=== PATIENT | female | born 1970 | race Caucasian/White ===

== ENCOUNTER 2019-05-10 16:18 | Emergency (ER) | payer MEDICAID, SELFPAY | END 2019-05-10 18:58 | disposition home or self-care (01) | PROVIDERS: Family Provider Family Medicine | DX: G89.29 Other chronic pain (principal); R10.9 Unspecified abdominal pain; M54.9 Dorsalgia, unspecified; F11.10 Opioid abuse, uncomplicated; I11.0 Hypertensive heart disease with heart failure; I50.9 Heart failure, unspecified; J43.9 Emphysema, unspecified; E11.40 Type 2 diabetes mellitus with diabetic neuropathy, unspecified; E11.21 Type 2 diabetes mellitus with diabetic nephropathy; F17.210 Nicotine dependence, cigarettes, uncomplicated; Z86.711 Personal history of pulmonary embolism | CPT/HCPCS: 36415; 71045; 74176; 80053; 81003; 83690; 83880; 84703; 85025; 96361; 96374; 96375; 99285; J1885; J2405 ==

== ENCOUNTER 2019-05-21 15:40 | Emergency (ER) | payer MEDICAID, SELFPAY ==
[2019-05-21 15:42] VITALS: BP 160/99; PULSE 75; RESP 20; TEMP 36.6; O2SAT 96; BMI 42.9
--- NOTE | 2019-05-21 19:51 | W.ED.FEMALGU ---
HPI - Female Genitourinary General: Chief complaint: Urogenital-Female Stated complaint: poss vag bleeding Time Seen by Provider: 05/21/19 19:51 History of Present Illness: HPI Narrative: Patient is a 49-year-old female comes to the knee for bleeding. Patient unsure if vaginal or from urine. Patient has a past medical history of COPD, Hepatitis C and heart failure. This started today. Denies any vaginal itching, dryness, other discharge or irritation. Denies any constipation, diarrhea or blood in the stools. Denies any frequency, burning sensation or problems urinating. Patient says she does have some right lower pelvic pain that started within the last week. Patient has chronic cough and shortness of breath due to COPD. She denies any change in shortness of breath or cough. Denies any fever, chills, chest pain. Patient states she is past due for a Pap smear and was supposed to get one 2 years ago. Review of Systems General: Reports: 10 or more systems reviewed and unremarkable except in HPI and below PFSH ED PFSH: Statuses (acute, chronic, etc) shown below reflect problem list status as previously entered and may not be historically accurate Medical History Bipolar disorder, current episode mixed, severe, with psychotic features (Acute) Chronic hepatitis C without hepatic coma (Acute) Chronic hypercapnic respiratory failure (Acute) COPD (chronic obstructive pulmonary disease) (Acute) Diastolic CHF (Acute) Gastritis (Acute) History of pulmonary embolism (Acute) Iron deficiency anemia (Acute) Mitral valve insufficiency (Acute) Orthopnea (Acute) BINA (obstructive sleep apnea) (Acute) Family History Other CAD (coronary artery disease) Diabetes Social History Smoking and tobacco status: current every day smoker cigarettes Alcohol intake: former Year of sobriety/quit date alcohol: 3 Physical Exam Narrative: EXAM NARRATIVE: Patient denied getting a pelvic inspection and pap smear. She stated she would get it performed at referred inspector mechanical. Const: COMMON NORMALS: oriented x3 HENMT: COMMON NORMALS: normocephalic HEAD & SCALP: normocephalic MOUTH: oral and palatal mucosa normal THROAT: posterior oropharynx normal and uvula midline Neck/C-Spine: COMMON NORMALS: supple GENERAL: Yes normal visual inspection Resp: COMMON NORMALS: normal respiratory effort, no retractions, no use of accessory muscles and clear to auscultation bilaterally AUSCULTATION: clear to auscultation bilaterally and diminished lung sounds (Bases) bilateral Cardio: COMMON NORMALS: regular rate, regular rhythm, S1 normal heart sound, S2 normal heart sound, no gallops, no clicks, no murmurs and peripheral pulses 2+ throughout RATE: regular rate RHYTHM: regular rhythm HEART SOUNDS: S1 normal and S2 normal PERIPHERAL PULSES: pulses 2+ throughout GI: COMMON NORMALS: normal to inspection, nondistended, normoactive bowel sounds, soft to palpation and no masses INSPECTION: Yes central obesity PALPATION: Yes soft and Yes tender (Right Lower pelvic ) Details: other : COMMON NORMALS: Yes no CVA tenderness BLADDER/KIDNEY EXAM: Yes no CVA tenderness Back/Pelvis: COMMON NORMALS: no CVA tenderness Extremity: COMMON NORMALS: normal to inspection Neuro: COMMON NORMALS: oriented x3 Skin: COMMON NORMALS: no rashes or lesions noted GENERAL SKIN EXAM: no rashes or lesions noted Course ED course: Ultrasound of pelvis transvaginally performed and report shows mildly prominent endometrial stripe measuring 5.8 mm. The rest of the exam was unremarkable. Vital Signs: Vital signs: Vital Signs Temperature 98.3 F 05/21/19 21:37 Pulse Rate 74 05/22/19 00:16 Respiratory Rate 18 05/22/19 00:16 Blood Pressure 159/108 05/22/19 00:16 Pulse Oximetry 92 05/22/19 00:16 MDM - Female Lab Data: Attestation: I reviewed the patient's lab results. Labs: Lab Results 05/21/19 05/21/19 05/21/19 Range/Units 20:10 20:10 20:15 WBC 10.0 (4.0-10.0) 10^3/ uL RBC 4.91 (4.1-5.3) 10^6/u L Hgb 15.9 H (11.5-15.3) g/dL Hct 49.1 H (37.0-47.0) % MCV 100.0 H (81-99) fL MCH 32.4 (28.0-34.0) pg MCHC 32.4 (30.0-36.0) g/dL RDW 14.3 (12.1-15.1) % Plt Count 295 (130-400) 10^3/c mm MPV 10.5 H (7.4-10.4) fL Neut % (Auto) 70.5 % Lymph % (Auto) 16.9 % [place] % (Auto) 9.8 % Eos % (Auto) 1.0 % Baso % (Auto) 0.8 % Neut # (Auto) 7.0 (1.8-7.7) 10^3/u L Lymph # (Auto) 1.7 (0.8-4.8) 10^3/u L [place] # (Auto) 1.0 H (0.2-0.9) 10^3/u L Eos # (Auto) 0.1 (0.0-0.8) 10^3/u L Baso # (Auto) 0.1 (0.0-0.1) 10^3/u L Nucleated RBC % (a uto) 0 % Nucleated RBCs # 0.0 /100WBC Sodium 132 L (136-145) mmol/L Potassium 4.4 (3.5-5.1) mmol/L Chloride 91 L (98-107) mmol/L Carbon Dioxide 31 H (22-29) mmol/L Anion Gap 14.4 (5-19) BUN 27 H (6-20) mg/dL Creatinine 1.5 H (0.5-0.9) mg/dL GFR Calculation 36.9 L (90-130) mL/min Glucose 84 (74-109) mg/dL Calcium 10.2 H (8.6-10.0) mg/Dl Total Bilirubin 0.4 (0.15-1.2) mg/dL AST 29 (0-32) U/L ALT 19 (0-33) U/L Alkaline Phosphata se 207 H (35-105) IU/L Total Protein 7.8 (6.6-8.7) g/dL Albumin 4.1 (3.5-5.2) g/dL Globulin 3.7 (1.3-4.6) g/dL Urine Color Yellow (Yellow) Urine Appearance Cloudy (CLEAR) Urine pH 6 (5-7) Ur Specific Gravit y 1.010 (1.005-1.030) Urine Protein Neg (Negative) Urine Glucose (UA) Norm (Normal) Urine Ketones Negative (Negative) Urine Occult Blood 2+ H (Negative) Urine Nitrate Negative (Negative) Urine Bilirubin Neg (NEGATIVE) Urine Urobilinogen Norm (Negative) mg/dL Ur Leukocyte Luiza ase Negative (Negative) Urine RBC >100 H (0-2) /hpf Urine WBC 0-4 H (0-5) /hpf Ur Squamous Epith Cells 0-4 H (0-5) Urine Bacteria 1+ H (NONE) Discharge Plan Discharge Patient Disposition: Home, Self-Care Clinical Impression: Post-menopausal bleeding Condition: Stable Prescriptions: No Action gabapentin 300 mg capsule 300 mg PO TID RF: 0 albuterol sulfate 2.5 mg /3 mL (0.083 %) solution for nebulization 2.5 mg INHALATION Q4H PRNRF: 0 Eliquis 5 mg tablet 5 mg PO BID RF: 0 (DME) pen needle, diabetic [Comfort EZ Pen [place]] 32 gauge x 1/4 needle See Rx Instructions .ROUTE .MEDSUPPLY Qty: 50 RF: 0 albuterol sulfate [ProAir HFA] 90 mcg/actuation HFA aerosol inhaler 2 puff INHALATION Q6H PRNRF: 0 Combivent Respimat 20-100 mcg/actuation mist 2 puff INHALATION BID RF: 0 isosorbide mononitrate 30 mg tablet extended release 24 hr 30 mg PO QAM RF: 0 nitroglycerin [Nitrostat] 0.4 mg tablet, sublingual 0.4 mg SUBLINGUAL Q5M PRNRF: 0 potassium chloride 20 mEq tablet extended release 20 meq PO ONCE RF: 0 pantoprazole [Protonix] 40 mg tablet,delayed release (DR/EC) 40 mg PO ONCE RF: 0 prazosin 1 mg capsule 1 mg PO ONCE RF: 0 quetiapine [Seroquel] 300 mg tablet 300 mg PO ONCE RF: 0 acetaminophen [Tylenol] 325 mg capsule 325 mg PO Q6H PRNRF: 0 clonazepam [Klonopin] 0.5 mg tablet 0.5 mg PO BID RF: 0 duloxetine PO RF: 0 furosemide [Lasix] 40 mg tablet 60 mg PO DIRECTED RF: 0 azithromycin 250 mg tablet 250 mg PO ONCE RF: 0 budesonide [Pulmicort] 0.5 mg/2 mL suspension for nebulization 0.5 mg INHALATION BID RF: 0 ipratropium-albuterol 0.5 mg-3 mg(2.5 mg base)/3 mL solution for nebulization 3 ml INHALATION 6XD RF: 0 atenolol 50 mg tablet 50 mg PO BID RF: 0 Victoza 2-Bijan 0.6 mg/0.1 mL (18 mg/3 mL) pen injector 1.8 mg SUBCUT Q24H RF: 0 spironolactone 50 mg tablet 50 mg PO QAM RF: 0 Discharge Orders: Discharge Order (Routine); Ordered 05/21/19 Ordered By: Ike Ochoa Referrals: Liz Marcos DO [Primary Care Provider] - Discharge Diet: Regular Discharge Activity: Resume usual activity Activity Restrictions/Additional Instructions: Follow-up with her primary care provider in 7 days for reevaluation. I am putting in a referral to gynecology for you. Ultrasound results showed moderate thickening of endometrium measured at 5.88 mm. In [facility] inspector mechanical office should be calling you in the next few days to set up an appointment. Take [id number] Tylenol or ibuprofen as needed for pain. If bleeding worsens please come back to the ED for reevaluation. Discharge Date/Time: 05/22/19 00:17 Coding Level of Care Code ED Paediatric Physiotherapist for Abdiel Stone
--- NOTE | 2019-05-21 20:17 | USR_ITS ---
PROCEDURE INFORMATION: Exam: US Pelvis Complete, Transabdominal Exam date and time: 05/21/2019 9:03 PM Age: 49 years old Clinical indication: Other: Post menopausal b; Eeding p ain; Additional info: Vaginal bleeding and right pelvic pain TECHNIQUE: Imaging protocol: Real-time transabdominal pelvic ultrasound with image documentation. Complete exam. COMPARISON: CT Abdomen/Pelvis Renal [id number] 05/10/2019 5:48 PM FINDINGS: Uterus/cervix: Uterus measures 7.0 x 3.8 x 4.9 cm. The endometrial stripe measures 5.8 mm. Uterus is unremarkable in appearance. Right adnexa: The right ovary measures 1.6 x 1.4 x 1.7 cm. The ovary is unremarkable in appearance. Left adnexa: The left ovary is 1.4 x 1.6 x 1.2 cm. The ovary is unremarkable in appearance. Free fluid: No free fluid in the cul-de-sac. Bladder: Normal. Other findings: No adnexal mass or fluid collection. US/US transvaginal [id number] IMPRESSION: Mildly prominent endometrial stripe. Otherwise unremarkable exam.
[2019-05-21 20:18] LABS: Basophils # 0.1 10^3/uL (0.0-0.1); Basophils % 0.8 %; Eosinophils # 0.1 10^3/uL (0.0-0.8); Hematocrit 49.1 % (37.0-47.0); Hemoglobin 15.9 g/dL (11.5-15.3); Lymphocytes # 1.7 10^3/uL (0.8-4.8); Lymphocytes % 16.9 %; Mean Corpuscular HGB Conc 32.4 g/dL (30.0-36.0); Mean Corpuscular Hemoglobin 32.4 pg (28.0-34.0); Mean Platelet Volume 10.5 fL (7.4-10.4); Monocytes % 9.8 %; Neutrophils % 70.5 %; Nucleated Red Blood Cells % 0 %; Platelet Count 295 10^3/cmm (130-400); Red Blood Count 4.91 10^6/uL (4.1-5.3); Red Cell Distribution Width 14.3 % (12.1-15.1)
[2019-05-21] MEDS: ondansetron 2 mg/ML SDV 2 mL 4 MG IM (20:34)
[2019-05-21 20:35] VITALS: RESP 18; O2SAT 96
[2019-05-21] MEDS: morphine 4 mg/mL SDV 1 mL IM (20:35)
[2019-05-21 20:37] LABS: Alanine Aminotransferase 19 U/L (0-33); Albumin Level 4.1 g/dL (3.5-5.2); Alkaline Phosphatase 207 IU/L (35-105); Anion Gap 14.4 (5-19); Aspartate Amino Transferase 29 U/L (0-32); Blood Urea Nitrogen 27 mg/dL (6-20); Calcium 10.2 mg/Dl (8.6-10.0); Carbon Dioxide 31 mmol/L (22-29); Chloride 91 mmol/L (98-107); Globulin 3.7 g/dL (1.3-4.6); Glomerular Filtration Rate 36.9 mL/min (90-130); Glucose 84 mg/dL (74-109); Potassium 4.4 mmol/L (3.5-5.1); Sodium 132 mmol/L (136-145); Total Bilirubin 0.4 mg/dL (0.15-1.2); Total Protein 7.8 g/dL (6.6-8.7)
[2019-05-21 21:16] LABS: Add Urine Microscopic? YES; Bilirubin Urine Neg (NEGATIVE); Blood Urine 2+ (Negative); Glucose Urine UA Norm (Normal); Ketones Urine Negative (Negative); Leukocyte Esterase Urine Negative (Negative); Nitrate Urine Negative (Negative); Protein Urine Neg (Negative); Urine Appearance Cloudy (CLEAR); Urine Color Yellow (Yellow); Urobilinogen Urine Norm (Negative); pH Urine 6 (5-7)
[2019-05-21 21:17] LABS: Add Urine Culture? Yes; Bacteria Urine 1+; RBC Urine >100 /hpf (0-2); Squamous Epithelial Cell Urine 0-4 (0-5); WBC Urine 0-4 /hpf (0-5)
[2019-05-21 21:37] VITALS: BP 134/93; PULSE 70; RESP 16; TEMP 36.8; O2SAT 95
--- NOTE | 2019-05-22 00:01 | PC.NURSE ---
States she is ready to go home
[2019-05-22 00:10] VITALS: RESP 18
[2019-05-22] MEDS: morphine 4 mg/mL SDV 1 mL IM (00:10)
[2019-05-22 00:16] VITALS: BP 159/108; PULSE 74; RESP 18; O2SAT 92
--- NOTE | 2019-05-24 10:00 | DCPLANNER ---
janitorial manager had message to schedule a follow up appointment for [facility] with [facility]. Guillermo mullins called the clinic, spoke with Allie, gave clinic patients information. janitorial manager was told that patients information would be printed and reviewed. Clinic will call rn field case manager and patient with appointment information.
--- NOTE | 2019-05-25 14:44 | DCPLANNER ---
A follow up appointment has been scheduled for July with Dr. Chowdary at [facility]. Clinic will contact patient with appointment information.
--- NOTE | 2019-08-06 09:16 | DCPLANNER ---
[facility]ointment [facility] rescheduled.
== END 2019-05-22 00:17 | disposition home or self-care (01) ==
PROVIDERS: Emergency Provider Physician Assistant; Family Provider Family Medicine; PCP Family Medicine
DX: N95.0 Postmenopausal bleeding (principal); Z79.01 Long term (current) use of anticoagulants; Z86.19 Personal history of other infectious and parasitic diseases; J44.9 Chronic obstructive pulmonary disease, unspecified; I50.30 Unspecified diastolic (congestive) heart failure; F17.210 Nicotine dependence, cigarettes, uncomplicated
CPT/HCPCS: 76830; 76856; 80053; 81003; 85025; 87086; 96372; 99282; J2270; J2405

== ENCOUNTER → 2019-05-24 15:50 | Outpatient (BNVA) | payer MEDICAID, SELFPAY | PROVIDERS: Family Provider Family Medicine; PCP Family Medicine; Visit Provider Family Medicine | DX: J44.9 Chronic obstructive pulmonary disease, unspecified (principal); N18.3 Chronic kidney disease, stage 3 (moderate); F17.219 Nicotine dependence, cigarettes, with unspecified nicotine-induced disorders; N95.0 Postmenopausal bleeding | CPT/HCPCS: 80048 ==

== ENCOUNTER 2019-05-25 18:36 | Emergency (ER) | payer MEDICAID, SELFPAY ==
[2019-05-25 19:19] VITALS: BP 177/113; PULSE 88; RESP 24; O2SAT 94; BMI 43.7
--- NOTE | 2019-05-25 19:43 | W.ED.GENADLT ---
HPI - General Adult General: Chief complaint: Abdominal Pain Stated complaint: NAUSEA/LOW BACK PAIN Time Seen by Provider: 05/25/19 19:29 History of Present Illness: HPI narrative: Patient complains of leg pain from hips down the thighs. Complains of abdominal pain. Did see Dr. Beltran yesterday. Dr. Beltran she said told her that she is one-point away from dialysis. Patient does have appointment with TECHNOLOGY SALES REPRESENTATIVE to evaluate her bleeding. She says her bleeding is really not that bad. Were concerned about the leg pain. Has a history of back pain degenerative disc disease also. MD complaint: leg and back pain Onset (ago): hour(s) Location: back and lower extremity Radiation: back and extremity Severity: severe Severity scale (1-10): 7 Quality: burning PFSH ED PFSH: Statuses (acute, chronic, etc) shown below reflect problem list status as previously entered and may not be historically accurate Social History Smoking and tobacco status: current every day smoker cigarettes Alcohol intake: former Year of sobriety/quit date alcohol: 3 Course Vital Signs: Vital signs: Vital Signs Pulse Rate 88 05/25/19 19:19 Respiratory Rate 16 05/25/19 21:08 Blood Pressure 177/113 05/25/19 19:19 Pulse Oximetry 95 05/25/19 21:08 MDM - General Adult MDM Narrative: Medical decision making narrative: Patient is feeling much better than when he further testing says she is ready to go home we will follow-up Dr. Beltran as directed Lab Data: Labs: Lab Results 05/25/19 05/25/19 Range/Units 19:49 19:49 WBC 10.6 H (4.0-10.0) 10^3/ uL RBC 5.04 (4.1-5.3) 10^6/u L Hgb 16.3 H (11.5-15.3) g/dL Hct 49.5 H (37.0-47.0) % MCV 98.2 (81-99) fL MCH 32.3 (28.0-34.0) pg MCHC 32.9 (30.0-36.0) g/dL RDW 14.0 (12.1-15.1) % Plt Count 305 (130-400) 10^3/c mm MPV 11.1 H (7.4-10.4) fL Neut % (Auto) 76.5 % Lymph % (Auto) 13.1 % [place] % (Auto) 8.6 % Eos % (Auto) 0.6 % Baso % (Auto) 0.6 % Neut # (Auto) 8.2 H (1.8-7.7) 10^3/u L Lymph # (Auto) 1.4 (0.8-4.8) 10^3/u L [place] # (Auto) 0.9 (0.2-0.9) 10^3/u L Eos # (Auto) 0.1 (0.0-0.8) 10^3/u L Baso # (Auto) 0.1 (0.0-0.1) 10^3/u L Nucleated RBC % (a uto) 0 % Nucleated RBCs # 0.0 /100WBC Sodium 136 (136-145) mmol/L Potassium 4.0 (3.5-5.1) mmol/L Chloride 92 L (98-107) mmol/L Carbon Dioxide 29 (22-29) mmol/L Anion Gap 19.0 (5-19) BUN 21 H (6-20) mg/dL Creatinine 1.8 H (0.5-0.9) mg/dL GFR Calculation 29.9 L (90-130) mL/min Glucose 81 (74-109) mg/dL Calcium 10.8 H (8.6-10.0) mg/Dl Total Bilirubin 0.8 (0.15-1.2) mg/dL AST 32 (0-32) U/L ALT 19 (0-33) U/L Alkaline Phosphata se 206 H (35-105) IU/L Total Protein 8.3 (6.6-8.7) g/dL Albumin 4.5 (3.5-5.2) g/dL Globulin 3.8 (1.3-4.6) g/dL Lipase 45 (13-60) U/L Discharge Plan Discharge Patient Disposition: Home, Self-Care Clinical Impression: Gastroenteritis Condition: Stable Prescriptions: No Action potassium chloride 20 mEq tablet extended release 20 meq PO ONCE RF: 0 albuterol sulfate 2.5 mg /3 mL (0.083 %) solution for nebulization 2.5 mg INHALATION Q4H PRNRF: 0 (DME) pen needle, diabetic [Comfort EZ Pen [place]] 32 gauge x 1/4 needle See Rx Instructions .ROUTE .MEDSUPPLY Qty: 50 RF: 0 albuterol sulfate [ProAir HFA] 90 mcg/actuation HFA aerosol inhaler 2 puff INHALATION Q6H PRNRF: 0 isosorbide mononitrate 30 mg tablet extended release 24 hr 30 mg PO QAM RF: 0 nitroglycerin [Nitrostat] 0.4 mg tablet, sublingual 0.4 mg SUBLINGUAL Q5M PRNRF: 0 potassium chloride 20 mEq tablet extended release 20 meq PO ONCE RF: 0 pantoprazole [Protonix] 40 mg tablet,delayed release (DR/EC) 40 mg PO ONCE RF: 0 prazosin 1 mg capsule 1 mg PO ONCE RF: 0 quetiapine [Seroquel] 300 mg tablet 300 mg PO ONCE RF: 0 acetaminophen [Tylenol] 325 mg capsule 325 mg PO Q6H PRNRF: 0 clonazepam [Klonopin] 0.5 mg tablet 0.5 mg PO BID RF: 0 duloxetine PO RF: 0 azithromycin 250 mg tablet 250 mg PO ONCE RF: 0 budesonide [Pulmicort] 0.5 mg/2 mL suspension for nebulization 0.5 mg INHALATION BID RF: 0 ipratropium-albuterol 0.5 mg-3 mg(2.5 mg base)/3 mL solution for nebulization 3 ml INHALATION 6XD RF: 0 furosemide [Lasix] 40 mg tablet 80 mg PO DIRECTED RF: 0 atenolol 50 mg tablet 50 mg PO BID RF: 0 Victoza 2-Bijan 0.6 mg/0.1 mL (18 mg/3 mL) pen injector 1.8 mg SUBCUT Q24H RF: 0 spironolactone 50 mg tablet 50 mg PO QAM RF: 0 gabapentin 300 mg capsule 300 mg PO TID Qty: 90 RF: 0 Eliquis 5 mg tablet 5 mg PO BID Qty: 60 RF: 0 Discharge Orders: Discharge Order (Routine); Ordered 05/25/19 Ordered By: Jose Ramon Langley Referrals: Liz Marcos DO [Primary Care Provider] - Discharge Diet: Advance as tolerated Discharge Activity: Increase activity as tolerated Patient Instructions: Gastroenteritis (ED) Activity Restrictions/Additional Instructions: Follow-up with medical provider as directed. Take medications as prescribed. Return to the ER or your medical provider if condition worsens. Read and understand discharge instructions. Coding Level of Care Code ED Honest [employer] Crew Member for Abdiel Stone
[2019-05-25] MEDS: HYDROcodone-acetaminophen 7.5-325 mg Tablet 1 TAB PO (20:04)
[2019-05-25 20:13] LABS: Basophils # 0.1 10^3/uL (0.0-0.1); Basophils % 0.6 %; Eosinophils # 0.1 10^3/uL (0.0-0.8); Eosinophils % 0.6 %; Hematocrit 49.5 % (37.0-47.0); Hemoglobin 16.3 g/dL (11.5-15.3); Lymphocytes # 1.4 10^3/uL (0.8-4.8); Lymphocytes % 13.1 %; Mean Corpuscular HGB Conc 32.9 g/dL (30.0-36.0); Mean Corpuscular Hemoglobin 32.3 pg (28.0-34.0); Mean Corpuscular Volume 98.2 fL (81-99); Mean Platelet Volume 11.1 fL (7.4-10.4); Monocytes # 0.9 10^3/uL (0.2-0.9); Monocytes % 8.6 %; Neutrophils # 8.2 10^3/uL (1.8-7.7); Neutrophils % 76.5 %; Nucleated Red Blood Cells % 0 %; Platelet Count 305 10^3/cmm (130-400); Red Blood Count 5.04 10^6/uL (4.1-5.3); White Blood Count 10.6 10^3/uL (4.0-10.0)
[2019-05-25 20:29] LABS: Alanine Aminotransferase 19 U/L (0-33); Albumin Level 4.5 g/dL (3.5-5.2); Alkaline Phosphatase 206 IU/L (35-105); Aspartate Amino Transferase 32 U/L (0-32); Blood Urea Nitrogen 21 mg/dL (6-20); Calcium 10.8 mg/Dl (8.6-10.0); Carbon Dioxide 29 mmol/L (22-29); Chloride 92 mmol/L (98-107); Globulin 3.8 g/dL (1.3-4.6); Glomerular Filtration Rate 29.9 mL/min (90-130); Glucose 81 mg/dL (74-109); Lipase 45 U/L (13-60); Sodium 136 mmol/L (136-145); Total Bilirubin 0.8 mg/dL (0.15-1.2); Total Protein 8.3 g/dL (6.6-8.7)
[2019-05-25 21:08] VITALS: RESP 16; O2SAT 95
[2019-05-25] MEDS: ondansetron 2 mg/ML SDV 2 mL 4 MG IM (21:08)
[2019-05-25] MEDS: morphine 4 mg/mL SDV 1 mL IM (21:08)
[2019-05-26 00:06] VITALS: BP 162/97; PULSE 79; RESP 18; O2SAT 97
== END 2019-05-25 22:47 | disposition home or self-care (01) ==
PROVIDERS: Nurse Practitioner Family; Emergency Provider Emergency Medicine; Family Provider Family Medicine; PCP Family Medicine
DX: K52.9 Noninfective gastroenteritis and colitis, unspecified (principal); Z79.01 Long term (current) use of anticoagulants; F17.210 Nicotine dependence, cigarettes, uncomplicated
CPT/HCPCS: 36415; 80053; 83690; 85025; 96372; 99281; J2270; J2405

== ENCOUNTER → 2019-06-22 15:00 | Outpatient (BNVA) | payer MEDICAID, SELFPAY | PROVIDERS: Family Provider Family Medicine; PCP Family Medicine; Visit Provider Nurse Practitioner | DX: F31.62 Bipolar disorder, current episode mixed, moderate (principal); F43.12 Post-traumatic stress disorder, chronic; F41.0 Panic disorder [episodic paroxysmal anxiety] | CPT/HCPCS: 99213 ==

== ENCOUNTER 2019-06-27 16:11 | Emergency (ER) | payer MEDICAID, SELFPAY ==
[2019-06-27 16:17] VITALS: BP 134/102; PULSE 85; RESP 18; TEMP 36.9; O2SAT 96; BMI 44.6
--- NOTE | 2019-06-27 16:32 | ED_ITS ---
Entered by Mehnaz Treadwell, acting as scribe for Jazz Schuster MD, [facility] Jun 27, 2019 16:11 HPI - Back Pain/Injury General: Chief Complaint: Back Pain/Injury Stated Complaint: Hip pain Time Seen by Provider: 06/27/19 16:31 Source: patient, family and RN notes reviewed Mode of arrival: ambulatory Limitations: no limitations History of Present Illness: HPI Narrative: 49 yo female presents to ED with complaints of R hip hurt. The patient states there is something wrong with her hip, that she can hardly stand or walk on it. She said she knows it is not life threatening and she shouldn't be in the ER but she just can't handle the pain anymore. No burning with urination. She said she has taken Tylenol along with alternating ice and heat but has had no relief. She said it feels her hip is grinding when she walks. MD elicited complaint: other (R hip pain) Pertinent past history: prior back pain Onset (ago): week(s) (3) Timing: intermittent and progressively worsening Severity: moderate Similar Symptoms Previously: Yes Quality: sharp Location: right lower back (R hip) Radiation: right upper leg Exacerbating factors: movement Relieving factors: immobilization and medication Context: unknown Associated symptoms: Reports difficulty walking; Deny abdominal pain, chills, dysuria, fever(s), nausea, urinary urgency or vomiting Treatments prior to arrival: cold therapy, heat therapy and acetaminophen Work related injury: No Review of Systems General: Reports: 10 or more systems reviewed and unremarkable except in HPI and below Const: Denies: fever, chills or body aches Eyes: Reports: blind spots; Denies: change in vision or blurry vision ENMT: Denies: throat pain, enlarged tonsils, painful swallowing, hoarseness, mouth pain or swelling of lips/tongue Card: Reports: chest pain; Denies: palpitations, irregular heart rhythm, edema or swelling of feet/ankles Resp: Denies: shortness of breath, productive cough or non-productive cough GI: Denies: abdominal pain, nausea or vomiting : Denies: flank pain, difficulty urinating, painful urination, urinary frequency, urinary urgency or urinary hesitancy Musc: Denies: neck pain, back pain or extremity swelling Skin/Breast: Denies: rash, itching or redness Neuro: Reports: difficulty walking Endo: Denies: excessive urination, excessive thirst or tired all the time PFSH ED PFSH: Medical History (Updated 06/27/19 @ 19:06 by Jazz Schuster MD, [facility] Bipolar disorder, current episode mixed, moderate Bipolar disorder, current episode mixed, severe, with psychotic features Chronic hepatitis C without hepatic coma Chronic hypercapnic respiratory failure Chronic kidney disease (CKD), stage III (moderate) Diastolic CHF Gastritis History of pulmonary embolism Iron deficiency anemia Mitral valve insufficiency Orthopnea BINA (obstructive sleep apnea) Other stimulant dependence, in remission Panic disorder [episodic paroxysmal anxiety] Post-traumatic stress disorder, chronic Severe chronic obstructive pulmonary disease Surgical History H/O section H/O foot surgery H/O knee surgery H/O neck surgery H/O tracheostomy Social History (Updated 06/22/19 @ 15:11 by Georgia Baca LPN) Smoking and tobacco status: current every day smoker cigarettes Packs smoked per day: 1 Smoking risk assessment/counseling performed?: Yes Tobacco counseling given: counseling >3 minutes Alcohol intake: former Year of sobriety/quit date alcohol: 3 Physical Exam Const: COMMON NORMALS: no apparent distress, average body habitus, oriented x3, no limitations, healthy appearing, alert and well nourished HENMT: COMMON NORMALS: normocephalic, head/scalp atraumatic and moist oral mucous membranes HEAD & SCALP: normocephalic and atraumatic Eye: COMMON NORMALS: PERRL, EOMs intact bilaterally, conjunctivae normal and no scleral icterus CONJUNCTIVA: Yes conjunctivae normal PUPIL: Yes PERRL Neck/C-Spine: COMMON NORMALS: full ROM, supple, no meningeal signs, no JVD and no carotid bruits Chest: COMMONS NORMALS: inspection of chest normal and palpation of chest normal Resp: COMMON NORMALS: normal respiratory effort, no retractions, no use of accessory muscles, clear to auscultation bilaterally and percussion normal AUSCULTATION: clear to auscultation bilaterally PERCUSSION: percussion normal Cardio: COMMON NORMALS: no JVD, regular rate, regular rhythm, S1 normal heart sound, S2 normal heart sound, no gallops, no clicks, no murmurs, no rub and peripheral pulses 2+ throughout RATE: regular rate RHYTHM: regular rhythm HEART SOUNDS: S1 normal and S2 normal PERIPHERAL PULSES: pulses 2+ throughout GI: COMMON NORMALS: normal to inspection, nondistended, normoactive bowel sounds, soft to palpation, non-tender, no hepatosplenomegaly, no masses and no bruits PALPATION: Yes soft and Yes no hepatosplenomegaly : COMMON NORMALS: Yes no CVA tenderness BLADDER/KIDNEY EXAM: Yes no CVA tenderness Back/Pelvis: COMMON NORMALS: no CVA tenderness Extremity: COMMON NORMALS: normal to inspection, normal capillary refill, no calf tenderness and no pedal edema RIGHT LOWER EXTREMITY: Yes hip joint Right hip: Yes palpation (mild tenderness in the hip joint and SI joint) and Yes upper leg Neuro: COMMON NORMALS: oriented x3 SENSORIUM/ORIENTATION: Yes alert MENINGEAL SIGNS: Yes no meningeal signs Skin: COMMON NORMALS: no rashes or lesions noted, no wounds, skin turgor normal, no jaundice, no petechiae and no mottling GENERAL SKIN EXAM: no rashes or lesions noted and turgor normal Course Reevaluation(s): Reevaluation #1: Pain much better. She feels well enough for discharge. Discussed her imaging findings with her. She may benefit from evaluation by an orthopedic surgeon. She voiced understanding and is in agreement with the plan. We will put in a referral to case management to schedule an appointment with orthopedic surgery. Time: 18:30 Vital Signs: Vital signs: Vital Signs Temperature 98.5 F 06/27/19 16:17 Pulse Rate 73 06/27/19 19:23 Respiratory Rate 16 06/27/19 19:23 Blood Pressure 111/82 06/27/19 19:23 Pulse Oximetry 94 06/27/19 19:23 MDM - Back Pain/Injury MDM Narrative: Medical decision making narrative: 49-year-old female patient who presents with right hip pain. Examination is unremarkable. Hip x-ray unremarkable. Obtained relief following intramuscular morphine and Norflex. She will be referred to orthopedic surgery for further evaluation. Medical Records: Attestation: I reviewed the patient's medical records. Lab Data: Attestation: I reviewed the patient's lab results. Labs: Lab Results 06/27/19 Range/Units 17:30 Urine Color Yellow (Yellow) Urine Appearance Sl hazy (CLEAR) Urine pH 7 (5-7) Ur Specific Gravit y 1.005 (1.005-1.030) Urine Protein Neg (Negative) Urine Glucose (UA) Norm (Normal) Urine Ketones Negative (Negative) Urine Occult Blood Neg (Negative) Urine Nitrate Negative (Negative) Urine Bilirubin Neg (NEGATIVE) Urine Urobilinogen Norm (Negative) mg/dL Ur Leukocyte Luiza ase Negative (Negative) Urine RBC None (0-2) /hpf Urine WBC None (0-5) /hpf Ur Squamous Epith Cells 10-15 H (0-5) Urine Bacteria Trace (NONE) Urine Mucus Trace Discharge Plan Discharge Patient Disposition: Home, Self-Care Clinical Impression: Acute pain of right hip Condition: Stable Prescriptions: Continued clonazepam 1 mg tablet 1 mg PO BID PRN (Reason: anxiety) Qty: 60 RF: 2 duloxetine [Cymbalta] 60 mg capsule,delayed release(DR/EC) 60 mg PO DAILY Qty: 30 RF: 2 albuterol sulfate 2.5 mg /3 mL (0.083 %) solution for nebulization 2.5 mg INHALATION Q4H PRN (Reason: Shortness Of Breath) RF: 0 albuterol sulfate [ProAir HFA] 90 mcg/actuation HFA aerosol inhaler 2 puff INHALATION Q6H PRN (Reason: Shortness Of Breath) RF: 0 isosorbide mononitrate 30 mg tablet extended release 24 hr 30 mg PO QAM RF: 0 nitroglycerin [Nitrostat] 0.4 mg tablet, sublingual 0.4 mg SUBLINGUAL Q5M PRN (Reason: Chest Pain) RF: 0 potassium chloride 20 mEq tablet extended release 20 meq PO DAILY RF: 0 pantoprazole [Protonix] 40 mg tablet,delayed release (DR/EC) 40 mg PO BID RF: 0 acetaminophen [Tylenol] 325 mg capsule 325 mg PO Q6H PRN (Reason: Pain) RF: 0 azithromycin 250 mg tablet 250 mg PO DAILY RF: 0 budesonide [Pulmicort] 0.5 mg/2 mL suspension for nebulization 0.5 mg INHALATION BID RF: 0 ipratropium-albuterol 0.5 mg-3 mg(2.5 mg base)/3 mL solution for nebulization 3 ml INHALATION 6XD RF: 0 Victoza 2-Bijan 0.6 mg/0.1 mL (18 mg/3 mL) pen injector 1.8 mg SUBCUT Q24H Qty: 6 RF: 0 atenolol 50 mg tablet 50 mg PO BID Qty: 60 RF: 0 spironolactone 50 mg tablet 50 mg PO QAM Qty: 30 RF: 0 gabapentin 300 mg capsule 300 mg PO TID Qty: 90 RF: 0 Eliquis 5 mg tablet 5 mg PO BID Qty: 60 RF: 0 Lasix 40 mg tablet See Rx Instructions .ROUTE .COMPLEX RF: 0 prazosin 1 mg capsule 1 mg PO BEDTIME RF: 0 Seroquel XR 300 mg tablet extended release 24 hr 300 mg PO BEDTIME RF: 0 Discharge Orders: Discharge Order (Routine); Ordered 06/27/19 Ordered By: Jazz Schuster Referrals: Liz Marcos DO [Primary Care Provider] - 4-7 days Patient Instructions: Arthralgia (ED) Activity Restrictions/Additional Instructions: Return for any new or worsening symptoms. Follow-up with your primary care provider within 1 week. You will be contacted by case management for referral to orthopedic surgery for further evaluation of your hip pain. Discharge Date/Time: 06/27/19 19:25 Coding Level of Care Code ED Latex Thread Machine Operator for Chg Fwd Exam Comprehensive The documentation recorded by the Mile ernandez Valerie R, accurately reflects the service I personally performed and the decisions made by Landen nunez Adegoke I, MD, [facility] Jun 27, 2019 16:11
--- NOTE | 2019-06-27 16:45 | XR_ITS ---
WS: [id number] XR hip RT 2-3V wo/w pel* [id number] REASON FOR EXAM: hip pain/ SI joint pain FINDINGS: Degenerate changes of the right hip with small cystic changes in the head of the femur. And loss of the acetabular space. XR/XR hip RT 2-3V wo/w pel* [id number] IMPRESSION: Osteoarthritic changes of the right hip.
[2019-06-27] MEDS: orphenadrine 30 mg/mL Inj 2 mL 60 MG IM (17:37)
[2019-06-27 17:59] VITALS: RESP 18
[2019-06-27] MEDS: morphine 4 mg/mL SDV 1 mL 10 MG IM (17:59)
[2019-06-27 18:05] LABS: Add Urine Microscopic? YES; Bilirubin Urine Neg (NEGATIVE); Blood Urine Neg (Negative); Glucose Urine UA Norm (Normal); Ketones Urine Negative (Negative); Leukocyte Esterase Urine Negative (Negative); Nitrate Urine Negative (Negative); Protein Urine Neg (Negative); Specific Gravity, Urine 1.005 (1.005-1.030); Urine Appearance SL Hazy (CLEAR); Urine Color Yellow (Yellow); Urobilinogen Urine Norm (Negative); pH Urine 7 (5-7)
[2019-06-27 18:06] LABS: Bacteria Urine TRACE; Mucus Urine TRACE
--- NOTE | 2019-06-27 19:03 | PC.NURSE ---
Report received from MEEK Underwood and care transferred to MEEK Avelar
[2019-06-27 19:05] VITALS: BP 109/84; PULSE 77; RESP 16; O2SAT 95
[2019-06-27 19:23] VITALS: BP 111/82; PULSE 73; RESP 16; O2SAT 94
--- NOTE | 2019-06-29 13:40 | DCPLANNER ---
water resource project manager had message to schedule a follow up appointment for patient with ortho. water resource project manager called the ortho clinic, spoke with Pat, gave clinic patients information. water resource project manager was told that patients information would be printed and reviewed. Clinic will call classification case manager and patient with appointment information.
--- NOTE | 2019-07-01 11:02 | DCPLANNER ---
Patient has an appointment scheduled for Friday, July 05, 2019 at 1:[address] Olguin. Patient is aware of appointment.
== END 2019-06-27 19:25 | disposition home or self-care (01) ==
PROVIDERS: Emergency Provider Family Medicine; Family Provider Family Medicine; PCP Family Medicine
DX: M25.551 Pain in right hip (principal); N18.3 Chronic kidney disease, stage 3 (moderate); I50.30 Unspecified diastolic (congestive) heart failure; J44.9 Chronic obstructive pulmonary disease, unspecified; F17.210 Nicotine dependence, cigarettes, uncomplicated
CPT/HCPCS: 73502; 81001; 96372; 99281; 99283; A9270; J2270; J2360

== ENCOUNTER 2019-06-27 16:11 | Emergency (ER) | payer MEDICAID, SELFPAY ==
--- NOTE | 2019-07-13 14:51 | DCPLANNER ---
Patient did attend appointment scheduled for 07.05.19 with ortho.
== END 2019-06-27 19:25 | disposition home or self-care (01) ==
LOC: ER 07-07 09:44
PROVIDERS: Emergency Provider Family Medicine; Family Provider Family Medicine; PCP Family Medicine
DX: R10.84 Generalized abdominal pain (principal); F17.210 Nicotine dependence, cigarettes, uncomplicated; N18.3 Chronic kidney disease, stage 3 (moderate); J44.9 Chronic obstructive pulmonary disease, unspecified; F43.12 Post-traumatic stress disorder, chronic; F31.62 Bipolar disorder, current episode mixed, moderate; F41.0 Panic disorder [episodic paroxysmal anxiety]; Z79.01 Long term (current) use of anticoagulants

== ENCOUNTER 2019-07-02 16:34 | Emergency (ER) | payer MEDICAID, SELFPAY ==
[2019-07-02 16:56] VITALS: BP 119/81; PULSE 76; RESP 18; TEMP 36.8; O2SAT 93; BMI 44.6
--- NOTE | 2019-07-02 17:14 | W.ED.FEMALGU ---
Documented by User: DONNA Mathis 07/03/19 17:16 HPI - Female Genitourinary General: Chief complaint: Vaginal Bleeding Stated complaint: hip pain Time Seen by Provider: 07/02/19 17:05 History of Present Illness: HPI Narrative: Patient is a 49-year-old female comes into the ED with vaginal bleeding and right hip pain. Patient was seen here in the ED May 21, 2019 for vaginal bleeding. An ultrasound was performed and showed that she had some moderate endometrial thickening. Patient was referred to a unscrambler. Patient is scheduled to see Dr. Chowdary on July 26. Patient says her bleeding lasted for 3-4 days and then stopped. She states she has had no bleeding for over the last 3 weeks. She says that last night she had 3 large blood clots that came out of her vagina when she stood up. She has went through multiple pads today due to the bleeding. She denies any lightheadedness or shortness of breath. Patient also does have some chronic right hip pain that she is scheduled to see an orthopedic doctor about on July 05. She says that the orthopedic doctor is going to perform a joint injection to give patient relief. She has some mild nausea but no fever, chills, shortness of breath, chest pain or abdominal pain. She has not vomited. Associated symptoms: Reports nausea; Deny abdominal pain or headache(s) Review of Systems Const: Denies: fever, chills or fatigue Eyes: Denies: change in vision or eye discomfort ENMT: Denies: throat pain, painful swallowing, nasal discharge or nasal congestion Card: Denies: chest pain, palpitations, edema, swelling of feet/ankles, shortness of breath on exertion or shortness of breath when lying down Resp: Denies: shortness of breath, productive cough or non-productive cough GI: Reports: nausea; Denies: abdominal pain, vomiting, diarrhea, constipation or blood in stool : Reports: vaginal bleeding; Denies: flank pain, painful urination or blood in urine Musc: Reports: joint pain (Right hip pain (Chronic)); Denies: neck pain, back pain or extremity swelling Skin/Breast: Denies: rash or new lesion Neuro: Denies: headache, numbness in extremities or weakness in extremities [facility] ED PFSH: Medical History Bipolar disorder, current episode mixed, moderate Bipolar disorder, current episode mixed, severe, with psychotic features Chronic hepatitis C without hepatic coma Chronic hypercapnic respiratory failure Chronic kidney disease (CKD), stage III (moderate) Diastolic CHF Gastritis History of pulmonary embolism Iron deficiency anemia Mitral valve insufficiency Orthopnea BINA (obstructive sleep apnea) Other stimulant dependence, in remission Panic disorder [episodic paroxysmal anxiety] Post-traumatic stress disorder, chronic Severe chronic obstructive pulmonary disease Surgical History H/O section H/O foot surgery H/O knee surgery H/O neck surgery H/O tracheostomy Family History Other CAD (coronary artery disease) Diabetes Social History Smoking and tobacco status: current every day smoker cigarettes Packs smoked per day: 1 Smoking risk assessment/counseling performed?: Yes Tobacco counseling given: counseling >3 minutes Alcohol intake: former Year of sobriety/quit date alcohol: 3 Physical Exam Narrative: EXAM NARRATIVE: Patient is a 49-year-old female who doesn't appear in any acute distress or pain in the room. She does have a nasal cannula in getting O2. She doesn't appear to be in any acute respiratory distress. Const: COMMON NORMALS: oriented x3 HENMT: COMMON NORMALS: normocephalic HEAD & SCALP: normocephalic MOUTH: oral and palatal mucosa normal THROAT: posterior oropharynx normal and uvula midline Neck/C-Spine: COMMON NORMALS: supple GENERAL: Yes normal visual inspection Resp: COMMON NORMALS: normal respiratory effort, no retractions and no use of accessory muscles AUSCULTATION: diminished lung sounds (mid lung to base) bilateral in the lower lung escobedo Cardio: COMMON NORMALS: regular rate, regular rhythm, S1 normal heart sound, S2 normal heart sound, no gallops, no clicks, no murmurs and peripheral pulses 2+ throughout RATE: regular rate RHYTHM: regular rhythm HEART SOUNDS: S1 normal and S2 normal PERIPHERAL PULSES: pulses 2+ throughout GI: COMMON NORMALS: normal to inspection, nondistended, normoactive bowel sounds, soft to palpation, non-tender and no masses PALPATION: Yes soft : COMMON NORMALS: Yes no CVA tenderness BLADDER/KIDNEY EXAM: Yes no CVA tenderness Back/Pelvis: COMMON NORMALS: no CVA tenderness Extremity: RIGHT LOWER EXTREMITY: Yes hip joint Right hip: Yes palpation (tender) Neuro: COMMON NORMALS: oriented x3 and moves all extremities Course ED course: patient had about 1/2 pad soaked with vaginal blood over the 3 hours in the ED. Pt denied getting a pelvic and speculum exam. She stated she would rather wait and get it done at her scheduled Nuclear Physics Teacher appointment in a couple weeks. Vital Signs: Vital signs: Vital Signs Temperature 98.3 F 07/02/19 16:56 Pulse Rate 76 07/02/19 20:57 Respiratory Rate 17 07/02/19 20:57 Blood Pressure 148/86 07/02/19 20:57 Pulse Oximetry 94 07/02/19 20:57 MDM - Female Lab Data: Attestation: I reviewed the patient's lab results. Labs: Lab Results 07/02/19 07/02/19 07/02/19 Range/Units 18:07 18:07 18:07 WBC 8.2 (4.0-10.0) 10^3/ uL RBC 4.77 (4.1-5.3) 10^6/u L Hgb 15.2 (11.5-15.3) g/dL Hct 46.2 (37.0-47.0) % MCV 96.9 (81-99) fL MCH 31.9 (28.0-34.0) pg MCHC 32.9 (30.0-36.0) g/dL RDW 12.9 (12.1-15.1) % Plt Count 285 (130-400) 10^3/c mm MPV 10.7 H (7.4-10.4) fL Neut % (Auto) 68.5 % Lymph % (Auto) 16.6 % [place] % (Auto) 10.9 % Eos % (Auto) 2.9 % Baso % (Auto) 0.6 % Neut # (Auto) 5.6 (1.8-7.7) 10^3/u L Lymph # (Auto) 1.4 (0.8-4.8) 10^3/u L [place] # (Auto) 0.9 (0.2-0.9) 10^3/u L Eos # (Auto) 0.2 (0.0-0.8) 10^3/u L Baso # (Auto) 0.1 (0.0-0.1) 10^3/u L Nucleated RBC % (a uto) 0 % Nucleated RBCs # 0.0 /100WBC PT 13.50 H (10.5-13.3) SECO NDS INR 1.00 (0.8-1.2) APTT 32.1 (23.9-36.7) SECO NDS Sodium 135 L (136-145) mmol/L Potassium 4.2 (3.5-5.1) mmol/L Chloride 91 L (98-107) mmol/L Carbon Dioxide 33 H (22-29) mmol/L Anion Gap 15.2 (5-19) BUN 31 H (6-20) mg/dL Creatinine 1.4 H (0.5-0.9) mg/dL GFR Calculation 40.0 L (90-130) mL/min Glucose 88 (65-115) mg/dL Calcium 10.5 (8.5-10.5) mg/dL Total Bilirubin 0.4 (0.15-1.2) mg/dL AST 73 H (0-32) U/L ALT 50 H (0-33) U/L Alkaline Phosphata se 254 H (35-105) IU/L Total Protein 7.8 (6.6-8.7) g/dL Albumin 4.0 (3.5-5.2) g/dL Globulin 3.8 (1.3-4.6) g/dL Urine Color (Yellow) Urine Appearance (CLEAR) Urine pH (5-7) Ur Specific Gravit y (1.005-1.030) Urine Protein (Negative) Urine Glucose (UA) (Normal) Urine Ketones (Negative) Urine Blood (Negative) Urine Nitrate (Negative) Urine Bilirubin (NEGATIVE) Urine Urobilinogen (Negative) mg/dL Ur Leukocyte Luiza ase (Negative) Urine RBC (0-2) /hpf Urine WBC (0-5) /hpf Ur Squamous Epith Cells (0-5) Urine Bacteria (NONE) 07/02/19 Range/Units 18:49 WBC (4.0-10.0) 10^3/ uL RBC (4.1-5.3) 10^6/u L Hgb (11.5-15.3) g/dL Hct (37.0-47.0) % MCV (81-99) fL MCH (28.0-34.0) pg MCHC (30.0-36.0) g/dL RDW (12.1-15.1) % Plt Count (130-400) 10^3/c mm MPV (7.4-10.4) fL Neut % (Auto) % Lymph % (Auto) % [place] % (Auto) % Eos % (Auto) % Baso % (Auto) % Neut # (Auto) (1.8-7.7) 10^3/u L Lymph # (Auto) (0.8-4.8) 10^3/u L [place] # (Auto) (0.2-0.9) 10^3/u L Eos # (Auto) (0.0-0.8) 10^3/u L Baso # (Auto) (0.0-0.1) 10^3/u L Nucleated RBC % (a uto) % Nucleated RBCs # /100WBC PT (10.5-13.3) SECO NDS INR (0.8-1.2) APTT (23.9-36.7) SECO NDS Sodium (136-145) mmol/L Potassium (3.5-5.1) mmol/L Chloride (98-107) mmol/L Carbon Dioxide (22-29) mmol/L Anion Gap (5-19) BUN (6-20) mg/dL Creatinine (0.5-0.9) mg/dL GFR Calculation (90-130) mL/min Glucose (65-115) mg/dL Calcium (8.5-10.5) mg/dL Total Bilirubin (0.15-1.2) mg/dL AST (0-32) U/L ALT (0-33) U/L Alkaline Phosphata se (35-105) IU/L Total Protein (6.6-8.7) g/dL Albumin (3.5-5.2) g/dL Globulin (1.3-4.6) g/dL Urine Color Red (Yellow) Urine Appearance Sl cloudy A (CLEAR) Urine pH 6 (5-7) Ur Specific Gravit y 1.010 (1.005-1.030) Urine Protein Neg (Negative) Urine Glucose (UA) Norm (Normal) Urine Ketones Negative (Negative) Urine Blood 3+ H (Negative) Urine Nitrate Negative (Negative) Urine Bilirubin Neg (NEGATIVE) Urine Urobilinogen Norm (Negative) mg/dL Ur Leukocyte Luiza ase Negative (Negative) Urine RBC >100 H (0-2) /hpf Urine WBC 10-15 H (0-5) /hpf Ur Squamous Epith Cells 0-4 H (0-5) Urine Bacteria 1+ H (NONE) Discharge Plan Discharge Patient Disposition: Home, Self-Care Clinical Impression: Post-menopausal bleeding Chronic hip pain Qualifiers: Laterality: right Qualified Code(s): M25.551 - Pain in right hip Condition: Stable Prescriptions: No Action clonazepam 1 mg tablet 1 mg PO BID PRN (Reason: anxiety) Qty: 60 RF: 2 duloxetine [Cymbalta] 60 mg capsule,delayed release(DR/EC) 60 mg PO DAILY Qty: 30 RF: 2 albuterol sulfate 2.5 mg /3 mL (0.083 %) solution for nebulization 2.5 mg INHALATION Q4H PRN (Reason: Shortness Of Breath) RF: 0 albuterol sulfate [ProAir HFA] 90 mcg/actuation HFA aerosol inhaler 2 puff INHALATION Q6H PRN (Reason: Shortness Of Breath) RF: 0 isosorbide mononitrate 30 mg tablet extended release 24 hr 30 mg PO QAM RF: 0 nitroglycerin [Nitrostat] 0.4 mg tablet, sublingual 0.4 mg SUBLINGUAL Q5M PRN (Reason: Chest Pain) RF: 0 potassium chloride 20 mEq tablet extended release 20 meq PO DAILY RF: 0 pantoprazole [Protonix] 40 mg tablet,delayed release (DR/EC) 40 mg PO BID RF: 0 acetaminophen [Tylenol] 325 mg capsule 325 mg PO Q6H PRN (Reason: Pain) RF: 0 azithromycin 250 mg tablet 250 mg PO DAILY RF: 0 budesonide [Pulmicort] 0.5 mg/2 mL suspension for nebulization 0.5 mg INHALATION BID RF: 0 ipratropium-albuterol 0.5 mg-3 mg(2.5 mg base)/3 mL solution for nebulization 3 ml INHALATION 6XD RF: 0 Victoza 2-Bijan 0.6 mg/0.1 mL (18 mg/3 mL) pen injector 1.8 mg SUBCUT Q24H Qty: 6 RF: 0 atenolol 50 mg tablet 50 mg PO BID Qty: 60 RF: 0 spironolactone 50 mg tablet 50 mg PO QAM Qty: 30 RF: 0 gabapentin 300 mg capsule 300 mg PO TID Qty: 90 RF: 0 Eliquis 5 mg tablet 5 mg PO BID Qty: 60 RF: 0 Lasix 40 mg tablet See Rx Instructions .ROUTE .COMPLEX RF: 0 prazosin 1 mg capsule 1 mg PO BEDTIME RF: 0 Seroquel XR 300 mg tablet extended release 24 hr 300 mg PO BEDTIME RF: 0 Discharge Orders: Discharge Order (Routine); Ordered 07/02/19 Ordered By: Ike Ochoa Referrals: Liz Marcos DO [Primary Care Provider] - Discharge Diet: Regular Discharge Activity: Resume usual activity Activity Restrictions/Additional Instructions: Make sure to go to your scheduled gynecology appointment on July 26. Continue to monitor your bleeding and if it worsens after several days later having some symptoms along with the vaginal bleeding he can return to the ED for reevaluation. Also go to your scheduled appointment with the orthopedic doctor on Friday, July 05 to address hip pain. Take Tylenol for pain. Drink plenty of fluids and stay hydrated. Discharge Date/Time: 07/02/19 20:59 Coding Level of Care Code ED Systematic Theology Professor for Chg Fwd Exam Comprehensive Documented by User: Seven Tanner DO 07/04/19 03:18 HPI - Female Genitourinary General: Chief complaint: Vaginal Bleeding Stated complaint: hip pain Time Seen by Provider: 07/02/19 17:05 [facility] ED PFSH: Medical History Bipolar disorder, current episode mixed, moderate Bipolar disorder, current episode mixed, severe, with psychotic features Chronic hepatitis C without hepatic coma Chronic hypercapnic respiratory failure Chronic kidney disease (CKD), stage III (moderate) Diastolic CHF Gastritis History of pulmonary embolism Iron deficiency anemia Mitral valve insufficiency Orthopnea BINA (obstructive sleep apnea) Other stimulant dependence, in remission Panic disorder [episodic paroxysmal anxiety] Post-traumatic stress disorder, chronic Severe chronic obstructive pulmonary disease Surgical History H/O section H/O foot surgery H/O knee surgery H/O neck surgery H/O tracheostomy Family History Other CAD (coronary artery disease) Diabetes Social History Smoking and tobacco status: current every day smoker cigarettes Packs smoked per day: 1 Smoking risk assessment/counseling performed?: Yes Tobacco counseling given: counseling >3 minutes Alcohol intake: former Year of sobriety/quit date alcohol: 3 Course Vital Signs: Vital signs: Vital Signs Temperature 98.3 F 07/02/19 16:56 Pulse Rate 76 07/02/19 20:57 Respiratory Rate 17 07/02/19 20:57 Blood Pressure 148/86 07/02/19 20:57 Pulse Oximetry 94 07/02/19 20:57 MDM - Female Lab Data: Labs: Lab Results 07/02/19 07/02/19 07/02/19 Range/Units 18:07 18:07 18:07 WBC 8.2 (4.0-10.0) 10^3/ uL RBC 4.77 (4.1-5.3) 10^6/u L Hgb 15.2 (11.5-15.3) g/dL Hct 46.2 (37.0-47.0) % MCV 96.9 (81-99) fL MCH 31.9 (28.0-34.0) pg MCHC 32.9 (30.0-36.0) g/dL RDW 12.9 (12.1-15.1) % Plt Count 285 (130-400) 10^3/c mm MPV 10.7 H (7.4-10.4) fL Neut % (Auto) 68.5 % Lymph % (Auto) 16.6 % [place] % (Auto) 10.9 % Eos % (Auto) 2.9 % Baso % (Auto) 0.6 % Neut # (Auto) 5.6 (1.8-7.7) 10^3/u L Lymph # (Auto) 1.4 (0.8-4.8) 10^3/u L [place] # (Auto) 0.9 (0.2-0.9) 10^3/u L Eos # (Auto) 0.2 (0.0-0.8) 10^3/u L Baso # (Auto) 0.1 (0.0-0.1) 10^3/u L Nucleated RBC % (a uto) 0 % Nucleated RBCs # 0.0 /100WBC PT 13.50 H (10.5-13.3) SECO NDS INR 1.00 (0.8-1.2) APTT 32.1 (23.9-36.7) SECO NDS Sodium 135 L (136-145) mmol/L Potassium 4.2 (3.5-5.1) mmol/L Chloride 91 L (98-107) mmol/L Carbon Dioxide 33 H (22-29) mmol/L Anion Gap 15.2 (5-19) BUN 31 H (6-20) mg/dL Creatinine 1.4 H (0.5-0.9) mg/dL GFR Calculation 40.0 L (90-130) mL/min Glucose 88 (65-115) mg/dL Calcium 10.5 (8.5-10.5) mg/dL Total Bilirubin 0.4 (0.15-1.2) mg/dL AST 73 H (0-32) U/L ALT 50 H (0-33) U/L Alkaline Phosphata se 254 H (35-105) IU/L Total Protein 7.8 (6.6-8.7) g/dL Albumin 4.0 (3.5-5.2) g/dL Globulin 3.8 (1.3-4.6) g/dL Urine Color (Yellow) Urine Appearance (CLEAR) Urine pH (5-7) Ur Specific Gravit y (1.005-1.030) Urine Protein (Negative) Urine Glucose (UA) (Normal) Urine Ketones (Negative) Urine Blood (Negative) Urine Nitrate (Negative) Urine Bilirubin (NEGATIVE) Urine Urobilinogen (Negative) mg/dL Ur Leukocyte Luiza ase (Negative) Urine RBC (0-2) /hpf Urine WBC (0-5) /hpf Ur Squamous Epith Cells (0-5) Urine Bacteria (NONE) 07/02/19 Range/Units 18:49 WBC (4.0-10.0) 10^3/ uL RBC (4.1-5.3) 10^6/u L Hgb (11.5-15.3) g/dL Hct (37.0-47.0) % MCV (81-99) fL MCH (28.0-34.0) pg MCHC (30.0-36.0) g/dL RDW (12.1-15.1) % Plt Count (130-400) 10^3/c mm MPV (7.4-10.4) fL Neut % (Auto) % Lymph % (Auto) % [place] % (Auto) % Eos % (Auto) % Baso % (Auto) % Neut # (Auto) (1.8-7.7) 10^3/u L Lymph # (Auto) (0.8-4.8) 10^3/u L [place] # (Auto) (0.2-0.9) 10^3/u L Eos # (Auto) (0.0-0.8) 10^3/u L Baso # (Auto) (0.0-0.1) 10^3/u L Nucleated RBC % (a uto) % Nucleated RBCs # /100WBC PT (10.5-13.3) SECO NDS INR (0.8-1.2) APTT (23.9-36.7) SECO NDS Sodium (136-145) mmol/L Potassium (3.5-5.1) mmol/L Chloride (98-107) mmol/L Carbon Dioxide (22-29) mmol/L Anion Gap (5-19) BUN (6-20) mg/dL Creatinine (0.5-0.9) mg/dL GFR Calculation (90-130) mL/min Glucose (65-115) mg/dL Calcium (8.5-10.5) mg/dL Total Bilirubin (0.15-1.2) mg/dL AST (0-32) U/L ALT (0-33) U/L Alkaline Phosphata se (35-105) IU/L Total Protein (6.6-8.7) g/dL Albumin (3.5-5.2) g/dL Globulin (1.3-4.6) g/dL Urine Color Red (Yellow) Urine Appearance Sl cloudy A (CLEAR) Urine pH 6 (5-7) Ur Specific Gravit y 1.010 (1.005-1.030) Urine Protein Neg (Negative) Urine Glucose (UA) Norm (Normal) Urine Ketones Negative (Negative) Urine Blood 3+ H (Negative) Urine Nitrate Negative (Negative) Urine Bilirubin Neg (NEGATIVE) Urine Urobilinogen Norm (Negative) mg/dL Ur Leukocyte Luiza ase Negative (Negative) Urine RBC >100 H (0-2) /hpf Urine WBC 10-15 H (0-5) /hpf Ur Squamous Epith Cells 0-4 H (0-5) Urine Bacteria 1+ H (NONE) Discharge Plan Discharge Patient Disposition: Home, Self-Care Clinical Impression: Post-menopausal bleeding Chronic hip pain Qualifiers: Laterality: right Qualified Code(s): M25.551 - Pain in right hip Condition: Stable Prescriptions: No Action clonazepam 1 mg tablet 1 mg PO BID PRN (Reason: anxiety) Qty: 60 RF: 2 duloxetine [Cymbalta] 60 mg capsule,delayed release(DR/EC) 60 mg PO DAILY Qty: 30 RF: 2 albuterol sulfate 2.5 mg /3 mL (0.083 %) solution for nebulization 2.5 mg INHALATION Q4H PRN (Reason: Shortness Of Breath) RF: 0 albuterol sulfate [ProAir HFA] 90 mcg/actuation HFA aerosol inhaler 2 puff INHALATION Q6H PRN (Reason: Shortness Of Breath) RF: 0 isosorbide mononitrate 30 mg tablet extended release 24 hr 30 mg PO QAM RF: 0 nitroglycerin [Nitrostat] 0.4 mg tablet, sublingual 0.4 mg SUBLINGUAL Q5M PRN (Reason: Chest Pain) RF: 0 potassium chloride 20 mEq tablet extended release 20 meq PO DAILY RF: 0 pantoprazole [Protonix] 40 mg tablet,delayed release (DR/EC) 40 mg PO BID RF: 0 acetaminophen [Tylenol] 325 mg capsule 325 mg PO Q6H PRN (Reason: Pain) RF: 0 azithromycin 250 mg tablet 250 mg PO DAILY RF: 0 budesonide [Pulmicort] 0.5 mg/2 mL suspension for nebulization 0.5 mg INHALATION BID RF: 0 ipratropium-albuterol 0.5 mg-3 mg(2.5 mg base)/3 mL solution for nebulization 3 ml INHALATION 6XD RF: 0 Victoza 2-Bijan 0.6 mg/0.1 mL (18 mg/3 mL) pen injector 1.8 mg SUBCUT Q24H Qty: 6 RF: 0 atenolol 50 mg tablet 50 mg PO BID Qty: 60 RF: 0 spironolactone 50 mg tablet 50 mg PO QAM Qty: 30 RF: 0 gabapentin 300 mg capsule 300 mg PO TID Qty: 90 RF: 0 Eliquis 5 mg tablet 5 mg PO BID Qty: 60 RF: 0 Lasix 40 mg tablet See Rx Instructions .ROUTE .COMPLEX RF: 0 prazosin 1 mg capsule 1 mg PO BEDTIME RF: 0 Seroquel XR 300 mg tablet extended release 24 hr 300 mg PO BEDTIME RF: 0 Discharge Orders: Discharge Order (Routine); Ordered 07/02/19 Ordered By: Ike Ochoa Referrals: Liz Marcos DO [Primary Care Provider] - Discharge Diet: Regular Discharge Activity: Resume usual activity Activity Restrictions/Additional Instructions: Make sure to go to your scheduled gynecology appointment on July 26. Continue to monitor your bleeding and if it worsens after several days later having some symptoms along with the vaginal bleeding he can return to the ED for reevaluation. Also go to your scheduled appointment with the orthopedic doctor on July 05 to address hip pain. Take Tylenol for pain. Drink plenty of fluids and stay hydrated. Discharge Date/Time: 07/02/19 20:59 Coding Level of Care Code ED Systematic Theology Professor for Abdiel Fwd Exam Comprehensive
[2019-07-02] MEDS: sodium chloride 0.9% 500 ML IV (18:04)
[2019-07-02 18:07] VITALS: RESP 18; O2SAT 98
[2019-07-02] MEDS: ondansetron 2 mg/ML SDV 2 mL 4 MG IVP (18:07)
[2019-07-02] MEDS: morphine 4 mg/mL SDV 1 mL IVP (18:07)
[2019-07-02 18:19] LABS: Basophils # 0.1 10^3/uL (0.0-0.1); Basophils % 0.6 %; Eosinophils # 0.2 10^3/uL (0.0-0.8); Eosinophils % 2.9 %; Hematocrit 46.2 % (37.0-47.0); Hemoglobin 15.2 g/dL (11.5-15.3); Lymphocytes # 1.4 10^3/uL (0.8-4.8); Lymphocytes % 16.6 %; Mean Corpuscular HGB Conc 32.9 g/dL (30.0-36.0); Mean Corpuscular Hemoglobin 31.9 pg (28.0-34.0); Mean Corpuscular Volume 96.9 fL (81-99); Mean Platelet Volume 10.7 fL (7.4-10.4); Monocytes # 0.9 10^3/uL (0.2-0.9); Monocytes % 10.9 %; Neutrophils # 5.6 10^3/uL (1.8-7.7); Neutrophils % 68.5 %; Nucleated Red Blood Cells % 0 %; Platelet Count 285 10^3/cmm (130-400); Red Blood Count 4.77 10^6/uL (4.1-5.3); Red Cell Distribution Width 12.9 % (12.1-15.1); White Blood Count 8.2 10^3/uL (4.0-10.0)
[2019-07-02 18:32] LABS: Partial Thromboplastin Time 32.1 SECONDS (23.9-36.7)
[2019-07-02 18:40] LABS: Alanine Aminotransferase 50 U/L (0-33); Alkaline Phosphatase 254 IU/L (35-105); Anion Gap 15.2 (5-19); Aspartate Amino Transferase 73 U/L (0-32); Blood Urea Nitrogen 31 mg/dL (6-20); Calcium 10.5 mg/dL (8.5-10.5); Carbon Dioxide 33 mmol/L (22-29); Chloride 91 mmol/L (98-107); Globulin 3.8 g/dL (1.3-4.6); Glucose 88 mg/dL (65-115); Potassium 4.2 mmol/L (3.5-5.1); Sodium 135 mmol/L (136-145); Total Bilirubin 0.4 mg/dL (0.15-1.2); Total Protein 7.8 g/dL (6.6-8.7)
[2019-07-02 19:03] VITALS: RESP 18; O2SAT 98
[2019-07-02] MEDS: HYDROmorphone 1 mg/mL INJ 1 mL 0.5 MG IVP (19:03)
[2019-07-02 19:39] LABS: Add Urine Culture? Yes; Bacteria Urine 1+; Bilirubin Urine Neg (NEGATIVE); Blood Urine 3+ (Negative); Glucose Urine UA Norm (Normal); Ketones Urine Negative (Negative); Leukocyte Esterase Urine Negative (Negative); Nitrate Urine Negative (Negative); Protein Urine Neg (Negative); RBC Urine >100 /hpf (0-2); Squamous Epithelial Cell Urine 0-4 (0-5); Urine Color Red (Yellow); Urobilinogen Urine Norm (Negative); pH Urine 6 (5-7)
[2019-07-02] MEDS: HYDROcodone-acetaminophen 7.5-325 mg Tablet 2 TAB PO (20:51)
--- NOTE | 2019-07-02 20:52 | PC.NURSE ---
HYDROCODONE DISPENSED HOME WITH PT X'S 2 TABS.
[2019-07-02 20:57] VITALS: BP 148/86; PULSE 76; RESP 17; O2SAT 94
== END 2019-07-02 20:59 | disposition home or self-care (01) ==
PROVIDERS: Emergency Provider Physician Assistant; Family Provider Family Medicine; PCP Family Medicine
DX: N95.0 Postmenopausal bleeding (principal); M25.551 Pain in right hip; N18.3 Chronic kidney disease, stage 3 (moderate); I50.30 Unspecified diastolic (congestive) heart failure; J44.9 Chronic obstructive pulmonary disease, unspecified; F17.210 Nicotine dependence, cigarettes, uncomplicated; Z79.51 Long term (current) use of inhaled steroids
CPT/HCPCS: 36415; 80053; 81001; 85025; 85610; 85730; 87086; 96361; 96374; 96375; 99282; 99283; A9270; J1170; J2270; J2405; J7040

== ENCOUNTER → 2019-07-06 13:29 | Outpatient (BNVA) | payer MEDICAID, SELFPAY | PROVIDERS: Family Provider Family Medicine; PCP Family Medicine; Referring Provider Orthopaedic Surgery; Visit Provider Anesthesiology Pain Medicine | DX: M16.9 Osteoarthritis of hip, unspecified (principal); M54.9 Dorsalgia, unspecified; F17.210 Nicotine dependence, cigarettes, uncomplicated; Z79.891 Long term (current) use of opiate analgesic | CPT/HCPCS: 99203; 99999 ==

== ENCOUNTER → 2019-07-07 14:12 | Outpatient (BNVA) | payer MEDICAID, SELFPAY | PROVIDERS: Family Provider Family Medicine; PCP Family Medicine; Visit Provider Anesthesiology Pain Medicine | DX: G89.29 Other chronic pain (principal); M16.11 Unilateral primary osteoarthritis, right hip; F17.210 Nicotine dependence, cigarettes, uncomplicated | CPT/HCPCS: 20610; 77003; J1030; J2001; J3490 ==

== ENCOUNTER → 2019-07-22 10:56 | Outpatient (BNVA) | payer MEDICAID, SELFPAY | PROVIDERS: Family Provider Family Medicine; PCP Family Medicine; Visit Provider Anesthesiology Pain Medicine | DX: M16.9 Osteoarthritis of hip, unspecified (principal); M54.9 Dorsalgia, unspecified | CPT/HCPCS: 99212; 99213 ==

== ENCOUNTER 2019-08-03 17:06 | Emergency (ER) | payer MEDICAID, SELFPAY ==
[2019-08-03 17:11] VITALS: BP 142/63; PULSE 69; RESP 16; O2SAT 98; BMI 43.7
--- NOTE | 2019-08-03 17:46 | ED_ITS ---
Entered by Marlyn Zaman, acting as scribe for Rosaura Muir MD Aug 03, 2019 17:06 HPI - General Adult General: Chief complaint: Abdominal Pain Stated complaint: abdomen pain Time Seen by Provider: 08/03/19 17:45 Source: patient and family Mode of arrival: ambulatory Limitations: no limitations History of Present Illness: HPI narrative: 49 yo female presents with vaginal pain. pt states this started several days ago but worsened today. pt states she is having heavy vaginal bleeding. pt is on a blood thinner. pt denies any other symptoms at this time. MD complaint: vaginal pain, vaginal bleeding Onset (ago): day(s) Location: abdomen Radiation: non-radiation Severity: moderate Pain Consistency: constant Relieving factors: none Exacerbating factors: movement Associated symptoms: Reports other (vaginal pain, vaginal bleeding); Deny chest pain, dyspnea, headache(s) or rash Treatments prior to arrival: none Review of Systems General: Reports: 10 or more systems reviewed and unremarkable except in HPI and below Const: Denies: fever, chills, body aches or change in appetite Eyes: Denies: blurry vision or eye discomfort ENMT: Denies: enlarged tonsils Card: Denies: chest pain Resp: Denies: shortness of breath GI: Reports: abdominal pain : Reports: vaginal bleeding and pelvic pain Musc: Denies: neck pain or back pain Skin/Breast: Denies: rash Neuro: Denies: headache Psych: Denies: depression Jerome/Lymph: Denies: easy bruising All/Imm: Denies: hives PFS ED PFSH: Social History Smoking and tobacco status: current every day smoker cigarettes Packs smoked per day: 1 Smoking risk assessment/counseling performed?: Yes Tobacco counseling given: counseling >3 minutes Alcohol intake: former Year of sobriety/quit date alcohol: 3 Physical Exam Const: COMMON NORMALS: no apparent distress, oriented x3 and healthy appearing HENMT: COMMON NORMALS: normocephalic and head/scalp atraumatic HEAD & S CALP: normocephalic and atraumatic Eye: COMMON NORMALS: PERRL and EOMs intact bilaterally PUPIL: Yes PERRL Neck/C-Spine: COMMON NORMALS: full ROM and supple Chest: COMMONS NORMALS: inspection of chest normal and palpation of chest normal Resp: COMMON NORMALS: normal respiratory effort, no retractions, no use of accessory muscles and clear to auscultation bilaterally AUSCULTATION: clear to auscultation bilaterally Cardio: COMMON NORMALS: regular rate, regular rhythm and no murmurs RATE: regular rate RHYTHM: regular rhythm Extremity: COMMON NORMALS: normal to inspection and full ROM Neuro: COMMON NORMALS: oriented x3, moves all extremities and no focal motor deficits Psych: COMMON NORMALS: mental status grossly normal, thought process normal and cooperative THOUGHT PROCESS: normal thought process Skin: COMMON NORMALS: no rashes or lesions noted and no wounds GENERAL SKIN EXAM: no rashes or lesions noted Course Vital Signs: Vital signs: Vital Signs Pulse Rate 69 08/03/19 17:11 Respiratory Rate 16 08/03/19 17:11 Blood Pressure 142/63 08/03/19 17:11 Pulse Oximetry 94 08/03/19 17:50 MDM - General Adult MDM Narrative: Medical decision making narrative: pt presents here with abdominal pain that is since resolved. Her exam here is benign and she has no signs of acutre surgical abdomen. Pt has had vaginal bleeding. Pt lab word here is normal. I feel she does not require imaging at this time. She is to follow up with as sceduled and is to return if worsening. she understands and agrees to plan. Lab Data: Labs: Lab Results 08/03/19 08/03/19 08/03/19 Range/Units 17:53 17:53 17:53 WBC 9.8 (4.0-10.0) 10^3/ uL RBC 4.51 (4.1-5.3) 10^6/u L Hgb 14.3 (11.5-15.3) g/dL Hct 44.7 (37.0-47.0) % MCV 99.1 H (81-99) fL MCH 31.7 (28.0-34.0) pg MCHC 32.0 (30.0-36.0) g/dL RDW 12.8 (12.1-15.1) % Plt Count 235 (130-400) 10^3/c mm MPV 10.8 H (7.4-10.4) fL Neut % (Auto) 75.3 % Lymph % (Auto) 14.8 % Atlantic % (Auto) 7.6 % Eos % (Auto) 1.4 % Baso % (Auto) 0.5 % Neut # (Auto) 7.4 (1.8-7.7) 10^3/u L Lymph # (Auto) 1.5 (0.8-4.8) 10^3/u L Atlantic # (Auto) 0.7 (0.2-0.9) 10^3/u L Eos # (Auto) 0.1 (0.0-0.8) 10^3/u L Baso # (Auto) 0.1 (0.0-0.1) 10^3/u L Nucleated RBC % (a uto) 0 % Nucleated RBCs # 0.0 /100WBC PT 11.90 (10.5-13.3) SECO NDS INR 0.87 (0.8-1.2) Sodium 137 (136-145) mmol/L Potassium 3.9 (3.5-5.1) mmol/L Chloride 97 L (98-107) mmol/L Carbon Dioxide 29 (22-29) mmol/L Anion Gap 14.9 (5-19) BUN 32 H (6-20) mg/dL Creatinine 1.4 H (0.5-0.9) mg/dL GFR Calculation 40.0 L (90-130) mL/min Glucose 79 (65-115) mg/dL Calculated Osmolal ity 280 L (285-295) mOsm/k g Calcium 10.0 (8.5-10.5) mg/dL Total Bilirubin 0.3 (0.15-1.2) mg/dL AST 51 H (0-32) U/L ALT 49 H (0-33) U/L Alkaline Phosphata se 242 H (35-105) IU/L Total Protein 7.3 (6.6-8.7) g/dL Albumin 3.9 (3.5-5.2) g/dL Globulin 3.4 (1.3-4.6) g/dL Lipase 87 H (13-60) U/L Discharge Plan Discharge Patient Disposition: Home, Self-Care Clinical Impression: Abdominal pain Qualifiers: Abdominal location: generalized Qualified Code(s): R10.84 - Generalized abdominal pain Condition: Stable Prescriptions: New Zofran 4 mg tablet 4 mg PO QID PRN (Reason: nausea and vomiting) Qty: 14 RF: 0 No Action tramadol 50 mg tablet 50 mg PO BID MDD 2 PRN (Reason: pain) Qty: 14 RF: 0 clonazepam 1 mg tablet 1 mg PO BID PRN (Reason: anxiety) Qty: 60 RF: 2 duloxetine [Cymbalta] 60 mg capsule,delayed release(DR/EC) 60 mg PO DAILY Qty: 30 RF: 2 albuterol sulfate [ProAir HFA] 90 mcg/actuation HFA aerosol inhaler 2 puff INHALATION Q6H PRN (Reason: Shortness Of Breath) RF: 0 potassium chloride 20 mEq tablet extended release 20 meq PO DAILY RF: 0 pantoprazole [Protonix] 40 mg tablet,delayed release (DR/EC) 40 mg PO BID RF: 0 acetaminophen [Tylenol] 325 mg capsule 325 mg PO Q6H PRN (Reason: Pain) RF: 0 azithromycin 250 mg tablet 250 mg PO DAILY RF: 0 budesonide [Pulmicort] 0.5 mg/2 mL suspension for nebulization 0.5 mg INHALATION BID RF: 0 ipratropium-albuterol 0.5 mg-3 mg(2.5 mg base)/3 mL solution for nebulization 3 ml INHALATION 6XD RF: 0 atenolol 50 mg tablet 50 mg PO BID Qty: 60 RF: 0 Victoza 2-Bijan 0.6 mg/0.1 mL (18 mg/3 mL) pen injector 1.8 mg SUBCUT Q24H Qty: 6 RF: 0 isosorbide mononitrate 30 mg tablet extended release 24 hr 30 mg PO QAM Qty: 30 RF: 3 Lasix 40 mg tablet See Rx Instructions PO BID Qty: 90 RF: 0 spironolactone 50 mg tablet 50 mg PO QAM Qty: 30 RF: 0 gabapentin 300 mg capsule 300 mg PO TID Qty: 90 RF: 0 Eliquis 5 mg tablet 5 mg PO BID Qty: 60 RF: 0 nitroglycerin [Nitrostat] 0.4 mg tablet, sublingual 0.4 mg SUBLINGUAL Q5M PRN (Reason: Chest Pain) Qty: 90 RF: 3 (DME) pen needle, diabetic [Comfort EZ Pen [place]] 32 gauge x 1/4 needle See Rx Instructions .ROUTE .MEDSUPPLY Qty: 100 RF: 0 prazosin 1 mg capsule 1 mg PO BEDTIME RF: 0 quetiapine [Seroquel XR] 300 mg tablet extended release 24 hr 300 mg PO BEDTIME RF: 0 Discharge Orders: Discharge Order (Routine); Ordered 08/03/19 Ordered By: Rosaura Muir Referrals: Liz Marcos DO [Primary Care Provider] - 4-7 days Discharge Diet: Advance as tolerated Discharge Activity: Resume usual activity Patient Instructions: Abdominal Pain (ED) Coding Level of Care Code ED Director Of Recreation Therapy for Chg Fwd Exam Comprehensive The documentation recorded by the Austyn ernandez Bridget Annette, accurately reflects the service I personally performed and the decisions made by Wood nunez Korby, MD Aug 03, 2019 17:06
[2019-08-03 17:50] VITALS: O2SAT 94
[2019-08-03 18:06] LABS: Basophils # 0.1 10^3/uL (0.0-0.1); Basophils % 0.5 %; Eosinophils # 0.1 10^3/uL (0.0-0.8); Eosinophils % 1.4 %; Hematocrit 44.7 % (37.0-47.0); Hemoglobin 14.3 g/dL (11.5-15.3); Lymphocytes # 1.5 10^3/uL (0.8-4.8); Lymphocytes % 14.8 %; Mean Corpuscular Hemoglobin 31.7 pg (28.0-34.0); Mean Corpuscular Volume 99.1 fL (81-99); Mean Platelet Volume 10.8 fL (7.4-10.4); Monocytes # 0.7 10^3/uL (0.2-0.9); Monocytes % 7.6 %; Neutrophils # 7.4 10^3/uL (1.8-7.7); Neutrophils % 75.3 %; Nucleated Red Blood Cells % 0 %; Platelet Count 235 10^3/cmm (130-400); Red Blood Count 4.51 10^6/uL (4.1-5.3); Red Cell Distribution Width 12.8 % (12.1-15.1); White Blood Count 9.8 10^3/uL (4.0-10.0)
[2019-08-03] MEDS: ondansetron 2 mg/ML SDV 2 mL 4 MG IVP (18:12)
[2019-08-03] MEDS: morphine 4 mg/mL SDV 1 mL IVP (18:12)
[2019-08-03] MEDS: diphenhydrAMINE 50 mg/mL SDV 1mL IVP (18:12)
[2019-08-03 18:22] LABS: INR 0.87 (0.8-1.2)
[2019-08-03 18:25] LABS: Alanine Aminotransferase 49 U/L (0-33); Albumin Level 3.9 g/dL (3.5-5.2); Alkaline Phosphatase 242 IU/L (35-105); Anion Gap 14.9 (5-19); Aspartate Amino Transferase 51 U/L (0-32); Blood Urea Nitrogen 32 mg/dL (6-20); Carbon Dioxide 29 mmol/L (22-29); Chloride 97 mmol/L (98-107); Globulin 3.4 g/dL (1.3-4.6); Glucose 79 mg/dL (65-115); Lipase 87 U/L (13-60); Osmolality Calculated 280 mOsm/kg (285-295); Potassium 3.9 mmol/L (3.5-5.1); Sodium 137 mmol/L (136-145); Total Bilirubin 0.3 mg/dL (0.15-1.2); Total Protein 7.3 g/dL (6.6-8.7)
[2019-08-03 19:37] VITALS: BP 132/84; PULSE 66; RESP 16; O2SAT 97
== END 2019-08-03 19:38 | disposition home or self-care (01) ==
PROVIDERS: Emergency Medicine; Emergency Provider Emergency Medicine; Family Provider Family Medicine; PCP Family Medicine
DX: R10.9 Unspecified abdominal pain (principal); F17.210 Nicotine dependence, cigarettes, uncomplicated
CPT/HCPCS: 12345; 36415; 80053; 83690; 85025; 85610; 96374; 96375; 99282; 99283; J1200; J2270; J2405

== ENCOUNTER 2019-08-19 16:13 | Emergency (ER) | payer MEDICAID, SELFPAY ==
[2019-08-19 16:20] VITALS: BP 150/90; PULSE 74; RESP 18; TEMP 36.9; O2SAT 98; BMI 42.9
--- NOTE | 2019-08-19 16:36 | W.ED.ABDPA2 ---
Documented by User: Tatiana Adan DO 08/19/19 17:54 HPI - Abdominal Pain General: Chief Complaint: Abdominal Pain Stated Complaint: abd pain Time Seen by Provider: 08/19/19 16:36 History of Present Illness: HPI narrative: Pt states she has had pain in luq and llq for about 2 weeks. She states she had a virtual appointment with her PCP and was told it was possibly her pancreas and she should go on a clear liquid diet which she has done for the past few days , but she continues to get worse. States she cant take the pain anymore. MD elicited complaint: abdominal pain Pertinent past history: none Onset (ago): week(s) (2) Pain Consistency: constant Location: LUQ, LLQ and L flank Severity: severe Pain scale (0-10): 10 Quality: stabbing and sharp Radiation: none Exacerbating factors: eating and movement Relieving factors: nothing Associated Symptoms: Reports anorexia, nausea and vomiting (dry heaving); Denies chills, constipation, fever(s) and heartburn Review of Systems General: Reports: 10 or more systems reviewed and unremarkable except in HPI and below Const: Denies: fever, chills or fatigue ENMT: Denies: throat pain Card: Denies: chest pain or swelling of feet/ankles Resp: Denies: shortness of breath or productive cough GI: Reports: abdominal pain, nausea and vomiting (dry heaving); Denies: heartburn/indigestion or constipation : Denies: difficulty urinating Musc: Denies: back pain or extremity swelling Skin/Breast: Denies: rash Neuro: Denies: headache, numbness in extremities or weakness in extremities PFS ED PFSH: Medical History Bipolar disorder, current episode mixed, moderate Bipolar disorder, current episode mixed, severe, with psychotic features Chronic hepatitis C without hepatic coma Chronic hypercapnic respiratory failure Chronic kidney disease (CKD), stage III (moderate) Diastolic CHF Gastritis History of pulmonary embolism Iron deficiency anemia Mitral valve insufficiency Orthopnea BINA (obstructive sleep apnea) Other stimulant dependence, in remission Panic disorder [episodic paroxysmal anxiety] Post-traumatic stress disorder, chronic Severe chronic obstructive pulmonary disease Surgical History H/O section H/O foot surgery H/O knee surgery H/O neck surgery H/O tracheostomy Family History Other CAD (coronary artery disease) Diabetes Social History Smoking and tobacco status: current every day smoker cigarettes Packs smoked per day: 1 Smoking risk assessment/counseling performed?: Yes Tobacco counseling given: counseling >3 minutes Alcohol intake: former Year of sobriety/quit date alcohol: 3 Physical Exam Const: COMMON NORMALS: no apparent distress and oriented x3 GENERAL APPEARANCE: cooperative; not in distress HENMT: COMMON NORMALS: normocephalic HEAD & SCALP: normal to inspection and normocephalic MOUTH: oral and palatal mucosa normal and lip normal THROAT: posterior oropharynx normal and tonsils normal Neck/C-Spine: COMMON NORMALS: full ROM, no lymphadenopathy, supple and no meningeal signs GENERAL: Yes normal visual inspection and Yes trachea midline Chest: COMMONS NORMALS: inspection of chest normal Resp: COMMON NORMALS: normal respiratory effort and clear to auscultation bilaterally EFFORT & INSPECTION: Yes able to speak in complete sentences and No respiratory distress AUSCULTATION: clear to auscultation bilaterally, no rales, no rhonchi and no wheezes Cardio: COMMON NORMALS: regular rate, regular rhythm, S1 normal heart sound, S2 normal heart sound and no murmurs RATE: regular rate RHYTHM: regular rhythm HEART SOUNDS: S1 normal and S2 normal PERIPHERAL PULSES: radial pulses present and dorsalis pedis pulses present GI: COMMON NORMALS: soft to palpation INSPECTION: Yes normal to inspection AUSCULTATION: Yes hypoactive bowel sounds PALPATION: Yes soft and Yes tender Details: LLQ and LUQ RECTAL EXAM: deferred : COMMON NORMALS: Yes no CVA tenderness BLADDER/KIDNEY EXAM: Yes no CVA tenderness Back/Pelvis: COMMON NORMALS: no CVA tenderness Extremity: COMMON NORMALS: normal to inspection, full ROM, normal capillary refill, no calf tenderness and no pedal edema Neuro: COMMON NORMALS: oriented x3, CN's II-XII intact bilaterally, moves all extremities and no focal motor deficits MENINGEAL SIGNS: Yes no meningeal signs Skin: COMMON NORMALS: no rashes or lesions noted GENERAL SKIN EXAM: no rashes or lesions noted Course Vital Signs: Vital signs: Vital Signs Temperature 98.4 F 08/19/19 16:20 Pulse Rate 65 08/19/19 18:10 Respiratory Rate 18 08/19/19 18:10 Blood Pressure 143/89 08/19/19 18:10 Pulse Oximetry 100 08/19/19 18:14 MDM - Abdominal Pain MDM Narrative: Medical decision making narrative: Pt has had luq pain and lowe left chest pain, with worsening with po intake. Dry heaving. Lbs are unremarkable including lfts and lipase. 1st troponin is negative .Will get second troponin. Ct abd is neg. I will try her on maalox and viscous lidocaine po and then try po challenge. Lab Data: Attestation: I reviewed the patient's lab results. Labs: Lab Results 08/19/19 08/19/19 08/19/19 Range/Units 16:54 16:54 16:54 WBC 9.9 (4.0-10.0) 10^3/ uL RBC 4.39 (4.1-5.3) 10^6/u L Hgb 13.9 (11.5-15.3) g/dL Hct 43.6 (37.0-47.0) % MCV 99.3 H (81-99) fL MCH 31.7 (28.0-34.0) pg MCHC 31.9 (30.0-36.0) g/dL RDW 12.7 (12.1-15.1) % Plt Count 237 (130-400) 10^3/c mm MPV 10.4 (7.4-10.4) fL Neut % (Auto) 78.5 % Lymph % (Auto) 13.0 % [place] % (Auto) 7.0 % Eos % (Auto) 0.6 % Baso % (Auto) 0.5 % Neut # (Auto) 7.8 H (1.8-7.7) 10^3/u L Lymph # (Auto) 1.3 (0.8-4.8) 10^3/u L [place] # (Auto) 0.7 (0.2-0.9) 10^3/u L Eos # (Auto) 0.1 (0.0-0.8) 10^3/u L Baso # (Auto) 0.1 (0.0-0.1) 10^3/u L Nucleated RBC % (a uto) 0 % Nucleated RBCs # 0.0 /100WBC Sodium 139 (136-145) mmol/L Potassium 4.0 (3.5-5.1) mmol/L Chloride 99 (98-107) mmol/L Carbon Dioxide 30 H (22-29) mmol/L Anion Gap 14.0 (5-19) BUN 17 (6-20) mg/dL Creatinine 1.3 H (0.5-0.9) mg/dL GFR Calculation 43.5 L (90-130) mL/min Glucose 103 (65-115) mg/dL Calculated Osmolal ity 285 (285-295) mOsm/k g Calcium 9.7 (8.5-10.5) mg/dL Total Bilirubin 0.4 (0.15-1.2) mg/dL AST 35 H (0-32) U/L ALT 25 (0-33) U/L Alkaline Phosphata se 200 H (35-105) IU/L Troponin T Baselin e 9 (0-10) ng/mL Troponin T 120 Min [place] (0-10) ng/mL Total Protein 7.5 (6.6-8.7) g/dL Albumin 4.0 (3.5-5.2) g/dL Globulin 3.5 (1.3-4.6) g/dL Lipase 56 (13-60) U/L Urine Color (Yellow) Urine Appearance (CLEAR) Urine pH (5-7) Ur Specific Gravit y (1.005-1.030) Urine Protein (Negative) Urine Glucose (UA) (Normal) Urine Ketones (Negative) Urine Blood (Negative) Urine Nitrate (Negative) Urine Bilirubin (NEGATIVE) Urine Urobilinogen (Negative) mg/dL Ur Leukocyte Luiza ase (Negative) 08/19/19 08/19/19 Range/Units 18:08 19:03 WBC (4.0-10.0) 10^3/ uL RBC (4.1-5.3) 10^6/u L Hgb (11.5-15.3) g/dL Hct (37.0-47.0) % MCV (81-99) fL MCH (28.0-34.0) pg MCHC (30.0-36.0) g/dL RDW (12.1-15.1) % Plt Count (130-400) 10^3/c mm MPV (7.4-10.4) fL Neut % (Auto) % Lymph % (Auto) % [place] % (Auto) % Eos % (Auto) % Baso % (Auto) % Neut # (Auto) (1.8-7.7) 10^3/u L Lymph # (Auto) (0.8-4.8) 10^3/u L [place] # (Auto) (0.2-0.9) 10^3/u L Eos # (Auto) (0.0-0.8) 10^3/u L Baso # (Auto) (0.0-0.1) 10^3/u L Nucleated RBC % (a uto) % Nucleated RBCs # /100WBC Sodium (136-145) mmol/L Potassium (3.5-5.1) mmol/L Chloride (98-107) mmol/L Carbon Dioxide (22-29) mmol/L Anion Gap (5-19) BUN (6-20) mg/dL Creatinine (0.5-0.9) mg/dL GFR Calculation (90-130) mL/min Glucose (65-115) mg/dL Calculated Osmolal ity (285-295) mOsm/k g Calcium (8.5-10.5) mg/dL Total Bilirubin (0.15-1.2) mg/dL AST (0-32) U/L ALT (0-33) U/L Alkaline Phosphata se (35-105) IU/L Troponin T Baselin e (0-10) ng/mL Troponin T 120 Min [place] 8.99 (0-10) ng/mL Total Protein (6.6-8.7) g/dL Albumin (3.5-5.2) g/dL Globulin (1.3-4.6) g/dL Lipase (13-60) U/L Urine Color Yellow (Yellow) Urine Appearance Clear (CLEAR) Urine pH 7 (5-7) Ur Specific Gravit y 1.005 (1.005-1.030) Urine Protein Neg (Negative) Urine Glucose (UA) Norm (Normal) Urine Ketones Negative (Negative) Urine Blood Neg (Negative) Urine Nitrate Negative (Negative) Urine Bilirubin Neg (NEGATIVE) Urine Urobilinogen Norm (Negative) mg/dL Ur Leukocyte Luiza ase Negative (Negative) Imaging Data ^: CT Abd/Pel: Radiologist's impression: CT Scan Report Signed Patient: Meka Bhatia #: [id number] : 1970Acct#:[id number] Age/Sex: 49 / FADM Date: 08/19/19 Loc: ERRoom/Bed: Attending Dr: Ordering Provider/Ordering MD: Tatiana Adan DO Date of Service: 08/19/19 Procedure(s): CT abdomen pelvis w con* [id number] Accession Number(s): [id number] Report Number: [id number] WS: [id number] CT ABDOMEN PELVIS TECHNIQUE: Contrast-enhanced CT of the abdomen and pelvis with coronal and sagittal reformatted images. CLINICAL INFORMATION: abd pain COMPARISON: May 10, 2019 DLP: 1185.[address] scans at [facility] use at least one of these dose optimization techniques: automated exposure control; mA and/or kV adjustment per patient size (includes targeted exams where dose is matched to clinical indication); or iterative reconstruction. FINDINGS: Liver is normal. Normal gallbladder. Normal portal vein and splenic vein. Normal spleen. Normal GE junction. Lung bases are well aerated. Normal pancreas. Normal caliber abdominal aorta. Mild aortic calcification. Normal adrenal glands. Normal renal parenchymal enhancement. No hydronephrosis. Diverticulosis. No evidence of diverticulitis. Normal appendix. No evidence of small or large bowel obstruction. Peripherally enhancing left ovarian cyst measuring 1.7 CM. No free fluid in the pelvis. Disc space [id number] L5-S1 vacuum disc phenomenon. Incidental fat-containing umbilical hernia. Attempted notification Tatiana Adan DO at 08/19/2019 5:14 PM. Not currently available for verbal report. CT/CT abdomen pelvis w con* [id number] IMPRESSION: 1. No evidence of small or large bowel obstruction. 2. No free fluid in the pelvis. 3. Peripheral enhancing left ovarian cyst measuring 1.7 CM. This can be followed up with ultrasound. 4. Normal caliber abdominal aorta. 5. No acute abdominal or pelvic findings. Dictated By:Pascual Noe MD Signed By:Pascual Noe MDSigned Date/Time:08/19/19 4600 Discharge Plan Discharge Patient Disposition: Home, Self-Care Clinical Impression: Abdominal pain Qualifiers: Abdominal location: left upper quadrant Qualified Code(s): R10.12 - Left upper quadrant pain Condition: Stable Prescriptions: New Zofran 4 mg tablet 4 mg PO Q6H PRN (Reason: nausea and vomiting) 5 Days Qty: 20 RF: 0 dicyclomine 20 mg tablet 20 mg PO BID Qty: 20 RF: 0 No Action clonazepam 1 mg tablet 1 mg PO BID PRN (Reason: anxiety) Qty: 60 RF: 2 duloxetine [Cymbalta] 60 mg capsule,delayed release(DR/EC) 60 mg PO DAILY Qty: 30 RF: 2 albuterol sulfate [ProAir HFA] 90 mcg/actuation HFA aerosol inhaler 2 puff INHALATION Q6H PRN (Reason: Shortness Of Breath) RF: 0 potassium chloride 20 mEq tablet extended release 20 meq PO DAILY RF: 0 acetaminophen [Tylenol] 325 mg capsule 325 mg PO Q6H PRN (Reason: Pain) RF: 0 budesonide [Pulmicort] 0.5 mg/2 mL suspension for nebulization 0.5 mg INHALATION BID RF: 0 ipratropium-albuterol 0.5 mg-3 mg(2.5 mg base)/3 mL solution for nebulization 3 ml INHALATION 6XD RF: 0 Victoza 2-Bijan 0.6 mg/0.1 mL (18 mg/3 mL) pen injector 1.8 mg SUBCUT Q24H Qty: 6 RF: 0 isosorbide mononitrate 30 mg tablet extended release 24 hr 30 mg PO QAM Qty: 30 RF: 3 Lasix 40 mg tablet See Rx Instructions PO BID Qty: 90 RF: 0 spironolactone 50 mg tablet 50 mg PO QAM Qty: 30 RF: 0 gabapentin 300 mg capsule 300 mg PO TID Qty: 90 RF: 0 nitroglycerin [Nitrostat] 0.4 mg tablet, sublingual 0.4 mg SUBLINGUAL Q5M PRN (Reason: Chest Pain) Qty: 90 RF: 3 (DME) pen needle, diabetic [Comfort EZ Pen [place]] 32 gauge x 1/4 needle See Rx Instructions .ROUTE .MEDSUPPLY Qty: 100 RF: 0 azithromycin 250 mg tablet 250 mg PO DAILY Qty: 30 RF: 0 pantoprazole [Protonix] 40 mg tablet,delayed release (DR/EC) 40 mg PO BID Qty: 60 RF: 0 atenolol 50 mg tablet 50 mg PO BID Qty: 60 RF: 0 Eliquis 5 mg tablet 5 mg PO BID Qty: 60 RF: 0 ondansetron HCl [Zofran] 4 mg tablet 4 mg PO QID PRN (Reason: nausea and vomiting) Qty: 14 RF: 0 prazosin 1 mg capsule 1 mg PO BEDTIME RF: 0 quetiapine [Seroquel XR] 300 mg tablet extended release 24 hr 300 mg PO BEDTIME RF: 0 Discharge Orders: Discharge Order (Routine); Ordered 08/19/19 Ordered By: Sabrina Bar Referrals: Diego Chowdary MD [Physician] - 1-3 days Liz Marcos DO [Primary Care Provider] - Patient Instructions: Abdominal Pain (ED) Activity Restrictions/Additional Instructions: Please return to the ER immediately for any of the signs or symptoms listed on your discharge instruction sheets, worsening/changing of your symptoms, you are not getting better as quickly as expected, or for ANY other cause or concerns. If you change your mind and want further evaluation of your ovarian cyst you are more than welcome to return. Be certain to follow-up with your primary care physician and Dr. Chowdary as soon as possible for recheck. Sign Out Sign Out Data: Patient Sign Out occurred on 08/19/19 at 18:28. Patient's care was discussed, and care was transferred from to Sabrina Bar. Coding Level of Care Code ED Retail Event And Sales Assistant for Chg Fwd Exam Comprehensive Documented by User: Sabrina Bar 08/19/19 19:44 HPI - Abdominal Pain General: Chief Complaint: Abdominal Pain Stated Complaint: abd pain Time Seen by Provider: 08/19/19 16:36 PFSH ED PFSH: Medical History Bipolar disorder, current episode mixed, moderate Bipolar disorder, current episode mixed, severe, with psychotic features Chronic hepatitis C without hepatic coma Chronic hypercapnic respiratory failure Chronic kidney disease (CKD), stage III (moderate) Diastolic CHF Gastritis History of pulmonary embolism Iron deficiency anemia Mitral valve insufficiency Orthopnea BINA (obstructive sleep apnea) Other stimulant dependence, in remission Panic disorder [episodic paroxysmal anxiety] Post-traumatic stress disorder, chronic Severe chronic obstructive pulmonary disease Surgical History H/O section H/O foot surgery H/O knee surgery H/O neck surgery H/O tracheostomy Family History Other CAD (coronary artery disease) Diabetes Social History Smoking and tobacco status: current every day smoker cigarettes Packs smoked per day: 1 Smoking risk assessment/counseling performed?: Yes Tobacco counseling given: counseling >3 minutes Alcohol intake: former Year of sobriety/quit date alcohol: 3 Course Vital Signs: Vital signs: Vital Signs Temperature 98.4 F 08/19/19 16:20 Pulse Rate 65 08/19/19 18:10 Respiratory Rate 18 08/19/19 18:10 Blood Pressure 143/89 08/19/19 18:10 Pulse Oximetry 100 08/19/19 18:14 MDM - Abdominal Pain MDM Narrative: Medical decision making narrative: Meka is a nice 49-year-old female who comes in complaining of left upper quadrant/left chest pain. EKGs are unremarkable and her troponins are normal. The patient has a left ovarian cyst but not large enough and without mass to be concerned of ovarian torsion. I did offer an ultrasound but she wants to wait. Do not believe she is interested in fertility and she does understand though if her pain gets worse she will need to come back and have that evaluated. Currently she is feeling better and wants to go home. She is asking about a different primary care physician and I have given her some recommendations but she understands she needs to follow-up with her primary care physician she has now. She also agrees to follow-up with Dr. Chowdary. Lab Data: Labs: Lab Results 08/19/19 08/19/19 08/19/19 Range/Units 16:54 16:54 16:54 WBC 9.9 (4.0-10.0) 10^3/ uL RBC 4.39 (4.1-5.3) 10^6/u L Hgb 13.9 (11.5-15.3) g/dL Hct 43.6 (37.0-47.0) % MCV 99.3 H (81-99) fL MCH 31.7 (28.0-34.0) pg MCHC 31.9 (30.0-36.0) g/dL RDW 12.7 (12.1-15.1) % Plt Count 237 (130-400) 10^3/c mm MPV 10.4 (7.4-10.4) fL Neut % (Auto) 78.5 % Lymph % (Auto) 13.0 % [place] % (Auto) 7.0 % Eos % (Auto) 0.6 % Baso % (Auto) 0.5 % Neut # (Auto) 7.8 H (1.8-7.7) 10^3/u L Lymph # (Auto) 1.3 (0.8-4.8) 10^3/u L [place] # (Auto) 0.7 (0.2-0.9) 10^3/u L Eos # (Auto) 0.1 (0.0-0.8) 10^3/u L Baso # (Auto) 0.1 (0.0-0.1) 10^3/u L Nucleated RBC % (a uto) 0 % Nucleated RBCs # 0.0 /100WBC Sodium 139 (136-145) mmol/L Potassium 4.0 (3.5-5.1) mmol/L Chloride 99 (98-107) mmol/L Carbon Dioxide 30 H (22-29) mmol/L Anion Gap 14.0 (5-19) BUN 17 (6-20) mg/dL Creatinine 1.3 H (0.5-0.9) mg/dL GFR Calculation 43.5 L (90-130) mL/min Glucose 103 (65-115) mg/dL Calculated Osmolal ity 285 (285-295) mOsm/k g Calcium 9.7 (8.5-10.5) mg/dL Total Bilirubin 0.4 (0.15-1.2) mg/dL AST 35 H (0-32) U/L ALT 25 (0-33) U/L Alkaline Phosphata se 200 H (35-105) IU/L Troponin T Baselin e 9 (0-10) ng/mL Troponin T 120 Min [place] (0-10) ng/mL Total Protein 7.5 (6.6-8.7) g/dL Albumin 4.0 (3.5-5.2) g/dL Globulin 3.5 (1.3-4.6) g/dL Lipase 56 (13-60) U/L Urine Color (Yellow) Urine Appearance (CLEAR) Urine pH (5-7) Ur Specific Gravit y (1.005-1.030) Urine Protein (Negative) Urine Glucose (UA) (Normal) Urine Ketones (Negative) Urine Blood (Negative) Urine Nitrate (Negative) Urine Bilirubin (NEGATIVE) Urine Urobilinogen (Negative) mg/dL Ur Leukocyte Luiza ase (Negative) 08/19/19 08/19/19 Range/Units 18:08 19:03 WBC (4.0-10.0) 10^3/ uL RBC (4.1-5.3) 10^6/u L Hgb (11.5-15.3) g/dL Hct (37.0-47.0) % MCV (81-99) fL MCH (28.0-34.0) pg MCHC (30.0-36.0) g/dL RDW (12.1-15.1) % Plt Count (130-400) 10^3/c mm MPV (7.4-10.4) fL Neut % (Auto) % Lymph % (Auto) % [place] % (Auto) % Eos % (Auto) % Baso % (Auto) % Neut # (Auto) (1.8-7.7) 10^3/u L Lymph # (Auto) (0.8-4.8) 10^3/u L [place] # (Auto) (0.2-0.9) 10^3/u L Eos # (Auto) (0.0-0.8) 10^3/u L Baso # (Auto) (0.0-0.1) 10^3/u L Nucleated RBC % (a uto) % Nucleated RBCs # /100WBC Sodium (136-145) mmol/L Potassium (3.5-5.1) mmol/L Chloride (98-107) mmol/L Carbon Dioxide (22-29) mmol/L Anion Gap (5-19) BUN (6-20) mg/dL Creatinine (0.5-0.9) mg/dL GFR Calculation (90-130) mL/min Glucose (65-115) mg/dL Calculated Osmolal ity (285-295) mOsm/k g Calcium (8.5-10.5) mg/dL Total Bilirubin (0.15-1.2) mg/dL AST (0-32) U/L ALT (0-33) U/L Alkaline Phosphata se (35-105) IU/L Troponin T Baselin e (0-10) ng/mL Troponin T 120 Min [place] lions 8.99 (0-10) ng/mL Total Protein (6.6-8.7) g/dL Albumin (3.5-5.2) g/dL Globulin (1.3-4.6) g/dL Lipase (13-60) U/L Urine Color Yellow (Yellow) Urine Appearance Clear (CLEAR) Urine pH 7 (5-7) Ur Specific Gravit y 1.005 (1.005-1.030) Urine Protein Neg (Negative) Urine Glucose (UA) Norm (Normal) Urine Ketones Negative (Negative) Urine Blood Neg (Negative) Urine Nitrate Negative (Negative) Urine Bilirubin Neg (NEGATIVE) Urine Urobilinogen Norm (Negative) mg/dL Ur Leukocyte Luiza ase Negative (Negative) Discharge Plan Discharge Patient Disposition: Home, Self-Care Clinical Impression: Abdominal pain Qualifiers: Abdominal location: left upper quadrant Qualified Code(s): R10.12 - Left upper quadrant pain Condition: Stable Prescriptions: New Zofran 4 mg tablet 4 mg PO Q6H PRN (Reason: nausea and vomiting) 5 Days Qty: 20 RF: 0 dicyclomine 20 mg tablet 20 mg PO BID Qty: 20 RF: 0 No Action clonazepam 1 mg tablet 1 mg PO BID PRN (Reason: anxiety) Qty: 60 RF: 2 duloxetine [Cymbalta] 60 mg capsule,delayed release(DR/EC) 60 mg PO DAILY Qty: 30 RF: 2 albuterol sulfate [ProAir HFA] 90 mcg/actuation HFA aerosol inhaler 2 puff INHALATION Q6H PRN (Reason: Shortness Of Breath) RF: 0 potassium chloride 20 mEq tablet extended release 20 meq PO DAILY RF: 0 acetaminophen [Tylenol] 325 mg capsule 325 mg PO Q6H PRN (Reason: Pain) RF: 0 budesonide [Pulmicort] 0.5 mg/2 mL suspension for nebulization 0.5 mg INHALATION BID RF: 0 ipratropium-albuterol 0.5 mg-3 mg(2.5 mg base)/3 mL solution for nebulization 3 ml INHALATION 6XD RF: 0 Victoza 2-Bijan 0.6 mg/0.1 mL (18 mg/3 mL) pen injector 1.8 mg SUBCUT Q24H Qty: 6 RF: 0 isosorbide mononitrate 30 mg tablet extended release 24 hr 30 mg PO QAM Qty: 30 RF: 3 Lasix 40 mg tablet See Rx Instructions PO BID Qty: 90 RF: 0 spironolactone 50 mg tablet 50 mg PO QAM Qty: 30 RF: 0 gabapentin 300 mg capsule 300 mg PO TID Qty: 90 RF: 0 nitroglycerin [Nitrostat] 0.4 mg tablet, sublingual 0.4 mg SUBLINGUAL Q5M PRN (Reason: Chest Pain) Qty: 90 RF: 3 (DME) pen needle, diabetic [Comfort EZ Pen [place]] 32 gauge x 1/4 needle See Rx Instructions .ROUTE .MEDSUPPLY Qty: 100 RF: 0 azithromycin 250 mg tablet 250 mg PO DAILY Qty: 30 RF: 0 pantoprazole [Protonix] 40 mg tablet,delayed release (DR/EC) 40 mg PO BID Qty: 60 RF: 0 atenolol 50 mg tablet 50 mg PO BID Qty: 60 RF: 0 Eliquis 5 mg tablet 5 mg PO BID Qty: 60 RF: 0 ondansetron HCl [Zofran] 4 mg tablet 4 mg PO QID PRN (Reason: nausea and vomiting) Qty: 14 RF: 0 prazosin 1 mg capsule 1 mg PO BEDTIME RF: 0 quetiapine [Seroquel XR] 300 mg tablet extended release 24 hr 300 mg PO BEDTIME RF: 0 Discharge Orders: Discharge Order (Routine); Ordered 08/19/19 Ordered By: Sabrina Bar Referrals: Diego Chowdary MD [Physician] - 1-3 days Liz Marcos DO [Primary Care Provider] - Patient Instructions: Abdominal Pain (ED) Activity Restrictions/Additional Instructions: Please return to the ER immediately for any of the signs or symptoms listed on your discharge instruction sheets, worsening/changing of your symptoms, you are not getting better as quickly as expected, or for ANY other cause or concerns. If you change your mind and want further evaluation of your ovarian cyst you are more than welcome to return. Be certain to follow-up with your primary care physician and Dr. Chowdary as soon as possible for recheck. Sign Out Sign Out Data: Patient Sign Out occurred on 08/19/19 at 18:28. Patient's care was discussed, and care was transferred from to Sabrina Bar. Coding Level of Care Code ED Retail Event And Sales Assistant for Chg Fwd Exam Comprehensive
--- NOTE | 2019-08-19 16:44 | CT_ITS ---
WS: [id number] CT ABDOMEN PELVIS TECHNIQUE: Contrast-enhanced CT of the abdomen and pelvis with coronal and sagittal reformatted image s. CLINICAL INFORMATION: abd pain COMPARISON: May 10, 2019 DLP: 1185.[address] scans at [facility] use at least one of these dose optimization techniques: automat ed exposure control; mA and/or kV adjustment per patient size (includes targeted exams where dose is matched to clinical indication); or iterative reconstruction. FINDINGS: Liver is normal. Normal gallbladder. Normal portal vein and splenic vein. Normal spleen. Normal GE ju nction. Lung bases are well aerated. Normal pancreas. Normal caliber abdominal aorta. Mild aortic darcy cification. Normal adrenal glands. Normal renal parenchymal enhancement. No hydronephrosis. Diverticulosis. No evidence of diverticulitis. Normal appendix. No evidence of small or large bowel o bstruction. Peripherally enhancing left ovarian cyst measuring 1.7 CM. No free fluid in the pelvis. D isc space [id number] L5-S1 vacuum disc phenomenon. Incidental fat-containing umbilical hernia. Attempted notification Tatiana Adan DO at 08/19/2019 5:14 PM. Not currently available for verbal report. CT/CT abdomen pelvis w con* [id number] IMPRESSION: 1. No evidence of small or large bowel obstruction. 2. No free fluid in the pelvis. 3. Peripheral enhancing left ovarian cyst measuring 1.7 CM. This can be follow ed up with ultrasound. 4. Normal caliber abdominal aorta. 5. No acute abdominal or pelvic findings.
[2019-08-19] MEDS: iodixanol 320 mg/mL 100mL Btl IV (16:59)
[2019-08-19 17:03] LABS: Basophils # 0.1 10^3/uL (0.0-0.1); Basophils % 0.5 %; Eosinophils # 0.1 10^3/uL (0.0-0.8); Eosinophils % 0.6 %; Hematocrit 43.6 % (37.0-47.0); Hemoglobin 13.9 g/dL (11.5-15.3); Lymphocytes # 1.3 10^3/uL (0.8-4.8); Mean Corpuscular HGB Conc 31.9 g/dL (30.0-36.0); Mean Corpuscular Hemoglobin 31.7 pg (28.0-34.0); Mean Corpuscular Volume 99.3 fL (81-99); Mean Platelet Volume 10.4 fL (7.4-10.4); Monocytes # 0.7 10^3/uL (0.2-0.9); Neutrophils # 7.8 10^3/uL (1.8-7.7); Neutrophils % 78.5 %; Nucleated Red Blood Cells % 0 %; Platelet Count 237 10^3/cmm (130-400); Red Blood Count 4.39 10^6/uL (4.1-5.3); Red Cell Distribution Width 12.7 % (12.1-15.1); White Blood Count 9.9 10^3/uL (4.0-10.0)
[2019-08-19 17:16] LABS: Alanine Aminotransferase 25 U/L (0-33); Alkaline Phosphatase 200 IU/L (35-105); Aspartate Amino Transferase 35 U/L (0-32); Blood Urea Nitrogen 17 mg/dL (6-20); Calcium 9.7 mg/dL (8.5-10.5); Carbon Dioxide 30 mmol/L (22-29); Chloride 99 mmol/L (98-107); Globulin 3.5 g/dL (1.3-4.6); Glomerular Filtration Rate 43.5 mL/min (90-130); Glucose 103 mg/dL (65-115); Lipase 56 U/L (13-60); Osmolality Calculated 285 mOsm/kg (285-295); Sodium 139 mmol/L (136-145); Total Bilirubin 0.4 mg/dL (0.15-1.2); Total Protein 7.5 g/dL (6.6-8.7)
[2019-08-19 17:17] LABS: Troponin(5th) Baseline 9 ng/mL (0-10)
[2019-08-19] MEDS: sodium chloride 0.9% 500 ML 999 ML IV (17:25)
[2019-08-19] MEDS: ondansetron 2 mg/ML SDV 2 mL 4 MG IVP (17:31)
[2019-08-19 17:32] VITALS: RESP 19
[2019-08-19] MEDS: morphine 4 mg/mL SDV 1 mL IVP ×2 (17:32→20:10)
[2019-08-19 18:10] VITALS: BP 143/89; PULSE 65; RESP 18; O2SAT 100
[2019-08-19 18:14] VITALS: O2SAT 100
[2019-08-19] MEDS: lidocaine 2% viscous 15 mL UDC 10 ML PO (18:17)
[2019-08-19] MEDS: alum-mag-hydroxide-sime 30 mL UDC PO (18:17)
[2019-08-19 18:23] LABS: Add Urine Microscopic? NO
[2019-08-19 18:43] LABS: Glucose Urine UA Norm (Normal); Ketones Urine Negative (Negative); Protein Urine Neg (Negative); Specific Gravity, Urine 1.005 (1.005-1.030); Urine Appearance Clear (CLEAR); Urine Color Yellow (Yellow); pH Urine 7 (5-7)
[2019-08-19 18:44] LABS: Bilirubin Urine Neg (NEGATIVE); Blood Urine Neg (Negative); Leukocyte Esterase Urine Negative (Negative); Nitrate Urine Negative (Negative); Urobilinogen Urine Norm (Negative)
--- NOTE | 2019-08-19 18:44 | ECG_ITS ---
Measurements Intervals [place] Rate: 67 P: 74 LA: 168 QRS: 76 QRSD: 97 T: 54 QT: 378 QTc: 402 SINUS RHYTHM LOW QRS VOLTAGE IN PRECORDIAL LEADS [QRS DEFLECTION < 1.0 mV IN CHEST LEADS] Compared to ECG 04/08/2019 21:44:22 Low QRS voltage now present Electronically Signed On 08-20-2019 17:06:55 CDT by Tyler Cartwright M.D. [email or web address]
[2019-08-19 19:28] LABS: Troponin 5 2HR 8.99 ng/mL (0-10)
[2019-08-19 20:08] LABS: Troponin 5 2HR Delta -0.01 ABS# (0-10)
[2019-08-19 20:10] VITALS: RESP 18; O2SAT 99
[2019-08-19 20:25] VITALS: BP 144/73; PULSE 98; RESP 62; O2SAT 98
== END 2019-08-19 20:26 | disposition home or self-care (01) ==
PROVIDERS: Emergency Medicine; Emergency Provider Emergency Medicine; Family Provider Family Medicine; PCP Family Medicine
DX: N83.202 Unspecified ovarian cyst, left side (principal); R10.12 Left upper quadrant pain; F41.0 Panic disorder [episodic paroxysmal anxiety]; F43.12 Post-traumatic stress disorder, chronic; F31.62 Bipolar disorder, current episode mixed, moderate; N18.3 Chronic kidney disease, stage 3 (moderate); J44.9 Chronic obstructive pulmonary disease, unspecified; F17.210 Nicotine dependence, cigarettes, uncomplicated; Z79.01 Long term (current) use of anticoagulants
CPT/HCPCS: 12345; 74177; 80053; 81003; 83690; 84484; 85025; 93005; 96374; 96375; 96376; 99283; 99284; A9270; J2270; J2405; J7040; Q9967

== ENCOUNTER 2019-08-30 16:56 | Emergency (ER) | payer MEDICAID, SELFPAY ==
[2019-08-30 17:03] VITALS: BP 155/85; PULSE 72; RESP 18; TEMP 37.3; O2SAT 94; BMI 42.9
--- NOTE | 2019-08-30 17:42 | ED_ITS ---
HPI - Female Genitourinary General: Chief complaint: Vaginal Bleeding Stated complaint: bleeding, sent by dr rivero Time Seen by Provider: 08/30/19 17:28 Source: patient Mode of arrival: ambulatory Limitations: no limitations History of Present Illness: HPI Narrative: Patient is a 49-year-old female here for complaints of postmenopausal bleeding. Patient states she has had this intermittently since May. She tells me she has not bled in several weeks but beginning last night stood up and had a large amount of blood with clots expelled from her vagina. Patient states since that time and into today she has soaked 5 overnight pads total. Patient states she had been set up with gynecology however her appointments were canceled due to her being requested to self quarantine for COVID-19. She is complaining of vaginal pain. Otherwise does not complain of vaginal odor or discharge. MD elicited complaint: vaginal bleeding Onset (ago): hour(s) Consistency: intermittent Vaginal discharge: none Vaginal bleeding: moderate and clots Exacerbating factors: none Relieving factors: none Associated symptoms: Reports no associated symptoms and vaginal bleeding; Deny abdominal pain, headache(s), nausea, syncope or vaginal discharge Patient : No Review of Systems General: Reports: 10 or more systems reviewed and unremarkable except in HPI and below Const: Denies: fever, chills or body aches Card: Denies: chest pain, palpitations, irregular heart rhythm, edema, swelling of feet/ankles, lightheadedness, syncope or pre-syncope Resp: Reports: shortness of breath (chronically-not worsened at all) GI: Denies: abdominal pain, nausea, vomiting, diarrhea or constipation : Reports: vaginal bleeding; Denies: flank pain, difficulty urinating, painful urination, urinary frequency, urinary urgency, urinary hesitancy, vaginal odor or vaginal discharge Musc: Denies: neck pain or back pain Skin/Breast: Denies: rash Neuro: Denies: headache, numbness in extremities, weakness in extremities or changes in sensation PFS ED PFSH: Social History Smoking and tobacco status: current every day smoker cigarettes Packs smoked per day: 1 Years cigarettes smoked: 40 Quit status (tobacco): not considering quitting Smoking risk assessment/counseling performed?: Yes Tobacco counseling given: counseling >3 minutes Alcohol intake: former Year of sobriety/quit date alcohol: 3 Lives independently: Yes Household members: spouse Marital status: Current occupational status: disabled History of recent travel: No Current gender identity: Female Physical Exam Const: COMMON NORMALS: no apparent distress, oriented x3 and alert NUTRITIONAL APPEARANCE: obese morbidly obese HENMT: COMMON NORMALS: normocephalic and head/scalp atraumatic HEAD & SCALP: normocephalic and atraumatic GI: COMMON NORMALS: normal to inspection, nondistended, normoactive bowel sounds, soft to palpation, non-tender, no hepatosplenomegaly and no masses PALPATION: Yes soft and Yes no hepatosplenomegaly OTHER: exam limited secondary to body habitus : COMMON NORMALS: Yes no CVA tenderness BLADDER/KIDNEY EXAM: Yes no CVA tenderness SPECULUM EXAM - VAGINA: Yes vaginal bleeding Amount: small/minimal SPECULUM EXAM - CERVIX: Yes cervical os closed, No tissue present in the cervical os, Yes cervical bleeding (bleeding from cervical os; no friable appearance/lesions to cervix), No cervical lesion and No cervical tenderness BIMANUAL EXAM - VAGINA & UTERUS: No cervical tenderness OB/EXTERNAL & SPECULUM: vaginal bleeding Back/Pelvis: COMMON NORMALS: no CVA tenderness Neuro: COMMON NORMALS: oriented x3 SENSORIUM/ORIENTATION: Yes alert Skin: COMMON NORMALS: no rashes or lesions noted GENERAL SKIN EXAM: no rashes or lesions noted Course Vital Signs: Vital signs: Vital Signs Temperature 99.2 F 08/30/19 17:03 Pulse Rate 80 08/30/19 20:25 Respiratory Rate 20 H 08/30/19 20:25 Blood Pressure 156/81 08/30/19 20:25 Pulse Oximetry 94 08/30/19 20:25 MDM - Female MDM Narrative: Medical decision making narrative: Will have CM try and set her up with a Women's Health appointment. I believe she currently has one scheduled but it is not until October. Lab Data: Labs: Lab Results 08/30/19 08/30/19 08/30/19 Range/Units 17:50 17:50 17:50 WBC 9.6 (4.0-10.0) 10^3/ uL RBC 4.38 (4.1-5.3) 10^6/u L Hgb 13.8 (11.5-15.3) g/dL Hct 43.1 (37.0-47.0) % MCV 98.4 (81-99) fL MCH 31.5 (28.0-34.0) pg MCHC 32.0 (30.0-36.0) g/dL RDW 12.8 (12.1-15.1) % Plt Count 294 (130-400) 10^3/c mm MPV 10.6 H (7.4-10.4) fL Neut % (Auto) 76.0 % Lymph % (Auto) 13.5 % Coles % (Auto) 8.3 % Eos % (Auto) 1.3 % Baso % (Auto) 0.6 % Neut # (Auto) 7.3 (1.8-7.7) 10^3/u L Lymph # (Auto) 1.3 (0.8-4.8) 10^3/u L Coles # (Auto) 0.8 (0.2-0.9) 10^3/u L Eos # (Auto) 0.1 (0.0-0.8) 10^3/u L Baso # (Auto) 0.1 (0.0-0.1) 10^3/u L Nucleated RBC % (a uto) 0 % Nucleated RBCs # 0.0 /100WBC PT 12.50 (10.5-13.3) SECO NDS INR 0.91 (0.8-1.2) APTT 32.6 (23.9-36.7) SECO NDS Sodium 140 (136-145) mmol/L Potassium 4.4 (3.5-5.1) mmol/L Chloride 98 (98-107) mmol/L Carbon Dioxide 32 H (22-29) mmol/L Anion Gap 14.4 (5-19) BUN 37 H (6-20) mg/dL Creatinine 1.6 H (0.5-0.9) mg/dL GFR Calculation 34.3 L (90-130) mL/min Glucose 104 (65-115) mg/dL Calculated Osmolal ity 288 (285-295) mOsm/k g Calcium 9.7 (8.5-10.5) mg/dL Total Bilirubin 0.3 (0.15-1.2) mg/dL AST 27 (0-32) U/L ALT 19 (0-33) U/L Alkaline Phosphata se 190 H (35-105) IU/L Total Protein 7.3 (6.6-8.7) g/dL Albumin 4.0 (3.5-5.2) g/dL Globulin 3.3 (1.3-4.6) g/dL Urine Color (Yellow) Urine Appearance (CLEAR) Urine pH (5-7) Ur Specific Gravit y (1.005-1.030) Urine Protein (Negative) Urine Glucose (UA) (Normal) Urine Ketones (Negative) Urine Blood (Negative) Urine Nitrate (Negative) Urine Bilirubin (NEGATIVE) Urine Urobilinogen (Negative) mg/dL Ur Leukocyte Luiza ase (Negative) Urine RBC (0-2) /hpf Urine WBC (0-5) /hpf Ur Squamous Epith Cells (0-5) Urine Bacteria (NONE) 08/30/19 Range/Units 18:00 WBC (4.0-10.0) 10^3/ uL RBC (4.1-5.3) 10^6/u L Hgb (11.5-15.3) g/dL Hct (37.0-47.0) % MCV (81-99) fL MCH (28.0-34.0) pg MCHC (30.0-36.0) g/dL RDW (12.1-15.1) % Plt Count (130-400) 10^3/c mm MPV (7.4-10.4) fL Neut % (Auto) % Lymph % (Auto) % Coles % (Auto) % Eos % (Auto) % Baso % (Auto) % Neut # (Auto) (1.8-7.7) 10^3/u L Lymph # (Auto) (0.8-4.8) 10^3/u L Coles # (Auto) (0.2-0.9) 10^3/u L Eos # (Auto) (0.0-0.8) 10^3/u L Baso # (Auto) (0.0-0.1) 10^3/u L Nucleated RBC % (a uto) % Nucleated RBCs # /100WBC PT (10.5-13.3) SECO NDS INR (0.8-1.2) APTT (23.9-36.7) SECO NDS Sodium (136-145) mmol/L Potassium (3.5-5.1) mmol/L Chloride (98-107) mmol/L Carbon Dioxide (22-29) mmol/L Anion Gap (5-19) BUN (6-20) mg/dL Creatinine (0.5-0.9) mg/dL GFR Calculation (90-130) mL/min Glucose (65-115) mg/dL Calculated Osmolal ity (285-295) mOsm/k g Calcium (8.5-10.5) mg/dL Total Bilirubin (0.15-1.2) mg/dL AST (0-32) U/L ALT (0-33) U/L Alkaline Phosphata se (35-105) IU/L Total Protein (6.6-8.7) g/dL Albumin (3.5-5.2) g/dL Globulin (1.3-4.6) g/dL Urine Color Red (Yellow) Urine Appearance Cloudy (CLEAR) Urine pH 5 (5-7) Ur Specific Gravit y 1.005 (1.005-1.030) Urine Protein Neg (Negative) Urine Glucose (UA) Norm (Normal) Urine Ketones Negative (Negative) Urine Blood 3+ H (Negative) Urine Nitrate Negative (Negative) Urine Bilirubin Neg (NEGATIVE) Urine Urobilinogen Norm (Negative) mg/dL Ur Leukocyte Luiza ase Negative (Negative) Urine RBC >100 H (0-2) /hpf Urine WBC 0-4 H (0-5) /hpf Ur Squamous Epith Cells None (0-5) Urine Bacteria Trace (NONE) Imaging Data: US pelvis: Radiologist's impression: [address] [address] Ultrasound Report Signed Patient: Meka Bhatia Unit #: [id number] : 1970 Age/Sex: 49 / F ADM Date: 08/30/19 Loc: ER Room/Bed: Attending Dr: Ordering Provider/Ordering MD: Radha Piña Date of Service: 08/30/19 Procedure(s): US transvaginal [id number] Accession Number(s): [id number] Report Number: [id number] PROCEDURE INFORMATION: Exam: US Pelvis, Transvaginal Exam date and time: 08/30/2019 6:45 PM Age: 49 years old Clinical indication: Other: Post menopausal bleeding; Additional info: Post-menopausal bleeding TECHNIQUE: Imaging protocol: Real-time transvaginal pelvic ultrasound with image documentation. Transvaginal imaging was used for better evaluation of the endometrium and adnexa. COMPARISON: US transvaginal [id number] 05/21/2019 9:04 PM FINDINGS: Uterus/cervix: 11.7 x 5 x 5 cm. Suboptimal visualization of the endometrium. Right ovary: Not visualized. No adnexal mass. Left ovary: 1.8 x 1.5 x 1.7 cm. No mass. Free fluid: None. US/US transvaginal [id number] IMPRESSION: No acute sonographic findings. Suboptimal visualization of the endometrium and right ovary. Dictated By: Jose Ramon Bruno MD Signed By: Jose Ramon Bruno MD Signed Date/Time: 08/30/192017 DD/ 16 Discharge Plan Discharge Patient Disposition: Home, Self-Care Clinical Impression: Post-menopausal bleeding Condition: Stable Prescriptions: No Action revefenacin 175 mcg/3 mL solution for nebulization 175 mcg INHALATION DAILY 90 Days Qty: 90 RF: 3 Perforomist 20 mcg/2 mL solution for nebulization 2 ml INHALATION Q12H 90 Days Qty: 120 RF: 3 clonazepam 1 mg tablet 1 mg PO BID PRN (Reason: anxiety) Qty: 60 RF: 2 duloxetine [Cymbalta] 60 mg capsule,delayed release(DR/EC) 60 mg PO DAILY Qty: 30 RF: 2 albuterol sulfate [ProAir HFA] 90 mcg/actuation HFA aerosol inhaler 2 puff INHALATION Q6H PRN (Reason: Shortness Of Breath) RF: 0 acetaminophen [Tylenol] 325 mg capsule 325 mg PO Q6H PRN (Reason: Pain) RF: 0 budesonide [Pulmicort] 0.5 mg/2 mL suspension for nebulization 0.5 mg INHALATION BID RF: 0 isosorbide mononitrate 30 mg tablet extended release 24 hr 30 mg PO QAM Qty: 30 RF: 3 nitroglycerin [Nitrostat] 0.4 mg tablet, sublingual 0.4 mg SUBLINGUAL Q5M PRN (Reason: Chest Pain) Qty: 90 RF: 3 (DME) pen needle, diabetic [Comfort EZ Pen [place]] 32 gauge x 1/4 needle See Rx Instructions .ROUTE .MEDSUPPLY Qty: 100 RF: 0 azithromycin 250 mg tablet 250 mg PO DAILY Qty: 30 RF: 0 pantoprazole [Protonix] 40 mg tablet,delayed release (DR/EC) 40 mg PO BID Qty: 60 RF: 0 atenolol 50 mg tablet 50 mg PO BID Qty: 60 RF: 0 Eliquis 5 mg tablet 5 mg PO BID Qty: 60 RF: 0 Lasix 40 mg tablet See Rx Instructions PO BID Qty: 90 RF: 0 ipratropium-albuterol 0.5 mg-3 mg(2.5 mg base)/3 mL solution for nebulization 3 ml INHALATION 6XD Qty: 540 RF: 3 potassium chloride 20 mEq tablet extended release 20 meq PO DAILY Qty: 30 RF: 0 Victoza 2-Bijan 0.6 mg/0.1 mL (18 mg/3 mL) pen injector 1.8 mg SUBCUT Q24H Qty: 6 RF: 1 spironolactone 50 mg tablet 50 mg PO QAM Qty: 30 RF: 0 gabapentin 300 mg capsule 300 mg PO TID Qty: 90 RF: 0 ondansetron HCl [Zofran] 4 mg tablet 4 mg PO QID PRN (Reason: nausea and vomiting) Qty: 14 RF: 0 dicyclomine 20 mg tablet 20 mg PO BID Qty: 20 RF: 0 prazosin 1 mg capsule 1 mg PO BEDTIME RF: 0 quetiapine [Seroquel XR] 300 mg tablet extended release 24 hr 300 mg PO BEDTIME RF: 0 Discharge Orders: Discharge Order (Routine); Ordered 08/30/19 Ordered By: Radha Piña Referrals: Liz Marcos DO [Primary Care Provider] - Activity Restrictions/Additional Instructions: As discussed we will have you follow-up with Women's Health. Case management will contact you regarding this appointment. Return to the emergency department for worsening bleeding, cramping, dizziness/lightheadedness, or any other concerns you may have. Discharge Date/Time: 08/30/19 20:25 Coding Level of Care Code ED Electronic News Gathering Camera Person for Chg Fwd Exam Detailed
[2019-08-30 17:57] LABS: Basophils # 0.1 10^3/uL (0.0-0.1); Basophils % 0.6 %; Eosinophils # 0.1 10^3/uL (0.0-0.8); Eosinophils % 1.3 %; Hematocrit 43.1 % (37.0-47.0); Hemoglobin 13.8 g/dL (11.5-15.3); Lymphocytes # 1.3 10^3/uL (0.8-4.8); Lymphocytes % 13.5 %; Mean Corpuscular Hemoglobin 31.5 pg (28.0-34.0); Mean Corpuscular Volume 98.4 fL (81-99); Mean Platelet Volume 10.6 fL (7.4-10.4); Monocytes # 0.8 10^3/uL (0.2-0.9); Monocytes % 8.3 %; Neutrophils # 7.3 10^3/uL (1.8-7.7); Nucleated Red Blood Cells % 0 %; Platelet Count 294 10^3/cmm (130-400); Red Blood Count 4.38 10^6/uL (4.1-5.3); Red Cell Distribution Width 12.8 % (12.1-15.1); White Blood Count 9.6 10^3/uL (4.0-10.0)
[2019-08-30 18:07] LABS: INR 0.91 (0.8-1.2)
[2019-08-30 18:08] LABS: Partial Thromboplastin Time 32.6 SECONDS (23.9-36.7)
[2019-08-30 18:13] LABS: Alanine Aminotransferase 19 U/L (0-33); Alkaline Phosphatase 190 IU/L (35-105); Anion Gap 14.4 (5-19); Aspartate Amino Transferase 27 U/L (0-32); Blood Urea Nitrogen 37 mg/dL (6-20); Calcium 9.7 mg/dL (8.5-10.5); Carbon Dioxide 32 mmol/L (22-29); Chloride 98 mmol/L (98-107); Globulin 3.3 g/dL (1.3-4.6); Glomerular Filtration Rate 34.3 mL/min (90-130); Glucose 104 mg/dL (65-115); Osmolality Calculated 288 mOsm/kg (285-295); Potassium 4.4 mmol/L (3.5-5.1); Sodium 140 mmol/L (136-145); Total Bilirubin 0.3 mg/dL (0.15-1.2); Total Protein 7.3 g/dL (6.6-8.7)
--- NOTE | 2019-08-30 18:58 | PC.NURSE ---
pelvic exam completed patient tolerated well
[2019-08-30] MEDS: HYDROcodone-acetaminophen 5-325 mg Tablet 1 TAB PO (19:06)
[2019-08-30 19:50] LABS: Bilirubin Urine Neg (NEGATIVE); Blood Urine 3+ (Negative); Glucose Urine UA Norm (Normal); Ketones Urine Negative (Negative); Nitrate Urine Negative (Negative); Protein Urine Neg (Negative); Specific Gravity, Urine 1.005 (1.005-1.030); Urine Appearance Cloudy (CLEAR); Urine Color Red (Yellow); Urobilinogen Urine Norm (Negative); pH Urine 5 (5-7)
[2019-08-30 19:51] LABS: Add Urine Culture? Yes; Add Urine Microscopic? YES; Bacteria Urine TRACE; Leukocyte Esterase Urine Negative (Negative); RBC Urine >100 /hpf (0-2); WBC Urine 0-4 /hpf (0-5)
[2019-08-30 20:25] VITALS: BP 156/81; PULSE 80; RESP 20; O2SAT 94
--- NOTE | 2019-09-02 11:59 | DCPLANNER ---
manager customer service had message to schedule a follow up appointment for patient with Women's Health. manager customer service called [facility], spoke with Adeola, gave clinic patients information. manager customer service was told that patients information would be printed and reviewed. Clinic will call vocational case manager and patient with appointment information.
--- NOTE | 2019-09-03 11:04 | DCPLANNER ---
Patient has a follow up appointment scheduled for Friday, September 08, 2019 mary jane 2:40 with [employer] MA[employer] ENG, Liz Medina.
--- NOTE | 2019-10-05 07:54 | DCPLANNER ---
Patient attended appointment scheduled for 09.08.19 with [facility].
== END 2019-08-30 20:25 | disposition home or self-care (01) ==
PROVIDERS: Emergency Provider Physician Assistant; Family Provider Family Medicine; PCP Family Medicine
DX: N95.0 Postmenopausal bleeding (principal); Z79.01 Long term (current) use of anticoagulants; F17.210 Nicotine dependence, cigarettes, uncomplicated
CPT/HCPCS: 12345; 36415; 76830; 76857; 80053; 81001; 85025; 85610; 85730; 87086; 99282; 99284; A9270

== ENCOUNTER → 2019-09-08 10:39 | Outpatient (BNVA) | payer MEDICAID, SELFPAY | PROVIDERS: Family Provider Family Medicine; PCP Family Medicine; Visit Provider Anesthesiology Pain Medicine | DX: M54.41 Lumbago with sciatica, right side (principal); M54.9 Dorsalgia, unspecified; M25.551 Pain in right hip; M16.9 Osteoarthritis of hip, unspecified; F17.210 Nicotine dependence, cigarettes, uncomplicated | CPT/HCPCS: 83001; 84450; 88175; 99213; G0463 ==

== ENCOUNTER 2019-09-14 17:02 | Emergency (ER) | payer MEDICAID, SELFPAY ==
[2019-09-14 17:10] VITALS: BP 152/91; PULSE 83; RESP 20; TEMP 36.9; O2SAT 97; BMI 44.6
--- NOTE | 2019-09-14 18:51 | W.ED.EXTPRO ---
HPI - Extremity Problem General: Chief complaint: General Medical Stated complaint: hip pain, l breast pain Time Seen by Provider: 09/14/19 18:51 Source: patient Mode of arrival: wheelchair Limitations: no limitations History of Present Illness: HPI Narrative: Patient is a 49-year-old female who presents to ED today with complaints of right hip pain. Patient chronically has pain in her right hip. She apparently has been evaluated by Dr. Olguin who is recommending a hip replacement but requested the patient lose a substantial amount of weight before this happens. She has been seen pain management for cortisone injections into the hip. She was recently scheduled to receive 1 of these however the physician had a family emergency therefore the procedure was canceled. Patient tells me she is having a flareup and is in an incredible amount of pain. MD Complaint: joint paint Onset (ago): day(s) Pain Consistency: constant Location: right Severity scale (1-10): >10 Radiation: none Relieving factors: nothing Exacerbating factors: nothing Associated symptoms: Deny chest pain, fever(s) or rash Review of Systems Const: Denies: fever, chills, body aches, fatigue or malaise Card: Denies: chest pain Resp: Denies: shortness of breath Musc: Reports: joint pain; Denies: neck pain, back pain, extremity pain, extremity swelling, joint swelling, redness or joint warmth Skin/Breast: Denies: rash Neuro: Denies: numbness in extremities, weakness in extremities or changes in sensation PFS ED PFSH: Social History Smoking and tobacco status: current every day smoker cigarettes Packs smoked per day: 1 Years cigarettes smoked: 40 Quit status (tobacco): not considering quitting Alcohol intake: former Year of sobriety/quit date alcohol: 2015 Physical Exam Const: COMMON NORMALS: oriented x3, no limitations and alert NUTRITIONAL APPEARANCE: obese Resp: COMMON NORMALS: normal respiratory effort and clear to auscultation bilaterally AUSCULTATION: clear to auscultation bilaterally Cardio: COMMON NORMALS: regular rate and regular rhythm RATE: regular rate RHYTHM: regular rhythm Extremity: RIGHT LOWER EXTREMITY: Yes hip joint (pain with palpation and ROM of R hip) Right hip: Yes palpation and Yes ROM Neuro: COMMON NORMALS: oriented x3 SENSORIUM/ORIENTATION: Yes alert Skin: COMMON NORMALS: no rashes or lesions noted GENERAL SKIN EXAM: no rashes or lesions noted Course Vital Signs: Vital signs: Vital Signs Temperature 98.5 F 09/14/19 17:10 Pulse Rate 83 09/14/19 17:10 Respiratory Rate 18 09/14/19 19:23 Blood Pressure 152/91 09/14/19 17:10 Pulse Oximetry 99 09/14/19 19:23 MDM - Extremity (Nontraumatic) MDM Narrative: Medical decision making narrative: pt feels much better after meds given here; will write for small amount of pain meds she can use over the next 1-2 days; recommend she keep re-scheduled appointment for intra-articular injection through pain management Discharge Plan Discharge Patient Disposition: Home, Self-Care Clinical Impression: Hip pain, right Condition: Stable Prescriptions: New hydrocodone-acetaminophen 5-325 mg tablet 1 tab PO Q6H PRN (Reason: pain) Qty: 10 RF: 0 No Action revefenacin 175 mcg/3 mL solution for nebulization 175 mcg INHALATION DAILY 90 Days Qty: 90 RF: 3 clonazepam 1 mg tablet 1 mg PO BID PRN (Reason: anxiety) Qty: 60 RF: 2 duloxetine [Cymbalta] 60 mg capsule,delayed release(DR/EC) 60 mg PO DAILY Qty: 30 RF: 2 albuterol sulfate [ProAir HFA] 90 mcg/actuation HFA aerosol inhaler 2 puff INHALATION Q6H PRN (Reason: Shortness Of Breath) RF: 0 acetaminophen [Tylenol] 325 mg capsule 325 mg PO Q6H PRN (Reason: Pain) RF: 0 isosorbide mononitrate 30 mg tablet extended release 24 hr 30 mg PO QAM Qty: 30 RF: 3 nitroglycerin [Nitrostat] 0.4 mg tablet, sublingual 0.4 mg SUBLINGUAL Q5M PRN (Reason: Chest Pain) Qty: 90 RF: 3 (DME) pen needle, diabetic [Comfort EZ Pen [place]] 32 gauge x 1/4 needle See Rx Instructions .ROUTE .MEDSUPPLY Qty: 100 RF: 0 pantoprazole [Protonix] 40 mg tablet,delayed release (DR/EC) 40 mg PO BID Qty: 60 RF: 0 Lasix 40 mg tablet See Rx Instructions PO BID Qty: 90 RF: 0 potassium chloride 20 mEq tablet extended release 20 meq PO DAILY Qty: 30 RF: 0 Victoza 2-Bijan 0.6 mg/0.1 mL (18 mg/3 mL) pen injector 1.8 mg SUBCUT Q24H Qty: 6 RF: 1 spironolactone 50 mg tablet 50 mg PO QAM Qty: 30 RF: 0 gabapentin 300 mg capsule 300 mg PO TID Qty: 90 RF: 0 dicyclomine 20 mg tablet 20 mg PO BID Qty: 60 RF: 0 atenolol 50 mg tablet 50 mg PO BID Qty: 60 RF: 0 Eliquis 5 mg tablet 5 mg PO BID Qty: 60 RF: 1 azithromycin 250 mg tablet 250 mg PO .COMPLEX Qty: 15 RF: 3 quetiapine [Seroquel XR] 300 mg tablet extended release 24 hr 300 mg PO BEDTIME Qty: 30 RF: 1 ondansetron HCl [Zofran] 4 mg tablet 4 mg PO QID PRN (Reason: nausea and vomiting) Qty: 14 RF: 0 prazosin 1 mg capsule 1 mg PO BEDTIME RF: 0 Discharge Orders: Discharge Order (Routine); Ordered 09/14/19 Ordered By: Radha Piña Referrals: Liz Marcos DO [Primary Care Provider] - Discharge Diet: Usual diet Discharge Activity: Increase activity as tolerated Activity Restrictions/Additional Instructions: Do not take hydrocodone along with your normal tylenol as this medication already has tylenol in it. Keep appointment with pain management for injection later this month. Can follow up with primary care in the meantime if needed. Coding Level of Care Code ED Mortgage Loan Reviewer for Abdiel Stone
[2019-09-14 19:23] VITALS: RESP 18; O2SAT 99
[2019-09-14] MEDS: dexamethasone 10 mg/mL INJ 8 MG IM (19:23)
[2019-09-14] MEDS: morphine 4 mg/mL SDV 1 mL IM (19:23)
[2019-09-14] MEDS: orphenadrine 30 mg/mL Inj 2 mL 60 MG IM (19:23)
[2019-09-14 20:39] VITALS: BP 145/86; PULSE 74; RESP 18; O2SAT 99
== END 2019-09-14 20:44 | disposition home or self-care (01) ==
PROVIDERS: Emergency Provider Physician Assistant; Family Provider Family Medicine; PCP Family Medicine
DX: M25.551 Pain in right hip (principal); Z79.01 Long term (current) use of anticoagulants; F17.210 Nicotine dependence, cigarettes, uncomplicated
CPT/HCPCS: 12345; 96372; 99281; 99283; J1100; J2270; J2360

== ENCOUNTER → 2019-09-21 08:34 | Outpatient (BNVA) | payer MEDICAID, SELFPAY | PROVIDERS: Family Provider Family Medicine; PCP Family Medicine; Visit Provider Nurse Practitioner | DX: F41.0 Panic disorder [episodic paroxysmal anxiety] (principal); F43.12 Post-traumatic stress disorder, chronic; F31.62 Bipolar disorder, current episode mixed, moderate | CPT/HCPCS: 99213 ==

== ENCOUNTER → 2019-09-22 08:40 | Outpatient (BNVA) | payer MEDICAID, SELFPAY | PROVIDERS: Family Provider Family Medicine; PCP Family Medicine; Visit Provider Anesthesiology Pain Medicine | DX: M16.9 Osteoarthritis of hip, unspecified (principal); M25.551 Pain in right hip; F17.210 Nicotine dependence, cigarettes, uncomplicated | CPT/HCPCS: 20610; 77003; J1030; J2001; J3490 ==

== ENCOUNTER 2019-09-28 18:43 | Emergency (ER) | payer MEDICAID, SELFPAY ==
[2019-09-28 18:54] VITALS: BP 102/61; PULSE 82; RESP 16; TEMP 36.6; O2SAT 96; BMI 44.6
--- NOTE | 2019-09-28 21:31 | W.ED.GENADLT ---
HPI - General Adult General: Chief complaint: General Medical Stated complaint: breast pain Time Seen by Provider: 09/28/19 21:17 History of Present Illness: HPI narrative: Patient is a 49-year-old female presenting today with complaints of left breast pain. Apparently this breast pain is been going on for about a month but approximately a week ago she was seen at her BUDGET TECHNICIAN's office and found to have a lump in the breast. She is scheduled to have a mammogram in a few days time. She says the breast has been sore but today the pain is unbearable. She is extremely anxious and tearful. She says that she has tried Tylenol and topical muscle rubs without any relief. She said she called the BUDGET TECHNICIAN's office and they told her to go to her pain management doctor. She called her pain management office and they could not see her and told her to come to the ER. She cannot take NSAIDs. She is on oxygen chronically due to COPD. She has a history of bipolar disorder. She has not had any fevers or chills. There is been no discharge from the breast. There is no heat or redness. Onset (ago): month(s) (1) Location: chest (Left breast) Severity: severe Quality: aching Pain Consistency: constant Relieving factors: none Exacerbating factors: none Associated symptoms: Reports no associated symptoms and dyspnea (Chronic); Deny chest pain, headache(s), malaise, nausea, rash or vomiting Review of Systems General: Reports: 10 or more systems reviewed and unremarkable except in HPI and below Const: Denies: fever(s), chills, fatigue or malaise Eyes: Denies: change in vision ENMT: Denies: odynophagia Card: Denies: chest pain or swelling of feet/ankles Resp: Reports: dyspnea (Chronic); Denies: productive cough or non-productive cough GI: Denies: abdominal pain, nausea or vomiting : Denies: flank pain or difficulty voiding Musc: Denies: neck pain or back pain Skin/Breast: Reports: breast tenderness, breast pain and breast mass; Denies: rash Neuro: Denies: headache(s), numbness in extremities or weakness in extremities Jerome/Lymph: Denies: easy bruising or easy bleeding PFS ED PFSH: Medical History Bipolar disorder, current episode mixed, moderate Bipolar disorder, current episode mixed, severe, with psychotic features Chronic hepatitis C without hepatic coma Chronic hypercapnic respiratory failure Chronic kidney disease (CKD), stage III (moderate) Diastolic CHF Gastritis GERD (gastroesophageal reflux disease) History of pulmonary embolism Hypertension Iron deficiency anemia Mitral valve insufficiency Orthopnea BINA (obstructive sleep apnea) Other stimulant dependence, in remission Panic disorder [episodic paroxysmal anxiety] Post-traumatic stress disorder, chronic Severe chronic obstructive pulmonary disease Surgical History H/O cervical fracture (~1998) C4-6 H/O section 1987 1999 2001 H/O foot surgery (~2003) lefft-- ball of the foot H/O knee surgery (~1991) left knee patellar fracture H/O tracheostomy (~2002) H/O tubal ligation (~2001) Status post dilation and curettage (~1998) Family History (Updated 09/30/19 @ 14:37 by Codie Vazquez LPN) Brother CAD (coronary artery disease) Diabetes Grandfather Diabetes PGF Sister Hypertension Social History (Updated 09/30/19 @ 14:38 by Codie Vazquez LPN) Smoking and tobacco status: current every day smoker cigarettes Packs smoked per day: 1 Years cigarettes smoked: 40 Quit status (tobacco): not considering quitting Smoking risk assessment/counseling performed?: Yes Alcohol intake: former Year of sobriety/quit date alcohol: 2016 Current gender identity: Female Physical Exam Const: COMMON NORMALS: no acute distress, patient oriented x3, no limitations and alert GENERAL APPEARANCE: cooperative and anxious NUTRITIONAL APPEARANCE: obese morbidly obese HENMT: HEAD & SCALP: normal to inspection FACE & SINUS: normal facial exam Eye: GENERAL EYE: appearance normal, both eyes and all related structures Neck/C-Spine: COMMON NORMALS: supple, no meningeal signs and no JVD Chest: COMMONS NORMALS: normal inspection of the chest BREAST/AXILLA INSPECTION: Yes abnormal inspection of the breast (Left breast with a palpable golf ball sized mass in the lateral area. Normal-appearing skin and nipple. No discharge. No redness or heat.) Resp: COMMON NORMALS: normal respiratory effort, No use of accessory muscles and clear to auscultation bilaterally AUSCULTATION: clear to auscultation bilaterally Cardio: COMMON NORMALS: no JVD, regular rate, regular rhythm and No murmurs present (Cardio) RATE: regular rate RHYTHM: regular rhythm GI: COMMON NORMALS: Normal to inspection, nondistended, normoactive bowel sounds present, Soft to palpation and non-tender INSPECTION: Yes normal to inspection AUSCULTATION: Yes normoactive bowel sounds PALPATION: Yes Soft to palpation Back/Pelvis: COMMON NORMALS: thoracic and lumbar spine normal to inspection Extremity: COMMON NORMALS: normal to inspection Neuro: COMMON NORMALS: patient oriented x3, moves all extremities, no focal motor deficits and no sensory deficits noted SENSORIUM/ORIENTATION: Yes alert MENINGEAL SIGNS: Yes no meningeal signs Psych: COMMON NORMALS: mental status grossly normal, cooperative and normal affect Skin: COMMON NORMALS: no rashes or lesions noted and turgor normal GENERAL SKIN EXAM: no rashes or lesions noted and turgor normal Course ED course: Patient with a breast lump that is being worked up as an outpatient. She presents today complaining of pain. She has issues with chronic pain as well as anxiety. I do not see any evidence of infection or abscess. I do not think there is anything we can really do to speed up the work-up. I will try a lidocaine patch to see if it gives her some relief. Vital Signs: Vital signs: Vital Signs Temperature 97.8 F 09/28/19 18:54 Pulse Rate 72 09/28/19 22:09 Respiratory Rate 18 09/28/19 22:09 Blood Pressure 148/74 09/28/19 22:09 Pulse Oximetry 98 09/28/19 22:09 Discharge Plan Discharge Patient Disposition: Home, Self-Care Clinical Impression: Acute breast pain Condition: Stable Prescriptions: New lidocaine 5 % adhesive patch,medicated 1 patch TOPICAL DAILY Qty: 15 RF: 0 No Action revefenacin 175 mcg/3 mL solution for nebulization 175 mcg INHALATION DAILY 90 Days Qty: 90 RF: 3 duloxetine [Cymbalta] 60 mg capsule,delayed release(DR/EC) 60 mg PO DAILY Qty: 30 RF: 2 quetiapine [Seroquel XR] 300 mg tablet extended release 24 hr 300 mg PO BEDTIME Qty: 30 RF: 1 prazosin 1 mg capsule 1 mg PO BEDTIME Qty: 30 RF: 2 clonazepam 1 mg tablet 1 mg PO BID PRN (Reason: anxiety) Qty: 60 RF: 2 albuterol sulfate [ProAir HFA] 90 mcg/actuation HFA aerosol inhaler 2 puff INHALATION Q6H PRN (Reason: Shortness Of Breath) RF: 0 acetaminophen [Tylenol] 325 mg capsule 325 mg PO Q6H PRN (Reason: Pain) RF: 0 isosorbide mononitrate 30 mg tablet extended release 24 hr 30 mg PO QAM Qty: 30 RF: 3 nitroglycerin [Nitrostat] 0.4 mg tablet, sublingual 0.4 mg SUBLINGUAL Q5M PRN (Reason: Chest Pain) Qty: 90 RF: 3 (DME) pen needle, diabetic [Comfort EZ Pen [place]] 32 gauge x 1/4 needle See Rx Instructions .ROUTE .MEDSUPPLY Qty: 100 RF: 0 Victoza 2-Bijan 0.6 mg/0.1 mL (18 mg/3 mL) pen injector 1.8 mg SUBCUT Q24H Qty: 6 RF: 1 dicyclomine 20 mg tablet 20 mg PO BID Qty: 60 RF: 0 atenolol 50 mg tablet 50 mg PO BID Qty: 60 RF: 0 Eliquis 5 mg tablet 5 mg PO BID Qty: 60 RF: 1 azithromycin 250 mg tablet 250 mg PO .COMPLEX Qty: 15 RF: 3 pantoprazole [Protonix] 40 mg tablet,delayed release (DR/EC) 40 mg PO BID Qty: 60 RF: 0 (DME) cane Device See Rx Instructions .ROUTE .MEDSUPPLY Qty: 1 RF: 0 gabapentin 300 mg capsule 300 mg PO TID Qty: 90 RF: 0 quetiapine [Seroquel XR] 50 mg tablet extended release 24 hr 50 mg PO .HS Qty: 30 RF: 0 potassium chloride 20 mEq tablet extended release 20 meq PO DAILY Qty: 30 RF: 0 Lasix 40 mg tablet See Rx Instructions PO BID Qty: 90 RF: 0 spironolactone 50 mg tablet 50 mg PO QAM Qty: 30 RF: 0 ondansetron HCl [Zofran] 4 mg tablet 4 mg PO QID PRN (Reason: nausea and vomiting) Qty: 14 RF: 0 Referrals: Lambert,Liz, DO [Primary Care Provider] - Discharge Diet: Usual diet Discharge Activity: Resume usual activity Patient Instructions: Breast Mass (ED) Activity Restrictions/Additional Instructions: Keep your appointment for the mammogram and follow up with your doctor regarding the results. Discharge Date/Time: 09/28/19 22:18 Coding Level of Care Code ED [facility] [employer] for Siming Fwd Exam Comprehensive
[2019-09-28 22:09] VITALS: BP 148/74; PULSE 72; RESP 18; O2SAT 98
[2019-09-28] MEDS: lidocaine 5% Patch 1 PATCH TOPICAL (22:12)
== END 2019-09-28 22:18 | disposition home or self-care (01) ==
PROVIDERS: Emergency Provider Emergency Medicine; PCP Family Medicine
DX: N64.4 Mastodynia (principal); Z79.01 Long term (current) use of anticoagulants; Z86.19 Personal history of other infectious and parasitic diseases; I13.0 Hypertensive heart and chronic kidney disease with heart failure and stage 1 through stage 4 chronic kidney disease, or unspecified chronic kidney disease; N18.3 Chronic kidney disease, stage 3 (moderate); I50.30 Unspecified diastolic (congestive) heart failure; F17.210 Nicotine dependence, cigarettes, uncomplicated
CPT/HCPCS: 12345; 99281; 99282

== ENCOUNTER 2019-10-01 10:37 | Outpatient (CLI) | payer MEDICAID, SELFPAY ==
--- NOTE | 2019-10-01 10:51 | MM_ITS ---
WS: [id number] BILATERAL DIGITAL DIAGNOSTIC MAMMOGRAM MAMMOGRAPHY WITH CAD CLINICAL INFORMATION: left breast mass COMPARISON: None. TECHNIQUE: Bilateral CC, MLO, and ML views. FINDINGS: Scattered fibroglandular densities bilaterally. Right breast is unremarkable. In the area of palpable concern there is a 3.6 x 4.3 cm dense lobulated lesion with heterogeneous darcy cifications. Increased parenchymal density about the palpable nodule with heterogeneous calcification s extend beyond the confines of the nodule. Ultrasound is pending. ULTRASOUND BREAST LEFT TECHNIQUE: Ultrasound left breast focused area of concern. CLINICAL INFORMATION: left breast mass COMPARISON: None. FINDINGS: ULTRASOUND BREAST LEFT TECHNIQUE: Ultrasound left breast focused area of concern. CLINICAL INFORMATION: left breast mass COMPARISON: None. FINDINGS: Ultrasound left breast in the area of palpable concern. At the 3:00 position left breast, 4 cm from t he nipple is a dense hypoechoic relatively well-circumscribed nodule measuring 4.1 x 3.9 x 5.1 CM. As sociated vascularity. No abnormal lymph nodes in the left axilla. Findings are suspicious for neoplas m and Recommend further evaluation with ultrasound-guided biopsy MM/[place] [id number] BI-RADS: 4C-Suspicious: Moderate FOLLOW UP: US Guided Biopsy Recommended
--- NOTE | 2019-10-01 12:45 | US_ITS ---
NOTE: Report was unsigned for reason: Order was edited. Original Signature date and time was: 10/03/19 1400 WS: [id number] BILATERAL DIGITAL DIAGNOSTIC MAMMOGRAM MAMMOGRAPHY WITH CAD CLINICAL INFORMATION: left breast mass COMPARISON: None. TECHNIQUE: Bilateral CC, MLO, and ML views. FINDINGS: Scattered fibroglandular densities bilaterally. Right breast is unremarkable. In the area of palpable concern there is a 3.6 x 4.3 cm dense lobulated lesion with heterogeneous calcifications. Increased parenchymal density about the palpable nodule with heterogeneous calcifications extend beyond the confines of the nodule. Ultrasound is pending. ULTRASOUND BREAST LEFT TECHNIQUE: Ultrasound left breast focused area of concern. CLINICAL INFORMATION: left breast mass COMPARISON: None. FINDINGS: ULTRASOUND BREAST LEFT TECHNIQUE: Ultrasound left breast focused area of concern. CLINICAL INFORMATION: left breast mass COMPARISON: None. FINDINGS: Ultrasound left breast in the area of palpable concern. At the 3:00 position left breast, 4 cm from the nipple is a dense hypoechoic relatively well- circumscribed nodule measuring 4.1 x 3.9 x 5.1 CM. Associated vascularity. No abnormal lymph nodes in the left axilla. Findings are suspicious for neoplasm and Recommend further evaluation with ultrasound-guided biopsy [facility] US/US breast BI limited* [id number] BI-RADS: 4C-Suspicious: Moderate FOLLOW UP: US Guided Biopsy Recommended
== END 2019-10-01 10:38 | disposition home or self-care (01) ==
PROVIDERS: PCP Family Medicine; Visit Provider Nurse Practitioner Women's Health
DX: N63.25 Unspecified lump in the left breast, overlapping quadrants (principal)
CPT/HCPCS: 76642; 77066

== ENCOUNTER → 2019-10-18 09:34 | Outpatient (BNVA) | payer MEDICAID, SELFPAY | PROVIDERS: PCP Family Medicine; Visit Provider Anesthesiology Pain Medicine | DX: M16.9 Osteoarthritis of hip, unspecified (principal); M54.9 Dorsalgia, unspecified; M25.551 Pain in right hip; M19.90 Unspecified osteoarthritis, unspecified site; F17.210 Nicotine dependence, cigarettes, uncomplicated; Z79.891 Long term (current) use of opiate analgesic | CPT/HCPCS: 99214 ==

== ENCOUNTER → 2019-10-25 13:43 | Outpatient (BNVA) | payer MEDICAID, SELFPAY | PROVIDERS: PCP Family Medicine; Visit Provider Anesthesiology Pain Medicine | DX: M25.551 Pain in right hip (principal); M16.9 Osteoarthritis of hip, unspecified; F17.210 Nicotine dependence, cigarettes, uncomplicated; Z79.891 Long term (current) use of opiate analgesic | CPT/HCPCS: 20610; 77003; J1030; J2001; J3490 ==

== ENCOUNTER 2019-11-02 12:35 | Outpatient (CLI) | payer MEDICAID, SELFPAY ==
--- NOTE | 2019-11-02 | US_ITS ---
ULTRASOUND-GUIDED LEFT BREAST BIOPSY HISTORY: left breast mass COMPARISON: 10/01/2019 Procedure, risks and complications are explained to the patient. Medications are reviewed. Consent is obtained. The mass in the LEFT breast is localized with ultrasound. Mass at 3:00 axis, 4 cm from the nipple. Skin is cleansed with ChloraPrep and anesthetized with 1% buffered lidocaine. Small dermatome is made. Under sterile conditions mass is biopsied with a 14-gauge Achieve needle. Multiple core biopsies are performed. Material placed in formalin and sent to pathology for review. No complications encountered. Breast tissue marker (Bard ultrasound enhanced ribbon): None. Patient left the radiology suite with no complications. Patient is instructed to return to [facility] or call with any concerns. IMPRESSION: 1. Uncomplicated core needle biopsy LEFT breast mass at 3:00. 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 RECOMMENDATION: Follow-up with oncology and ordering mid level. MTDD
== END 2019-11-02 12:36 | disposition home or self-care (01) ==
LOC: RAD 12:37
PROVIDERS: PCP Family Medicine; Visit Provider Nurse Practitioner Women's Health
DX: C50.912 Malignant neoplasm of unspecified site of left female breast (principal); N63.20 Unspecified lump in the left breast, unspecified quadrant
CPT/HCPCS: 19083; 76642

== ENCOUNTER 2019-11-05 14:58 | Outpatient (CLI) | payer MEDICAID, SELFPAY ==
--- NOTE | 2019-11-05 15:00 | US_ITS ---
WS: [id number] ULTRASOUND-GUIDED LEFT BREAST BIOPSY HISTORY: left breast mass COMPARISON: 10/01/2019 Procedure, risks and complications are explained to the patient. Medications are reviewed. Consent is obtained. The mass in the LEFT breast is localized with ultrasound. Mass at 3:00 axis, 4 cm from the nipple. Sk in is cleansed with ChloraPrep and anesthetized with 1% buffered lidocaine. Small dermatome is made. Under sterile conditions mass is biopsied with a 14-gauge Achieve needle. Multiple core biopsies are performed. Material placed in formalin and sent to pathology for review. No complications encountered . Breast tissue marker (SensiGen ultrasound enhanced ribbon): None. Patient left the radiology suite with no complications. Patient is instructed to return to [facility] or [facility] with any concerns. 1. Uncomplicated core needle biopsy LEFT breast mass at 3:00. US/[place] [id number] IMPRESSION: PATHOLOGY: Invasive ductal carcinoma of the breast. High nuclear grade with nec rosis. RECOMMENDATION: Follow-up with oncology and ordering mid level.
== END 2019-11-05 14:59 | disposition home or self-care (01) ==
PROVIDERS: PCP Family Medicine; Visit Provider Nurse Practitioner Women's Health
DX: N63.0 Unspecified lump in unspecified breast (principal); C50.912 Malignant neoplasm of unspecified site of left female breast
CPT/HCPCS: 19083; 88305

== ENCOUNTER 2019-11-18 14:40 | Outpatient (CLI) | payer MEDICAID, SELFPAY ==
--- NOTE | 2019-11-18 17:58 | ONC CON_ITS ---
Dr. Lundberg New Patient Note Patient: Meka Bhatia Unit #: [id number]: 1970 Dicatated By: Serjio Lundberg M.D.Date of Visit: Nov 18, 2019 Onc MED New Patient/Consult Referring Physician: Dr. CITLALLI BEAVER M.D. History of Present Illness: Ms. Meka Bhatia, is a 49-year-old female with history of left breast mass since May 2019, as per patient initially she felt fullness in outer part of her left breast, it got better on its own then again got bigger, she did notice some milky discharge from her left nipple, she thought she was lactating. In the meantime she started also having vaginal bleeding, as per patient about 2 years ago she stopped having menstrual periods and with this new vaginal bleeding, her primary care doctor concerned and refer her to [facility] Dr. Chowdary who ordered sonogram and some hormonal testing. While she was undergoing [facility] work-up on October 01, 2019 she underwent bilateral mammogram which showed right breast was unremarkable but in the left breast there was an area of concern which was 3.6 x 4.3 cm dense lobulated lesion with heterogeneous calcifications subsequently underwent ultrasound of left breast which showed at 3 o'clock position, 4 cm from the nipple there was a dense hypoechoic well-circumscribed nodule measuring 4.1 x 3.9 x 5.1 cm associated vascularity. No abnormal lymph nodes seen in left axilla. Subsequently patient underwent ultrasound-guided left breast biopsy on November 05, 2019 and final pathology report confirmed invasive ductal carcinoma, high nuclear grade with necrosis and molecular profiling showed triple negative disease e.g. ER less than 1% KS less than 1% HER-2/corina negative and Ki-67 was 90%. Patient was referred to Dr. Beaver, surgeon who did discuss with patient regarding upfront mastectomy versus lumpectomy versus neoadjuvant therapy to downsize the tumor. Patient opted for evaluation for neoadjuvant therapy. Patient denies any weight loss, denies any new bony pains patient denies any headaches blurred vision double vision patient denies any jaundice. 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 She is on home oxygen and she has morbid obesity. She also has history of pulmonary embolism for which she is on Eliquis therapy Menarche at age 13, and last menstrual period was at age 47 40+ year history of smoking, still active. Past Medical History: Ms. Chung medical history consists of anemia, bipolar disorder, chronic kidney disease (stge III), chronic obstructive pulmonary disease, congestive heart failure, gastroesophageal reflux disease, hepatitis C, history of pulmonary embolism, hypertension, mitral valve insufficiency, obstructive sleep apnea, panic disorder, post traumatic stress disorder, and stimulant dependence. Past Surgical History: Ms. Chung surgical/procedural history consists of breast biopsy, cataract excision - x3, left foot surgery, left knee repair, repair of C4-6 fracture, tracheostomy, and tubal ligation. Medications: Acetaminophen 1 Capsule (of 325 mg) Oral daily, Albuterol Sulfate 1 Puff(s) (of 108 (90 base) mcg/act) Aerosol Powder, Breath Activated Inhalation q 6 hours PRN, Apixaban 1 Tablet (of 5 mg) Oral b.i.d., Atenolol 1 Tablet (of 50 mg) Oral b.i.d., Azithromycin 1 Tablet (of 250 mg) Oral on Every Other Day, clonazePAM 1 Tablet (of 1 mg) Oral b.i.d. PRN, Cymbalta 1 Capsule (of 60 mg) Capsule Delayed Release Particles Oral daily, Dicyclomine HCl 1 Tablet (of 20 mg) Oral b.i.d., Furosemide (40 mg) Tablet Oral Take as Directed, Gabapentin 1 Capsule (of 300 mg) Oral t.i.d., Isosorbide Mononitrate ER 1 Tablet (of 60 mg) Tablet SR 24 HR Oral daily, Klor-Con M20 1 Tablet (of 20 meq) Tablet, controlled release Oral daily, Nitroglycerin Tablet, sublingual Sublingual PRN, Ondansetron 1 Tablet (of 4 mg) Tablet Dispersable Oral PRN, Pantoprazole Sodium 1 Tablet (of 40 mg) Tablet, enteric coated Oral b.i.d., Prazosin HCl 1 Capsule (of 1 mg) Oral at bedtime, QUEtiapine Fumarate ER 1 Tablet (of 50 mg) Tablet SR 24 HR Oral at bedtime, QUEtiapine Fumarate ER 1 Tablet (of 300 mg) Tablet SR 24 HR Oral at bedtime, Revefenacin 1 (175 mcg/3mL) Solution Inhalation daily, Spironolactone 1 Tablet (of 50 mg) Oral daily, traMADol HCl 1 Tablet (of 50 mg) Oral q 8 hours PRN, traMADol HCl 1 Tablet (of 50 mg) Oral q 8 hours PRN, Victoza 1 Subcutaneous daily Allergies: Cephalexin and Ketorolac Tromethamine. Social History: Ms. Bhatia is . She is a daily smoker who has smoked 0.5 packs/day for 40 years. She quit drinking 4 years ago. She has indicated exposure to the following products: cigarettes. Ms. Bhatia reports the following support systems: lives with spouse, significant other, family, or friends, lives in own house, supportive family/friends willing to assist with needs, and transportation problems exist and will require assistance. Her diet consists of regular meals. She indicates her activity level as: light exercise. Family History: Ms. Bhatia's mother at age 76: chronic obstructive pulmonary disease. Ms. Paezs father at age 47: motor vehicle accident. Review Of Symptoms: Constitutional - Appetite is fair and weight is stable. Positive for night sweats. Energy level is good, ENMT - No sinus congestion/drainage. No mouth sores. No sore throat or difficulty swallowing, Hematologic/Lymphatic - Positive for easy bruising, Respiratory - Positive for shortness of breath. No cough. No pleuritic pain or hemoptysis, Cardiovascular - No angina pain. No palpitations, Gastrointestinal - Occasional nausea, no vomiting. No heartburn or acid reflux. Positive for diarrhea, no constipation. No blood in the stool or black stools, Genitourinary (F) - No dysuria or hematuria. Positive for urinary frequency. No urgency. Positive for incontinence, Musculoskeletal - Positive for joint pain, Neurologic - No headache. Positive for dizziness. No numbness or tingling. No other focal neurologic symptoms, Psychiatric - Positive for anxiety. Vital Signs: Performed on Nov 18, 2019 15:04: 9, 46.76 (HIGH), 2.23 sq.m, 64.00 in, 97 %, 63 /min, 24 /min, 122/76 mm(hg), 98.1 F (LOW), and 272.4 lbs (HIGH). Performance Status: 1 - No physically strenuous activity, but ambulatory and able to carry out light or sedentary work (e.g. office work, light house work). (ECOG) Physical Examination: ENMT - No mouth sores, no thrush, no jaundice, Respiratory - Poor air entry otherwise clear, Heart regular rate and rhythm, Abdomen - Soft, bowel sounds present, Extremities - 1+ edema bilaterally, Left breast exam shows status post ultrasound-guided biopsy with healing ecchymosis about 7 cm mass palpable in her left outer breast, no left axillary lymph node palpable. Lab/Imaging: Most recent lab results are not available for this patient. 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 Clinical stage T3 (more than 5 cm), NX MX, high-grade, triple negative ?IIIB History of pulmonary embolism on Eliquis Recent history of vaginal bleeding now being evaluated by [facility] Dr. Chowdary History of renal insufficiency, as per patient she used to be on hemodialysis but not anymore. History of hepatitis C Chronic hypercapnic respiratory failure, now on home oxygen Diastolic congestive heart failure. Pulmonary embolism on anticoagulation Posttraumatic stress disorder, anxiety, depression, panic disorder. Obstructive sleep apnea Chronic kidney disease stage III. Plan: Discussed with patient regarding her disease status, patient has triple negative invasive ductal carcinoma involving left breast per ultrasound-guided biopsy of left breast. Patient wants to preserve her breast if is possible, in that case we will consider neoadjuvant chemotherapy. Patient has history of congestive heart failure, now being followed by cardiology Dr. Cartwright, we will consider echocardiogram and also discussed with Dr. Cartwright regarding her cardiac status and if not a contraindication then we may consider dose dense Adriamycin/Cytoxan every 2 weeks with Neulasta support x4 followed by weekly Taxol x12 followed by surgical evaluation and if lumpectomy is considered followed by postlumpectomy radiation therapy. A final pathology report shows persistent disease, may consider oral Xeloda. On the other hand if cardiac evaluation confirmed contraindication for cardiotoxic drugs then we may consider Taxotere/Cytoxan 4-6 cycle. We will also repeat hepatitis profile and baseline CBC CMP and request Dr. Beaver for Port-A-Cath placement to facilitate chemotherapy Patient return to clinic after echocardiogram for further discussion and will also discuss with Dr. Cartwright, her cardiology regarding her cardiac status before we consider anthracycline-based regimen. Signed By: Serjio Lundberg M.D. <<Signature on File>>
== END 2019-11-18 14:41 | disposition home or self-care (01) ==
LOC: ONCMED 14:46
PROVIDERS: PCP Family Medicine; Referring Provider Surgery; Visit Provider Internal Medicine Hematology & Oncology
DX: C50.912 Malignant neoplasm of unspecified site of left female breast (principal); Z17.1 Estrogen receptor negative status [ER-]; Z86.711 Personal history of pulmonary embolism; J96.12 Chronic respiratory failure with hypercapnia; Z99.81 Dependence on supplemental oxygen; F43.10 Post-traumatic stress disorder, unspecified; F41.8 Other specified anxiety disorders; G47.33 Obstructive sleep apnea (adult) (pediatric); I50.9 Heart failure, unspecified; N18.3 Chronic kidney disease, stage 3 (moderate); F17.210 Nicotine dependence, cigarettes, uncomplicated; F10.21 Alcohol dependence, in remission; K21.9 Gastro-esophageal reflux disease without esophagitis; E66.01 Morbid (severe) obesity due to excess calories; Z79.51 Long term (current) use of inhaled steroids; Z79.01 Long term (current) use of anticoagulants; Z86.19 Personal history of other infectious and parasitic diseases
CPT/HCPCS: 99203

== ENCOUNTER 2019-11-24 08:07 | Day surgery (SDC) | payer MEDICAID, SELFPAY ==
[2019-11-23 13:18] VITALS: BMI 44.6
--- NOTE | 2019-11-24 | SCC_ITS ---
Procedure Done: Placement of PowerPort in the right internal jugular vein Fluoroscopic guidance and interpretation for placement of catheter 102.9 seconds of fluoroscopic guidance, for a cumulative dose of 20.15 mGy, was provided to Dr. Beaver by the radiology department. C-arm images of the chest were saved for the patient's permanent record. [facility]
[2019-11-24 08:37] VITALS: BP 131/64; PULSE 64; RESP 20; TEMP 37.1; O2SAT 94
[2019-11-24] MEDS: sodium chloride 0.9% 1,000 ML 30 ML IV (08:51)
--- NOTE | 2019-11-24 09:50 | SC_ITS ---
WS: [id number] C-arm fluoroscopy view of the right upper chest, 11/24/2019 Clinical Data: intra-op Comparison: None. Findings: The right central venous line is been inserted. It is entering the right internal jugular vein and en ds in the superior vena cava. SC/C-arm [place] for CVA [id number] Impression: Insertion of right central venous line.
--- NOTE | 2019-11-24 09:52 | W.PM.OPSUD ---
Surgery/Procedure H&P Update DATE OF PROCEDURE: November 24, 2019 DATE H&P PERFORMED: 11/16/19 H&P UPDATE INFORMATION: I have reviewed H&P completed within last 30 days, I have examined patient prior to procedure and No changes to prior documentation PREOP DIAGNOSIS: breast cancer PLANNED PROCEDURE: Operation Date: 11/17/19 11:20 Proposed Procedures p DO NOT CALL PT UNTIL APPT IS VERIFIED [facility] Lymph Node Biopsy [id number](Left) - Gwyn Beaver MD s Breast Biopsy Needle Localization(Left) - Gwyn Beaver MD s Lumpectomy(Left) - Gwyn Beaver MD Operation Date: 11/24/19 09:40 Proposed Procedures p Portacath Placement 73569 N63.20(Not Applicable) - Gwyn Beaver MD
--- NOTE | 2019-11-24 09:59 | ANES.PREANE2 ---
Pre-Anesthetic Assessment Pre-Anesthetic Assessment: Height/Weight: Height 1.63 m Weight 117.934 kg Temp Pulse Resp BP Pulse Ox 98.7 F 64 20 H 131/64 94 11/24/19 08:37 11/24/19 08:37 11/24/19 08:37 11/24/19 08:37 11/24/19 08:37 Preop Diagnosis: breast cancer Proposed Procedure: Operation Date: 11/17/19 11:20 Proposed Procedures p DO NOT CALL PT UNTIL APPT IS VERIFIED [facility] Lymph Node Biopsy [id number](Left) - Gwyn Beaver MD s Breast Biopsy Needle Localization(Left) - Gwyn Beaver MD s Lumpectomy(Left) - Gwyn Beaver MD Operation Date: 11/24/19 09:40 Proposed Procedures p Portacath Placement 86536 N63.20(Not Applicable) - Gwyn Beaver MD Was Beta Wagner taken within 24 hours: N/A Last intake: Intake Last Liquid Date 11/23/19 Last Liquid Time 21:00 Last Solid Date 11/23/19 Last Solid Time 21:00 Social: Social History: Tobacco and No alcohol Exam: Pre-Anes Outpt Exam: alert, oriented x 3 and regular rate & rhythm Additional Exam Findings (including area of procedure): Course, diminished bilateral BS with prolonged/active expiratory phase. Airway: Submandibular: WNL Cervical ROM: WNL MP: 2 Dentition: Full (Edentulous) Pulmonary: Pulmonary: Asthma, COPD, Cough, RAMIREZ, Sleep apnea and SOB CV/HEM: CV/HEM: CHF and HTN : : Chronic renal Insufficiency Hepatic: Hepatic: None reported GI: GI: GERD Metabolic: Metabolic: Morbid obesity Musc/skel: Musc/skel: Fibromyalgia and OA/DJD Neuropsych: Neuropsych: None reported Anesthetic Plan: ASA status: 4 Anesthesia: MAC Meds/Allergies Current Medications: Current Medications Generic Name Dose Route Start Last Admin Trade Name Freq PRN Reason Stop Dose Admin Sodium Chloride 1,000 mls @ 30 ml s/hr 11/24/19 08:30 11/24/19 08:51 Sodium Chloride 0.9% IV 11/25/19 08:29 30 mls/hr .Q24H NICHOLE Administration PFSH Anesthesia PFSH: Medical History (Updated 11/23/19 @ 13:13 by Kasia Owen RN) Benign essential HTN Bipolar disorder, current episode mixed, severe, with psychotic features Cancer of left breast Chronic hepatitis C without hepatic coma Chronic hypercapnic respiratory failure Chronic kidney disease (CKD), stage III (moderate) Diastolic CHF Diastolic heart failure secondary to hypertension Gastritis GERD (gastroesophageal reflux disease) History of pulmonary embolism Hypertension Iron deficiency anemia Mitral valve insufficiency Orthopnea BINA (obstructive sleep apnea) Other stimulant dependence, in remission Panic disorder [episodic paroxysmal anxiety] Post-traumatic stress disorder, chronic Pulmonary embolism Severe chronic obstructive pulmonary disease Valvular heart disease Surgical History H/O cervical fracture (~1998) C4-6 H/O section 1987 1999 2001 H/O foot surgery (~2003) lefft-- ball of the foot H/O knee surgery (~1991) left knee patellar fracture H/O tracheostomy (~2002) H/O tubal ligation (~2001) History of colonoscopy History of esophagogastroduodenoscopy (EGD) Status post dilation and curettage (~1998) Family History Brother CAD (coronary artery disease) Diabetes Grandfather Diabetes PGF Sister Hypertension Denies family history of Anesthesia complication Bleeding disorder Social History Smoking and tobacco status: current every day smoker cigarettes Packs smoked per day: 0.5 Years cigarettes smoked: 40 Quit status (tobacco): not considering quitting Smoking risk assessment/counseling performed?: Yes Alcohol intake: former Year of sobriety/quit date alcohol: 2016 Current gender identity: Female Data Anesthesia Cardiac Studies: No Data to Display
[2019-11-24] MEDS: lidocaine 1% INJ 20 mL IM (10:55)
[2019-11-24] MEDS: heparin, porcine 1,000 unit/mL INJ 10 mL 6000 UNIT IRRIGATION (11:11)
--- NOTE | 2019-11-24 11:37 | P.OP_ITS ---
Operative Report Date of procedure: November 24, 2019 Pre-op Diagnosis: breast cancer Post-op diagnosis: same Procedure Done: Placement of PowerPort in the right internal jugular vein Fluoroscopic guidance and interpretation for placement of catheter Ultrasound guidance to access right internal jugular vein Pathology: none sent Surgeon: Gwyn Beaver Anesthesia: MAC Estimated blood loss (mL): 10 Condition: stable Disposition: same day Procedure: The patient was taken to the Operating Room and the chest and neck bilaterally were prepped and draped in a sterile manner after the antibiotic had been administered and shoulder rolls had been placed. A total of 10 mL of 1% lidocaine with 0.5% Marcaine was infiltrated at the side at the site of the planned entry into the right vein. An ultrasound of the right internal jugular vein revealed patent flow, no thrombus. An introducer needle was then used to access the subclavian vein under the clavicle and after withdrawing blood syringe was removed and a guidewire passed under fluoroscopy into the superior vena cava. The site of the planned port was then marked on the chest and a 15 blade was used to make a 3 cm skin incision this was extended into the subcutaneous tissue using electrocautery and a subcutaneous pocket over the pectoralis fascia was created 2-0 Vicryl suture was used to suture the port to the pectoral fascia in the pocket on 3 sides. The catheter, after having been flushed with hep saline, was attached to the tunneler and a tunnel created between the port site and the internal jugular vein entry site. Under fluoroscopy the dilator sheath was passed over the guidewire into the proximal superior vena cava. The inner dilator was removed and the sheath left behind and~ the catheter was introduced through the peel- away sheath with the tip in the superior vena cava. The peel-away sheath was removed. The proximal end of the catheter was cut to the right size and was attached to the port. Using a German needle the port was accessed, it withdrew blood easily and flushed easily. A final 5cc of heparin was used to flush the PowerPort. The subcutaneous tissue was approximated using interrupted 3-0 Vicryl sutures and the skin at the introducer site and the port site was closed using subcuticular running 4-0 Monocryl sutures. Surgical glue was applied and the patient was stable throughout the procedure. Fluoroscopic guidance and interpretation was performed for introduction of the guidewire in the right internal jugular vein, passage of dilator and placement of catheter tip in the distal superior vena cava.
[2019-11-24 11:39] VITALS: BP 135/75; PULSE 68; RESP 18; TEMP 36.6; O2SAT 96
[2019-11-24 12:00] VITALS: BP 150/81; PULSE 63; RESP 18; O2SAT 98
[2019-11-24] MEDS: HYDROcodone-acetaminophen 5-325 mg Tablet 1 TAB PO (12:02)
--- NOTE | 2019-11-24 12:27 | SUR.PHASEII ---
pressure dressing applied to surgical site per dr hardwick request due to pt taking eliquis.
== END 2019-11-24 12:20 | disposition home or self-care (01) ==
PROVIDERS: PCP Family Medicine; Visit Provider Surgery
DX: C50.919 Malignant neoplasm of unspecified site of unspecified female breast (principal); J44.9 Chronic obstructive pulmonary disease, unspecified; K21.9 Gastro-esophageal reflux disease without esophagitis; E66.01 Morbid (severe) obesity due to excess calories; Z68.41 Body mass index [BMI] 40.0-44.9, adult; M79.7 Fibromyalgia; M19.90 Unspecified osteoarthritis, unspecified site; I13.0 Hypertensive heart and chronic kidney disease with heart failure and stage 1 through stage 4 chronic kidney disease, or unspecified chronic kidney disease; N18.3 Chronic kidney disease, stage 3 (moderate); I50.30 Unspecified diastolic (congestive) heart failure; B18.2 Chronic viral hepatitis C; G47.33 Obstructive sleep apnea (adult) (pediatric); Z86.711 Personal history of pulmonary embolism; Z82.49 Family history of ischemic heart disease and other diseases of the circulatory system; Z83.3 Family history of diabetes mellitus; F17.210 Nicotine dependence, cigarettes, uncomplicated
CPT/HCPCS: 36561; 12345; 76000; 77001; C1788; J0690; J1644; J2250; J2704; J3010; J3490; J7030

== ENCOUNTER 2019-12-02 22:38 | Emergency (ER) | payer MEDICAID, SELFPAY ==
[2019-12-02 22:42] VITALS: BP 107/82; PULSE 61; RESP 18; TEMP 37.2; O2SAT 99; BMI 44.6
[2019-12-02 22:49] VITALS: PULSE 60
--- NOTE | 2019-12-02 22:54 | ED_ITS ---
HPI - Extremity Problem General: Chief complaint: Extremity Problem,Nontraumatic Stated complaint: BILAT. 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 Pain medicine is not helping her because her legs just feel like they are cramping in her arms like they are cramping and she just wants some medicine to help. She does go to pain clinic and receives hips injection says she does not receive pain medication from them. Complaint: extremity pain Onset (ago): hour(s) Pain Consistency: constant Location: left, right, upper extremity and lower extremity Severity scale (1-10): 7 Quality: aching and other (Cramping) Relieving factors: nothing Exacerbating factors: nothing Associated symptoms: Reports no associated symptoms; Deny chest pain, fever(s) or rash Review of Systems Const: Denies: fever(s), chills or body aches Eyes: Denies: change in vision or blurry vision ENMT: Denies: throat pain or nasal congestion Card: Denies: chest pain or dyspnea on exertion Resp: Denies: dyspnea, productive cough or non-productive cough GI: Denies: abdominal pain, nausea or vomiting Musc: Reports: extremity pain and muscle cramps Skin/Breast: Denies: rash Neuro: Denies: headache(s) Psych: Denies: anxiety or depression Jerome/Lymph: Denies: easy bruising PFSH ED PFSH: Medical History (Updated 11/24/19 @ 11:34 by Gwyn Beaver MD) Benign essential HTN Bipolar disorder, current episode mixed, severe, with psychotic features Cancer of left breast Chronic hepatitis C without hepatic coma Chronic hypercapnic respiratory failure Chronic kidney disease (CKD), stage III (moderate) Diastolic CHF Diastolic heart failure secondary to hypertension Gastritis GERD (gastroesophageal reflux disease) History of pulmonary embolism Hypertension Iron deficiency anemia Mitral valve insufficiency Orthopnea BINA (obstructive sleep apnea) Other stimulant dependence, in remission Panic disorder [episodic paroxysmal anxiety] Post-traumatic stress disorder, chronic Pulmonary embolism Severe chronic obstructive pulmonary disease Valvular heart disease Surgical History (Updated 11/24/19 @ 11:34 by Gwyn Beaver MD) H/O cervical fracture (~1998) C4-6 H/O section 1987 1999 2001 H/O foot surgery (~2003) lefft-- ball of the foot H/O knee surgery (~1991) left knee patellar fracture H/O tracheostomy (~2002) H/O tubal ligation (~2001) History of colonoscopy History of esophagogastroduodenoscopy (EGD) Port-A-Cath in place (11/24/19) Status post dilation and curettage (~1998) Family History Brother CAD (coronary artery disease) Diabetes Grandfather Diabetes PGF Sister Hypertension Denies family history of Anesthesia complication Bleeding disorder Social History Smoking and tobacco status: current every day smoker cigarettes Packs smoked per day: 0.5 Years cigarettes smoked: 40 Quit status (tobacco): not considering quitting Smoking risk assessment/counseling performed?: Yes Alcohol intake: former Year of sobriety/quit date alcohol: 2016 Current gender identity: Female Physical Exam Const: COMMON NORMALS: no acute distress, average body habitus and patient oriented x3 HENMT: COMMON NORMALS: normocephalic HEAD & SCALP: normal to inspection and normocephalic FACE & SINUS: normal facial exam Eye: COMMON NORMALS: conjunctivae normal GENERAL EYE: appearance normal, both eyes and all related structures CONJUNCTIVA: Yes conjunctivae normal Neck/C-Spine: COMMON NORMALS: no JVD Chest: COMMONS NORMALS: normal inspection of the chest Resp: COMMON NORMALS: normal respiratory effort and clear to auscultation bilaterally AUSCULTATION: clear to auscultation bilaterally Cardio: COMMON NORMALS: no JVD, regular rate and regular rhythm RATE: regular rate RHYTHM: regular rhythm GI: COMMON NORMALS: Normal to inspection, nondistended, normoactive bowel sounds present Extremity: NARRATIVE EXTREMITY EXAM: Upper and lower extremities appear normal for Meka. Do not notice any present muscle cramps just generalized pain with any touching those areas. Neurovascular status appears intact warm good cap refill and good range of motion. Neuro: COMMON NORMALS: patient oriented x3 Course Vital Signs: Vital signs: Vital Signs Temperature 99.0 F 12/02/19 22:42 Pulse Rate 60 12/02/19 22:49 Respiratory Rate 18 12/02/19 22:42 Blood Pressure 107/82 12/02/19 22:42 Pulse Oximetry 99 12/02/19 22:42 Discharge Plan Discharge Prescriptions: No Action duloxetine [Cymbalta] 60 mg capsule,delayed release(DR/EC) 60 mg PO DAILY Qty: 30 RF: 2 quetiapine [Seroquel XR] 300 mg tablet extended release 24 hr 300 mg PO BEDTIME Qty: 30 RF: 1 prazosin 1 mg capsule 1 mg PO BEDTIME Qty: 30 RF: 2 clonazepam 1 mg tablet 1 mg PO BID PRN (Reason: anxiety) Qty: 60 RF: 2 tramadol 50 mg tablet 50 mg PO Q8H PRN (Reason: pain) Qty: 30 RF: 0 lidocaine 5 % gel 5 % topical DAILY PRN (Reason: Pain) RF: 0 Yupelri 175 mcg/3 mL solution for nebulization 175 mcg INHALATION DAILY RF: 0 tramadol 50 mg tablet 50 mg PO BID MDD 2 PRN (Reason: pain) Qty: 14 RF: 0 nitroglycerin [Nitrostat] 0.4 mg tablet, sublingual 0.4 mg SUBLINGUAL Q5M PRN (Reason: Chest Pain) Qty: 90 RF: 3 azithromycin 250 mg tablet 250 mg PO .COMPLEX Qty: 15 RF: 3 Lasix 40 mg tablet See Rx Instructions PO BID Qty: 90 RF: 0 dicyclomine 20 mg tablet 20 mg PO BID Qty: 60 RF: 3 albuterol sulfate [ProAir HFA] 90 mcg/actuation HFA aerosol inhaler 2 puff INHALATION Q6H PRN (Reason: Shortness Of Breath) Qty: 18 RF: 2 Victoza 2-Bijan 0.6 mg/0.1 mL (18 mg/3 mL) pen injector 1.8 mg SUBCUT Q24H Qty: 6 RF: 0 isosorbide mononitrate 30 mg tablet extended release 24 hr 30 mg PO DAILY Qty: 90 RF: 0 atenolol 50 mg tablet 50 mg PO BID Qty: 60 RF: 1 Eliquis 5 mg tablet 5 mg PO BID Qty: 60 RF: 1 Hold Instructions: Resume on 11/26/19. pantoprazole 40 mg tablet,delayed release (DR/EC) 40 mg PO BID Qty: 60 RF: 0 gabapentin 300 mg capsule 300 mg PO TID Qty: 90 RF: 0 quetiapine [Seroquel XR] 50 mg tablet extended release 24 hr 50 mg PO .HS Qty: 30 RF: 0 potassium chloride 20 mEq tablet extended release 20 meq PO DAILY Qty: 14 RF: 0 spironolactone 50 mg tablet 50 mg PO QAM Qty: 21 RF: 0 ondansetron HCl [Zofran] 4 mg tablet 4 mg PO QID PRN (Reason: nausea and vomiting) Qty: 14 RF: 0 Yupelri 175 mcg/3 mL solution for nebulization 175 mcg INHALATION DAILY RF: 0 Coding Level of Care Code ED Remote Sensing Technologist for Chg Fwd
[2019-12-02] MEDS: orphenadrine 30 mg/mL Inj 2 mL 60 MG IM (23:04)
[2019-12-02] MEDS: HYDROcodone-acetaminophen 7.5-325 mg Tablet 1 TAB PO (23:05)
[2019-12-02 23:12] VITALS: BP 125/70; PULSE 58; RESP 18; O2SAT 99
== END 2019-12-02 23:16 | disposition home or self-care (01) ==
LOC: ER 23:03
PROVIDERS: Emergency Provider Nurse Practitioner Family; PCP Family Medicine
DX: N64.4 Mastodynia (principal); Z79.01 Long term (current) use of anticoagulants; I13.0 Hypertensive heart and chronic kidney disease with heart failure and stage 1 through stage 4 chronic kidney disease, or unspecified chronic kidney disease; N18.3 Chronic kidney disease, stage 3 (moderate); I50.30 Unspecified diastolic (congestive) heart failure; Z86.19 Personal history of other infectious and parasitic diseases; F17.210 Nicotine dependence, cigarettes, uncomplicated
CPT/HCPCS: 12345; 96372; 99282; 99283; J2360

== ENCOUNTER 2019-12-06 14:07 | Outpatient (CLI) | payer MEDICAID, SELFPAY ==
--- NOTE | 2019-12-06 14:25 | USCV_ITS ---
SriarmMeka Age: 49 Gender: F : 1970 Exam Date: 12/06/2019 14:54 Ordering Phys: Serjio Lundberg MD Technologist: Kody Olivares [place] [facility] [place]: CHEST PAIN BP: / HR: 57 Rhythm: Sinus Technical Quality: Fair MEASUREMENTS (Male / Female) Normal Values 2D ECHO LV Diastolic Diameter PLAX 4.4 cm 4.2 - 5.9 / 3.9 - 5.3 cm LV Systolic Diameter PLAX 3.0 cm LV Chamber Size 3.0 cm IVS Diastolic Thickness 1.1 cm 0.6 - 1.0 / 0.6 - 0.9 cm IVS Systolic Thickness 1.8 cm LVPW Diastolic Thickness 1.0 cm 0.6 - 1.0 / 0.6 - 0.9 cm LVPW Systolic Thickness 1.3 cm RV Chamber Size 2.7 cm LVOT Diameter 2.1 cm LV Ejection Fraction 2D Teich 59.6 % LV Ejection Fraction MOD 2C 52.2 % LV Ejection Fraction 2C AL 51.7 % LA Diameter 4.6 cm LA Width 3.3 cm LA Height 4.4 cm RA Width 3.6 cm RA Height 4.5 cm Aorta at Sinotubular Diameter 2.5 cm M-MODE LV Diastolic Diameter MM 5.2 cm 4.2 - 5.9 / 3.9 - 5.3 cm LV Systolic Diameter MM 4.0 cm LV Ejection Fraction MM Teich 46.4 % IVS Diastolic Thickness MM 1.0 cm 0.6 - 1.0 / 0.6 - 0.9 cm IVS Systolic Thickness MM 1.5 cm LVPW Diastolic Thickness MM 1.5 cm 0.6 - 1.0 / 0.6 - 0.9 cm LVPW Systolic Thickness MM 1.7 cm RV Diastolic Diameter MM 1.3 cm Aortic Annulus Diameter 3.1 cm LA Ao Ratio MM 1.5 MV E Point Septal Separation 1.1 cm DOPPLER AV Peak Velocity 175.0 cm/s LVOT Peak Velocity 89.0 cm/s AV Area Cont Eq vti 2.0 cm squared AV Area Cont Eq pk 1.7 cm squared MV Area PHT 4.8 cm squared Mitral E to A Ratio 1.6 MV E' Velocity 166.0 cm/s TR Peak Velocity 345.3 cm/s TR Peak Gradient 47.7 mmHg TR Mean Velocity 262.0 cm/s TR Mean Gradient 29.9 mmHg TR Velocity Time Integral 117.9 cm TV Peak E Velocity 81.0 cm/s Right Atrial Pressure 15.0 mmHg Pulmonary Artery Systolic Pressu 62.7 mmHg PV Peak Velocity 78.0 cm/s RV Acceleration Time 0.2 s RV Ejection Time 0.4 s RV AcT/ET 0.4 FINDINGS Left Ventricle Normal left ventricular cavity size. Mildly decreased left ventricular systolic function. Left ventricular ejection fraction is estimated at 50 %. Flattened septum in diastole consistent with right ventricle volume overload. Grade II/IV diastolic dysfunction, moderately elevated filling pressures. Right Ventricle Mildly increased right ventricular size. Severe pulmonary hypertension, RVSP 62.7 mmHg. Right Atrium Moderately increased right atrial size. Left Atrium Moderately increased left atrial size. Mitral Valve Moderately thickened mitral valve. Mild mitral annular calcification. Severe mitral valve regurgitation. Aortic Valve Structurally normal aortic valve without significant sclerosis or stenosis. There is no aortic regurgitation. Tricuspid Valve Severe tricuspid valve regurgitation. Pulmonic Valve Structurally normal pulmonic valve without significant stenosis. There is no pulmonic regurgitation. Pericardium Normal pericardium without effusion. Aorta Normal ascending aorta dimension. CONCLUSIONS 1-Normal left ventricular cavity size. Mildly decreased left ventricular systolic function. Left ventricular ejection fraction is estimated at 50 %. Flattened septum in diastole consistent with right ventricle volume overload. Grade II/IV diastolic dysfunction, moderately elevated filling pressures. 2-Mildly increased right ventricular size. Severe pulmonary hypertension, RVSP 62.7 mmHg. 3-Moderate bi atrial enlargement 4-Moderately thickened mitral valve. Mild mitral annular calcification. Severe mitral valve regurgitation. 5-Severe tricuspid valve regurgitation. 6-There is no pericardial effusion. 7-Right atrial pressure is around 5 mm of mercury. 8-When compared to the prior echocardiogram dated 03/01/2019 there appeared to be worsening of left ventricle function from normal 55% to mildly reduced 50% while there is worsening of mitral and tricuspid valve regurgitation from moderate to severe now. Pulmonary artery systolic pressure is also in severe category which is worsened from 13mmHg to 60 mmHg Devon Nieto MD (Electronically Signed) Final Date: 06 December 2019 23:19 S
== END 2019-12-06 14:08 | disposition home or self-care (01) ==
PROVIDERS: PCP Family Medicine; Visit Provider Internal Medicine Hematology & Oncology
DX: R07.9 Chest pain, unspecified (principal); C50.812 Malignant neoplasm of overlapping sites of left female breast; I27.20 Pulmonary hypertension, unspecified; I08.1 Rheumatic disorders of both mitral and tricuspid valves
CPT/HCPCS: 93306

== ENCOUNTER 2019-12-08 09:19 | Outpatient (CLI) | payer MEDICAID, SELFPAY ==
[2019-12-08 09:51] LABS: Basophils # 0.1 10^3/uL (0.0-0.1); Basophils % 0.6 %; Eosinophils # 0.1 10^3/uL (0.0-0.8); Eosinophils % 0.9 %; Hemoglobin 10.3 g/dL (11.5-15.3); Lymphocytes # 0.8 10^3/uL (0.8-4.8); Lymphocytes % 7.1 %; Mean Corpuscular HGB Conc 29.4 g/dL (30.0-36.0); Mean Corpuscular Hemoglobin 27.6 pg (28.0-34.0); Mean Corpuscular Volume 93.8 fL (81-99); Monocytes # 1.2 10^3/uL (0.2-0.9); Monocytes % 10.2 %; Neutrophils # 9.52 10^3/uL (1.8-7.7); Neutrophils % 80.9 %; Nucleated Red Blood Cells % 0 %; Platelet Count 246 10^3/cmm (130-400); Red Blood Count 3.73 10^6/uL (4.1-5.3); Red Cell Distribution Width 14.6 % (12.1-15.1); White Blood Count 11.8 10^3/uL (4.0-10.0)
[2019-12-08 10:12] LABS: Alanine Aminotransferase 12 U/L (0-33); Albumin Level 3.4 g/dL (3.5-5.2); Alkaline Phosphatase 262 IU/L (35-105); Anion Gap 13.7 (5-19); Aspartate Amino Transferase 23 U/L (0-32); Blood Urea Nitrogen 28 mg/dL (6-20); Calcium 9.2 mg/dL (8.5-10.5); Carbon Dioxide 32 mmol/L (22-29); Chloride 85 mmol/L (98-107); Globulin 2.9 g/dL (1.3-4.6); Glomerular Filtration Rate 34.3 mL/min (90-130); Glucose 118 mg/dL (65-115); Osmolality Calculated 260 mOsm/kg (285-295); Potassium 4.7 mmol/L (3.5-5.1); Sodium 126 mmol/L (136-145); Total Bilirubin 0.3 mg/dL (0.15-1.2); Total Protein 6.3 g/dL (6.6-8.7)
--- NOTE | 2019-12-08 17:02 | ONC FU_ITS ---
Dr. Lundberg follow up note Patient: Meka Bhatia Unit #: [id number]: 1970 Dicatated By: Serjio Lundberg M.D.Date of Visit:Dec 08, 2019 Onc Med Follow-up/Prog Note History of Present Illness: Ms. Meka Bhatia, is a 49-year-old female with history of left breast mass since May 2019, as per patient initially she felt fullness in outer part of her left breast, it got better on its own then again got bigger, she did notice some milky discharge from her left nipple, she thought she was lactating. In the meantime she started also having vaginal bleeding, as per patient about 2 years ago she stopped having menstrual periods and with this new vaginal bleeding, her primary care doctor concerned and refer her to B[facility] Dr. Chowdary who ordered sonogram and some hormonal testing. While she was undergoing BARK[facility]PER[facility] work-up on October 01, 2019 she underwent bilateral mammogram which showed right breast was unremarkable but in the left breast there was an area of concern which was 3.6 x 4.3 cm dense lobulated lesion with heterogeneous calcifications subsequently underwent ultrasound of left breast which showed at 3 o'clock position, 4 cm from the nipple there was a dense hypoechoic well-circumscribed nodule measuring 4.1 x 3.9 x 5.1 cm associated vascularity. No abnormal lymph nodes seen in left axilla. Subsequently patient underwent ultrasound-guided left breast biopsy on November 05, 2019 and final pathology report confirmed invasive ductal carcinoma, high nuclear grade with necrosis and molecular profiling showed triple negative disease e.g. ER less than 1% KS less than 1% HER-2/corina negative and Ki-67 was 90%. Patient was referred to Dr. Beaver, surgeon who did discuss with patient regarding upfront mastectomy versus lumpectomy versus neoadjuvant therapy to downsize the tumor. Patient opted for evaluation for neoadjuvant therapy. Patient denies any weight loss, denies any new bony pains patient denies any headaches blurred vision double vision patient denies any jaundice. 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 She is on home oxygen and she has morbid obesity. She also has history of pulmonary embolism for which she is on Eliquis therapy Menarche at age 13, and last menstrual period was at age 47 40+ year history of smoking, still active. Echocardiogram done on December 06, 2019 showed ejection fraction around 50%, flattened septum in the diastole consistent with right ventricular volume overload., Severe pulmonary hypertension, when compared with prior echo from March 01, 2019 there appeared to be worsening of left ventricular function from normal 55% to mildly reduced 50% while there is a worsening of mitral and tricuspid valve regurgitation from moderate to severe now. Came for follow-up, denies any specific complaints, no fever chills, no nausea or vomiting, no diarrhea constipation but chronic pain in her left breast especially since biopsy and now with mild bilateral lower extremity edema. And she is on home oxygen. Medications: Acetaminophen 1 Capsule (of 325 mg) Oral daily, Albuterol Sulfate 1 Puff(s) (of 108 (90 base) mcg/act) Aerosol Powder, Breath Activated Inhalation q 6 hours PRN, Apixaban 1 Tablet (of 5 mg) Oral b.i.d., Atenolol 1 Tablet (of 50 mg) Oral b.i.d., Azithromycin 1 Tablet (of 250 mg) Oral on Every Other Day, clonazePAM 1 Tablet (of 1 mg) Oral b.i.d. PRN, Cymbalta 1 Capsule (of 60 mg) Capsule Delayed Release Particles Oral daily, Dicyclomine HCl 1 Tablet (of 20 mg) Oral b.i.d., Furosemide (40 mg) Tablet Oral Take as Directed, Gabapentin 1 Capsule (of 300 mg) Oral t.i.d., Isosorbide Mononitrate ER 1 Tablet (of 60 mg) Tablet SR 24 HR Oral daily, Klor-Con M20 1 Tablet (of 20 meq) Tablet, controlled release Oral daily, Nitroglycerin Tablet, sublingual Sublingual PRN, Ondansetron 1 Tablet (of 4 mg) Tablet Dispersable Oral PRN, Pantoprazole Sodium 1 Tablet (of 40 mg) Tablet, enteric coated Oral b.i.d., Prazosin HCl 1 Capsule (of 1 mg) Oral at bedtime, QUEtiapine Fumarate ER 1 Tablet (of 50 mg) Tablet SR 24 HR Oral at bedtime, QUEtiapine Fumarate ER 1 Tablet (of 300 mg) Tablet SR 24 HR Oral at bedtime, Revefenacin 1 (175 mcg/3mL) Solution Inhalation daily, Spironolactone 1 Tablet (of 50 mg) Oral daily, traMADol HCl 1 Tablet (of 50 mg) Oral q 8 hours PRN, traMADol HCl 1 Tablet (of 50 mg) Oral q 8 hours PRN, Victoza 1 Subcutaneous daily Allergies: Cephalexin and Ketorolac Tromethamine. Review of Systems: Constitutional - Appetite is fair and weight is stable. Positive for night sweats. Energy level is poor, ENMT - No sinus congestion/drainage. No mouth sores. No sore throat or difficulty swallowing, Hematologic/Lymphatic - Positive for easy bruising, Respiratory - Positive for shortness of breath. No cough. No pleuritic pain or hemoptysis. Pt is on portable oxygen, Cardiovascular - No angina pain. No palpitations, Gastrointestinal - Occasional nausea, no vomiting. No heartburn or acid reflux. Positive for diarrhea, no constipation. No blood in the stool or black stools, Genitourinary (F) - No dysuria or hematuria. Positive for urinary frequency. No urgency. Positive for incontinence, Musculoskeletal - Positive for joint pain, Neurologic - No headache. Positive for dizziness. No numbness or tingling. No other focal neurologic symptoms, Psychiatric - Positive for anxiety. Vital Signs: Performed on Dec 08, 2019 10:32 Height - 64.00 in Weight - 290.2 lbs (HIGH) BSA - 2.29 sq.m BMI - 49.81 (HIGH) Temperature - 97.9 F (LOW) Pulse - 59 /min (LOW) Respiration - 24 /min BP - 104/54 mm(hg) O2 Sat - 92 % (LOW) Pain - 10 Performance Status: 2 - Ambulatory/capable of all self-care, unable to perform any work activities. Up and about more than 50% of waking hours. (ECOG) Physical Examination: Respiratory - Poor air entry, Cardiovascular - Regular rate and rhythm of heart with diastolic murmurs,, Gastrointestinal - Soft, bowel sounds present, obesity, Extremities - 1+ edema bilaterally. Lab/Imaging: Most recent lab results are not available for this patient. Impression: Triple negative invasive ductal carcinoma, involving left breast status post ultrasound-guided biopsy done on November 05, 2019 final pathology report showed ER KS negative HER-2/corina negative with a high Ki-67 at 90% Ultrasound/mammogram left breast done on October 01, 2019 showed 5.1 x 3.9 x 4.1 cm left breast mass at 3 o'clock position with no abnormal lymph nodes seen in left axilla.Clinical stage IIb v/s III History of pulmonary embolism on Eliquis Recent history of vaginal bleeding now being evaluated by BARKER OPER[facility] Dr. Chowdary History of renal insufficiency, as per patient she used to be on hemodialysis but not anymore. History of hepatitis C Chronic hypercapnic respiratory failure, now on home oxygen Diastolic congestive heart failure. Pulmonary embolism on anticoagulation Posttraumatic stress disorder, anxiety, depression, panic disorder. Obstructive sleep apnea Chronic kidney disease stage III. Plan: Discussed with patient regarding her labs white blood count 11.8 hemoglobin 10.3 hematocrit 35 platelets 246,000 CMP within normal limit except creatinine 1.6 sodium 126 and alk phos 262 Clinically, patient doing reasonably well, now being considered for neoadjuvant chemotherapy and her pretreatment echocardiogram shows worsening of ejection fraction when compared with her previous echo done in February 2019, now her ejection fraction is about 50% with worsening of mitral and tricuspid valve regurgitation and pulmonary hypertension.. With these findings, we would not consider cardiotoxic chemo regimen e.g. Adriamycin based rather proceed with Taxotere/Cytoxan every 3 weeks x4 with Neulasta support to prevent chemotherapy-induced neutropenia and to maintain chemotherapy schedule. All the side effects possible benefits associated with Taxotere/Cytoxan including but not limited to bone marrow suppression, which can increase risk for infections and bleeding, hair loss, peripheral neuropathy, nausea vomiting, urinary bladder toxicity especially with Cytoxan, hepatic toxicity. Further teaching done by chemotherapy nurse, will obtain approval from her insurance prior to the treatment. Then will consider Taxotere 75 mg/m??? and Cytoxan 600 mg/m??? every 3 weeks x 4 and then reevaluate .Mild/moderate anemia,Etiology could be multifactorial, we will monitor if there is a worsening consider anemia work-up As far as mild hyponatremia is concerned, patient was advised to cut down free water intake, and will monitor her sodium and she will return to clinic 1 week after her chemotherapy is initiated with CBC and CMP Signed By: Serjio Lundberg M.D. <<Signature on File>>
== END 2019-12-08 09:20 | disposition home or self-care (01) ==
LOC: ONCMED 09:23
PROVIDERS: PCP Family Medicine; Visit Provider Internal Medicine Hematology & Oncology
DX: C50.812 Malignant neoplasm of overlapping sites of left female breast (principal); I27.20 Pulmonary hypertension, unspecified; E87.1 Hypo-osmolality and hyponatremia; N93.9 Abnormal uterine and vaginal bleeding, unspecified; J96.12 Chronic respiratory failure with hypercapnia; N18.3 Chronic kidney disease, stage 3 (moderate); Z99.81 Dependence on supplemental oxygen; I50.30 Unspecified diastolic (congestive) heart failure; F43.10 Post-traumatic stress disorder, unspecified; F41.8 Other specified anxiety disorders; G47.33 Obstructive sleep apnea (adult) (pediatric); Z17.1 Estrogen receptor negative status [ER-]; Z79.01 Long term (current) use of anticoagulants; Z86.711 Personal history of pulmonary embolism; Z86.19 Personal history of other infectious and parasitic diseases
CPT/HCPCS: 80053; 85025; 99214

== ENCOUNTER 2019-12-23 05:43 | Outpatient (RCR) | payer MEDICAID, SELFPAY ==
[2019-12-21 11:00] LABS: Basophils % 0.1 %; Hematocrit 34.3 % (37.0-47.0); Hemoglobin 10.4 g/dL (11.5-15.3); Lymphocytes # 0.4 10^3/uL (0.8-4.8); Lymphocytes % 3.8 %; Mean Corpuscular HGB Conc 30.3 g/dL (30.0-36.0); Mean Corpuscular Hemoglobin 26.9 pg (28.0-34.0); Mean Corpuscular Volume 88.9 fL (81-99); Monocytes # 0.7 10^3/uL (0.2-0.9); Monocytes % 6.3 %; Neutrophils # 9.77 10^3/uL (1.8-7.7); Neutrophils % 89.3 %; Nucleated Red Blood Cells % 0 %; Platelet Count 285 10^3/cmm (130-400); Red Blood Count 3.86 10^6/uL (4.1-5.3); Red Cell Distribution Width 14.9 % (12.1-15.1); White Blood Count 10.9 10^3/uL (4.0-10.0)
[2019-12-21 11:22] LABS: Alanine Aminotransferase 9 U/L (0-33); Albumin Level 3.9 g/dL (3.5-5.2); Alkaline Phosphatase 189 IU/L (35-105); Anion Gap 13.4 (5-19); Aspartate Amino Transferase 19 U/L (0-32); Blood Urea Nitrogen 18 mg/dL (6-20); Calcium 9.2 mg/dL (8.5-10.5); Carbon Dioxide 35 mmol/L (22-29); Chloride 83 mmol/L (98-107); Globulin 3.2 g/dL (1.3-4.6); Glomerular Filtration Rate 52.8 mL/min (90-130); Glucose 133 mg/dL (65-115); Osmolality Calculated 262 mOsm/kg (285-295); Potassium 4.4 mmol/L (3.5-5.1); Sodium 127 mmol/L (136-145); Total Bilirubin 0.3 mg/dL (0.15-1.2); Total Protein 7.1 g/dL (6.6-8.7)
[2019-12-21] MEDS: sodium chloride 0.9% 1,000 ML 999 ML IV (11:59)
== END 2019-12-23 23:59 | disposition home or self-care (01) ==
LOC: ONCMED 05:43
PROVIDERS: PCP Family Medicine; Visit Provider Internal Medicine Hematology & Oncology
DX: Z51.11 Encounter for antineoplastic chemotherapy (principal); C50.812 Malignant neoplasm of overlapping sites of left female breast; Z76.89 Persons encountering health services in other specified circumstances
CPT/HCPCS: 80053; 85025; 96367; 96372; 96413; 96417; 99214; J1100; J1200; J2469; J2505; J3490; J7030; J7040; J7050; J9070; J9171

== ENCOUNTER 2019-12-25 16:53 | Emergency (ER) | payer MEDICAID, SELFPAY ==
[2019-12-25 16:59] VITALS: BP 134/75; PULSE 76; RESP 20; TEMP 37.3; O2SAT 92; BMI 48.0
[2019-12-25 17:38] LABS: Basophils # 0.1 10^3/uL (0.0-0.1); Basophils % 0.4 %; Eosinophils % 0.1 %; Hematocrit 38.6 % (37.0-47.0); Hemoglobin 11.5 g/dL (11.5-15.3); Lymphocytes # 0.4 10^3/uL (0.8-4.8); Lymphocytes % 2.5 %; Mean Corpuscular HGB Conc 29.8 g/dL (30.0-36.0); Mean Corpuscular Hemoglobin 26.4 pg (28.0-34.0); Mean Corpuscular Volume 88.7 fL (81-99); Mean Platelet Volume 10.9 fL (7.4-10.4); Monocytes % 0.2 %; Neutrophils # 15.07 10^3/uL (1.8-7.7); Nucleated Red Blood Cells % 0 %; Platelet Count 216 10^3/cmm (130-400); Red Blood Count 4.35 10^6/uL (4.1-5.3); Red Cell Distribution Width 14.8 % (12.1-15.1); White Blood Count 17.3 10^3/uL (4.0-10.0)
[2019-12-25 17:43] LABS: Neutrophils % 96.2 %
[2019-12-25 17:57] LABS: Alanine Aminotransferase 13 U/L (0-33); Alkaline Phosphatase 151 IU/L (35-105); Anion Gap 12.2 (5-19); Aspartate Amino Transferase 20 U/L (0-32); Blood Urea Nitrogen 27 mg/dL (6-20); Calcium 8.3 mg/dL (8.5-10.5); Carbon Dioxide 36 mmol/L (22-29); Chloride 90 mmol/L (98-107); Globulin 2.7 g/dL (1.3-4.6); Glomerular Filtration Rate 47.7 mL/min (90-130); Glucose 104 mg/dL (65-115); Osmolality Calculated 275 mOsm/kg (285-295); Potassium 4.2 mmol/L (3.5-5.1); Sodium 134 mmol/L (136-145); Total Bilirubin 0.6 mg/dL (0.15-1.2); Total Protein 6.7 g/dL (6.6-8.7)
--- NOTE | 2019-12-25 18:07 | ED_ITS ---
HPI - General Adult General: Chief complaint: General Medical Stated complaint: hurting post cancer treatment Time Seen by Provider: 12/25/19 17:59 History of Present Illness: HPI narrative: 49-year-old female comes in with generalized pain. Patient states that she has pain everywhere in her body. Patient recently had a round of chemotherapy due to breast cancer. Patient is very theatrical with allow old expressive speech. Patient appears well. Patient appears upset. Review of Systems General: Reports: 10 or more systems reviewed and unremarkable except in HPI and below Neuro: Reports: other (general pain) PFS ED PFSH: Medical History (Updated 12/25/19 @ 18:07 by MANOJ Morton) Benign essential HTN Bipolar disorder, current episode mixed, severe, with psychotic features Cancer of left breast Chronic hepatitis C without hepatic coma Chronic hypercapnic respiratory failure Chronic kidney disease (CKD), stage III (moderate) Diastolic CHF Diastolic heart failure secondary to hypertension Gastritis GERD (gastroesophageal reflux disease) History of pulmonary embolism Hypertension Iron deficiency anemia Mitral valve insufficiency Orthopnea BINA (obstructive sleep apnea) Other stimulant dependence, in remission Panic disorder [episodic paroxysmal anxiety] Post-traumatic stress disorder, chronic Pulmonary embolism Severe chronic obstructive pulmonary disease Valvular heart disease Surgical History H/O cervical fracture (~1998) C4-6 H/O section 1987 1999 2001 H/O foot surgery (~2003) lefft-- ball of the foot H/O knee surgery (~1991) left knee patellar fracture H/O tracheostomy (~2002) H/O tubal ligation (~2001) History of colonoscopy History of esophagogastroduodenoscopy (EGD) Port-A-Cath in place (11/24/19) Status post dilation and curettage (~1998) Family History Brother CAD (coronary artery disease) Diabetes Grandfather Diabetes PGF Sister Hypertension Denies family history of Anesthesia complication Bleeding disorder Social History Smoking and tobacco status: current every day smoker cigarettes Packs smoked per day: 1 Years cigarettes smoked: 40 Quit status (tobacco): not considering quitting Smoking risk assessment/counseling performed?: Yes Alcohol intake: former Year of sobriety/quit date alcohol: 2016 Lives independently: Yes Household members: spouse Marital status: Current occupational status: disabled History of recent travel: No Current gender identity: Female Female Reproductive History: Date of last menstrual period: 12/11/19 Physical Exam Const: COMMON NORMALS: no acute distress and patient oriented x3 GENERAL APPEARANCE: cooperative HENMT: COMMON NORMALS: normocephalic and Normal external nose present HEAD & SCALP: normal to inspection and normocephalic NOSE: Normal external nose present MOUTH: Normal oral and palatal mucosa present THROAT: posterior oropharynx normal Eye: GENERAL EYE: appearance normal, both eyes and all related structures Neck/C-Spine: COMMON NORMALS: full ROM Chest: COMMONS NORMALS: normal inspection of the chest Resp: COMMON NORMALS: normal respiratory effort EFFORT & INSPECTION: Yes able to speak in complete sentences Cardio: COMMON NORMALS: regular rate and regular rhythm RATE: regular rate RHYTHM: regular rhythm GI: COMMON NORMALS: non-tender Back/Pelvis: COMMON NORMALS: thoracic and lumbar spine normal to inspection Extremity: COMMON NORMALS: normal to inspection Neuro: COMMON NORMALS: patient oriented x3 and moves all extremities Psych: COMMON NORMALS: mental status grossly normal and cooperative Skin: COMMON NORMALS: no rashes or lesions noted GENERAL SKIN EXAM: no rashes or lesions noted Course Vital Signs: Vital signs: Vital Signs Temperature 99.2 F 12/25/19 16:59 Pulse Rate 76 12/25/19 16:59 Respiratory Rate 20 H 12/25/19 16:59 Blood Pressure 134/75 12/25/19 16:59 Pulse Oximetry 92 12/25/19 16:59 MDM - General Adult MDM Narrative: Medical decision making narrative: Patient comes in today with complaints of generalized pain. Patient is out of her medication for pain at home. Patient recently went to 1 rounds of chemotherapy for her breast cancer and has had worsening pain over the last 2 days. Patient appears well. No acute respiratory distress is noted. Lungs are coarse with some occasional wheezing on inspiration. Abdomen soft nontender. Vital signs are normal. Differential diagnosis includes but not limited to cancer related pain, anxiety, depression. Reviewed exam with patient patient was medicated with morphine 4 mg IM for pain. Patient was given a refill on her tramadol. Patient should follow-up with primary care for further treatment of pain control. Lab Data: Labs: Lab Results 12/25/19 12/25/19 Range/Units 17:23 17:23 WBC 17.3 H (4.0-10.0) 10^3/ uL RBC 4.35 (4.1-5.3) 10^6/u L Hgb 11.5 (11.5-15.3) g/dL Hct 38.6 (37.0-47.0) % MCV 88.7 (81-99) fL MCH 26.4 L (28.0-34.0) pg MCHC 29.8 L (30.0-36.0) g/dL RDW 14.8 (12.1-15.1) % Plt Count 216 (130-400) 10^3/c mm MPV 10.9 H (7.4-10.4) fL Neut % (Auto) 96.2 % Lymph % (Auto) 2.5 % Hernando % (Auto) 0.2 % Eos % (Auto) 0.1 % Baso % (Auto) 0.4 % Neut # (Auto) 15.07 H (1.8-7.7) 10^3/u L Lymph # (Auto) 0.4 L (0.8-4.8) 10^3/u L Hernando # (Auto) 0.0 L (0.2-0.9) 10^3/u L Eos # (Auto) 0.0 (0.0-0.8) 10^3/u L Baso # (Auto) 0.1 (0.0-0.1) 10^3/u L Nucleated RBC % (a uto) 0 % Nucleated RBCs # 0.0 /100WBC Sodium 134 L (136-145) mmol/L Potassium 4.2 (3.5-5.1) mmol/L Chloride 90 L (98-107) mmol/L Carbon Dioxide 36 H (22-29) mmol/L Anion Gap 12.2 (5-19) BUN 27 H (6-20) mg/dL Creatinine 1.2 H (0.5-0.9) mg/dL GFR Calculation 47.7 L (90-130) mL/min Glucose 104 (65-115) mg/dL Calculated Osmolal ity 275 L (285-295) mOsm/k g Calcium 8.3 L (8.5-10.5) mg/dL Total Bilirubin 0.6 (0.15-1.2) mg/dL AST 20 (0-32) U/L ALT 13 (0-33) U/L Alkaline Phosphata se 151 H (35-105) IU/L Total Protein 6.7 (6.6-8.7) g/dL Albumin 4.0 (3.5-5.2) g/dL Globulin 2.7 (1.3-4.6) g/dL Discharge Plan Discharge Patient Disposition: Home Clinical Impression: Cancer related pain Condition: Stable Prescriptions: New tramadol 50 mg tablet 50 mg PO Q6H PRN (Reason: pain) Qty: 20 RF: 0 No Action duloxetine [Cymbalta] 60 mg capsule,delayed release(DR/EC) 60 mg PO DAILY Qty: 30 RF: 2 quetiapine [Seroquel XR] 300 mg tablet extended release 24 hr 300 mg PO BEDTIME Qty: 30 RF: 1 prazosin 1 mg capsule 1 mg PO BEDTIME Qty: 30 RF: 2 clonazepam 1 mg tablet 1 mg PO BID PRN (Reason: anxiety) Qty: 60 RF: 2 tramadol 50 mg tablet 50 mg PO Q8H PRN (Reason: pain) Qty: 30 RF: 0 prochlorperazine maleate 10 mg tablet 10 mg PO Q4H PRNRF: 0 dexamethasone 4 mg tablet 8 mg PO BID RF: 0 fluticasone propionate [Flonase Allergy Relief] 50 mcg/actuation spray,suspension 1 spray INTRANASAL BID 30 Days Qty: 16 RF: 3 lidocaine 5 % gel 5 % topical DAILY PRN (Reason: Pain) RF: 0 nitroglycerin [Nitrostat] 0.4 mg tablet, sublingual 0.4 mg SUBLINGUAL Q5M PRN (Reason: Chest Pain) Qty: 90 RF: 3 azithromycin 250 mg tablet 250 mg PO .COMPLEX Qty: 15 RF: 3 dicyclomine 20 mg tablet 20 mg PO BID Qty: 60 RF: 3 albuterol sulfate [ProAir HFA] 90 mcg/actuation HFA aerosol inhaler 2 puff INHALATION Q6H PRN (Reason: Shortness Of Breath) Qty: 18 RF: 2 isosorbide mononitrate 30 mg tablet extended release 24 hr 30 mg PO DAILY Qty: 90 RF: 0 atenolol 50 mg tablet 50 mg PO BID Qty: 60 RF: 1 Eliquis 5 mg tablet 5 mg PO BID Qty: 60 RF: 1 Hold Instructions: Resume on 11/26/19. quetiapine [Seroquel XR] 50 mg tablet extended release 24 hr 50 mg PO .HS Qty: 30 RF: 0 potassium chloride 20 mEq tablet extended release 20 meq PO DAILY Qty: 14 RF: 0 Victoza 2-Bijan 0.6 mg/0.1 mL (18 mg/3 mL) pen injector 1.8 mg SUBCUT Q24H Qty: 6 RF: 0 pantoprazole 40 mg tablet,delayed release (DR/EC) 40 mg PO BID Qty: 28 RF: 0 gabapentin 300 mg capsule 300 mg PO TID Qty: 63 RF: 0 Yupelri 175 mcg/3 mL solution for nebulization 175 mcg INHALATION DAILY Qty: 90 RF: 3 spironolactone 50 mg tablet 50 mg PO QAM Qty: 14 RF: 0 Lasix 40 mg tablet See Rx Instructions PO BID Qty: 42 RF: 0 ondansetron HCl [Zofran] 4 mg tablet 4 mg PO QID PRN (Reason: nausea and vomiting) Qty: 14 RF: 0 Referrals: Liz Marcos DO [Primary Care Provider] - Discharge Diet: Usual diet Discharge Activity: Increase activity as tolerated Activity Restrictions/Additional Instructions: Activity as tolerated. Drink plenty of fluids. Healthy diet and activity. Take medications as directed. Follow-up with primary care for further treatment and evaluation. Coding Level of Care Code ED Injection Press Operator for Abdiel Fwd Exam Comprehensive
[2019-12-25 18:37] VITALS: RESP 18
[2019-12-25] MEDS: morphine 4 mg/mL SDV 1 mL IM (18:37)
[2019-12-25 18:40] VITALS: RESP 18
== END 2019-12-25 18:40 | disposition home or self-care (01) ==
PROVIDERS: Family Medicine; Emergency Provider Nurse Practitioner Family; PCP Family Medicine
DX: G89.3 Neoplasm related pain (acute) (chronic) (principal); C50.919 Malignant neoplasm of unspecified site of unspecified female breast; I13.0 Hypertensive heart and chronic kidney disease with heart failure and stage 1 through stage 4 chronic kidney disease, or unspecified chronic kidney disease; N18.3 Chronic kidney disease, stage 3 (moderate); I50.30 Unspecified diastolic (congestive) heart failure; Z86.19 Personal history of other infectious and parasitic diseases; F17.210 Nicotine dependence, cigarettes, uncomplicated
CPT/HCPCS: 12345; 80053; 85025; 96372; 99281; 99283; J2270

== ENCOUNTER 2019-12-26 18:08 | Emergency (ER) | payer MEDICAID, SELFPAY ==
[2019-12-26 18:21] VITALS: BP 142/88; PULSE 74; RESP 20; TEMP 37.2; O2SAT 92; BMI 46.3
[2019-12-26 18:46] VITALS: BP 151/95; PULSE 73; RESP 18; O2SAT 96
[2019-12-26 19:53] VITALS: RESP 18; O2SAT 97
[2019-12-26] MEDS: HYDROmorphone 1 mg/mL INJ 1 mL IVP (19:53)
[2019-12-26 20:01] VITALS: BP 159/62; PULSE 70; RESP 20; O2SAT 94
--- NOTE | 2019-12-26 20:01 | ED_ITS ---
HPI - General Adult General: Chief complaint: General Medical Stated complaint: breast cancer/ needs pain management Time Seen by Provider: 12/26/19 18:26 Source: patient and family Mode of arrival: ambulatory History of Present Illness: HPI narrative: Ms. Bhatia is a 49-year-old female with a history of breast cancer who has started chemotherapy and has developed generalized body pains. She was seen here yesterday for the same thing with generalized body pains and was given some intramuscular injection of morphine in the emergency department and discharged home on tramadol. She already has a prescription for tramadol given by her oncologist and she was given 90 tablets not long ago. The pharmacist said it was too soon for her to fill her medications as she should still have at least 5 days left and so they did not fill the prescription she got yesterday. When she comes in tonight the patient admitted that she may have misused her medication but that was because she was in so much pain and she has a home health nurse coming in to help her arrange her medicines how she should use them. The patient is tearful and crying because she is in a lot of pain. Associated symptoms: Deny dyspnea, headache(s), nausea, rash, palpitations or vomiting Review of Systems General: Reports: 10 or more systems reviewed and unremarkable except in HPI and below Const: Denies: fever(s), chills or body aches Eyes: Denies: change in vision or blurry vision ENMT: Denies: throat pain, enlarged tonsils, odynophagia, hoarseness, mouth pain or swelling of lips/tongue Card: Denies: palpitations, irregular heart rhythm, edema or swelling of feet/ankles Resp: Denies: dyspnea, productive cough or non-productive cough GI: Denies: abdominal pain, nausea or vomiting : Denies: flank pain, difficulty voiding, dysuria, urinary frequency, urinary urgency or urinary hesitancy Musc: Reports: extremity pain and muscle cramps; Denies: neck pain, back pain or extremity swelling Skin/Breast: Denies: rash, pruritus or erythema Neuro: Denies: headache(s), numbness in extremities or weakness in extremities Endo: Denies: polyuria, polydipsia or tired all the time [facility] ED PFSH: Medical History Benign essential HTN Bipolar disorder, current episode mixed, severe, with psychotic features Cancer of left breast Chronic hepatitis C without hepatic coma Chronic hypercapnic respiratory failure Chronic kidney disease (CKD), stage III (moderate) Diastolic CHF Diastolic heart failure secondary to hypertension Gastritis GERD (gastroesophageal reflux disease) History of pulmonary embolism Hypertension Iron deficiency anemia Mitral valve insufficiency Orthopnea BINA (obstructive sleep apnea) Other stimulant dependence, in remission Panic disorder [episodic paroxysmal anxiety] Post-traumatic stress disorder, chronic Pulmonary embolism Severe chronic obstructive pulmonary disease Valvular heart disease Surgical History H/O cervical fracture (~1998) C4-6 H/O section 1987 1999 2001 H/O foot surgery (~2003) lefft-- ball of the foot H/O knee surgery (~1991) left knee patellar fracture H/O tracheostomy (~2002) H/O tubal ligation (~2001) History of colonoscopy History of esophagogastroduodenoscopy (EGD) Port-A-Cath in place (11/24/19) Status post dilation and curettage (~1998) Family History Brother CAD (coronary artery disease) Diabetes Grandfather Diabetes PGF Sister Hypertension Denies family history of Anesthesia complication Bleeding disorder Social History Smoking and tobacco status: current every day smoker cigarettes Packs smoked per day: 1 Years cigarettes smoked: 40 Quit status (tobacco): not considering quitting Smoking risk assessment/counseling performed?: Yes Alcohol intake: former Year of sobriety/quit date alcohol: 2016 Lives independently: Yes Household members: spouse Marital status: Current occupational status: disabled History of recent travel: No Current gender identity: Female Female Reproductive History: Date of last menstrual period: 12/11/19 Physical Exam Const: COMMON NORMALS: no acute distress, average body habitus, patient oriented x3, no limitations, healthy appearing, alert and well nourished HENMT: COMMON NORMALS: normocephalic, atraumatic and moist oral mucous membranes HEAD & SCALP: normocephalic and atraumatic Neck/C-Spine: COMMON NORMALS: no meningeal signs and no JVD Resp: COMMON NORMALS: normal respiratory effort, No retractions, No use of accessory muscles, clear to auscultation bilaterally and percussion normal AUSCULTATION: clear to auscultation bilaterally PERCUSSION: percussion normal Cardio: COMMON NORMALS: no JVD, regular rate, regular rhythm, S1 normal heart sound present, S2 normal heart sound present, No gallops present (Cardio), No clicks present (Cardio), No murmurs present (Cardio), No rub (Cardio) and Peripheral pulses 2+ throughout RATE: regular rate RHYTHM: regular rhythm HEART SOUNDS: S1 normal heart sound present and S2 normal heart sound present PERIPHERAL PULSES: Peripheral pulses 2+ throughout GI: COMMON NORMALS: Normal to inspection, nondistended, normoactive bowel sounds present, Soft to palpation, non-tender, No hepatosplenomegaly present, no masses and no bruits PALPATION: Yes Soft to palpation and Yes No hepatosplenomegaly present Extremity: COMMON NORMALS: normal to inspection, full ROM, capillary refill normal, no calf tenderness and no pedal edema Neuro: COMMON NORMALS: patient oriented x3 SENSORIUM/ORIENTATION: Yes alert MENINGEAL SIGNS: Yes no meningeal signs Skin: COMMON NORMALS: no rashes or lesions noted, no wounds, turgor normal, no jaundice, no petechiae and no mottling GENERAL SKIN EXAM: no rashes or lesions noted and turgor normal Course Reevaluation(s): Reevaluation #1: Patient feels much better after the Dilaudid injection. She is ready to be discharged home. We will discharge her and she will follow-up with her oncologist tomorrow fall better pain management. Time: 20:01 Vital Signs: Vital signs: Vital Signs Temperature 98.9 F 12/26/19 18:21 Pulse Rate 70 12/26/19 20:01 Respiratory Rate 20 H 12/26/19 20:01 Blood Pressure 159/62 12/26/19 20:01 Pulse Oximetry 94 12/26/19 20:01 MDM - General Adult MDM Narrative: Medical decision making narrative: 49-year-old female patient with breast cancer and generalized pain likely from chemotherapy. She unfortunately overused her pain medication and she has run out. She presents with generalized pain. She will call her oncologist tomorrow and try to sort out her pain control. She was given a dose of intravenous Dilaudid which helped her pain. Medical Records: Attestation: I reviewed the patient's medical records. Discharge Plan Discharge Patient Disposition: Home Clinical Impression: Cancer related pain Cancer of left breast Qualifiers: Breast location: unspecified site of breast Estrogen receptor status: unspecified Patient sex: female Qualified Code(s): C50.912 - Malignant neoplasm of unspecified site of left female breast Condition: Stable Prescriptions: Continued duloxetine [Cymbalta] 60 mg capsule,delayed release(DR/EC) 60 mg PO DAILY Qty: 30 RF: 2 quetiapine [Seroquel XR] 300 mg tablet extended release 24 hr 300 mg PO BEDTIME Qty: 30 RF: 1 prazosin 1 mg capsule 1 mg PO BEDTIME Qty: 30 RF: 2 clonazepam 1 mg tablet 1 mg PO BID PRN (Reason: anxiety) Qty: 60 RF: 2 tramadol 50 mg tablet 50 mg PO Q8H PRN (Reason: pain) Qty: 30 RF: 0 prochlorperazine maleate 10 mg tablet 10 mg PO Q4H PRNRF: 0 dexamethasone 4 mg tablet 8 mg PO BID RF: 0 fluticasone propionate [Flonase Allergy Relief] 50 mcg/actuation spray,suspension 1 spray INTRANASAL BID 30 Days Qty: 16 RF: 3 lidocaine 5 % gel 5 % topical DAILY PRN (Reason: Pain) RF: 0 nitroglycerin [Nitrostat] 0.4 mg tablet, sublingual 0.4 mg SUBLINGUAL Q5M PRN (Reason: Chest Pain) Qty: 90 RF: 3 azithromycin 250 mg tablet 250 mg PO .COMPLEX Qty: 15 RF: 3 dicyclomine 20 mg tablet 20 mg PO BID Qty: 60 RF: 3 albuterol sulfate [ProAir HFA] 90 mcg/actuation HFA aerosol inhaler 2 puff INHALATION Q6H PRN (Reason: Shortness Of Breath) Qty: 18 RF: 2 isosorbide mononitrate 30 mg tablet extended release 24 hr 30 mg PO DAILY Qty: 90 RF: 0 atenolol 50 mg tablet 50 mg PO BID Qty: 60 RF: 1 Eliquis 5 mg tablet 5 mg PO BID Qty: 60 RF: 1 Hold Instructions: Resume on 11/26/19. quetiapine [Seroquel XR] 50 mg tablet extended release 24 hr 50 mg PO .HS Qty: 30 RF: 0 potassium chloride 20 mEq tablet extended release 20 meq PO DAILY Qty: 14 RF: 0 Victoza 2-Bijan 0.6 mg/0.1 mL (18 mg/3 mL) pen injector 1.8 mg SUBCUT Q24H Qty: 6 RF: 0 pantoprazole 40 mg tablet,delayed release (DR/EC) 40 mg PO BID Qty: 28 RF: 0 gabapentin 300 mg capsule 300 mg PO TID Qty: 63 RF: 0 Yupelri 175 mcg/3 mL solution for nebulization 175 mcg INHALATION DAILY Qty: 90 RF: 3 spironolactone 50 mg tablet 50 mg PO QAM Qty: 14 RF: 0 Lasix 40 mg tablet See Rx Instructions PO BID Qty: 42 RF: 0 ondansetron HCl [Zofran] 4 mg tablet 4 mg PO QID PRN (Reason: nausea and vomiting) Qty: 14 RF: 0 tramadol 50 mg tablet 50 mg PO Q6H PRN (Reason: pain) Qty: 20 RF: 0 Discharge Orders: Discharge Order (Routine); Ordered 12/26/19 Ordered By: Jazz Schuster Referrals: Liz Marcos DO [Primary Care Provider] - 4-7 days Serjio Lundberg MD [Staff Physician] - 12/27/19 Patient Instructions: Cancer Pain Activity Restrictions/Additional Instructions: Return for any new or worsening symptoms. Follow-up with Dr. Lundberg tomorrow for management of your pain. Continue your pain medication and other medicines as prescribed. Discharge Date/Time: 12/26/19 20:31 Coding Level of Care Code ED Rubber Press Tender for Abdiel Stone
== END 2019-12-26 20:31 | disposition home or self-care (01) ==
PROVIDERS: Emergency Provider Family Medicine; PCP Family Medicine
DX: G89.3 Neoplasm related pain (acute) (chronic) (principal); C50.912 Malignant neoplasm of unspecified site of left female breast; Z79.01 Long term (current) use of anticoagulants; I13.0 Hypertensive heart and chronic kidney disease with heart failure and stage 1 through stage 4 chronic kidney disease, or unspecified chronic kidney disease; N18.3 Chronic kidney disease, stage 3 (moderate); I50.30 Unspecified diastolic (congestive) heart failure; Z86.19 Personal history of other infectious and parasitic diseases; F17.210 Nicotine dependence, cigarettes, uncomplicated
CPT/HCPCS: 12345; 96374; 96375; 99282; 99283; J1170

== ENCOUNTER 2019-12-27 09:17 | Emergency (ER) | payer MEDICAID, SELFPAY ==
[2019-12-27 09:17] VITALS: BP 150/67; PULSE 76; RESP 20; TEMP 37.5; O2SAT 95; BMI 48.0
--- NOTE | 2019-12-27 09:48 | ED_ITS ---
HPI - General Adult General: Chief complaint: General Medical Stated complaint: pain Time Seen by Provider: 12/27/19 09:20 History of Present Illness: HPI narrative: 9-year-old female with a known diagnosis of triple negative breast cancer comes in complaining of generalized myalgias pain arthralgias. She was seen yesterday and the day prior to that as well she was given tramadol 2 days ago which she is used all that up she usually does go to the pain clinic as well as to the oncology clinic locally. Her last chemotherapy treatment was 6 days ago her next 1 is in another 12 days. She states she is on a 3-week rotation. She denies any chest pain or shortness of breath no respiratory symptoms she does get Neulasta as well to bolster her white counts. Onset (ago): day(s) Severity: severe Quality: aching Pain Consistency: constant Relieving factors: none Exacerbating factors: movement Associated symptoms: Reports decreased appetite, malaise and nausea; Deny chest pain, cough, diaphoresis, dyspnea, fevers/chills, headache(s), rash, palpitations, seizures, short of breath, syncope, vomiting or weakness Treatments prior to arrival: none Review of Systems Const: Reports: malaise; Denies: diaphoresis ENMT: Denies: throat pain, ear or mastoid pain, nasal discharge or nasal congestion Card: Denies: chest pain, palpitations or syncope Resp: Denies: dyspnea GI: Reports: nausea; Denies: vomiting : Denies: flank pain, difficulty voiding, dysuria, urinary frequency or urinary urgency Skin/Breast: Denies: rash or pruritus Neuro: Denies: headache(s) [facility] ED PFSH: Medical History (Updated 12/27/19 @ 10:54 by Dusty Motley DO) Benign essential HTN Bipolar disorder, current episode mixed, severe, with psychotic features Cancer of left breast Chronic hepatitis C without hepatic coma Chronic hypercapnic respiratory failure Chronic kidney disease (CKD), stage III (moderate) Diastolic CHF Diastolic heart failure secondary to hypertension Gastritis GERD (gastroesophageal reflux disease) History of pulmonary embolism Hypertension Iron deficiency anemia Mitral valve insufficiency Orthopnea BINA (obstructive sleep apnea) Other stimulant dependence, in remission Panic disorder [episodic paroxysmal anxiety] Post-traumatic stress disorder, chronic Pulmonary embolism Severe chronic obstructive pulmonary disease Valvular heart disease Surgical History H/O cervical fracture (~1998) C4-6 H/O section 1987 1999 2001 H/O foot surgery (~2003) lefft-- ball of the foot H/O knee surgery (~1991) left knee patellar fracture H/O tracheostomy (~2002) H/O tubal ligation (~2001) History of colonoscopy History of esophagogastroduodenoscopy (EGD) Port-A-Cath in place (11/24/19) Status post dilation and curettage (~1998) Family History Brother CAD (coronary artery disease) Diabetes Grandfather Diabetes PGF Sister Hypertension Denies family history of Anesthesia complication Bleeding disorder Social History Smoking and tobacco status: current every day smoker cigarettes Packs smoked per day: 1 Years cigarettes smoked: 40 Quit status (tobacco): not considering quitting Smoking risk assessment/counseling performed?: Yes Alcohol intake: former Year of sobriety/quit date alcohol: 2016 Lives independently: Yes Household members: spouse Marital status: Current occupational status: disabled History of recent travel: No Current gender identity: Female Female Reproductive History: Date of last menstrual period: 12/11/19 Physical Exam Const: COMMON NORMALS: no acute distress GENERAL APPEARANCE: cooperative and comfortable ORIENTATION/CONSCIOUSNESS: Yes awake, Yes oriented to person, Yes oriented to place and Yes oriented to time HENMT: COMMON NORMALS: normocephalic, atraumatic and hearing grossly normal bilaterally HEAD & SCALP: normocephalic and atraumatic Eye: COMMON NORMALS: Equal, round and reactive pupils present, EOMs intact bilaterally, conjunctivae normal and no scleral icterus CONJUNCTIVA: Yes conjunctivae normal PUPIL: Yes Equal, round and reactive pupils present Neck/C-Spine: COMMON NORMALS: full ROM, no lymphadenopathy, supple and no JVD Lymph: LYMPHATIC: no lymphadenopathy noted and no lymphedema noted Resp: COMMON NORMALS: normal respiratory effort, No retractions, No use of accessory muscles and clear to auscultation bilaterally AUSCULTATION: clear to auscultation bilaterally Cardio: COMMON NORMALS: no JVD, regular rate, regular rhythm and No murmurs present (Cardio) RATE: regular rate RHYTHM: regular rhythm GI: COMMON NORMALS: Soft to palpation and No hepatosplenomegaly present AUSCULTATION: Yes normoactive bowel sounds PALPATION: Yes Soft to palpation, No Tenderness to palpation present (GI), No Guarding due to palpation present (GI) and Yes No hepatosplenomegaly present Extremity: COMMON NORMALS: normal to inspection, capillary refill normal, no clubbing, cyanosis or edema, no calf tenderness and no pedal edema Neuro: SENSORIUM/ORIENTATION: Yes oriented to person, Yes oriented to place and Yes oriented to time Skin: COMMON NORMALS: no rashes or lesions noted GENERAL SKIN EXAM: no rashes or lesions noted Course Vital Signs: Vital signs: Vital Signs Temperature 99.5 F 12/27/19 09:17 Pulse Rate 68 12/27/19 10:12 Respiratory Rate 16 12/27/19 10:12 Blood Pressure 137/68 12/27/19 10:12 Pulse Oximetry 99 12/27/19 10:12 MDM - General Adult MDM Narrative: Medical decision making narrative: Discussed with the oncology clinic will discharge patient from here pain is much better will have her follow-up with oncology today. They are expecting her and plan to give her a prescription for Percocet will be redirecting her to the pain clinic from here out to manage her pain control. Patient reported she was having some difficulty figuring out a way to get from the ER to the oncology clinic and then home order and contact with the oncology clinic try to make some alternative arrangements so we can discharge her from the ER directly to home. Lab Data: Labs: Lab Results 12/27/19 12/27/19 12/27/19 Range/Units 09:30 09:45 09:45 WBC 1.6 L (4.0-10.0) 10^3/ uL RBC 4.31 (4.1-5.3) 10^6/u L Hgb 11.5 (11.5-15.3) g/dL Hct 38.4 (37.0-47.0) % MCV 89.1 (81-99) fL MCH 26.7 L (28.0-34.0) pg MCHC 29.9 L (30.0-36.0) g/dL RDW 15.2 H (12.1-15.1) % Plt Count 183 (130-400) 10^3/c mm MPV 11.9 H (7.4-10.4) fL Neut % (Auto) 65.5 % Lymph % (Auto) 11.9 % [place] % (Auto) 11.9 % Eos % (Auto) 6.3 % Baso % (Auto) 4.4 % Neut # (Auto) 1.04 L (1.8-7.7) 10^3/u L Lymph # (Auto) 0.2 L (0.8-4.8) 10^3/u L [place] # (Auto) 0.2 (0.2-0.9) 10^3/u L Eos # (Auto) 0.1 (0.0-0.8) 10^3/u L Baso # (Auto) 0.1 (0.0-0.1) 10^3/u L Nucleated RBC % (a uto) 0 % Nucleated RBCs # 0.0 /100WBC Sodium 134 L (136-145) mmol/L Potassium 4.5 (3.5-5.1) mmol/L Chloride 94 L (98-107) mmol/L Carbon Dioxide 33 H (22-29) mmol/L Anion Gap 11.5 (5-19) BUN 17 (6-20) mg/dL Creatinine 0.9 (0.5-0.9) mg/dL GFR Calculation 66.5 L (90-130) mL/min Glucose 148 H (65-115) mg/dL Calculated Osmolal ity 277 L (285-295) mOsm/k g Calcium 8.6 (8.5-10.5) mg/dL Total Bilirubin 0.6 (0.15-1.2) mg/dL AST 19 (0-32) U/L ALT 13 (0-33) U/L Alkaline Phosphata se 149 H (35-105) IU/L Total Protein 6.5 L (6.6-8.7) g/dL Albumin 3.6 (3.5-5.2) g/dL Globulin 2.9 (1.3-4.6) g/dL Urine Color Straw (Yellow) Urine Appearance Clear (CLEAR) Urine pH 8 H (5-7) Ur Specific Gravit y 1.005 (1.005-1.030) Urine Protein Neg (Negative) Urine Glucose (UA) Norm (Normal) Urine Ketones Negative (Negative) Urine Blood Neg (Negative) Urine Nitrate Negative (Negative) Urine Bilirubin Neg (NEGATIVE) Prot Sulfosalicyli c Acd Negative (Negative) Urine Urobilinogen Norm (Negative) mg/dL Ur Leukocyte Luiza ase Negative (Negative) Discharge Plan Discharge Patient Disposition: Home Clinical Impression: Triple negative malignant neoplasm of breast, Complication of chemotherapy Condition: Stable Prescriptions: No Action duloxetine [Cymbalta] 60 mg capsule,delayed release(DR/EC) 60 mg PO DAILY Qty: 30 RF: 2 quetiapine [Seroquel XR] 300 mg tablet extended release 24 hr 300 mg PO BEDTIME Qty: 30 RF: 1 prazosin 1 mg capsule 1 mg PO BEDTIME Qty: 30 RF: 2 clonazepam 1 mg tablet 1 mg PO BID PRN (Reason: anxiety) Qty: 60 RF: 2 prochlorperazine maleate 10 mg tablet 10 mg PO Q4H PRN (Reason: Nausea) RF: 0 dexamethasone 4 mg tablet 8 mg PO BID RF: 0 fluticasone propionate [Flonase Allergy Relief] 50 mcg/actuation spray,suspension 1 spray INTRANASAL BID 30 Days Qty: 16 RF: 3 lidocaine 5 % gel 5 % topical PRN RF: 0 nitroglycerin [Nitrostat] 0.4 mg tablet, sublingual 0.4 mg SUBLINGUAL Q5M PRN (Reason: Chest Pain) Qty: 90 RF: 3 dicyclomine 20 mg tablet 20 mg PO BID Qty: 60 RF: 3 albuterol sulfate [ProAir HFA] 90 mcg/actuation HFA aerosol inhaler 2 puff INHALATION Q6H PRN (Reason: Shortness Of Breath) Qty: 18 RF: 2 isosorbide mononitrate 30 mg tablet extended release 24 hr 30 mg PO DAILY Qty: 90 RF: 0 atenolol 50 mg tablet 50 mg PO BID Qty: 60 RF: 1 Eliquis 5 mg tablet 5 mg PO BID Qty: 60 RF: 1 Hold Instructions: Resume on 11/26/19. potassium chloride 20 mEq tablet extended release 20 meq PO DAILY Qty: 14 RF: 0 Victoza 2-Bijan 0.6 mg/0.1 mL (18 mg/3 mL) pen injector 1.8 mg SUBCUT Q24H Qty: 6 RF: 0 pantoprazole 40 mg tablet,delayed release (DR/EC) 40 mg PO BID Qty: 28 RF: 0 gabapentin 300 mg capsule 300 mg PO TID Qty: 63 RF: 0 Yupelri 175 mcg/3 mL solution for nebulization 175 mcg INHALATION DAILY Qty: 90 RF: 3 spironolactone 50 mg tablet 50 mg PO QAM Qty: 14 RF: 0 ondansetron HCl [Zofran] 4 mg tablet 4 mg PO QID PRN (Reason: nausea and vomiting) Qty: 14 RF: 0 tramadol 50 mg tablet 50 mg PO Q6H PRN (Reason: pain) Qty: 20 RF: 0 Tylenol Extra Strength 500 mg Tablet 1,500 mg PO PRN RF: 0 Lasix 40 mg tablet See Rx Instructions .ROUTE .COMPLEX RF: 0 azithromycin 250 mg tablet 250 mg PO EVERY OTHER DAY RF: 0 Seroquel XR 50 mg tablet extended release 24 hr 50 mg PO BEDTIME RF: 0 Referrals: Liz Marcos DO [Primary Care Provider] - Activity Restrictions/Additional Instructions: Follow-up today with the cancer center they will give you prescription for Percocet to manage her pain and will get you directed back to the pain clinic. Coding Level of Care Code ED Dishwasher Busser for Abdiel Stone
[2019-12-27 09:54] LABS: Basophils # 0.1 10^3/uL (0.0-0.1); Basophils % 4.4 %; Eosinophils # 0.1 10^3/uL (0.0-0.8); Eosinophils % 6.3 %; Hematocrit 38.4 % (37.0-47.0); Hemoglobin 11.5 g/dL (11.5-15.3); Lymphocytes # 0.2 10^3/uL (0.8-4.8); Lymphocytes % 11.9 %; Mean Corpuscular HGB Conc 29.9 g/dL (30.0-36.0); Mean Corpuscular Hemoglobin 26.7 pg (28.0-34.0); Mean Corpuscular Volume 89.1 fL (81-99); Mean Platelet Volume 11.9 fL (7.4-10.4); Monocytes # 0.2 10^3/uL (0.2-0.9); Monocytes % 11.9 %; Neutrophils # 1.04 10^3/uL (1.8-7.7); Neutrophils % 65.5 %; Nucleated Red Blood Cells % 0 %; Platelet Count 183 10^3/cmm (130-400); Red Blood Count 4.31 10^6/uL (4.1-5.3); Red Cell Distribution Width 15.2 % (12.1-15.1); White Blood Count 1.6 10^3/uL (4.0-10.0)
[2019-12-27] MEDS: sodium chloride 0.9% 1,000 ML 999 ML IV (10:08)
[2019-12-27 10:09] VITALS: RESP 16; O2SAT 98
[2019-12-27] MEDS: HYDROmorphone 1 mg/mL INJ 1 mL IVP (10:09)
[2019-12-27 10:12] VITALS: BP 137/68; PULSE 68; RESP 16; O2SAT 99
[2019-12-27 10:14] LABS: Alanine Aminotransferase 13 U/L (0-33); Albumin Level 3.6 g/dL (3.5-5.2); Alkaline Phosphatase 149 IU/L (35-105); Anion Gap 11.5 (5-19); Aspartate Amino Transferase 19 U/L (0-32); Blood Urea Nitrogen 17 mg/dL (6-20); Calcium 8.6 mg/dL (8.5-10.5); Carbon Dioxide 33 mmol/L (22-29); Chloride 94 mmol/L (98-107); Globulin 2.9 g/dL (1.3-4.6); Glomerular Filtration Rate 66.5 mL/min (90-130); Glucose 148 mg/dL (65-115); Osmolality Calculated 277 mOsm/kg (285-295); Potassium 4.5 mmol/L (3.5-5.1); Sodium 134 mmol/L (136-145); Total Bilirubin 0.6 mg/dL (0.15-1.2); Total Protein 6.5 g/dL (6.6-8.7)
[2019-12-27 10:25] LABS: Add Urine Microscopic? NO
[2019-12-27 10:26] LABS: Slide Review Slide Review Perform
[2019-12-27 10:34] LABS: Bilirubin Urine Neg (NEGATIVE); Blood Urine Neg (Negative); Glucose Urine UA Norm (Normal); Ketones Urine Negative (Negative); Leukocyte Esterase Urine Negative (Negative); Nitrate Urine Negative (Negative); Protein Urine Neg (Negative); Specific Gravity, Urine 1.005 (1.005-1.030); Sulfosalicylic Acid Urine Negative (Negative); Urine Appearance Clear (CLEAR); Urine Color Straw (Yellow); Urobilinogen Urine Norm (Negative); pH Urine 8 (5-7)
[2019-12-27 11:12] VITALS: BP 151/62; PULSE 78; RESP 18; O2SAT 95
== END 2019-12-27 11:10 | disposition home or self-care (01) ==
PROVIDERS: Emergency Provider Family Medicine; PCP Family Medicine
DX: C50.912 Malignant neoplasm of unspecified site of left female breast (principal); T45.1X5A Adverse effect of antineoplastic and immunosuppressive drugs, initial encounter; Z79.01 Long term (current) use of anticoagulants; I13.0 Hypertensive heart and chronic kidney disease with heart failure and stage 1 through stage 4 chronic kidney disease, or unspecified chronic kidney disease; N18.3 Chronic kidney disease, stage 3 (moderate); I50.30 Unspecified diastolic (congestive) heart failure; Z86.19 Personal history of other infectious and parasitic diseases; F17.210 Nicotine dependence, cigarettes, uncomplicated
CPT/HCPCS: 12345; 36415; 80053; 81003; 85025; 96361; 96374; 96375; 99282; 99283; J1170; J7030

== ENCOUNTER → 2019-12-29 09:37 | Outpatient (BNVA) | payer MEDICAID, SELFPAY | PROVIDERS: PCP Family Medicine; Visit Provider Nurse Practitioner | DX: F31.62 Bipolar disorder, current episode mixed, moderate (principal); F43.12 Post-traumatic stress disorder, chronic; F41.0 Panic disorder [episodic paroxysmal anxiety] | CPT/HCPCS: 99213 ==

== ENCOUNTER → 2020-01-03 09:56 | Outpatient (BNVA) | payer MEDICAID, SELFPAY | PROVIDERS: PCP Family Medicine; Visit Provider Anesthesiology Pain Medicine | DX: M25.551 Pain in right hip (principal); M54.9 Dorsalgia, unspecified; M16.9 Osteoarthritis of hip, unspecified; F17.210 Nicotine dependence, cigarettes, uncomplicated; Z79.891 Long term (current) use of opiate analgesic | CPT/HCPCS: 99213 ==

== ENCOUNTER 2020-01-10 10:45 | Outpatient (RCR) | payer MEDICAID, SELFPAY ==
[2019-12-28 13:26] LABS: Basophils % 0.8 %; Eosinophils # 0.2 10^3/uL (0.0-0.8); Eosinophils % 11.3 %; Hematocrit 34.8 % (37.0-47.0); Hemoglobin 10.5 g/dL (11.5-15.3); Lymphocytes # 0.3 10^3/uL (0.8-4.8); Lymphocytes % 22.6 %; Mean Corpuscular HGB Conc 30.2 g/dL (30.0-36.0); Mean Corpuscular Hemoglobin 27.3 pg (28.0-34.0); Mean Corpuscular Volume 90.4 fL (81-99); Mean Platelet Volume 11.9 fL (7.4-10.4); Monocytes # 0.7 10^3/uL (0.2-0.9); Monocytes % 50.4 %; Neutrophils % 14.1 %; Nucleated Red Blood Cells % 0 %; Platelet Count 184 10^3/cmm (130-400); Red Blood Count 3.85 10^6/uL (4.1-5.3); Red Cell Distribution Width 15.5 % (12.1-15.1); White Blood Count 1.3 10^3/uL (4.0-10.0)
[2019-12-28 13:40] LABS: Alanine Aminotransferase 11 U/L (0-33); Albumin Level 3.4 g/dL (3.5-5.2); Alkaline Phosphatase 130 IU/L (35-105); Anion Gap 10.9 (5-19); Aspartate Amino Transferase 14 U/L (0-32); Blood Urea Nitrogen 13 mg/dL (6-20); Calcium 8.5 mg/dL (8.5-10.5); Carbon Dioxide 34 mmol/L (22-29); Chloride 90 mmol/L (98-107); Globulin 2.7 g/dL (1.3-4.6); Glomerular Filtration Rate 52.8 mL/min (90-130); Glucose 129 mg/dL (65-115); Osmolality Calculated 270 mOsm/kg (285-295); Potassium 3.9 mmol/L (3.5-5.1); Sodium 131 mmol/L (136-145); Total Bilirubin 0.6 mg/dL (0.15-1.2); Total Protein 6.1 g/dL (6.6-8.7)
[2019-12-28 14:02] LABS: Neutrophils # 0.19 10^3/uL (1.8-7.7); Slide Review Slide Review Perform
--- NOTE | 2019-12-28 16:09 | ONC FU_ITS ---
Dr. Lundberg follow up note Patient: Meka Bhatia Unit #: [id number]: 1970 Dicatated By: Serjio Lundberg M.D.Date of Visit:Dec 28, 2019 Onc Med Follow-up/Prog Note History of Present Illness: Ms. Meka Bhatia, is a 49-year-old female with history of left breast mass since May 2019, as per patient initially she felt fullness in outer part of her left breast, it got better on its own then again got bigger, she did notice some milky discharge from her left nipple, she thought she was lactating. In the meantime she started also having vaginal bleeding, as per patient about 2 years ago she stopped having menstrual periods and with this new vaginal bleeding, her primary care doctor concerned and refer her to [facility] TE[facility]IC[facility] Dr. Chowdary who ordered sonogram and some hormonal testing. While she was undergoing D[facility]RO[facility] TECHNICIAN work-up on October 01, 2019 she underwent bilateral mammogram which showed right breast was unremarkable but in the left breast there was an area of concern which was 3.6 x 4.3 cm dense lobulated lesion with heterogeneous calcifications subsequently underwent ultrasound of left breast which showed at 3 o'clock position, 4 cm from the nipple there was a dense hypoechoic well-circumscribed nodule measuring 4.1 x 3.9 x 5.1 cm associated vascularity. No abnormal lymph nodes seen in left axilla. Subsequently patient underwent ultrasound-guided left breast biopsy on November 05, 2019 and final pathology report confirmed invasive ductal carcinoma, high nuclear grade with necrosis and molecular profiling showed triple negative disease e.g. ER less than 1% NE less than 1% HER-2/corina negative and Ki-67 was 90%. Patient was referred to Dr. Beaver, surgeon who did discuss with patient regarding upfront mastectomy versus lumpectomy versus neoadjuvant therapy to downsize the tumor. Patient opted for evaluation for neoadjuvant therapy. Patient denies any weight loss, denies any new bony pains patient denies any headaches blurred vision double vision patient denies any jaundice. As per patient she has history of renal failure/insufficiency and he used to be on hemodialysis but not anymore not being followed by nephrology She also has some cardiac issues for which she is followed by Dr. Cartwright yacht master. She is on home oxygen and she has morbid obesity. She also has history of pulmonary embolism for which she is on Eliquis therapy Menarche at age 13, and last menstrual period was at age 47 40+ year history of smoking, still active. Echocardiogram done on December 06, 2019 showed ejection fraction around 50%, flattened septum in the diastole consistent with right ventricular volume overload., Severe pulmonary hypertension, when compared with prior echo from March 01, 2019 there appeared to be worsening of left ventricular function from normal 55% to mildly reduced 50% while there is a worsening of mitral and tricuspid valve regurgitation from moderate to severe now.So it was decided to consider neoadjuvant chemotherapy with Cytoxan/docetaxel with Neulasta support every 3 weeks x6, which was started on December 21, 2019 Came for follow-up, complaining of generalized body aches and pains now worsening since chemotherapy pain is more prominent in his back, ribs and 'chest' bones. No fever chills no nausea or vomiting no diarrhea or constipation, patient is on Zithromax prescribed by her PMD other than she tolerated first cycle of neoadjuvant chemotherapy with Cytoxan/docetaxel, reasonably well Medications: Acetaminophen 1 Capsule (of 325 mg) Oral daily, Albuterol Sulfate 1 Puff(s) (of 108 (90 base) mcg/act) Aerosol Powder, Breath Activated Inhalation q 6 hours PRN, Apixaban 1 Tablet (of 5 mg) Oral b.i.d., Atenolol 1 Tablet (of 50 mg) Oral b.i.d., Azithromycin 1 Tablet (of 250 mg) Oral on Every Other Day, clonazePAM 1 Tablet (of 1 mg) Oral b.i.d. PRN, Cymbalta 1 Capsule (of 60 mg) Capsule Delayed Release Particles Oral daily, Dicyclomine HCl 1 Tablet (of 20 mg) Oral b.i.d., Furosemide (40 mg) Tablet Oral Take as Directed, Gabapentin 1 Capsule (of 300 mg) Oral t.i.d., Isosorbide Mononitrate ER 1 Tablet (of 60 mg) Tablet SR 24 HR Oral daily, Klor-Con M20 1 Tablet (of 20 meq) Tablet, controlled release Oral daily, Nitroglycerin Tablet, sublingual Sublingual PRN, Ondansetron 1 Tablet (of 4 mg) Tablet Dispersable Oral PRN, Pantoprazole Sodium 1 Tablet (of 40 mg) Tablet, enteric coated Oral b.i.d., Prazosin HCl 1 Capsule (of 1 mg) Oral at bedtime, QUEtiapine Fumarate ER 1 Tablet (of 50 mg) Tablet SR 24 HR Oral at bedtime, QUEtiapine Fumarate ER 1 Tablet (of 300 mg) Tablet SR 24 HR Oral at bedtime, Revefenacin 1 (175 mcg/3mL) Solution Inhalation daily, Spironolactone 1 Tablet (of 50 mg) Oral daily, traMADol HCl 1 Tablet (of 50 mg) Oral q 8 hours PRN, traMADol HCl 1 Tablet (of 50 mg) Oral q 8 hours PRN, Victoza 1 Subcutaneous daily Allergies: Cephalexin and Ketorolac Tromethamine. Review of Systems: Constitutional - Appetite is fair and weight is stable. Positive for night sweats. Energy level is poor, ENMT - No sinus congestion/drainage. No mouth sores. No sore throat or difficulty swallowing, Hematologic/Lymphatic - Positive for easy bruising, Respiratory - Positive for shortness of breath. No cough. No pleuritic pain or hemoptysis. Pt is on portable oxygen, Cardiovascular - No angina pain. No palpitations, Gastrointestinal - Occasional nausea, no vomiting. No heartburn or acid reflux. Positive for diarrhea, no constipation. No blood in the stool or black stools, Genitourinary (F) - No dysuria or hematuria. Positive for urinary frequency. No urgency. Positive for incontinence, Musculoskeletal - Positive for generalized pain. Pt is tearful today, Neurologic - No headache. Positive for dizziness. No numbness or tingling. No other focal neurologic symptoms, Psychiatric - Positive for anxiety. Vital Signs: Performed on Dec 28, 2019 14:37 Height - 64.00 in Weight - 280.0 lbs (LOW) BSA - 2.26 sq.m BMI - 48.06 (HIGH) Temperature - 99.4 F (HIGH) Pulse - 77 /min Respiration - 24 /min BP - 128/65 mm(hg) O2 Sat - 93 % (LOW) Pain - 10 Performance Status: 2 - Ambulatory/capable of all self-care, unable to perform any work activities. Up and about more than 50% of waking hours. (ECOG) Physical Examination: Respiratory - Poor air entry otherwise clear, Cardiovascular - Regular rate and rhythm of heart, Gastrointestinal - Soft, bowel sounds present, Extremities - Trace edema bilaterally. Lab/Imaging: Test performed on Dec 08, 2019 09:32 Sodium 126 mmol/L Potassium 4.7 mmol/L Chloride 85 mmol/L CO2 32 mmol/L Anion Gap 13.7 BUN 28 mg/dL Creatinine 1.6 mg/dL Cr Clearance (Est) 88.38 mL/min eGFR 34.3 mL/min Glucose 118 mg/dL Calcium 9.2 mg/dL Protein, Total 6.3 g/dL Albumin 3.4 g/dL Globulin 2.9 g/dL Bilirubin, Total 0.3 mg/dL ALT (SGPT) 12 U/L AST (SGOT) 23 U/L Alkaline Phosphatase 262 IU/L WBC 11.8 10 3/uL RBC 3.73 10 6/uL HGB 10.3 g/dL HCT 35.0 % MCV 93.8 fL MCH 27.6 pg MCHC 29.4 g/dL RDW 14.6 % Platelet Count 246 10 3/cmm MPV 11.0 fL Neutrophils 9.52 10 3/uL Lymphocytes 0.8 10 3/uL Monocytes 1.2 10 3/uL Eosinophils 0.1 10 3/uL Basophils 0.1 10 3/uL Neutrophil % 80.9 % Lymphocyte % 7.1 % Monocyte % 10.2 % Eosinophil % 0.9 % Basophils % 0.6 % NRBC % 0 % Impression: Triple 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 Chowdary History of renal insufficiency, as per patient she used to be on hemodialysis but not anymore. History of hepatitis C Chronic hypercapnic respiratory failure, now on home oxygen Diastolic congestive heart failure. Pulmonary embolism on anticoagulation Posttraumatic stress disorder, anxiety, depression, panic disorder. Obstructive sleep apnea Chronic kidney disease stage III. Plan: Discussed with patient regarding her labs white blood count 1.3 hemoglobin 10.5 hematocrit 34.8 platelets 184,000, CMP within normal limits Clinically, patient doing reasonably well, tolerated first cycle of neoadjuvant chemotherapy with Cytoxan/Taxotere well but with expected side effects e.g. progressive leukopenia/neutropenia despite of Neulasta and now with generalized bone pains probably due to bone marrow expansion caused by Neulasta, but no fever chills, no nausea or vomiting no dizziness or lightheadedness. Patient has history of chronic pain syndrome for which she used to go to pain clinic but has missed many appointment in the past. She was given prescription for Percocet 5/325, as per patient with that her pain is is tolerable presently controlled. We will continue with supportive care and also give her prophylactic Levaquin 500 g p.o. because of severe neutropenia and return to clinic in 1 week with CBC CMP. Patient was advised in case she has any fever or chills or any mental status changes or dizziness, she need to go to hospital for evaluation. Signed By: Serjio Lundberg M.D. <<Signature on File>>
[2020-01-04 15:23] LABS: Basophils # 0.1 10^3/uL (0.0-0.1); Eosinophils # 0.2 10^3/uL (0.0-0.8); Eosinophils % 1.7 %; Hematocrit 34.7 % (37.0-47.0); Hemoglobin 10.3 g/dL (11.5-15.3); Lymphocytes # 1.1 10^3/uL (0.8-4.8); Lymphocytes % 8.7 %; Mean Corpuscular HGB Conc 29.7 g/dL (30.0-36.0); Mean Corpuscular Hemoglobin 26.7 pg (28.0-34.0); Mean Corpuscular Volume 89.9 fL (81-99); Mean Platelet Volume 11.3 fL (7.4-10.4); Neutrophils # 9.05 10^3/uL (1.8-7.7); Neutrophils % 72.7 %; Nucleated Red Blood Cells % 0.2 %; Platelet Count 188 10^3/cmm (130-400); Red Blood Count 3.86 10^6/uL (4.1-5.3); Red Cell Distribution Width 16.7 % (12.1-15.1); White Blood Count 12.5 10^3/uL (4.0-10.0)
[2020-01-04 15:38] LABS: Alanine Aminotransferase 11 U/L (0-33); Albumin Level 3.4 g/dL (3.5-5.2); Alkaline Phosphatase 197 IU/L (35-105); Anion Gap 13.3 (5-19); Aspartate Amino Transferase 24 U/L (0-32); Blood Urea Nitrogen 17 mg/dL (6-20); Calcium 8.8 mg/dL (8.5-10.5); Carbon Dioxide 35 mmol/L (22-29); Chloride 91 mmol/L (98-107); Globulin 2.8 g/dL (1.3-4.6); Glomerular Filtration Rate 43.5 mL/min (90-130); Glucose 120 mg/dL (65-115); Osmolality Calculated 278 mOsm/kg (285-295); Potassium 4.3 mmol/L (3.5-5.1); Sodium 135 mmol/L (136-145); Total Bilirubin 0.3 mg/dL (0.15-1.2); Total Protein 6.2 g/dL (6.6-8.7)
[2020-01-04 15:52] LABS: Slide Review Slide Review Perform
--- NOTE | 2020-01-04 16:39 | ONC FU_ITS ---
Dr. Lundberg follow up note Patient: Meka Bhatia Unit #: [id number]: 1970 Dicatated By: Serjio Lundberg M.D.Date of Visit:Jan 04, 2020 Onc Med Follow-up/Prog Note History of Present Illness: Ms. Meka Bhatia, is a 49-year-old female with history of left breast mass since May 2019, as per patient initially she felt fullness in outer part of her left breast, it got better on its own then again got bigger, she did notice some milky discharge from her left nipple, she thought she was lactating. In the meantime she started also having vaginal bleeding, as per patient about 2 years ago she stopped having menstrual periods and with this new vaginal bleeding, her primary care doctor concerned and refer her to MUSIC MANAGER Dr. Chowdary who ordered sonogram and some hormonal testing. While she was undergoing MUSIC MANAGER work-up on October 01, 2019 she underwent bilateral mammogram which showed right breast was unremarkable but in the left breast there was an area of concern which was 3.6 x 4.3 cm dense lobulated lesion with heterogeneous calcifications subsequently underwent ultrasound of left breast which showed at 3 o'clock position, 4 cm from the nipple there was a dense hypoechoic well-circumscribed nodule measuring 4.1 x 3.9 x 5.1 cm associated vascularity. No abnormal lymph nodes seen in left axilla. Subsequently patient underwent ultrasound-guided left breast biopsy on November 05, 2019 and final pathology report confirmed invasive ductal carcinoma, high nuclear grade with necrosis and molecular profiling showed triple negative disease e.g. ER less than 1% PA less than 1% HER-2/corina negative and Ki-67 was 90%. Patient was referred to Dr. Beaver, surgeon who did discuss with patient regarding upfront mastectomy versus lumpectomy versus neoadjuvant therapy to downsize the tumor. Patient opted for evaluation for neoadjuvant therapy. Patient denies any weight loss, denies any new bony pains patient denies any headaches blurred vision double vision patient denies any jaundice. As per patient she has history of renal failure/insufficiency and he used to be on hemodialysis but not anymore not being followed by nephrology She also has some cardiac issues for which she is followed by Dr. Cartwright manager of recruiting. She is on home oxygen and she has morbid obesity. She also has history of pulmonary embolism for which she is on Eliquis therapy Menarche at age 13, and last menstrual period was at age 47 40+ year history of smoking, still active. Echocardiogram done on December 06, 2019 showed ejection fraction around 50%, flattened septum in the diastole consistent with right ventricular volume overload., Severe pulmonary hypertension, when compared with prior echo from March 01, 2019 there appeared to be worsening of left ventricular function from normal 55% to mildly reduced 50% while there is a worsening of mitral and tricuspid valve regurgitation from moderate to severe now.So it was decided to consider neoadjuvant chemotherapy with Cytoxan/docetaxel with Neulasta support every 3 weeks x6, which was started on December 21, 2019 Came for follow-up, denies any specific complaints except chronic right leg swelling, as per patient DVT was ruled out in the past now being managed by PMD. Patient was referred to pain clinic, she is very pleased with the referral and management. Complaining of hair loss but no fever chills, no nausea or vomiting, no diarrhea constipation Medications: Acetaminophen 1 Capsule (of 325 mg) Oral daily, Albuterol Sulfate 1 Puff(s) (of 108 (90 base) mcg/act) Aerosol Powder, Breath Activated Inhalation q 6 hours PRN, Apixaban 1 Tablet (of 5 mg) Oral b.i.d., Atenolol 1 Tablet (of 50 mg) Oral b.i.d., Azithromycin 1 Tablet (of 250 mg) Oral on Every Other Day, clonazePAM 1 Tablet (of 1 mg) Oral b.i.d. PRN, Cymbalta 1 Capsule (of 60 mg) Capsule Delayed Release Particles Oral daily, Dicyclomine HCl 1 Tablet (of 20 mg) Oral b.i.d., Furosemide (40 mg) Tablet Oral Take as Directed, Gabapentin 1 Capsule (of 300 mg) Oral t.i.d., Isosorbide Mononitrate ER 1 Tablet (of 60 mg) Tablet SR 24 HR Oral daily, Klor-Con M20 1 Tablet (of 20 meq) Tablet, controlled release Oral daily, Nitroglycerin Tablet, sublingual Sublingual PRN, Ondansetron 1 Tablet (of 4 mg) Tablet Dispersable Oral PRN, oxyCODONE-Acetaminophen 1 - 2 Tablet (of 5-325 mg) Oral q 6 to 8 hours PRN, Pantoprazole Sodium 1 Tablet (of 40 mg) Tablet, enteric coated Oral b.i.d., Prazosin HCl 1 Capsule (of 1 mg) Oral at bedtime, QUEtiapine Fumarate ER 1 Tablet (of 50 mg) Tablet SR 24 HR Oral at bedtime, QUEtiapine Fumarate ER 1 Tablet (of 300 mg) Tablet SR 24 HR Oral at bedtime, Revefenacin 1 (175 mcg/3mL) Solution Inhalation daily, Spironolactone 1 Tablet (of 50 mg) Oral daily, traMADol HCl 1 Tablet (of 50 mg) Oral q 8 hours PRN, traMADol HCl 1 Tablet (of 50 mg) Oral q 8 hours PRN, Victoza 1 Subcutaneous daily Allergies: Cephalexin and Ketorolac Tromethamine. Review of Systems: Constitutional - Appetite is fair and weight is stable. Positive for night sweats. Energy level is poor, ENMT - No sinus congestion/drainage. No mouth sores. No sore throat or difficulty swallowing, Hematologic/Lymphatic - Positive for easy bruising, Respiratory - Positive for shortness of breath. No cough. No pleuritic pain or hemoptysis. Pt is on portable oxygen, Cardiovascular - No angina pain. No palpitations, Gastrointestinal - Occasional nausea, no vomiting. No heartburn or acid reflux. Positive for diarrhea, no constipation. No blood in the stool or black stools, Genitourinary (F) - No dysuria or hematuria. Positive for urinary frequency. No urgency. Positive for incontinence, Musculoskeletal - Positive for generalized pain, Neurologic - No headache. Positive for dizziness. No numbness or tingling. No other focal neurologic symptoms, Psychiatric - Positive for anxiety. Vital Signs: Performed on Jan 04, 2020 15:59 Height - 64.00 in Weight - 270.0 lbs (LOW) BSA - 2.22 sq.m BMI - 46.35 (HIGH) Temperature - 97.3 F (LOW) Pulse - 68 /min Respiration - 24 /min BP - 104/66 mm(hg) O2 Sat - 99 % Pain - 0 Performance Status: 1 - No physically strenuous activity, but ambulatory and able to carry out light or sedentary work (e.g. office work, light house work). (ECOG) Physical Examination: Respiratory - Lungs are clear, Cardiovascular - Regular rate and rhythm of heart, Gastrointestinal - Soft, bowel sounds present, Extremities - Trace edema involving right leg. Lab/Imaging: Test performed on Dec 08, 2019 09:32 Sodium 126 mmol/L Potassium 4.7 mmol/L Chloride 85 mmol/L CO2 32 mmol/L Anion Gap 13.7 BUN 28 mg/dL Creatinine 1.6 mg/dL Cr Clearance (Est) 88.38 mL/min eGFR 34.3 mL/min Glucose 118 mg/dL Calcium 9.2 mg/dL Protein, Total 6.3 g/dL Albumin 3.4 g/dL Globulin 2.9 g/dL Bilirubin, Total 0.3 mg/dL ALT (SGPT) 12 U/L AST (SGOT) 23 U/L Alkaline Phosphatase 262 IU/L WBC 11.8 10 3/uL RBC 3.73 10 6/uL HGB 10.3 g/dL HCT 35.0 % MCV 93.8 fL MCH 27.6 pg MCHC 29.4 g/dL RDW 14.6 % Platelet Count 246 10 3/cmm MPV 11.0 fL Neutrophils 9.52 10 3/uL Lymphocytes 0.8 10 3/uL Monocytes 1.2 10 3/uL Eosinophils 0.1 10 3/uL Basophils 0.1 10 3/uL Neutrophil % 80.9 % Lymphocyte % 7.1 % Monocyte % 10.2 % Eosinophil % 0.9 % Basophils % 0.6 % NRBC % 0 % Impression: 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 Chowdary History of renal insufficiency, as per patient she used to be on hemodialysis but not anymore. History of hepatitis C Chronic hypercapnic respiratory failure, now on home oxygen Diastolic congestive heart failure. Pulmonary embolism on anticoagulation Posttraumatic stress disorder, anxiety, depression, panic disorder. Obstructive sleep apnea Chronic kidney disease stage III. Plan: Discussed with patient regarding her labs white blood count 12.5 hemoglobin 10.3 hematocrit 34.7 platelets 188,000 CMP within normal limits e.g. mild hyponatremia is resolved Clinically, patient is doing well with no new signs symptoms, chronic pain is under control, now being managed by pain clinic. Her follow-up CBC shows resolution of neutropenia and mild but stable anemia. We will continue to monitor return to clinic in 1 week course next course of chemotherapy with Cytoxan/docetaxel with Neulasta support to prevent chemotherapy-induced neutropenia. Signed By: Serjio Lundberg M.D. <<Signature on File>>
[2020-01-10 13:54] LABS: Basophils # 0.2 10^3/uL (0.0-0.1); Basophils % 1.7 %; Eosinophils # 0.4 10^3/uL (0.0-0.8); Eosinophils % 3.7 %; Hemoglobin 9.6 g/dL (11.5-15.3); Lymphocytes % 10.2 %; Mean Corpuscular Hemoglobin 27.3 pg (28.0-34.0); Mean Corpuscular Volume 90.9 fL (81-99); Mean Platelet Volume 11.6 fL (7.4-10.4); Monocytes # 1.3 10^3/uL (0.2-0.9); Monocytes % 12.8 %; Neutrophils # 6.92 10^3/uL (1.8-7.7); Neutrophils % 69.8 %; Nucleated Red Blood Cells % 0 %; Platelet Count 267 10^3/cmm (130-400); Red Blood Count 3.52 10^6/uL (4.1-5.3); Red Cell Distribution Width 18.1 % (12.1-15.1); White Blood Count 9.9 10^3/uL (4.0-10.0)
[2020-01-10 13:57] LABS: Alanine Aminotransferase 8 U/L (0-33); Albumin Level 3.3 g/dL (3.5-5.2); Alkaline Phosphatase 168 IU/L (35-105); Anion Gap 15.5 (5-19); Aspartate Amino Transferase 17 U/L (0-32); Blood Urea Nitrogen 23 mg/dL (6-20); Calcium 8.7 mg/dL (8.5-10.5); Carbon Dioxide 33 mmol/L (22-29); Chloride 87 mmol/L (98-107); Globulin 2.7 g/dL (1.3-4.6); Glomerular Filtration Rate 43.5 mL/min (90-130); Glucose 84 mg/dL (65-115); Osmolality Calculated 268 mOsm/kg (285-295); Potassium 4.5 mmol/L (3.5-5.1); Sodium 131 mmol/L (136-145); Total Bilirubin 0.2 mg/dL (0.15-1.2)
== END 2020-01-10 23:59 | disposition home or self-care (01) ==
LOC: ONCMED 10:45
PROVIDERS: PCP Family Medicine; Visit Provider Internal Medicine Hematology & Oncology
DX: C50.812 Malignant neoplasm of overlapping sites of left female breast (principal); Z17.1 Estrogen receptor negative status [ER-]; D70.1 Agranulocytosis secondary to cancer chemotherapy; T45.1X5A Adverse effect of antineoplastic and immunosuppressive drugs, initial encounter; N93.9 Abnormal uterine and vaginal bleeding, unspecified; G47.33 Obstructive sleep apnea (adult) (pediatric); N18.3 Chronic kidney disease, stage 3 (moderate); F43.10 Post-traumatic stress disorder, unspecified; F41.8 Other specified anxiety disorders; G89.4 Chronic pain syndrome; Z79.2 Long term (current) use of antibiotics; Z86.711 Personal history of pulmonary embolism; Z79.01 Long term (current) use of anticoagulants; Z87.448 Personal history of other diseases of urinary system; Z86.19 Personal history of other infectious and parasitic diseases
CPT/HCPCS: 36591; 80053; 85025; 99214

== ENCOUNTER → 2020-01-13 08:54 | Outpatient (BNVA) | payer MEDICAID, SELFPAY | PROVIDERS: PCP Family Medicine; Visit Provider Anesthesiology Pain Medicine | DX: M25.551 Pain in right hip (principal); M16.9 Osteoarthritis of hip, unspecified; M54.9 Dorsalgia, unspecified; M19.90 Unspecified osteoarthritis, unspecified site; F17.210 Nicotine dependence, cigarettes, uncomplicated | CPT/HCPCS: 20610; 77002; 77003; 99212; 99213; J1030; J3490 ==

== ENCOUNTER 2020-01-19 15:08 | Outpatient (CLI) | payer MEDICAID, SELFPAY ==
[2020-01-19 12:36] LABS: Estmated Average Glucose 108; Hemoglobin A1C 5.4 % (4.0-6.0)
[2020-01-19 15:49] LABS: Chol HDL Ratio 3.65 mg/dL (0.0-4.40); Cholesterol 186 mg/dL (0-200); HDL Cholesterol 51 mg/dL (60-100); LDL Cholesterol Calculated 112 mg/dL (50-129); Triglycerides 115 mg/dL (0-150)
== END 2020-01-19 15:09 | disposition home or self-care (01) ==
LOC: LAB 15:11
PROVIDERS: PCP Family Medicine; Visit Provider Family Medicine
DX: E11.9 Type 2 diabetes mellitus without complications (principal); I10 Essential (primary) hypertension
CPT/HCPCS: 80061; 83036

== ENCOUNTER 2020-02-07 14:07 | Outpatient (RCR) | payer MEDICAID, SELFPAY ==
[2020-01-19 12:23] LABS: Basophils # 0.1 10^3/uL (0.0-0.1); Basophils % 0.7 %; Eosinophils # 0.6 10^3/uL (0.0-0.8); Eosinophils % 5.4 %; Hematocrit 36.1 % (37.0-47.0); Hemoglobin 10.6 g/dL (11.5-15.3); Lymphocytes # 0.7 10^3/uL (0.8-4.8); Lymphocytes % 6.2 %; Mean Corpuscular HGB Conc 29.4 g/dL (30.0-36.0); Mean Corpuscular Hemoglobin 26.8 pg (28.0-34.0); Mean Corpuscular Volume 91.2 fL (81-99); Mean Platelet Volume 11.5 fL (7.4-10.4); Monocytes # 0.9 10^3/uL (0.2-0.9); Monocytes % 8.2 %; Neutrophils # 8.37 10^3/uL (1.8-7.7); Neutrophils % 79.1 %; Nucleated Red Blood Cells % 0 %; Platelet Count 282 10^3/cmm (130-400); Red Blood Count 3.96 10^6/uL (4.1-5.3); Red Cell Distribution Width 17.5 % (12.1-15.1); White Blood Count 10.6 10^3/uL (4.0-10.0)
[2020-01-19 12:47] LABS: Alanine Aminotransferase 10 U/L (0-33); Alkaline Phosphatase 188 IU/L (35-105); Anion Gap 11.1 (5-19); Aspartate Amino Transferase 19 U/L (0-32); Blood Urea Nitrogen 19 mg/dL (6-20); Calcium 9.1 mg/dL (8.5-10.5); Carbon Dioxide 39 mmol/L (22-29); Chloride 88 mmol/L (98-107); Globulin 2.9 g/dL (1.3-4.6); Glomerular Filtration Rate 47.6 mL/min (90-130); Glucose 136 mg/dL (65-115); Osmolality Calculated 277 mOsm/kg (285-295); Potassium 4.1 mmol/L (3.5-5.1); Sodium 134 mmol/L (136-145); Total Bilirubin 0.3 mg/dL (0.15-1.2); Total Protein 6.9 g/dL (6.6-8.7)
[2020-01-24] MEDS: sodium chloride 0.9% 500 ML 75 ML IV (09:14)
--- NOTE | 2020-01-28 11:48 | ONC FU_ITS ---
[facility] Patient Note Patient: Meka Bhatia Unit #: [id number]: 1970 Dictated By: Desmond JessicaDate of Visit: Jan 20, 2020 Onc MED Follow-Up/Prog Note Chief Complaint: Left breast cancer History of Present Illness: Ms. Bhatia is a 50-year-old female with history of left breast mass since May 2019. She reports that initially she felt fullness in outer part of her left breast, it got better on its own then again got bigger, she did notice some milky discharge from her left nipple, she thought she was lactating. In the meantime she started also having vaginal bleeding, as per patient about 2 years ago she stopped having menstrual periods and with this new vaginal bleeding, her primary care doctor concerned and refer her to [facility] [employer] [facility] Dr. Chowdary who ordered sonogram and some hormonal testing. While she was undergoing [facility] [employer] [facility] work-up on October 01, 2019 she underwent bilateral mammogram which showed right breast was unremarkable but in the left breast there was an area of concern which was 3.6 x 4.3 cm dense lobulated lesion with heterogeneous calcifications subsequently underwent ultrasound of left breast which showed at 3 o'clock position, 4 cm from the nipple there was a dense hypoechoic well-circumscribed nodule measuring 4.1 x 3.9 x 5.1 cm associated vascularity. No abnormal lymph nodes seen in left axilla. Subsequently patient underwent ultrasound-guided left breast biopsy on November 05, 2019 and final pathology report confirmed invasive ductal carcinoma, high nuclear grade with necrosis and molecular profiling showed triple negative disease e.g. ER less than 1% TN less than 1% HER-2/corina negative and Ki-67 was 90%. Patient was referred to Dr. Beaver, surgeon who did discuss with patient regarding upfront mastectomy versus lumpectomy versus neoadjuvant therapy to downsize the tumor. Patient opted for evaluation for neoadjuvant therapy. Patient denies any weight loss, denies any new bony pains patient denies any headaches blurred vision double vision patient denies any jaundice. As per patient she has history of renal failure/insufficiency and he used to be on hemodialysis but not anymore. 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 She is on home oxygen and she has morbid obesity. She also has history of pulmonary embolism for which she is on Eliquis therapy Menarche at age 13, and last menstrual period was at age 47 40+ year history of smoking, still active. Echocardiogram done on December 06, 2019 showed ejection fraction around 50%, flattened septum in the diastole consistent with right ventricular volume overload., Severe pulmonary hypertension, when compared with prior echo from March 01, 2019 there appeared to be worsening of left ventricular function from normal 55% to mildly reduced 50% while there is a worsening of mitral and tricuspid valve regurgitation from moderate to severe now. Dr Lundberg recommended treating with neoadjuvant chemotherapy with Cytoxan/docetaxel with Neulasta support every 3 weeks x6, which was started on December 21, 2019. Ms. Bhatia is here today for follow-up. She is due for cycle 2 cyclophosphamide docetaxel. She states overall she feels that she is doing pretty good. Her breathing is still about the same certainly no worse. She denies any new chest pain orthopnea. She denies any lower extremity edema. She denies nausea or vomiting. She has fatigue but states is no worse than what it has been. She states she is eating good for her. She denies any pain. She has no new concerns today. Her ECOG is 1. Past Medical History: Anemia Bipolar disorder Chronic kidney disease (stge III) Chronic obstructive pulmonary disease Congestive heart failure Gastroesophageal reflux disease Hepatitis C History of pulmonary embolism Hypertension Mitral valve insufficiency Obstructive sleep apnea Panic disorder Post traumatic stress disorder Stimulant dependence Past Surgical History: Breast biopsy Cataract excision - x3 Left foot surgery Left knee repair Repair of C4-6 fracture Tracheostomy Tubal ligation Allergies: Cephalexin and Ketorolac Tromethamine. Medications: Acetaminophen 1 Capsule (of 325 mg) Oral daily Albuterol Sulfate 1 Puff(s) (of 108 (90 base) mcg/act) Aerosol Powder, Breath Activated Inhalation q 6 hours PRN Apixaban 1 Tablet (of 5 mg) Oral b.i.d. Atenolol 1 Tablet (of 50 mg) Oral b.i.d. Azithromycin 1 Tablet (of 250 mg) Oral on Every Other Day clonazePAM 1 Tablet (of 1 mg) Oral b.i.d. PRN Cymbalta 1 Capsule (of 60 mg) Capsule Delayed Release Particles Oral daily Dicyclomine HCl 1 Tablet (of 20 mg) Oral b.i.d. Furosemide (40 mg) Tablet Oral Take as Directed Gabapentin 1 Capsule (of 300 mg) Oral t.i.d. Isosorbide Mononitrate ER 1 Tablet (of 60 mg) Tablet SR 24 HR Oral daily Klor-Con M20 1 Tablet (of 20 meq) Tablet, controlled release Oral daily Nitroglycerin Tablet, sublingual Sublingual PRN Ondansetron 1 Tablet (of 4 mg) Tablet Dispersable Oral PRN oxyCODONE-Acetaminophen 1 - 2 Tablet (of 5-325 mg) Oral q 6 to 8 hours PRN Pantoprazole Sodium 1 Tablet (of 40 mg) Tablet, enteric coated Oral b.i.d. Prazosin HCl 1 Capsule (of 1 mg) Oral at bedtime QUEtiapine Fumarate ER 1 Tablet (of 50 mg) Tablet SR 24 HR Oral at bedtime QUEtiapine Fumarate ER 1 Tablet (of 300 mg) Tablet SR 24 HR Oral at bedtime Revefenacin 1 (175 mcg/3mL) Solution Inhalation daily Spironolactone 1 Tablet (of 50 mg) Oral daily traMADol HCl 1 Tablet (of 50 mg) Oral q 8 hours PRN traMADol HCl 1 Tablet (of 50 mg) Oral q 8 hours PRN Victoza 1 Subcutaneous daily Family History: Ms. Bhatia's mother at age 76: chronic obstructive pulmonary disease. Ms. Bhatia's father at age 47: motor vehicle accident. Social History: Ms. Bhatia is . She is a daily smoker who has smoked 0.5 packs/day for 40 years. She quit drinking 4 years ago. She has indicated exposure to the following products: cigarettes. Ms. Bhatia reports the following support systems: lives with spouse, significant other, family, or friends, lives in own house, supportive family/friends willing to assist with needs, and transportation problems exist and will require assistance. Her diet consists of regular meals. She indicates her activity level as: light exercise. Review Of Symptoms: Constitutional Denies fevers, chills, night sweats, excessive fatigue or weight loss. Allergic/Immunologic No reactions. Eyes Denies significant visual changes. No diplopia. No amaurosis. ENMT Denies changes in hearing, sore throat, mouth sores, difficulty or changes in swallowing ability, and/or sinus drainage. Hematologic/Lymphatic Denies easy bruising or bleeding. The patient denies any tender or palpable lymph nodes. Respiratory Denies dyspnea on exertion, chest pain, cough or hemoptysis. Denies orthopnea. Cardiovascular Denies anginal chest pain, palpitations or orthopnea. Gastrointestinal Denies nausea, vomiting, diarrhea, GI bleeding, or constipation. Denies change in bowel habits and/or stool color, no heartburn or early satiety. Genitourinary (F) No hematuria, hesitancy, incontinence, vaginal bleeding, discharge or other problems with urination. Musculoskeletal Chronic joint pain with swelling in her knees but no redness. Relies on wheelchair for mobility assistance. Bilateral knee pain worse today because ran out of pain meds. Integumentary Denies chronic rashes, inflammation, ulcerations or skin changes. Neurologic Denies headache, blurred vision, and no areas of focal weakness or numbness. Psychiatric Denies insomnia, depression, kehinde or mood swings. Vital Signs: Performed on Jan 20, 2020 09:36 Height - 64.00 in Weight - 265.0 lbs (LOW) BSA - 2.20 sq.m BMI - 45.49 (HIGH) Temperature - 97.3 F (LOW) Pulse - 54 /min (LOW) Respiration - 16 /min BP - 123/60 mm(hg) O2 Sat - 98 % Pain - 9,3 - Capable of only limited self-care, confined to bed or chair more than 50% of waking hours. (ECOG) Physical Examination: Constitutional Alert, oriented, no acute distress. Skin pink, warm and dry. Complete alopecia. Head Normocephalic; atraumatic. Eyes Conjunctivae and sclerae are clear and without icterus. Pupils are reactive and equal. Neck Supple without masses or thyromegaly. No jugular venous distension. Hematologic/Lymphatic No petechiae or purpura. No tender or palpable lymph nodes in the cervical or supraclavicular areas. Respiratory Lungs are clear to auscultation without rhonchi or wheezing. Cardiovascular Regular rate and rhythm of heart without murmurs,clicks, gallops or rubs. Abdomen Obese unable to palpate abnormalities but no tenderness and masses noted. Back/Spine Non-tender to palpation. Extremities Chronic lower extremity edema. Musculoskeletal Limited mobility due to knee pain and obesity. Uses wheelchair for mobility assistance. Integumentary No rashes or lesions. Psychiatric Alert and oriented times three. Coherent speech. Verbalizes understanding of our discussions today. Laboratory:Test performed on Jan 19, 2020 11:10 Cholesterol, Total 186 mg/dL HDL Cholesterol 51 mg/dL LDL Cholesterol 112 mg/dL Triglycerides 115 mg/dL Test performed on Dec 08, 2019 09:32 Sodium 126 mmol/L Potassium 4.7 mmol/L Chloride 85 mmol/L CO2 32 mmol/L Anion Gap 13.7 BUN 28 mg/dL Creatinine 1.6 mg/dL Cr Clearance (Est) 88.38 mL/min eGFR 34.3 mL/min Glucose 118 mg/dL Calcium 9.2 mg/dL Protein, Total 6.3 g/dL Albumin 3.4 g/dL Globulin 2.9 g/dL Bilirubin, Total 0.3 mg/dL ALT (SGPT) 12 U/L AST (SGOT) 23 U/L Alkaline Phosphatase 262 IU/L WBC 11.8 10 3/uL RBC 3.73 10 6/uL HGB 10.3 g/dL HCT 35.0 % MCV 93.8 fL MCH 27.6 pg MCHC 29.4 g/dL RDW 14.6 % Platelet Count 246 10 3/cmm MPV 11.0 fL Neutrophils 9.52 10 3/uL Lymphocytes 0.8 10 3/uL Monocytes 1.2 10 3/uL Eosinophils 0.1 10 3/uL Basophils 0.1 10 3/uL Neutrophil % 80.9 % Lymphocyte % 7.1 % Monocyte % 10.2 % Eosinophil % 0.9 % Basophils % 0.6 % NRBC % 0 % Impression: Triple negative invasive ductal carcinoma, involving left breast status post ultrasound-guided biopsy done on November 05, 2019 final pathology report showed ER TN negative HER-2/corina negative with a high Ki-67 at 90% Ultrasound/mammogram left breast done on October 01, 2019 showed 5.1 x 3.9 x 4.1 cm left breast mass at 3 o'clock position with no abnormal lymph nodes seen in left axilla .Clinical stage IIb v/s III History of pulmonary embolism on Eliquis Recent history of vaginal bleeding now being evaluated by [facility] [employer] [facility] Dr. Chowdary History of renal insufficiency, as per patient she used to be on hemodialysis but not anymore. History of hepatitis C Chronic hypercapnic respiratory failure, now on home oxygen Diastolic congestive heart failure. Pulmonary embolism on anticoagulation Posttraumatic stress disorder, anxiety, depression, panic disorder. Obstructive sleep apnea Chronic kidney disease stage III. Ms. Bhatia has been offered neoadjuvant chemotherapy with cyclophosphamide docetaxel with growth factor support. Her current cycles every 3 weeks for plan of 6 cycles. She is here today for cycle 2 but did not take her premed steroids. Plan: 1. Delay planned treatment today due to steroid noncompliance. 2. Rescheduled to January 23-with reminders to take steroid premeds. 3. Labs from January 19, 2020 were reviewed in detail and discussed with Ms. Bhatia and a copy was given to her. WBC 10.6, hemoglobin 10.6 platelets 282,000 ANC is 8370 potassium 4.1 random glucose 136 creatinine 1.2 LFTs are normal alk phos is stable at 188. 4. To return early next week for cycle 2 no labs will be required at that time. 5. We will plan to see her back in 3 weeks after cycle 2 at which time she will need CBC CMP. She also need weekly interim counts. 6. She will continue with growth factor support. 7. Ms. Bhatia was instructed to contact us in the interim should questions or problems arise. Signed By: Desmond Jessica-, [facility] Serjio Lundberg MD <<Signature on File>>
[2020-01-31 14:46] LABS: Basophils % 1.8 %; Eosinophils # 0.2 10^3/uL (0.0-0.8); Eosinophils % 19.6 %; Hematocrit 32.3 % (37.0-47.0); Hemoglobin 9.7 g/dL (11.5-15.3); Lymphocytes # 0.3 10^3/uL (0.8-4.8); Lymphocytes % 30.4 %; Mean Corpuscular Hemoglobin 26.4 pg (28.0-34.0); Mean Corpuscular Volume 87.8 fL (81-99); Mean Platelet Volume 12.7 fL (7.4-10.4); Monocytes # 0.4 10^3/uL (0.2-0.9); Monocytes % 32.1 %; Neutrophils % 16.1 %; Nucleated Red Blood Cells % 0 %; Platelet Count 105 10^3/cmm (130-400); Red Blood Count 3.68 10^6/uL (4.1-5.3); Red Cell Distribution Width 17.7 % (12.1-15.1); White Blood Count 1.1 10^3/uL (4.0-10.0)
[2020-01-31 15:03] LABS: Alanine Aminotransferase 11 U/L (0-33); Albumin Level 3.6 g/dL (3.5-5.2); Alkaline Phosphatase 203 IU/L (35-105); Anion Gap 13.1 (5-19); Aspartate Amino Transferase 15 U/L (0-32); Blood Urea Nitrogen 19 mg/dL (6-20); Calcium 9.2 mg/dL (8.5-10.5); Carbon Dioxide 33 mmol/L (22-29); Chloride 91 mmol/L (98-107); Globulin 2.8 g/dL (1.3-4.6); Glomerular Filtration Rate 47.6 mL/min (90-130); Glucose 106 mg/dL (65-115); Osmolality Calculated 279 mOsm/kg (285-295); Potassium 4.1 mmol/L (3.5-5.1); Sodium 133 mmol/L (136-145); Total Bilirubin 0.3 mg/dL (0.15-1.2); Total Protein 6.4 g/dL (6.6-8.7)
[2020-01-31 15:31] LABS: Neutrophils # 0.18 10^3/uL (1.8-7.7); Slide Review Slide Review Perform
[2020-02-07 15:43] LABS: Basophils # 0.1 10^3/uL (0.0-0.1); Basophils % 0.6 %; Eosinophils # 0.1 10^3/uL (0.0-0.8); Eosinophils % 0.6 %; Hematocrit 35.8 % (37.0-47.0); Hemoglobin 10.5 g/dL (11.5-15.3); Lymphocytes # 0.8 10^3/uL (0.8-4.8); Lymphocytes % 8.3 %; Mean Corpuscular HGB Conc 29.3 g/dL (30.0-36.0); Mean Corpuscular Hemoglobin 26.3 pg (28.0-34.0); Mean Corpuscular Volume 89.7 fL (81-99); Mean Platelet Volume 12.3 fL (7.4-10.4); Monocytes % 10.1 %; Neutrophils % 77.9 %; Nucleated Red Blood Cells % 0 %; Platelet Count 181 10^3/cmm (130-400); Red Blood Count 3.99 10^6/uL (4.1-5.3); Red Cell Distribution Width 18.8 % (12.1-15.1); White Blood Count 9.6 10^3/uL (4.0-10.0)
== END 2020-02-09 23:59 | disposition home or self-care (01) ==
LOC: ONCMED 14:07
PROVIDERS: Internal Medicine Hematology & Oncology; PCP Family Medicine; Visit Provider Nurse Practitioner
DX: Z51.12 Encounter for antineoplastic immunotherapy (principal); Z51.11 Encounter for antineoplastic chemotherapy; C50.812 Malignant neoplasm of overlapping sites of left female breast; Z17.1 Estrogen receptor negative status [ER-]; J96.12 Chronic respiratory failure with hypercapnia; I26.99 Other pulmonary embolism without acute cor pulmonale; F43.10 Post-traumatic stress disorder, unspecified; F41.9 Anxiety disorder, unspecified; F32.9 Major depressive disorder, single episode, unspecified; F41.0 Panic disorder [episodic paroxysmal anxiety]; G47.33 Obstructive sleep apnea (adult) (pediatric); N18.3 Chronic kidney disease, stage 3 (moderate); Z86.711 Personal history of pulmonary embolism; Z86.19 Personal history of other infectious and parasitic diseases; Z99.81 Dependence on supplemental oxygen; Z79.01 Long term (current) use of anticoagulants
CPT/HCPCS: 80053; 82043; 85025; 96367; 96372; 96413; 96417; 99214; J1100; J1200; J2469; J2505; J3490; J7040; J7050; J9070; J9171

== ENCOUNTER 2020-02-21 13:30 | Outpatient (RCR) | payer MEDICAID, SELFPAY ==
[2020-01-20 09:12] VITALS: BP 125/70; BMI 46.2
[2020-02-14 09:12] LABS: Basophils % 0.4 %; Hematocrit 35.4 % (37.0-47.0); Hemoglobin 10.5 g/dL (11.5-15.3); Lymphocytes # 0.3 10^3/uL (0.8-4.8); Lymphocytes % 4.2 %; Mean Corpuscular HGB Conc 29.7 g/dL (30.0-36.0); Monocytes # 0.3 10^3/uL (0.2-0.9); Monocytes % 3.6 %; Neutrophils # 6.88 10^3/uL (1.8-7.7); Neutrophils % 91.1 %; Nucleated Red Blood Cells % 0 %; Platelet Count 246 10^3/cmm (130-400); Red Blood Count 3.89 10^6/uL (4.1-5.3); Red Cell Distribution Width 19.4 % (12.1-15.1); White Blood Count 7.6 10^3/uL (4.0-10.0)
[2020-02-14 09:31] LABS: Alanine Aminotransferase 7 U/L (0-33); Albumin Level 3.8 g/dL (3.5-5.2); Alkaline Phosphatase 248 IU/L (35-105); Anion Gap 12.4 (5-19); Aspartate Amino Transferase 19 U/L (0-32); Blood Urea Nitrogen 18 mg/dL (6-20); Calcium 9.7 mg/dL (8.5-10.5); Carbon Dioxide 37 mmol/L (22-29); Chloride 89 mmol/L (98-107); Globulin 2.9 g/dL (1.3-4.6); Glomerular Filtration Rate 58.7 mL/min (90-130); Glucose 127 mg/dL (65-115); Osmolality Calculated 281 mOsm/kg (285-295); Potassium 4.4 mmol/L (3.5-5.1); Sodium 134 mmol/L (136-145); Total Bilirubin 0.3 mg/dL (0.15-1.2); Total Protein 6.7 g/dL (6.6-8.7)
--- NOTE | 2020-02-14 14:53 | ONC FU_ITS ---
Dr. Lundberg follow up note Patient: Meka Bhatia Unit #: [id number]: 1970 Dicatated By: Serjio Lundberg M.D.Date of Visit:Feb 14, 2020 Onc Med Follow-up/Prog Note History of Present Illness: Ms. Bhatia is a 50-year-old female with history of left breast mass since May 2019. She reports that initially she felt fullness in outer part of her left breast, it got better on its own then again got bigger, she did notice some milky discharge from her left nipple, she thought she was lactating. In the meantime she started also having vaginal bleeding, as per patient about 2 years ago she stopped having menstrual periods and with this new vaginal bleeding, her primary care doctor concerned and refer her to [facility] [employer] Dr. Chowdary who ordered sonogram and some hormonal testing. While she was undergoing [employer] [facility] work-up on October 01, 2019 she underwent bilateral mammogram which showed right breast was unremarkable but in the left breast there was an area of concern which was 3.6 x 4.3 cm dense lobulated lesion with heterogeneous calcifications subsequently underwent ultrasound of left breast which showed at 3 o'clock position, 4 cm from the nipple there was a dense hypoechoic well-circumscribed nodule measuring 4.1 x 3.9 x 5.1 cm associated vascularity. No abnormal lymph nodes seen in left axilla. Subsequently patient underwent ultrasound-guided left breast biopsy on November 05, 2019 and final pathology report confirmed invasive ductal carcinoma, high nuclear grade with necrosis and molecular profiling showed triple negative disease e.g. ER less than 1% WI less than 1% HER-2/corina negative and Ki-67 was 90%. Patient was referred to Dr. Beaver, surgeon who did discuss with patient regarding upfront mastectomy versus lumpectomy versus neoadjuvant therapy to downsize the tumor. Patient opted for evaluation for neoadjuvant therapy. Patient denies any weight loss, denies any new bony pains patient denies any headaches blurred vision double vision patient denies any jaundice. As per patient she has history of renal failure/insufficiency and he used to be on hemodialysis but not anymore. 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 She is on home oxygen and she has morbid obesity. She also has history of pulmonary embolism for which she is on Eliquis therapy Menarche at age 13, and last menstrual period was at age 47 40+ year history of smoking, still active. Echocardiogram done on December 06, 2019 showed ejection fraction around 50%, flattened septum in the diastole consistent with right ventricular volume overload., Severe pulmonary hypertension, when compared with prior echo from March 01, 2019 there appeared to be worsening of left ventricular function from normal 55% to mildly reduced 50% while there is a worsening of mitral and tricuspid valve regurgitation from moderate to severe now. recommended treating with neoadjuvant chemotherapy with Cytoxan/docetaxel with Neulasta support every 3 weeks x6, which was started on December 21, 2019. Came for follow-up, denies any specific complaints, no fever chills, no nausea or vomiting, no diarrhea constipation, tolerating neoadjuvant chemotherapy with docetaxel/cyclophosphamide well but with expected side effects Medications: Acetaminophen 1 Capsule (of 325 mg) Oral daily, Albuterol Sulfate 1 Puff(s) (of 108 (90 base) mcg/act) Aerosol Powder, Breath Activated Inhalation q 6 hours PRN, Apixaban 1 Tablet (of 5 mg) Oral b.i.d., Atenolol 1 Tablet (of 50 mg) Oral b.i.d., Azithromycin 1 Tablet (of 250 mg) Oral on Every Other Day, clonazePAM 1 Tablet (of 1 mg) Oral b.i.d. PRN, Cymbalta 1 Capsule (of 60 mg) Capsule Delayed Release Particles Oral daily, Dicyclomine HCl 1 Tablet (of 20 mg) Oral b.i.d., Furosemide (40 mg) Tablet Oral Take as Directed, Gabapentin 1 Capsule (of 300 mg) Oral t.i.d., Isosorbide Mononitrate ER 1 Tablet (of 60 mg) Tablet SR 24 HR Oral daily, Klor-Con M20 1 Tablet (of 20 meq) Tablet, controlled release Oral daily, Nitroglycerin Tablet, sublingual Sublingual PRN, Ondansetron 1 Tablet (of 4 mg) Tablet Dispersable Oral PRN, oxyCODONE-Acetaminophen 1 - 2 Tablet (of 5-325 mg) Oral q 6 to 8 hours PRN, Pantoprazole Sodium 1 Tablet (of 40 mg) Tablet, enteric coated Oral b.i.d., Prazosin HCl 1 Capsule (of 1 mg) Oral at bedtime, QUEtiapine Fumarate ER 1 Tablet (of 50 mg) Tablet SR 24 HR Oral at bedtime, QUEtiapine Fumarate ER 1 Tablet (of 300 mg) Tablet SR 24 HR Oral at bedtime, Revefenacin 1 (175 mcg/3mL) Solution Inhalation daily, Spironolactone 1 Tablet (of 50 mg) Oral daily, Victoza 1 Subcutaneous daily Allergies: Cephalexin and Ketorolac Tromethamine. Review of Systems: Review of Systems is not available for this patient. Vital Signs: Performed on Feb 14, 2020 10:09 Height - 64.00 in Weight - 269.4 lbs (HIGH) BSA - 2.22 sq.m BMI - 46.24 (HIGH) Temperature - 98.0 F (LOW) Pulse - 69 /min Respiration - 24 /min BP - 120/66 mm(hg) O2 Sat - 92 % (LOW) Pain - 0 Performance Status: 0 - Fully active, able to carry on all predisease activities without restrictions. (ECOG) Physical Examination: Respiratory - Lungs are clear, Cardiovascular - Regular rate and rhythm of heart, Gastrointestinal - Soft, bowel sounds present, Extremities - No visible edema. Lab/Imaging: Test performed on Jan 19, 2020 11:10 Cholesterol, Total 186 mg/dL HDL Cholesterol 51 mg/dL LDL Cholesterol 112 mg/dL Triglycerides 115 mg/dL Test performed on Dec 08, 2019 09:32 Sodium 126 mmol/L Potassium 4.7 mmol/L Chloride 85 mmol/L CO2 32 mmol/L Anion Gap 13.7 BUN 28 mg/dL Creatinine 1.6 mg/dL Cr Clearance (Est) 88.38 mL/min eGFR 34.3 mL/min Glucose 118 mg/dL Calcium 9.2 mg/dL Protein, Total 6.3 g/dL Albumin 3.4 g/dL Globulin 2.9 g/dL Bilirubin, Total 0.3 mg/dL ALT (SGPT) 12 U/L AST (SGOT) 23 U/L Alkaline Phosphatase 262 IU/L WBC 11.8 10 3/uL RBC 3.73 10 6/uL HGB 10.3 g/dL HCT 35.0 % MCV 93.8 fL MCH 27.6 pg MCHC 29.4 g/dL RDW 14.6 % Platelet Count 246 10 3/cmm MPV 11.0 fL Neutrophils 9.52 10 3/uL Lymphocytes 0.8 10 3/uL Monocytes 1.2 10 3/uL Eosinophils 0.1 10 3/uL Basophils 0.1 10 3/uL Neutrophil % 80.9 % Lymphocyte % 7.1 % Monocyte % 10.2 % Eosinophil % 0.9 % Basophils % 0.6 % NRBC % 0 % Impression: Triple negative invasive ductal carcinoma, involving left breast status post ultrasound-guided biopsy done on November 05, 2019 final pathology report showed ER WI negative HER-2/corina negative with a high Ki-67 at 90% Ultrasound/mammogram left breast done on October 01, 2019 showed 5.1 x 3.9 x 4.1 cm left breast mass at 3 o'clock position with no abnormal lymph nodes seen in left axilla .Clinical stage IIb v/s III History of pulmonary embolism on Eliquis Recent history of vaginal bleeding now being evaluated by [employer] Dr. Chowdary History of renal insufficiency, as per patient she used to be on hemodialysis but not anymore. History of hepatitis C Chronic hypercapnic respiratory failure, now on home oxygen Diastolic congestive heart failure. Pulmonary embolism on anticoagulation Posttraumatic stress disorder, anxiety, depression, panic disorder. Obstructive sleep apnea Chronic kidney disease stage III. Ms. Bhatia has been offered neoadjuvant chemotherapy with cyclophosphamide docetaxel with growth factor support. Her current cycles every 3 weeks for plan of 6 cycles. She is here today for cycle 2 but did not take her premed steroids. Plan: Discussed with patient regarding her labs white blood count 7.6 hemoglobin 10.5 hematocrit 35.4 platelets 246,000 CMP within normal limits except alk phos 248 Clinically, patient doing well with no new signs symptom, tolerating neoadjuvant chemotherapy with Cytoxan/docetaxel well. We will proceed with cycle #3/6 of Cytoxan/Taxotere, with Neulasta support today and then she will return to clinic in 3 weeks with CBC CMP and ultrasound left breast to assess response to neoadjuvant chemotherapy Signed By: Serjio Lundberg M.D. <<Signature on File>>
[2020-02-21 14:20] LABS: Basophils % 1.1 %; Eosinophils # 0.1 10^3/uL (0.0-0.8); Hematocrit 30.7 % (37.0-47.0); Hemoglobin 9.4 g/dL (11.5-15.3); Lymphocytes # 0.3 10^3/uL (0.8-4.8); Lymphocytes % 34.8 %; Mean Corpuscular HGB Conc 30.6 g/dL (30.0-36.0); Mean Corpuscular Hemoglobin 27.1 pg (28.0-34.0); Mean Corpuscular Volume 88.5 fL (81-99); Mean Platelet Volume 12.4 fL (7.4-10.4); Monocytes # 0.4 10^3/uL (0.2-0.9); Monocytes % 41.6 %; Neutrophils % 11.3 %; Nucleated Red Blood Cells % 0 %; Platelet Count 142 10^3/cmm (130-400); Red Blood Count 3.47 10^6/uL (4.1-5.3); Red Cell Distribution Width 19.9 % (12.1-15.1)
[2020-02-21 14:25] LABS: White Blood Count 0.9 10^3/uL (4.0-10.0)
[2020-02-21 14:56] LABS: Alanine Aminotransferase 12 U/L (0-33); Albumin Level 3.6 g/dL (3.5-5.2); Alkaline Phosphatase 217 IU/L (35-105); Anion Gap 12.8 (5-19); Aspartate Amino Transferase 21 U/L (0-32); Blood Urea Nitrogen 19 mg/dL (6-20); Carbon Dioxide 31 mmol/L (22-29); Chloride 92 mmol/L (98-107); Glomerular Filtration Rate 52.6 mL/min (90-130); Glucose 106 mg/dL (65-115); Osmolality Calculated 275 mOsm/kg (285-295); Potassium 4.8 mmol/L (3.5-5.1); Sodium 131 mmol/L (136-145); Total Bilirubin 0.5 mg/dL (0.15-1.2); Total Protein 5.6 g/dL (6.6-8.7)
== END 2020-02-27 15:00 | disposition home or self-care (01) ==
LOC: ONCMED 13:30
PROVIDERS: PCP Family Medicine; Visit Provider Internal Medicine Hematology & Oncology
DX: Z51.11 Encounter for antineoplastic chemotherapy (principal); C50.812 Malignant neoplasm of overlapping sites of left female breast; Z17.1 Estrogen receptor negative status [ER-]; N93.9 Abnormal uterine and vaginal bleeding, unspecified; I13.0 Hypertensive heart and chronic kidney disease with heart failure and stage 1 through stage 4 chronic kidney disease, or unspecified chronic kidney disease; N18.30 Chronic kidney disease, stage 3 unspecified; I50.30 Unspecified diastolic (congestive) heart failure; J96.12 Chronic respiratory failure with hypercapnia; F43.10 Post-traumatic stress disorder, unspecified; F41.8 Other specified anxiety disorders; F41.0 Panic disorder [episodic paroxysmal anxiety]; G47.33 Obstructive sleep apnea (adult) (pediatric); Z86.711 Personal history of pulmonary embolism; Z79.01 Long term (current) use of anticoagulants; Z86.19 Personal history of other infectious and parasitic diseases; Z79.899 Other long term (current) drug therapy; Z99.81 Dependence on supplemental oxygen; Z76.89 Persons encountering health services in other specified circumstances
CPT/HCPCS: 80053; 85025; 96367; 96372; 96413; 96417; 99214; J1100; J1200; J2469; J2505; J3490; J7040; J7050; J9070; J9171

== ENCOUNTER 2020-02-27 15:36 | Emergency (ER) | payer MEDICAID, SELFPAY ==
[2020-01-20 09:12] VITALS: BP 125/70; BMI 46.2
[2020-02-27 15:39] VITALS: PULSE 76; RESP 20; TEMP 37.1; O2SAT 94; BMI 44.6
--- NOTE | 2020-02-27 16:04 | W.ED.SKABFB ---
HPI - Skin/Abscess/Foreign Bdy General: Chief complaint: Skin/Abscess/Foreign Body Stated complaint: Rash/pain in right arm Time Seen by Provider: 02/27/20 15:51 History of Present Illness: HPI narrative: Meka presents here because he is ran out of pain medicine she said she was told to take 2 of her oxycodone every 6 hours she is only given 120 a month and she said she cannot refill until the and she said that she is based on what he prescribed at 8 a day per month should been 240. Denies abuse him says no one else is got those medications. She is in pain from the chemotherapy should her bones hurt all over she says. She also on Doxy and Levaquin for cellulitis she developed from dog scratches on her arm. MD complaint: rash and other (Encounter for pain medication) Onset (ago): day(s) Tetanus up to date: yes Severity: moderate Severity scale (1-10): 7 Associated symptoms: Deny chills, fever(s), nausea or vomiting Review of Systems Narrative: Meka says she hurts all over and deep bone pain. Has been on pain medication since yesterday. Const: Denies: fever(s), chills or body aches Eyes: Denies: change in vision or blurry vision ENMT: Denies: throat pain or nasal congestion Card: Denies: chest pain or dyspnea on exertion Resp: Denies: dyspnea, productive cough or non-productive cough GI: Denies: abdominal pain, nausea or vomiting Musc: Reports: extremity pain Skin/Breast: Reports: rash (Redness to her right arm or dog scratches are in her forearm and to her right hand and forefinger is red and she says it is tender also has the same thing on the left), skin tenderness, sores and changes in skin color Neuro: Denies: headache(s) Psych: Denies: anxiety or depression Jerome/Lymph: Denies: easy bruising PFS ED PFSH: Medical History (Updated 02/27/20 @ 16:01 by MANOJ Velásquez) Benign essential HTN Bipolar disorder, current episode mixed, severe, with psychotic features Cancer of left breast Chronic hepatitis C without hepatic coma Chronic hypercapnic respiratory failure Chronic kidney disease (CKD), stage III (moderate) Diastolic CHF Diastolic heart failure secondary to hypertension Gastritis GERD (gastroesophageal reflux disease) History of pulmonary embolism Hypertension Iron deficiency anemia Mitral valve insufficiency Orthopnea BINA (obstructive sleep apnea) Other stimulant dependence, in remission Panic disorder [episodic paroxysmal anxiety] Post-traumatic stress disorder, chronic Pulmonary embolism Severe chronic obstructive pulmonary disease Type 2 diabetes mellitus, without long-term current use of insulin Valvular heart disease Surgical History H/O cervical fracture (~1998) C4-6 H/O section 1987 1999 2001 H/O foot surgery (~2003) lefft-- ball of the foot H/O knee surgery (~1991) left knee patellar fracture H/O tracheostomy (~2002) H/O tubal ligation (~2001) History of colonoscopy History of esophagogastroduodenoscopy (EGD) Port-A-Cath in place (11/24/19) Status post dilation and curettage (~1998) Family History Brother CAD (coronary artery disease) Diabetes Grandfather Diabetes PGF Sister Hypertension Denies family history of Anesthesia complication Bleeding disorder Social History Smoking and tobacco status: current every day smoker cigarettes Packs smoked per day: 1 Years cigarettes smoked: 40 Quit status (tobacco): not considering quitting Smoking risk assessment/counseling performed?: Yes Alcohol intake: former Year of sobriety/quit date alcohol: 2016 Lives independently: Yes Household members: spouse Marital status: Current occupational status: disabled History of recent travel: No Current gender identity: Female Female Reproductive History: Date of last menstrual period: 12/11/19 Physical Exam Const: COMMON NORMALS: no acute distress, average body habitus and patient oriented x3 HENMT: COMMON NORMALS: normocephalic HEAD & SCALP: normal to inspection and normocephalic FACE & SINUS: normal facial exam Eye: COMMON NORMALS: conjunctivae normal GENERAL EYE: appearance normal, both eyes and all related structures CONJUNCTIVA: Yes conjunctivae normal Neck/C-Spine: COMMON NORMALS: no JVD Chest: COMMONS NORMALS: normal inspection of the chest Resp: COMMON NORMALS: normal respiratory effort Cardio: COMMON NORMALS: no JVD, regular rate and regular rhythm RATE: regular rate RHYTHM: regular rhythm Extremity: COMMON NORMALS: normal to inspection and full ROM Neuro: COMMON NORMALS: patient oriented x3 Skin: RASHES: rashes noted (Patient is erythema to the right- dorsum of her hand right forefinger then has redness on the right humeral area and also right forearm where she has dog scratches then she has some mild erythema on the left forearm where dog scratches are.) Course Vital Signs: Vital signs: Vital Signs Temperature 98.7 F 02/27/20 15:39 Pulse Rate 76 02/27/20 15:39 Respiratory Rate 20 H 02/27/20 15:39 Pulse Oximetry 94 02/27/20 15:39 Discharge Plan Discharge Patient Disposition: Home Clinical Impression: Encounter for medication refill Cellulitis Qualifiers: Site of cellulitis: extremity Site of cellulitis of extremity: upper extremity Laterality: right Qualified Code(s): L03.113 - Cellulitis of right upper limb Condition: Stable Prescriptions: New hydrocodone-acetaminophen 7.5-325 mg tablet 1 tab PO Q6H PRN (Reason: pain) Qty: 10 RF: 0 No Action prochlorperazine maleate 10 mg tablet 10 mg PO Q4H PRN (Reason: Nausea) RF: 0 dexamethasone 4 mg tablet 8 mg PO BID RF: 0 fluticasone propionate [Flonase Allergy Relief] 50 mcg/actuation spray,suspension 1 spray INTRANASAL BID 30 Days Qty: 16 RF: 3 clonazepam 1 mg tablet 1 mg PO BID PRN (Reason: anxiety) Qty: 60 RF: 2 prazosin 1 mg capsule 1 mg PO BEDTIME Qty: 30 RF: 2 duloxetine [Cymbalta] 60 mg capsule,delayed release(DR/EC) 60 mg PO DAILY Qty: 30 RF: 2 Seroquel XR 50 mg tablet extended release 24 hr 50 mg PO BEDTIME Qty: 30 RF: 2 quetiapine [Seroquel XR] 300 mg tablet extended release 24 hr 300 mg PO BEDTIME Qty: 30 RF: 2 methylprednisolone acetate [Depo-Medrol] 40 mg/mL suspension 40 mg INTRA-MARTHA ONCE Qty: 1 RF: 0 bupivacaine (PF) 0.25 % (2.5 mg/mL) solution 2.5 mg INTRA-MARTHA ONCE Qty: 1 RF: 0 lidocaine (PF) 10 mg/mL (1 %) solution 10 mg INTRA-MARTHA ONCE Qty: 1 RF: 0 lidocaine 5 % gel 5 % topical PRN RF: 0 nitroglycerin [Nitrostat] 0.4 mg tablet, sublingual 0.4 mg SUBLINGUAL Q5M PRN (Reason: Chest Pain) Qty: 90 RF: 3 Yupelri 175 mcg/3 mL solution for nebulization 175 mcg INHALATION DAILY Qty: 90 RF: 3 pantoprazole 40 mg tablet,delayed release (DR/EC) 40 mg PO BID Qty: 28 RF: 0 gabapentin 300 mg capsule 300 mg PO TID Qty: 42 RF: 0 Victoza 2-Bijan 0.6 mg/0.1 mL (18 mg/3 mL) pen injector 1.8 mg SUBCUT Q24H Qty: 6 RF: 2 atenolol 50 mg tablet 50 mg PO BID Qty: 60 RF: 2 Eliquis 5 mg tablet 5 mg PO BID Qty: 60 RF: 2 Hold Instructions: Resume on 11/26/19. potassium chloride 20 mEq tablet extended release 20 meq PO DAILY Qty: 90 RF: 0 isosorbide mononitrate 30 mg tablet extended release 24 hr 30 mg PO DAILY Qty: 90 RF: 0 Lasix 40 mg tablet See Rx Instructions .ROUTE .COMPLEX Qty: 90 RF: 2 dicyclomine 20 mg tablet 20 mg PO BID Qty: 60 RF: 3 albuterol sulfate [ProAir HFA] 90 mcg/actuation HFA aerosol inhaler 2 puff INHALATION Q6H PRN (Reason: Shortness Of Breath) Qty: 18 RF: 0 azithromycin 250 mg tablet 250 mg PO EVERY OTHER DAY Qty: 36 RF: 3 spironolactone 50 mg tablet 50 mg PO QAM Qty: 30 RF: 0 ondansetron HCl [Zofran] 4 mg tablet 4 mg PO QID PRN (Reason: nausea and vomiting) Qty: 14 RF: 0 Tylenol Extra Strength 500 mg Tablet 1,500 mg PO PRN RF: 0 Discharge Orders: Discharge Order (Routine); Ordered 02/27/20 Ordered By: Tank Langley Referrals: Liz Marcos DO [Primary Care Provider] - Discharge Diet: Usual diet Discharge Activity: Increase activity as tolerated Activity Restrictions/Additional Instructions: Follow-up with your oncologist tomorrow for refill your pain medication and to reevaluate your cellulitis which are on antibiotics for Coding Level of Care Code ED 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
[2020-02-27] MEDS: HYDROcodone-acetaminophen 10-325 mg Tablet 1 TAB PO (16:09)
== END 2020-02-27 16:10 | disposition home or self-care (01) ==
PROVIDERS: Emergency Provider Nurse Practitioner Family; PCP Family Medicine
DX: Z76.0 Encounter for issue of repeat prescription (principal); L03.113 Cellulitis of right upper limb; Z79.01 Long term (current) use of anticoagulants; F17.210 Nicotine dependence, cigarettes, uncomplicated; Z86.19 Personal history of other infectious and parasitic diseases; I13.0 Hypertensive heart and chronic kidney disease with heart failure and stage 1 through stage 4 chronic kidney disease, or unspecified chronic kidney disease; E11.22 Type 2 diabetes mellitus with diabetic chronic kidney disease; N18.30 Chronic kidney disease, stage 3 unspecified; I50.30 Unspecified diastolic (congestive) heart failure
CPT/HCPCS: 12345; 99281; 99283

== ENCOUNTER 2020-03-07 14:31 | Outpatient (RCR) | payer MEDICAID, SELFPAY ==
[2020-01-20 09:12] VITALS: BP 125/70; BMI 46.2
[2020-03-06 08:49] LABS: Basophils % 0.1 %; Hematocrit 29.5 % (37.0-47.0); Lymphocytes # 0.4 10^3/uL (0.8-4.8); Mean Corpuscular HGB Conc 30.5 g/dL (30.0-36.0); Mean Corpuscular Hemoglobin 28.3 pg (28.0-34.0); Mean Corpuscular Volume 92.8 fL (81-99); Mean Platelet Volume 11.2 fL (7.4-10.4); Monocytes # 1.1 10^3/uL (0.2-0.9); Monocytes % 10.9 %; Neutrophils # 8.43 10^3/uL (1.8-7.7); Neutrophils % 84.4 %; Nucleated Red Blood Cells % 0 %; Platelet Count 245 10^3/cmm (130-400); Red Blood Count 3.18 10^6/uL (4.1-5.3); Red Cell Distribution Width 22.4 % (12.1-15.1)
[2020-03-06 09:12] LABS: Alanine Aminotransferase 9 U/L (0-33); Albumin Level 3.4 g/dL (3.5-5.2); Alkaline Phosphatase 201 IU/L (35-105); Anion Gap 10.5 (5-19); Aspartate Amino Transferase 17 U/L (0-32); Blood Urea Nitrogen 19 mg/dL (6-20); Calcium 9.5 mg/dL (8.5-10.5); Carbon Dioxide 34 mmol/L (22-29); Chloride 92 mmol/L (98-107); Globulin 2.5 g/dL (1.3-4.6); Glomerular Filtration Rate 52.6 mL/min (90-130); Glucose 124 mg/dL (65-115); Osmolality Calculated 278 mOsm/kg (285-295); Potassium 4.5 mmol/L (3.5-5.1); Sodium 132 mmol/L (136-145); Total Bilirubin 0.3 mg/dL (0.15-1.2); Total Protein 5.9 g/dL (6.6-8.7)
[2020-03-06] MEDS: sodium chloride 0.9% 500 ML 75 ML IV (11:30)
--- NOTE | 2020-03-06 14:11 | ONC FU_ITS ---
Dr. Lundberg follow up note Patient: Meka Bhatia Unit #: [id number]: 1970 Dicatated By: Serjio Lundberg M.D.Date of Visit:Mar 06, 2020 Onc Med Follow-up/Prog Note History of Present Illness: Ms. Bhatia is a 50-year-old female with history of left breast mass since May 2019. She reports that initially she felt fullness in outer part of her left breast, it got better on its own then again got bigger, she did notice some milky discharge from her left nipple, she thought she was lactating. In the meantime she started also having vaginal bleeding, as per patient about 2 years ago she stopped having menstrual periods and with this new vaginal bleeding, her primary care doctor concerned and refer her to [facility] Dr. Chowdary who ordered sonogram and some hormonal testing. While she was undergoing [facility] work-up on October 01, 2019 she underwent bilateral mammogram which showed right breast was unremarkable but in the left breast there was an area of concern which was 3.6 x 4.3 cm dense lobulated lesion with heterogeneous calcifications subsequently underwent ultrasound of left breast which showed at 3 o'clock position, 4 cm from the nipple there was a dense hypoechoic well-circumscribed nodule measuring 4.1 x 3.9 x 5.1 cm associated vascularity. No abnormal lymph nodes seen in left axilla. Subsequently patient underwent ultrasound-guided left breast biopsy on November 05, 2019 and final pathology report confirmed invasive ductal carcinoma, high nuclear grade with necrosis and molecular profiling showed triple negative disease e.g. ER less than 1% SC less than 1% HER-2/corina negative and Ki-67 was 90%. Patient was referred to Dr. Beaver, surgeon who did discuss with patient regarding upfront mastectomy versus lumpectomy versus neoadjuvant therapy to downsize the tumor. Patient opted for evaluation for neoadjuvant therapy. Patient denies any weight loss, denies any new bony pains patient denies any headaches blurred vision double vision patient denies any jaundice. As per patient she has history of renal failure/insufficiency and he used to be on hemodialysis but not anymore. He states he is not being followed by nephrology She also has some cardiac issues for which he is followed by Dr. Cartwright [employer] management professor. She is on home oxygen and she has morbid obesity. She also has history of pulmonary embolism for which she is on Eliquis therapy Menarche at age 13, and last menstrual period was at age 47 40+ year history of smoking, still active. Echocardiogram done on December 06, 2019 showed ejection fraction around 50%, flattened septum in the diastole consistent with right ventricular volume overload., Severe pulmonary hypertension, when compared with prior echo from March 01, 2019 there appeared to be worsening of left ventricular function from normal 55% to mildly reduced 50% while there is a worsening of mitral and tricuspid valve regurgitation from moderate to severe now. recommended treating with neoadjuvant chemotherapy with Cytoxan/docetaxel with Neulasta support every 3 weeks x 4-6, which was started on December 21, 2019. Came for follow-up, denies any specific complaint, no fever chills, no nausea or vomiting, no diarrhea or constipation, patient was supposed to get her follow-up breast sonogram but rescheduled for March 21, 2020. No peripheral numbness, no dysuria, tolerating neoadjuvant chemotherapy with Cytoxan/Taxotere well Medications: Acetaminophen 1 Capsule (of 325 mg) Oral daily, Albuterol Sulfate 1 Puff(s) (of 108 (90 base) mcg/act) Aerosol Powder, Breath Activated Inhalation q 6 hours PRN, Apixaban 1 Tablet (of 5 mg) Oral b.i.d., Atenolol 1 Tablet (of 50 mg) Oral b.i.d., Azithromycin 1 Tablet (of 250 mg) Oral on Every Other Day, clonazePAM 1 Tablet (of 1 mg) Oral b.i.d. PRN, Cymbalta 1 Capsule (of 60 mg) Capsule Delayed Release Particles Oral daily, Dicyclomine HCl 1 Tablet (of 20 mg) Oral b.i.d., Furosemide (40 mg) Tablet Oral Take as Directed, Gabapentin 1 Capsule (of 300 mg) Oral t.i.d., Isosorbide Mononitrate ER 1 Tablet (of 60 mg) Tablet SR 24 HR Oral daily, Klor-Con M20 1 Tablet (of 20 meq) Tablet, controlled release Oral daily, Nitroglycerin Tablet, sublingual Sublingual PRN, Ondansetron 1 Tablet (of 4 mg) Tablet Dispersable Oral PRN, oxyCODONE-Acetaminophen 1 - 2 Tablet (of 5-325 mg) Oral q 6 to 8 hours PRN, Pantoprazole Sodium 1 Tablet (of 40 mg) Tablet, enteric coated Oral b.i.d., Prazosin HCl 1 Capsule (of 1 mg) Oral at bedtime, QUEtiapine Fumarate ER 1 Tablet (of 50 mg) Tablet SR 24 HR Oral at bedtime, QUEtiapine Fumarate ER 1 Tablet (of 300 mg) Tablet SR 24 HR Oral at bedtime, Revefenacin 1 (175 mcg/3mL) Solution Inhalation daily, Spironolactone 1 Tablet (of 50 mg) Oral daily, Victoza 1 Subcutaneous daily Allergies: Cephalexin and Ketorolac Tromethamine. Review of Systems: Constitutional - Appetite is fair and weight is stable. Positive for night sweats. Energy level is poor, ENMT - No sinus congestion/drainage. No mouth sores. No sore throat or difficulty swallowing, Hematologic/Lymphatic - Positive for easy bruising, Respiratory - Positive for shortness of breath. No cough. No pleuritic pain or hemoptysis. Pt is on portable oxygen, Cardiovascular - No angina pain. No palpitations, Gastrointestinal - Occasional nausea, no vomiting. No heartburn or acid reflux. Positive for diarrhea, no constipation. No blood in the stool or black stools, Genitourinary (F) - No dysuria or hematuria. Positive for urinary frequency. No urgency. Positive for incontinence, Musculoskeletal - Positive for generalized pain, Neurologic - No headache. Positive for dizziness. No numbness or tingling. No other focal neurologic symptoms, Psychiatric - Positive for anxiety and depression. Vital Signs: Performed on Mar 06, 2020 10:27 Height - 64.00 in Weight - 270.4 lbs (HIGH) BSA - 2.22 sq.m BMI - 46.41 (HIGH) Temperature - 97.7 F (LOW) Pulse - 80 /min Respiration - 18 /min BP - 147/75 mm(hg) (HIGH) O2 Sat - 95 % (LOW) Performance Status: 1 - No physically strenuous activity, but ambulatory and able to carry out light or sedentary work (e.g. office work, light house work). (ECOG) Physical Examination: Respiratory - Lungs are clear to auscultation, Cardiovascular - Regular rate and rhythm of heart, Gastrointestinal - Soft, bowel sounds present, Extremities - No visible edema. Lab/Imaging: Test performed on Jan 19, 2020 11:10 Cholesterol, Total 186 mg/dL HDL Cholesterol 51 mg/dL LDL Cholesterol 112 mg/dL Triglycerides 115 mg/dL Test performed on Dec 08, 2019 09:32 Sodium 126 mmol/L Potassium 4.7 mmol/L Chloride 85 mmol/L CO2 32 mmol/L Anion Gap 13.7 BUN 28 mg/dL Creatinine 1.6 mg/dL Cr Clearance (Est) 88.38 mL/min eGFR 34.3 mL/min Glucose 118 mg/dL Calcium 9.2 mg/dL Protein, Total 6.3 g/dL Albumin 3.4 g/dL Globulin 2.9 g/dL Bilirubin, Total 0.3 mg/dL ALT (SGPT) 12 U/L AST (SGOT) 23 U/L Alkaline Phosphatase 262 IU/L WBC 11.8 10 3/uL RBC 3.73 10 6/uL HGB 10.3 g/dL HCT 35.0 % MCV 93.8 fL MCH 27.6 pg MCHC 29.4 g/dL RDW 14.6 % Platelet Count 246 10 3/cmm MPV 11.0 fL Neutrophils 9.52 10 3/uL Lymphocytes 0.8 10 3/uL Monocytes 1.2 10 3/uL Eosinophils 0.1 10 3/uL Basophils 0.1 10 3/uL Neutrophil % 80.9 % Lymphocyte % 7.1 % Monocyte % 10.2 % Eosinophil % 0.9 % Basophils % 0.6 % NRBC % 0 % Impression: 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 Chowdary History of renal insufficiency, as per patient she used to be on hemodialysis but not anymore. History of hepatitis C Chronic hypercapnic respiratory failure, now on home oxygen Diastolic congestive heart failure. Pulmonary embolism on anticoagulation Posttraumatic stress disorder, anxiety, depression, panic disorder. Obstructive sleep apnea Chronic kidney disease stage III. Ms. Bhatia has been offered neoadjuvant chemotherapy with cyclophosphamide docetaxel with growth factor support. Her current cycles every 3 weeks for plan of 6 cycles. She is here today for cycle 2 but did not take her premed steroids. Plan: Discussed with patient regarding her labs white blood count 10 hemoglobin 9 gram, hematocrit 29.5 platelets 245,000 CMP normal limit except glucose 124 Clinically, patient is doing well, tolerating neoadjuvant chemotherapy with Cytoxan/Taxotere, well, will proceed with cycle #4 with Cytoxan/Taxotere followed by Neulasta today and then repeat her CBC in 1 week if neutropenia recur, will consider prophylactic Levaquin. And patient return to clinic in 3 weeks with CBC CMP and follow-up breast sonogram to assess disease response, if there is a good response, will send her to surgery for evaluation. Signed By: Serjio Lundberg M.D. <<Signature on File>>
== END 2020-03-11 23:59 | disposition home or self-care (01) ==
LOC: ONCMED 14:31
PROVIDERS: PCP Family Medicine; Visit Provider Internal Medicine Hematology & Oncology
DX: Z51.11 Encounter for antineoplastic chemotherapy (principal); C50.812 Malignant neoplasm of overlapping sites of left female breast; Z17.1 Estrogen receptor negative status [ER-]; D70.1 Agranulocytosis secondary to cancer chemotherapy; T45.1X5A Adverse effect of antineoplastic and immunosuppressive drugs, initial encounter; E66.01 Morbid (severe) obesity due to excess calories; F17.210 Nicotine dependence, cigarettes, uncomplicated; F41.8 Other specified anxiety disorders; J96.12 Chronic respiratory failure with hypercapnia; I50.9 Heart failure, unspecified; F43.10 Post-traumatic stress disorder, unspecified; G47.33 Obstructive sleep apnea (adult) (pediatric); N18.30 Chronic kidney disease, stage 3 unspecified; Z99.81 Dependence on supplemental oxygen; Z79.51 Long term (current) use of inhaled steroids; Z79.891 Long term (current) use of opiate analgesic; Z86.711 Personal history of pulmonary embolism; Z86.19 Personal history of other infectious and parasitic diseases
CPT/HCPCS: 80053; 85025; 96367; 96372; 96413; 96417; 99214; J1100; J1200; J2469; J2505; J3490; J7040; J7050; J9070; J9171

== ENCOUNTER 2020-03-13 13:10 | Outpatient (RCR) | payer MEDICAID, SELFPAY ==
[2020-01-20 09:12] VITALS: BP 125/70; BMI 46.2
[2020-03-13 14:00] LABS: Basophils % 2.7 %; Eosinophils # 0.1 10^3/uL (0.0-0.8); Eosinophils % 6.8 %; Hematocrit 25.9 % (37.0-47.0); Hemoglobin 7.8 g/dL (11.5-15.3); Lymphocytes # 0.2 10^3/uL (0.8-4.8); Lymphocytes % 29.7 %; Mean Corpuscular HGB Conc 30.1 g/dL (30.0-36.0); Mean Corpuscular Hemoglobin 28.5 pg (28.0-34.0); Mean Corpuscular Volume 94.5 fL (81-99); Mean Platelet Volume 12.9 fL (7.4-10.4); Monocytes # 0.3 10^3/uL (0.2-0.9); Monocytes % 43.2 %; Neutrophils % 10.8 %; Nucleated Red Blood Cells % 0 %; Platelet Count 80 10^3/cmm (130-400); Red Blood Count 2.74 10^6/uL (4.1-5.3)
[2020-03-13 14:24] LABS: Alanine Aminotransferase 12 U/L (0-33); Albumin Level 3.1 g/dL (3.5-5.2); Alkaline Phosphatase 217 IU/L (35-105); Anion Gap 10.3 (5-19); Aspartate Amino Transferase 19 U/L (0-32); Blood Urea Nitrogen 30 mg/dL (6-20); Calcium 8.8 mg/dL (8.5-10.5); Carbon Dioxide 37 mmol/L (22-29); Chloride 88 mmol/L (98-107); Globulin 2.4 g/dL (1.3-4.6); Glomerular Filtration Rate 34.1 mL/min (90-130); Glucose 99 mg/dL (65-115); Osmolality Calculated 278 mOsm/kg (285-295); Potassium 4.3 mmol/L (3.5-5.1); Sodium 131 mmol/L (136-145); Total Bilirubin 0.4 mg/dL (0.15-1.2); Total Protein 5.5 g/dL (6.6-8.7)
[2020-03-13 16:09] LABS: Neutrophils # 0.08 10^3/uL (1.8-7.7); White Blood Count 0.7 10^3/uL (4.0-10.0)
[2020-03-13 16:22] LABS: Slide Review Slide Review Perform
== END 2020-03-20 21:00 | disposition home or self-care (01) ==
LOC: ONCMED 13:10
PROVIDERS: PCP Family Medicine; Visit Provider Internal Medicine Hematology & Oncology
DX: C50.812 Malignant neoplasm of overlapping sites of left female breast (principal); Z17.1 Estrogen receptor negative status [ER-]
CPT/HCPCS: 80053; 85025

== ENCOUNTER 2020-03-20 21:09 | Emergency (ER) | payer MEDICAID, SELFPAY ==
[2020-01-20 09:12] VITALS: BP 125/70; BMI 46.2
== END 2020-03-20 22:12 | disposition left against medical advice (07) ==
LOC: ER 21:13
PROVIDERS: Emergency Provider Family Medicine; PCP Family Medicine
DX: Z53.21 Procedure and treatment not carried out due to patient leaving prior to being seen by health care provider (principal)
CPT/HCPCS: 99281

== ENCOUNTER 2020-03-23 11:00 | Outpatient (RCR) | payer MEDICAID, SELFPAY ==
[2020-01-20 09:12] VITALS: BP 125/70; BMI 46.2
[2020-03-22 13:52] LABS: Basophils # 0.1 10^3/uL (0.0-0.1); Basophils % 0.5 %; Eosinophils % 0.4 %; Hematocrit 35.9 % (37.0-47.0); Hemoglobin 10.6 g/dL (11.5-15.3); Lymphocytes # 0.4 10^3/uL (0.8-4.8); Lymphocytes % 3.9 %; Mean Corpuscular HGB Conc 29.5 g/dL (30.0-36.0); Mean Corpuscular Hemoglobin 29.4 pg (28.0-34.0); Mean Corpuscular Volume 99.4 fL (81-99); Mean Platelet Volume 12.6 fL (7.4-10.4); Monocytes # 1.1 10^3/uL (0.2-0.9); Monocytes % 9.6 %; Neutrophils # 9.33 10^3/uL (1.8-7.7); Nucleated Red Blood Cells % 0 %; Platelet Count 139 10^3/cmm (130-400); Red Blood Count 3.61 10^6/uL (4.1-5.3); Red Cell Distribution Width 24.8 % (12.1-15.1); White Blood Count 11.1 10^3/uL (4.0-10.0)
[2020-03-22 14:43] LABS: Alanine Aminotransferase 7 U/L (0-33); Albumin Level 3.8 g/dL (3.5-5.2); Alkaline Phosphatase 254 IU/L (35-105); Anion Gap 16.3 (5-19); Aspartate Amino Transferase 21 U/L (0-32); Blood Urea Nitrogen 10 mg/dL (6-20); Calcium 9.5 mg/dL (8.5-10.5); Carbon Dioxide 35 mmol/L (22-29); Chloride 88 mmol/L (98-107); Globulin 2.9 g/dL (1.3-4.6); Glomerular Filtration Rate 43.4 mL/min (90-130); Glucose 81 mg/dL (65-115); Osmolality Calculated 278 mOsm/kg (285-295); Potassium 4.3 mmol/L (3.5-5.1); Sodium 135 mmol/L (136-145); Total Bilirubin 1.1 mg/dL (0.15-1.2); Total Protein 6.7 g/dL (6.6-8.7)
--- NOTE | 2020-03-23 11:00 | US_ITS ---
WS: [id number] ULTRASOUND BREAST LEFT TECHNIQUE: Ultrasound left breast focused area of concern. CLINICAL INFORMATION: MALIGNANT NEOPLASM OF LEFT BREAST/COMPARE SIZE COMPARISON: 11/05/2019 and 10/01/2019 FINDINGS: Ultrasound left breast at the 3:00 position. Again seen is the hypoechoic mass in the 3:00 position 4 cm from the nipple. Known neoplasm today measures 3.8 x 3.1 x 4.4 CM. This compares to previous measuring 4.1 x 3.9 x 5.1 CM. This is decreased in size compared to previous. No other significant changes. US/US breast LT limited* [id number] IMPRESSION: Interval decrease in size of the left breast neoplasm in the 3:00 position desc ribed above.
[2020-03-28 14:31] LABS: ABG PCO2 47.7 mmHg (35-45); ABG PH Result 7.49 (7.35-7.45); Alveolar-Arterial Oxygen Gradi 13.6 mmHg (5-10); Arterial Blood Gas Hematocrit 33.9 % (37-47); Base Excess ABG 11.4 mmol/L (-2.0-2.0); Blood Gas Allen Test Pos; Blood Gas Operator Identificat AMH; Blood Gas Sample Site Radial, left; Blood Gas Sample Type Arterial; Carboxyhemoglobin 6.3 %THgb (0.4-20.1); HCO3 ABG 36.2 mmol/L (22-26); HGB O2 Sat 86.7 % (95-100); Ionized Calcium Level - ABG 1.2 mmol/L (1.1-1.4); Methemoglobin 0.8 % (0.4-1.5); Oxygen Device NC; Oxygen Saturation ABG 93.3; PO2 ABG 65.8 mmHg (80.0-100.0); Potassium Level - ABG 4.2 mmol/L (3.5-5.0); Total Hemoglobin 11.1 g/dL (12-16)
== END 2020-03-23 23:59 | disposition home or self-care (01) ==
LOC: ONCMED 11:00
PROVIDERS: Internal Medicine Critical Care Medicine; PCP Family Medicine; Visit Provider Internal Medicine Hematology & Oncology
DX: C50.812 Malignant neoplasm of overlapping sites of left female breast (principal)
CPT/HCPCS: 36600; 76642; 80051; 80053; 82330; 82805; 83605; 85025

== ENCOUNTER 2020-03-24 00:24 | Emergency (ER) | payer MEDICAID, SELFPAY ==
[2020-01-20 09:12] VITALS: BP 125/70; BMI 46.2
[2020-03-24 00:34] VITALS: BP 156/85; PULSE 78; RESP 17; TEMP 36.8; O2SAT 96; BMI 42.9
--- NOTE | 2020-03-24 00:40 | ED_ITS ---
HPI - General Adult General: Chief complaint: General Medical Stated complaint: severe pain following chemo Time Seen by Provider: 03/24/20 00:31 Source: patient Mode of arrival: ambulatory Limitations: no limitations History of Present Illness: HPI narrative: 50-year-old female patient presents to the emergency department with severe pain, reports pain all over, reports chemotherapy approximately 1 week ago, Cytoxan and Taxotere. States out of her pain medication, hydrocodone 7.5/325; 2 tablets every 4 hours as needed for pain. She reports missed her oncology appointment, has follow-up on Friday, is requesting something for pain today. She reports losing her hair and losing her nails. She denies fever chills, reports chronic use of oxygen, continues to smoke. She denies increased cough congestion or change of sputum. She reports pain to the hands and feet, reports tingling with pinprick sensation. Onset (ago): hour(s) (24) Location: upper extremity (Hands and fingers) and lower extremity (Feet and toes) Severity: moderate Quality: burning and aching Pain Consistency: constant Relieving factors: other (Pain medication) Exacerbating factors: movement Associated symptoms: Reports no associated symptoms, dyspnea (Chronic from COPD, has not changed from baseline) and malaise; Deny chest pain, diaphoresis, headache(s), nausea, rash, palpitations or vomiting Review of Systems General: Reports: 10 or more systems reviewed and unremarkable except in HPI and below Const: Reports: fatigue and malaise; Denies: fever(s), chills or diaphoresis Eyes: Denies: blurry vision or eye redness ENMT: Denies: throat pain, dental pain or disequilibrium Card: Denies: chest pain, palpitations or irregular heart rhythm Resp: Reports: dyspnea (Chronic from COPD, has not changed from baseline), non-productive cough (Chronic) and wheezing (Chronic, has not changed from baseline); Denies: productive cough GI: Denies: abdominal pain, nausea or vomiting : Denies: difficulty voiding or dysuria Musc: Reports: extremity pain (Bilateral hands and fingers, bilateral feet and toes), joint stiffness (Bilateral knees) and muscle weakness (Due to chemo); Denies: neck pain or back pain Skin/Breast: Denies: rash or pruritus Neuro: Denies: headache(s), weakness in extremities or behavioral changes Psych: Reports: anxiety and change in appetite; Denies: depression Jerome/Lymph: Denies: easy bruising PFSH ED PFSH: Medical History Benign essential HTN Bipolar disorder, current episode mixed, severe, with psychotic features Cancer of left breast Chronic hepatitis C without hepatic coma Chronic hypercapnic respiratory failure Chronic kidney disease (CKD), stage III (moderate) Diastolic CHF Diastolic heart failure secondary to hypertension Gastritis GERD (gastroesophageal reflux disease) History of pulmonary embolism Hypertension Iron deficiency anemia Mitral valve insufficiency Orthopnea BINA (obstructive sleep apnea) Other stimulant dependence, in remission Panic disorder [episodic paroxysmal anxiety] Post-traumatic stress disorder, chronic Pulmonary embolism Severe chronic obstructive pulmonary disease Type 2 diabetes mellitus, without long-term current use of insulin Valvular heart disease Surgical History H/O cervical fracture (~1998) C4-6 H/O section 1987 1999 2001 H/O foot surgery (~2003) lefft-- ball of the foot H/O knee surgery (~1991) left knee patellar fracture H/O tracheostomy (~2002) H/O tubal ligation (~2001) History of colonoscopy History of esophagogastroduodenoscopy (EGD) Port-A-Cath in place (11/24/19) Status post dilation and curettage (~1998) Family History Brother CAD (coronary artery disease) Diabetes Grandfather Diabetes PGF Sister Hypertension Denies family history of Anesthesia complication Bleeding disorder Social History Smoking and tobacco status: current every day smoker cigarettes Packs smoked per day: 1 Years cigarettes smoked: 40 Quit status (tobacco): not considering quitting Smoking risk assessment/counseling performed?: Yes Alcohol intake: former Year of sobriety/quit date alcohol: 2016 Lives independently: Yes Household members: spouse Marital status: Current occupational status: disabled History of recent travel: No Current gender identity: Female Female Reproductive History: Date of last menstrual period: 12/11/19 Physical Exam Const: COMMON NORMALS: patient oriented x3 and alert GENERAL APPEARANCE: cooperative and anxious NUTRITIONAL APPEARANCE: obese ORIENTATION/CONSCIOUSNESS: Yes awake, Yes oriented to person, Yes oriented to place and Yes oriented to time HENMT: COMMON NORMALS: normocephalic, Normal external nose present and moist oral mucous membranes HEAD & SCALP: normocephalic NOSE: Normal external nose present Eye: COMMON NORMALS: Equal, round and reactive pupils present and EOMs intact bilaterally GENERAL EYE: appearance normal, both eyes and all related structures PUPIL: Yes Equal, round and reactive pupils present Neck/C-Spine: COMMON NORMALS: full ROM and no lymphadenopathy GENERAL: Yes normal visual inspection and Yes trachea midline CERVICAL SPINE: Yes cervical ROM normal Lymph: LYMPHATIC: no lymphadenopathy noted Chest: COMMONS NORMALS: normal inspection of the chest and normal palpation of entire chest wall (port a cath right chest wall) Resp: COMMON NORMALS: normal respiratory effort and clear to auscultation bilaterally EFFORT & INSPECTION: Yes able to speak in complete sentences AUSCULTATION: clear to auscultation bilaterally and rhonchi left upper Cardio: COMMON NORMALS: regular rhythm, S1 normal heart sound present, S2 normal heart sound present and Peripheral pulses 2+ throughout RHYTHM: reg ular rhythm HEART SOUNDS: S1 normal heart sound present and S2 normal heart sound present PERIPHERAL PULSES: Peripheral pulses 2+ throughout GI: COMMON NORMALS: Normal to inspection, nondistended, normoactive bowel sounds present, Soft to palpation and non-tender INSPECTION: Yes normal to inspection PALPATION: Yes Soft to palpation : COMMON NORMALS: Yes no CVA tenderness BLADDER/KIDNEY EXAM: Yes no CVA tenderness Back/Pelvis: COMMON NORMALS: no CVA tenderness and thoracic and lumbar spine normal to inspection Extremity: COMMON NORMALS: normal to inspection and capillary refill normal GENERAL: Yes clubbing (to nails) Neuro: COMMON NORMALS: patient oriented x3 and no focal motor deficits SENSORIUM/ORIENTATION: Yes alert, Yes oriented to person, Yes oriented to place and Yes oriented to time Psych: COMMON NORMALS: mental status grossly normal, Normal thought process present and cooperative ACTIVITY/MOTOR BEHAVIOR: Yes appropriate eye contact THOUGHT PROCESS: Normal thought process present ATTENTION/CONCENTRATION: Yes attention grossly intact MEMORY/COGNITION: Yes memory grossly intact INSIGHT: Good insight present (Psych) JUDGEMENT: Good judgement present (Psych) Skin: GENERAL SKIN EXAM: dry skin, hypertrophy (feet) and other (Scaling of the skin to the feet) HAIR: brittle and total alopecia NAILS: clubbing, discolored and other (Nails thinning) Course ED course: 50-year-old female patient presents to emergency department with acute pain, neuropathy symptoms from Taxotere/chemotherapy. Reports out of pain medication, labs and chest x-ray reviewed with Dr. Bar, slight dehydration noted, patient received 500 cc bolus normal saline here in the ED. She was able to tolerate p.o. fluids, pain controlled with morphine and hydrocodone orally. Per collaborative physician, hydrocodone 7.5/325 every 6 hours #16 to be p rescribed out of the ED. Patient will need to follow-up with oncologist/primary care provider for refills. She reports has appointment scheduled for next Friday with Dr. Garcia. Social service referral completed for sooner appointment, today for pain medication refill. Vital Signs: Vital signs: Vital Signs Temperature 98.2 F 03/24/20 00:34 Pulse Rate 78 03/24/20 00:34 Respiratory Rate 18 03/24/20 01:05 Blood Pressure 156/85 03/24/20 00:34 Pulse Oximetry 99 03/24/20 01:05 [facility] [place] - General Adult Lab Data: Labs: Lab Results 03/24/20 03/24/20 03/24/20 Range/Units 01:00 01:00 01:00 WBC 9.3 (4.0-10.0) 10^3/ uL RBC 3.42 L (4.1-5.3) 10^6/u L Hgb 10.1 L (11.5-15.3) g/dL Hct 33.5 L (37.0-47.0) % MCV 98.0 (81-99) fL MCH 29.5 (28.0-34.0) pg MCHC 30.1 (30.0-36.0) g/dL RDW 25.0 H (12.1-15.1) % Plt Count 123 L (130-400) 10^3/c mm MPV 11.3 H (7.4-10.4) fL Neut % (Auto) 78.0 % Lymph % (Auto) 7.2 % [place] % (Auto) 13.3 % Eos % (Auto) 0.4 % Baso % (Auto) 0.5 % Neut # (Auto) 7.25 (1.8-7.7) 10^3/u L Lymph # (Auto) 0.7 L (0.8-4.8) 10^3/u L [place] # (Auto) 1.2 H (0.2-0.9) 10^3/u L Eos # (Auto) 0.0 (0.0-0.8) 10^3/u L Baso # (Auto) 0.1 (0.0-0.1) 10^3/u L Nucleated RBC % (a uto) 0 % Nucleated RBCs # 0.0 /100WBC Sodium 134 L (136-145) mmol/L Potassium 3.8 (3.5-5.1) mmol/L Chloride 90 L (98-107) mmol/L Carbon Dioxide 34 H (22-29) mmol/L Anion Gap 13.8 (5-19) BUN 14 (6-20) mg/dL Creatinine 1.7 H (0.5-0.9) mg/dL GFR Calculation 31.8 L (90-130) mL/min Glucose 124 H (65-115) mg/dL Calculated Osmolal ity 280 L (285-295) mOsm/k g Lactate 1.3 (0.5-2.2) mmol/L Calcium 9.2 (8.5-10.5) mg/dL Total Bilirubin 0.9 (0.15-1.2) mg/dL AST 19 (0-32) U/L ALT 7 (0-33) U/L Alkaline Phosphata se 229 H (35-105) IU/L Total Protein 6.2 L (6.6-8.7) g/dL Albumin 3.6 (3.5-5.2) g/dL Globulin 2.6 (1.3-4.6) g/dL Imaging Data^: CXR: My impression: No acute consolidation /findings, Port-A-Cath right chest wall, radiology interpretation pending Discharge Plan Discharge Patient Disposition: Home Clinical Impression: Neuropathic pain, Chronic pain after cancer treatment, Dehydration, mild Condition: Stable Prescriptions: New hydrocodone-acetaminophen 7.5-325 mg tablet 1 tab PO Q6H PRN (Reason: pain) Qty: 16 RF: 0 No Action prochlorperazine maleate 10 mg tablet 10 mg PO Q4H PRN (Reason: Nausea) RF: 0 dexamethasone 4 mg tablet 8 mg PO BID RF: 0 fluticasone propionate [Flonase Allergy Relief] 50 mcg/actuation spray,suspension 1 spray INTRANASAL BID 30 Days Qty: 16 RF: 3 clonazepam 1 mg tablet 1 mg PO BID PRN (Reason: anxiety) Qty: 60 RF: 2 prazosin 1 mg capsule 1 mg PO BEDTIME Qty: 30 RF: 2 duloxetine [Cymbalta] 60 mg capsule,delayed release(DR/EC) 60 mg PO DAILY Qty: 30 RF: 2 Seroquel XR 50 mg tablet extended release 24 hr 50 mg PO BEDTIME Qty: 30 RF: 2 quetiapine [Seroquel XR] 300 mg tablet extended release 24 hr 300 mg PO BEDTIME Qty: 30 RF: 2 lidocaine 5 % gel 5 % topical PRN RF: 0 nitroglycerin [Nitrostat] 0.4 mg tablet, sublingual 0.4 mg SUBLINGUAL Q5M PRN (Reason: Chest Pain) Qty: 90 RF: 3 Yupelri 175 mcg/3 mL solution for nebulization 175 mcg INHALATION DAILY Qty: 90 RF: 3 gabapentin 300 mg capsule 300 mg PO TID Qty: 42 RF: 0 atenolol 50 mg tablet 50 mg PO BID Qty: 60 RF: 2 Eliquis 5 mg tablet 5 mg PO BID Qty: 60 RF: 2 Hold Instructions: Resume on 11/26/19. potassium chloride 20 mEq tablet extended release 20 meq PO DAILY Qty: 90 RF: 0 isosorbide mononitrate 30 mg tablet extended release 24 hr 30 mg PO DAILY Qty: 90 RF: 0 Lasix 40 mg tablet See Rx Instructions .ROUTE .COMPLEX Qty: 90 RF: 2 dicyclomine 20 mg tablet 20 mg PO BID Qty: 60 RF: 3 azithromycin 250 mg tablet 250 mg PO EVERY OTHER DAY Qty: 36 RF: 3 spironolactone 50 mg tablet 50 mg PO QAM Qty: 30 RF: 0 pantoprazole 40 mg tablet,delayed release (DR/EC) 40 mg PO BID Qty: 60 RF: 2 albuterol sulfate [ProAir HFA] 90 mcg/actuation HFA aerosol inhaler 2 puff INHALATION Q6H PRN (Reason: Shortness Of Breath) Qty: 18 RF: 0 Victoza 2-Bijan 0.6 mg/0.1 mL (18 mg/3 mL) pen injector 1.2 mg SUBCUT Q24H Qty: 6 RF: 0 ondansetron HCl [Zofran] 4 mg tablet 4 mg PO QID PRN (Reason: nausea and vomiting) Qty: 14 RF: 0 hydrocodone-acetaminophen 7.5-325 mg tablet 1 tab PO Q6H PRN (Reason: pain) Qty: 10 RF: 0 Tylenol Extra Strength 500 mg Tablet 1,500 mg PO PRN RF: 0 Discharge Orders: Discharge Order (Routine); Ordered 03/24/20 Ordered By: Lisa Ochoa Referrals: Liz Marcos DO [Primary Care Provider] - Discharge Diet: Cardiac Discharge Activity: Limit activity as instructed Patient Instructions: Dehydration (ED), Chronic Pain (ED), Peripheral Neuropathy (ED) Activity Restrictions/Additional Instructions: Social service will contact you tomorrow with an appointment with oncology for refill of pain medication You will need to follow-up with your primary care provider/oncologist for refill of pain medication Drink plenty of fluids Return to the emergency department if you develop fever, vomiting, increased pain or other concerning symptoms. Coding Level of Care Code ED Maintenance And Custodian Supervisor for Abdiel Fwd Exam Comprehensive
--- NOTE | 2020-03-24 00:59 | XR_ITS ---
WS: [id number] Portable AP upright chest, 03/24/2020 Clinical Data: syncope Comparison: None. Findings: No nodules, masses or effusions are seen. The heart is normal. The pulmonary vascularity is not increased. No pneumonia or pneumothorax is seen. The right internal jugular venous catheter sylvie ins in good position. The patient has had an anterior cervical disc fusion. XR/XR chest 1V portable [id number] Impression: Negative chest.
[2020-03-24] MEDS: ondansetron 2 mg/ML SDV 2 mL 4 MG IVP (01:03)
[2020-03-24] MEDS: sodium chloride 0.9% 500 ML 999 ML IV (01:04)
[2020-03-24 01:05] VITALS: RESP 18; O2SAT 99
[2020-03-24] MEDS: morphine 4 mg/mL SDV 1 mL IVP (01:05)
[2020-03-24 01:07] LABS: Basophils # 0.1 10^3/uL (0.0-0.1); Basophils % 0.5 %; Eosinophils % 0.4 %; Hematocrit 33.5 % (37.0-47.0); Hemoglobin 10.1 g/dL (11.5-15.3); Lymphocytes # 0.7 10^3/uL (0.8-4.8); Lymphocytes % 7.2 %; Mean Corpuscular HGB Conc 30.1 g/dL (30.0-36.0); Mean Corpuscular Hemoglobin 29.5 pg (28.0-34.0); Mean Platelet Volume 11.3 fL (7.4-10.4); Monocytes # 1.2 10^3/uL (0.2-0.9); Monocytes % 13.3 %; Neutrophils # 7.25 10^3/uL (1.8-7.7); Nucleated Red Blood Cells % 0 %; Platelet Count 123 10^3/cmm (130-400); Red Blood Count 3.42 10^6/uL (4.1-5.3); White Blood Count 9.3 10^3/uL (4.0-10.0)
[2020-03-24 01:22] LABS: Alanine Aminotransferase 7 U/L (0-33); Albumin Level 3.6 g/dL (3.5-5.2); Alkaline Phosphatase 229 IU/L (35-105); Anion Gap 13.8 (5-19); Aspartate Amino Transferase 19 U/L (0-32); Blood Urea Nitrogen 14 mg/dL (6-20); Calcium 9.2 mg/dL (8.5-10.5); Carbon Dioxide 34 mmol/L (22-29); Chloride 90 mmol/L (98-107); Globulin 2.6 g/dL (1.3-4.6); Glomerular Filtration Rate 31.8 mL/min (90-130); Glucose 124 mg/dL (65-115); Osmolality Calculated 280 mOsm/kg (285-295); Potassium 3.8 mmol/L (3.5-5.1); Sodium 134 mmol/L (136-145); Total Bilirubin 0.9 mg/dL (0.15-1.2); Total Protein 6.2 g/dL (6.6-8.7)
[2020-03-24 01:23] LABS: Lactate (Lactic Acid level) 1.3 mmol/L (0.5-2.2)
[2020-03-24] MEDS: HYDROcodone-acetaminophen 10-325 mg Tablet 1 TAB PO (03:30)
[2020-03-24 03:33] VITALS: BP 96/54; PULSE 60; O2SAT 100
--- NOTE | 2020-03-24 10:17 | DCPLANNER ---
institutional asset manager had message to schedule a follow up appointment for patient with oncology. institutional asset manager called Shabana, at oncology, gave clinic patients information. institutional asset manager was told that patient has an appointment scheduled for Saturday, March 28, [address] Shirley. institutional asset manager was also told that patient was given a prescription for 120 Percocet. 7.5 - 325 and has went thru those in 10 days. institutional asset manager was also told that Dr. Lundberg is aware that patient is in pain. institutional asset manager was told that patient is aware of her appointment scheduled for 03.29.20.
--- NOTE | 2020-04-28 08:39 | DCPLANNER ---
Patient had a follow up appointment scheduled for 03.28.20 with oncology - patient did attend appointment.
== END 2020-03-24 03:33 | disposition home or self-care (01) ==
PROVIDERS: Nurse Practitioner Family; Emergency Provider Emergency Medicine; PCP Family Medicine
DX: G62.9 Polyneuropathy, unspecified (principal); G89.29 Other chronic pain; E86.0 Dehydration; Z92.21 Personal history of antineoplastic chemotherapy; Z79.01 Long term (current) use of anticoagulants; Z86.19 Personal history of other infectious and parasitic diseases; Z85.3 Personal history of malignant neoplasm of breast; I13.0 Hypertensive heart and chronic kidney disease with heart failure and stage 1 through stage 4 chronic kidney disease, or unspecified chronic kidney disease; N18.30 Chronic kidney disease, stage 3 unspecified; I50.30 Unspecified diastolic (congestive) heart failure; J44.9 Chronic obstructive pulmonary disease, unspecified; F17.210 Nicotine dependence, cigarettes, uncomplicated
CPT/HCPCS: 12345; 71045; 80053; 83605; 85025; 96361; 96374; 96375; 99282; 99283; J2270; J2405; J7040

== ENCOUNTER 2020-03-28 06:04 | Outpatient (RCR) | payer MEDICAID, SELFPAY ==
[2020-01-20 09:12] VITALS: BP 125/70; BMI 46.2
[2020-03-27 14:42] LABS: Basophils # 0.1 10^3/uL (0.0-0.1); Basophils % 0.7 %; Eosinophils # 0.1 10^3/uL (0.0-0.8); Eosinophils % 0.7 %; Hematocrit 33.8 % (37.0-47.0); Hemoglobin 10.3 g/dL (11.5-15.3); Lymphocytes # 0.7 10^3/uL (0.8-4.8); Mean Corpuscular HGB Conc 30.5 g/dL (30.0-36.0); Mean Corpuscular Hemoglobin 29.9 pg (28.0-34.0); Mean Corpuscular Volume 98.3 fL (81-99); Monocytes % 10.1 %; Neutrophils # 8.02 10^3/uL (1.8-7.7); Neutrophils % 81.1 %; Nucleated Red Blood Cells % 0 %; Platelet Count 130 10^3/cmm (130-400); Red Blood Count 3.44 10^6/uL (4.1-5.3); Red Cell Distribution Width 24.7 % (12.1-15.1); White Blood Count 9.9 10^3/uL (4.0-10.0)
[2020-03-27 16:24] LABS: Alanine Aminotransferase 8 U/L (0-33); Albumin Level 3.8 g/dL (3.5-5.2); Alkaline Phosphatase 198 IU/L (35-105); Anion Gap 16.3 (5-19); Aspartate Amino Transferase 19 U/L (0-32); Blood Urea Nitrogen 27 mg/dL (6-20); Calcium 9.4 mg/dL (8.5-10.5); Carbon Dioxide 32 mmol/L (22-29); Chloride 90 mmol/L (98-107); Globulin 2.3 g/dL (1.3-4.6); Glomerular Filtration Rate 36.8 mL/min (90-130); Glucose 83 mg/dL (65-115); Osmolality Calculated 282 mOsm/kg (285-295); Potassium 4.3 mmol/L (3.5-5.1); Sodium 134 mmol/L (136-145); Total Bilirubin 0.5 mg/dL (0.15-1.2); Total Protein 6.1 g/dL (6.6-8.7)
--- NOTE | 2020-03-28 17:03 | ONC FU_ITS ---
Dr. Lundberg follow up note Patient: Meka Bhatia Unit #: [id number]: [id number] Dicatated By: Serjio Lundberg M.D.Date of Visit:Mar 28, 2020 Onc Med Follow-up/Prog Note History of Present Illness: Ms. Bhatia is a 50-year-old female with history of left breast mass since May 2019. She reports that initially she felt fullness in outer part of her left breast, it got better on its own then again got bigger, she did notice some milky discharge from her left nipple, she thought she was lactating. In the meantime she started also having vaginal bleeding, as per patient about 2 years ago she stopped having menstrual periods and with this new vaginal bleeding, her primary care doctor concerned and refer her to [employer] Dr. Chowdary who ordered sonogram and some hormonal testing. While she was undergoing RADIATION OFFICER work-up on October 01, 2019 she underwent bilateral mammogram which showed right breast was unremarkable but in the left breast there was an area of concern which was 3.6 x 4.3 cm dense lobulated lesion with heterogeneous calcifications subsequently underwent ultrasound of left breast which showed at 3 o'clock position, 4 cm from the nipple there was a dense hypoechoic well-circumscribed nodule measuring 4.1 x 3.9 x 5.1 cm associated vascularity. No abnormal lymph nodes seen in left axilla. Subsequently patient underwent ultrasound-guided left breast biopsy on November 05, 2019 and final pathology report confirmed invasive ductal carcinoma, high nuclear grade with necrosis and molecular profiling showed triple negative disease e.g. ER less than 1% WI less than 1% HER-2/corina negative and Ki-67 was 90%. Patient was referred to Dr. Beaver, surgeon who did discuss with patient regarding upfront mastectomy versus lumpectomy versus neoadjuvant therapy to downsize the tumor. Patient opted for evaluation for neoadjuvant therapy. Patient denies any weight loss, denies any new bony pains patient denies any headaches blurred vision double vision patient denies any jaundice. As per patient she has history of renal failure/insufficiency and he used to be on hemodialysis but not anymore. He states he is not being followed by nephrology She also has some cardiac issues for which he is followed by Dr. Cartwright orthotist. She is on home oxygen and she has morbid obesity. She also has history of pulmonary embolism for which she is on Eliquis therapy Menarche at age 13, and last menstrual period was at age 47 40+ year history of smoking, still active. Echocardiogram done on December 06, 2019 showed ejection fraction around 50%, flattened septum in the diastole consistent with right ventricular volume overload., Severe pulmonary hypertension, when compared with prior echo from March 01, 2019 there appeared to be worsening of left ventricular function from normal 55% to mildly reduced 50% while there is a worsening of mitral and tricuspid valve regurgitation from moderate to severe now. recommended treating with neoadjuvant chemotherapy with Cytoxan/docetaxel with Neulasta support every 3 weeks x 4-6, which was started on December 21, 2019 .Follow-up ultrasound breast done after 4 cycles of chemo therapy with Cytoxan/Taxotere on March 23, 2020 showed interval decrease in size of left breast mass now 3. 8 x 3.1 x 4.4 cm compared to 4.1 x 3.9 x 5.1 cm and no other abnormality seen Came for follow-up, complaining of generalized weakness and fatigue, patient with last chemotherapy she had a very hard time to recover and affect on March 24, 2020 she went to [facility] [place] [facility] with severe pain, generalized weakness and fatigue as she ran out of her pain medication. Patient denies any fever chills denies any nausea or vomiting diarrhea constipation denies any nipple discharge from left breast denies any shortness of breath or palpitation at rest. Medications: Acetaminophen 1 Capsule (of 325 mg) Oral daily, Albuterol Sulfate 1 Puff(s) (of 108 (90 base) mcg/act) Aerosol Powder, Breath Activated Inhalation q 6 hours PRN, Apixaban 1 Tablet (of 5 mg) Oral b.i.d., Atenolol 1 Tablet (of 50 mg) Oral b.i.d., Azithromycin 1 Tablet (of 250 mg) Oral on Every Other Day, clonazePAM 1 Tablet (of 1 mg) Oral b.i.d. PRN, Cymbalta 1 Capsule (of 60 mg) Capsule Delayed Release Particles Oral daily, Dicyclomine HCl 1 Tablet (of 20 mg) Oral b.i.d., Furosemide (40 mg) Tablet Oral Take as Directed, Gabapentin 1 Capsule (of 300 mg) Oral t.i.d., Isosorbide Mononitrate ER 1 Tablet (of 60 mg) Tablet SR 24 HR Oral daily, Klor-Con M20 1 Tablet (of 20 meq) Tablet, controlled release Oral daily, Nitroglycerin Tablet, sublingual Sublingual PRN, Ondansetron 1 Tablet (of 4 mg) Tablet Dispersable Oral PRN, oxyCODONE-Acetaminophen 1 - 2 Tablet (of 5-325 mg) Oral q 6 to 8 hours PRN, Pantoprazole Sodium 1 Tablet (of 40 mg) Tablet, enteric coated Oral b.i.d., Prazosin HCl 1 Capsule (of 1 mg) Oral at bedtime, QUEtiapine Fumarate ER 1 Tablet (of 50 mg) Tablet SR 24 HR Oral at bedtime, QUEtiapine Fumarate ER 1 Tablet (of 300 mg) Tablet SR 24 HR Oral at bedtime, Revefenacin 1 (175 mcg/3mL) Solution Inhalation daily, Spironolactone 1 Tablet (of 50 mg) Oral daily, Victoza 1 Subcutaneous daily Allergies: Cephalexin and Ketorolac Tromethamine. Review of Systems: Constitutional - Appetite is fair and weight is stable. Positive for night sweats. Energy level is poor, ENMT - No sinus congestion/drainage. No mouth sores. No sore throat or difficulty swallowing, Hematologic/Lymphatic - Positive for easy bruising, Respiratory - Positive for shortness of breath. No cough. No pleuritic pain or hemoptysis. Pt is on portable oxygen, Cardiovascular - No angina pain. No palpitations, Gastrointestinal - Occasional nausea, no vomiting. No heartburn or acid reflux. Positive for diarrhea, no constipation. No blood in the stool or black stools, Genitourinary (F) - No dysuria or hematuria. Positive for urinary frequency. No urgency. Positive for incontinence, Musculoskeletal - Positive for generalized pain, Neurologic - No headache. Positive for dizziness. No numbness or tingling. No other focal neurologic symptoms, Psychiatric - Positive for anxiety and depression. Vital Signs: Performed on Mar 28, 2020 16:15 Height - 64.00 in Weight - 252 lbs (LOW) BSA - 2.16 sq.m BMI - 43.26 (HIGH) Temperature - 97.9 F (LOW) Pulse - 80 /min Respiration - 18 /min BP - 126/76 mm(hg) O2 Sat - 93 % (LOW) Performance Status: 1 - No physically strenuous activity, but ambulatory and able to carry out light or sedentary work (e.g. office work, light house work). (ECOG) Physical Examination: Respiratory - Lungs are clear to auscultation , Cardiovascular - Regular rate and rhythm of heart, Gastrointestinal - Soft, bowel sounds present, Extremities - No visible edema, no rash. Lab/Imaging: Test performed on Mar 13, 2020 13:10 Sodium 131 mmol/L Potassium 4.3 mmol/L Chloride 88 mmol/L CO2 37 mmol/L Anion Gap 10.3 BUN 30 mg/dL Creatinine 1.6 mg/dL Cr Clearance (Est) 87.4100 mL/min eGFR 34.1 mL/min Glucose 99 mg/dL Osmolality - Calculated 278 mOsm/kg Calcium 8.8 mg/dL Protein, Total 5.5 g/dL Albumin 3.1 g/dL Globulin 2.4 g/dL Bilirubin, Total 0.4 mg/dL ALT (SGPT) 12 U/L AST (SGOT) 19 U/L Alkaline Phosphatase 217 IU/L WBC 0.7 10 3/uL RBC 2.74 10 6/uL HGB 7.8 g/dL HCT 25.9 % MCV 94.5 fL MCH 28.5 pg MCHC 30.1 g/dL RDW 22.0 % Platelet Count 80 10 3/cmm MPV 12.9 fL Neutrophils 0.08 10 3/uL Lymphocytes 0.2 10 3/uL Monocytes 0.3 10 3/uL Eosinophils 0.1 10 3/uL Basophils 0.0 10 3/uL Neutrophil % 10.8 % Lymphocyte % 29.7 % Monocyte % 43.2 % Eosinophil % 6.8 % Basophils % 2.7 % NRBC % 0 % CBC Slide Review Slide Review Perform SLIDE REVIEW AGREES WITH AUTOMATED RESULTS Test performed on Jan 19, 2020 11:10 Cholesterol, Total 186 mg/dL HDL Cholesterol 51 mg/dL LDL Cholesterol 112 mg/dL Triglycerides 115 mg/dL Impression: Triple 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 Chowdary History of renal insufficiency, as per patient she used to be on hemodialysis but not anymore. History of hepatitis C Chronic hypercapnic respiratory failure, now on home oxygen Diastolic congestive heart failure. Pulmonary embolism on anticoagulation Posttraumatic stress disorder, anxiety, depression, panic disorder. Obstructive sleep apnea Chronic kidney disease stage III. Ms. Bhatia has been offered neoadjuvant chemotherapy with cyclophosphamide docetaxel with growth factor support. Her current cycles every 3 weeks for plan of 6 cycles. She is here today for cycle 2 but did not take her premed steroids. Plan: Discussed with patient regarding her labs white blood count 9.9 hemoglobin 10.3 hematocrit 33.8 platelets 130,000 CMP within normal limits except creatinine 1.5 Clinically, patient doing reasonably well tolerating neoadjuvant chemotherapy with Cytoxan/Taxotere reasonably well but with expected side effect now with progressive generalized weakness and fatigue and generalized body aches after each chemotherapy requiring significant amount of pain medication, her pain could be due to Neulasta. Follow-up left breast sonogram showed significant improvement in her left breast mass, at this point we will conclude her chemotherapy and refer her to surgery for evaluation and possible surgery, and we will see her back 2 weeks after surgery and review her final pathology report and make further decision regarding further treatment. Versus observation. Signed By: Serjio Lundberg M.D. <<Signature on File>>
== END 2020-04-10 23:59 | disposition home or self-care (01) ==
LOC: ONCMED 06:04
PROVIDERS: PCP Family Medicine; Visit Provider Internal Medicine Hematology & Oncology
DX: C50.812 Malignant neoplasm of overlapping sites of left female breast (principal); Z17.1 Estrogen receptor negative status [ER-]; J96.12 Chronic respiratory failure with hypercapnia; I50.30 Unspecified diastolic (congestive) heart failure; I26.99 Other pulmonary embolism without acute cor pulmonale; F43.10 Post-traumatic stress disorder, unspecified; F41.9 Anxiety disorder, unspecified; F32.9 Major depressive disorder, single episode, unspecified; F41.0 Panic disorder [episodic paroxysmal anxiety]; G47.33 Obstructive sleep apnea (adult) (pediatric); N18.30 Chronic kidney disease, stage 3 unspecified; Z79.01 Long term (current) use of anticoagulants; Z99.81 Dependence on supplemental oxygen; Z86.711 Personal history of pulmonary embolism; Z86.19 Personal history of other infectious and parasitic diseases
CPT/HCPCS: 80053; 85025; 99214

== ENCOUNTER → 2020-04-08 10:36 | Outpatient (BNVA) | payer MEDICAID, SELFPAY ==
[2020-01-20 09:12] VITALS: BP 125/70; BMI 46.2
== END ==
PROVIDERS: PCP Family Medicine; Visit Provider Surgery
DX: Z11.59 Encounter for screening for other viral diseases (principal); C50.912 Malignant neoplasm of unspecified site of left female breast
CPT/HCPCS: 87635

== ENCOUNTER 2020-04-11 06:00 | Outpatient (RCR) | payer MEDICAID, SELFPAY ==
[2020-01-20 09:12] VITALS: BP 125/70; BMI 46.2
== END 2020-05-11 23:59 | disposition home or self-care (01) ==
LOC: ONCMED 06:00
PROVIDERS: PCP Family Medicine; Visit Provider Internal Medicine Hematology & Oncology
DX: Z76.89 Persons encountering health services in other specified circumstances (principal)
CPT/HCPCS: 99213

== ENCOUNTER → 2020-04-12 15:34 | Outpatient (BNVA) | payer MEDICAID, SELFPAY ==
[2020-01-20 09:12] VITALS: BP 125/70; BMI 46.2
== END ==
PROVIDERS: PCP Family Medicine; Visit Provider Surgery
DX: Z20.828 Contact with and (suspected) exposure to other viral communicable diseases (principal); C50.912 Malignant neoplasm of unspecified site of left female breast
CPT/HCPCS: 87635

== ENCOUNTER 2020-04-17 07:24 | Day surgery (SDC) | payer MEDICAID, SELFPAY ==
[2020-01-20 09:12] VITALS: BP 125/70; BMI 46.2
[2020-04-14 15:35] VITALS: BMI 42.9
[2020-04-17] VITALS (9 sets, daily range): BP systolic 110–143; BP diastolic 49–103; PULSE 55–62; RESP 17–20; TEMP 36.1–36.8; O2SAT 90–100
[2020-04-17 08:01] LABS: Glucose Point of Care 102 mg/dL (70-110)
--- NOTE | 2020-04-17 08:06 | NM_ITS ---
WS: [id number] NUCLEAR MEDICINE SENTINEL LYMPH NODE IMAGING HISTORY: left sentinal lymph node biopsy COMPARISON: 03/23/2020. TECHNIQUE: The patient was injected with 1.03 mCi of Technetium 99 ultra filtered sulfur colloid. Inj ection is intradermal in a periareolar location. Four aliquots are used. Uncomplicated injection. NM/NM sentinel node inject [id number] IMPRESSION: LEFT breast sentinel lymph node injection.
--- NOTE | 2020-04-17 08:06 | W.PM.OPSUD ---
Surgery/Procedure H&P Update DATE OF PROCEDURE: April 17, 2020 DATE H&P PERFORMED: 04/04/20 H&P UPDATE INFORMATION: I have reviewed H&P completed within last 30 days, I have examined patient prior to procedure and No changes to prior documentation PREOP DIAGNOSIS: left breast cancer PLANNED PROCEDURE: Operation Date: 04/17/20 10:00 Proposed Procedures p left breast lumpectomy [id number] C50.912(Left) - Gwyn Beaver MD s Sentinal Lymph Node Biopsy(Not Applicable) - Gwyn Beavre MD
--- NOTE | 2020-04-17 08:42 | ANES.PREANE2 ---
Pre-Anesthetic Assessment Pre-Anesthetic Assessment: Height/Weight: Height 1.63 m Weight 113.398 kg Temp Pulse Resp BP Pulse Ox 98.3 F 55 L 18 136/49 96 04/17/20 07:48 04/17/20 07:48 04/17/20 07:48 04/17/20 07:48 04/17/20 07:48 Preop Diagnosis: left breast cancer Proposed Procedure: Operation Date: 04/17/20 10:00 Proposed Procedures p left breast lumpectomy [id number] C50.912(Left) - Gwyn Beaver MD s Sentinal Lymph Node Biopsy(Not Applicable) - Gwyn Beaver MD Familial anesthetic complications: None Was Beta Wagner taken within 24 hours: Yes Last intake: Intake Last Liquid Date 04/17/20 Last Liquid Time 00:00 Last Solid Date 04/17/20 Last Solid Time 00:00 Social: Social History: Tobacco and No alcohol Exam: Pre-Anes Outpt Exam: alert, oriented x 3, clear to auscultation bilaterally and regular rate & rhythm Airway: Cervical ROM: WNL MP: 1 Dentition: Other (no teeth) Pulmonary: Pulmonary: Asthma, COPD (severe) and Sleep apnea (cpap) Comments: hx PE CV/HEM: CV/HEM: CHF (diastolic) and HTN Comments: valvular heart disease echo CONCLUSIONS 1-Normal left ventricular cavity size. Mildly decreased left ventricular systolic function. Left ventricular ejection fraction is estimated at 50 %. Flattened septum in diastole consistent with right ventricle volume overload. Grade II/IV diastolic dysfunction, moderately elevated filling pressures. 2-Mildly increased right ventricular size. Severe pulmonary hypertension, RVSP 62.7 mmHg. 3-Moderate bi atrial enlargement 4-Moderately thickened mitral valve. Mild mitral annular calcification. Severe mitral valve regurgitation. 5-Severe tricuspid valve regurgitation. 6-There is no pericardial effusion. 7-Right atrial pressure is around 5 mm of mercury. 8-When compared to the prior echocardiogram dated 03/01/2019 there appeared to be worsening of left ventricle function from normal 55% to mildly reduced 50% while there is worsening of mitral and tricuspid valve regurgitation from moderate to severe now. Pulmonary artery systolic pressure is also in severe category which is worsened from 13mmHg to 60 mmHg : : Chronic renal Insufficiency (no longer on dialysis) GI: GI: GERD Metabolic: Metabolic: DM and Morbid obesity Musc/skel: Comments: breast cancer Neuropsych: Neuropsych: Anxiety and Bipolar Anesthetic Plan: ASA status: 4 Anesthesia: General Risk of > 500 ml blood loss (7ml/kg in children): No PFSH Anesthesia PFSH: Medical History Benign essential HTN Bipolar disorder, current episode mixed, severe, with psychotic features Cancer of left breast Chronic hepatitis C without hepatic coma Chronic hypercapnic respiratory failure Chronic kidney disease (CKD), stage III (moderate) Diastolic CHF Diastolic heart failure secondary to hypertension Gastritis GERD (gastroesophageal reflux disease) History of pulmonary embolism Hypertension Iron deficiency anemia Mitral valve insufficiency Orthopnea BINA (obstructive sleep apnea) Other stimulant dependence, in remission Panic disorder [episodic paroxysmal anxiety] Post-traumatic stress disorder, chronic Pulmonary embolism Severe chronic obstructive pulmonary disease Type 2 diabetes mellitus, without long-term current use of insulin Valvular heart disease Surgical History H/O cervical fracture (~1998) C4-6 H/O section 1987 1999 2001 H/O foot surgery (~2003) lefft-- ball of the foot H/O knee surgery (~1991) left knee patellar fracture H/O tracheostomy (~2002) H/O tubal ligation (~2001) History of colonoscopy History of esophagogastroduodenoscopy (EGD) Port-A-Cath in place (11/24/19) Status post dilation and curettage (~1998) Family History Brother CAD (coronary artery disease) Diabetes Grandfather Diabetes PGF Sister Hypertension Denies family history of Anesthesia complication Bleeding disorder Social History Smoking and tobacco status: current every day smoker cigarettes Packs smoked per day: 1 Years cigarettes smoked: 40 Quit status (tobacco): not considering quitting Smoking risk assessment/counseling performed?: Yes Alcohol intake: former Year of sobriety/quit date alcohol: 2016 Lives independently: Yes Household members: spouse Marital status: Current occupational status: disabled History of recent travel: No Current gender identity: Female Female Reproductive History: Date of last menstrual period: 12/11/19 Data Anesthesia Other Labs: Laboratory Results - last 48 hr 04/17/20 07:59 POC Glucose 102 Cardiac Studies: No Data to Display
[2020-04-17] MEDS: vancomycin 1,000 MG in sodium chloride 0.9% 250 ML 250 MG IV (09:45)
[2020-04-17] MEDS: sodium chloride 0.9% 1,000 ML 30 ML IV (09:45)
[2020-04-17] MEDS: isosulfan blue 10 mg/mL SDV 5mL SUBCUT (10:53)
[2020-04-17] MEDS: lidocaine 1% INJ 20 mL SUBCUT (12:00)
--- NOTE | 2020-04-17 12:45 | P.OP_ITS ---
Operative Report Date of procedure: April 17, 2020 Pre-op Diagnosis: left breast cancer Post-op Diagnosis: Left breast cancer status post neoadjuvant chemotherapy Procedure Done: Left breast lumpectomy with shave margins Left axillary sentinel lymph node biopsy Injection of 2 cc of 1% Lymphazurin Specimens removed/disposition: Left breast mass 3 o'clock position Shave margin superior, inferior, medial and posterior, outer edge inked Left axillary adipose tissue with Lymphazurin staining, no significant radioactivity noted Surgeon: Gwyn Beaver Anesthesia: General Condition: stable Disposition: PACU Procedure: The patient was transferred to operating room and placed under MAC after IV antibiotic had been administered. The left breast was prepped and draped in a manner . A curvilinear incision was made over the areolar margin at 3'o clock dissection was carried down to the palpable mass using electrocautery and the palpable mass was dissected free from the surrounding tissue. Using 2-0 silk suture, short stitch was placed superiorly and a long stitch was placed laterally.1 cm shave margins were obtained from the superior, inferior, medial, posterior aspect of the lumpectomy cavity and the outer edge was inked. The wound was irrigated with saline, hemostasis ensured with electrocautery and subcutaneous tissues approximated using 3-0 running Vicryl suture and skin was closed using running subcuticular 4-0 Monocryl sutures and Dermabond. A technetium sulfur colloid had been injected previously by the radiologist in the periareolar area. 2 mL of 1% Lymphazurin was injected in the subareolar lo cation. The breast was massaged for 5 minutes and a 2 cm incision was made in the left axilla at the edge of the hairline. The subcutaneous tissue and clavipectoral fascia was divided with electrocautery and gentle dissection revealed lymphatics with stained lymph nodes. There were multiple dilated veins which were clipped with medium titanium clips. Using electrocautery the axillary fatty tissue containing lymphatics stained with Lymphazurin was dissected and sent to pathology though there was no significant radioactivity noted. Examination of the axilla did not reveal any other lymph nodes. The clavipectoral and subcutaneous tissue was approximated using running 3-0 Vicryl suture and skin was closed using running subcuticular 4-0 Monocryl suture and Dermabond. 30 cc of 0.5% Marcaine was infiltrated at the 2 sites. Fluffs and pressure dressings were applied. Patient was transferred to recovery room in stable condition.
[2020-04-17] MEDS: HYDROcodone-acetaminophen 7.5-325 mg Tablet 2 TAB PO (13:11)
--- NOTE | 2020-04-17 15:49 | ANE.PACU2 ---
Inpatient post-anesthesia follow up: Airway intact: Yes Vital signs: Temperature 97.2 F Pulse Rate 56 Respiratory Rate 18 Blood Pressure 110/55 Pulse Oximetry 93 Oxygen Delivery Me thod Nasal Cannula Oxygen Flow Rate 3 Fraction of Inspir ed Oxygen Hydration adequate: Yes Nausea and vomiting: No Pain level: 1 Mental status: Baseline
== END 2020-04-17 13:45 | disposition home or self-care (01) ==
PROVIDERS: PCP Family Medicine; Visit Provider Surgery
PROC: (CPT 38500; principal; 2020-04-17 10:00)
PROC: (CPT 19301; 2020-04-17 10:00)
DX: C50.912 Malignant neoplasm of unspecified site of left female breast (principal); J44.9 Chronic obstructive pulmonary disease, unspecified; G47.30 Sleep apnea, unspecified; Z86.711 Personal history of pulmonary embolism; I11.0 Hypertensive heart disease with heart failure; I50.30 Unspecified diastolic (congestive) heart failure; K21.9 Gastro-esophageal reflux disease without esophagitis; E11.9 Type 2 diabetes mellitus without complications; E66.01 Morbid (severe) obesity due to excess calories; Z68.41 Body mass index [BMI] 40.0-44.9, adult; F41.9 Anxiety disorder, unspecified; F31.9 Bipolar disorder, unspecified; G47.33 Obstructive sleep apnea (adult) (pediatric); Z79.4 Long term (current) use of insulin
CPT/HCPCS: 19301; 38500; 12345; 36416; 38792; 82962; 88305; A9541; J2405; J2704; J3010; J3370; J3490; J7030; J7050; Q9968

== ENCOUNTER 2020-04-24 04:20 | Emergency (ER) | payer MEDICAID, SELFPAY ==
[2020-01-20 09:12] VITALS: BP 125/70; BMI 46.2
[2020-04-24 04:26] VITALS: BP 110/52; PULSE 75; RESP 18; TEMP 35.6; O2SAT 78; BMI 42.9
[2020-04-24 05:26] VITALS: RESP 24; O2SAT 97
[2020-04-24] MEDS: HYDROmorphone 1 mg/mL INJ 1 mL 2 MG IM (05:26)
--- NOTE | 2020-04-24 05:27 | ED_ITS ---
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 She presents with pain mainly to her right hip, although her knees have been hurting as well. She notes that she took her last chronic pain pill on Friday morning and has been without since that time. She presented pain because of this. She denies any fever or other new symptoms. She denies any trauma Onset (ago): day(s) Location: right and lower extremity Severity: severe Quality: stabbing and aching Pain Consistency: constant Relieving factors: none Exacerbating factors: movement Associated symptoms: Deny chest pain, cough, dyspnea, fevers/chills, nausea, palpitations or vomiting Review of Systems Const: Denies: fever(s) Card: Denies: chest pain or palpitations Resp: Denies: dyspnea GI: Denies: nausea or vomiting PFSH ED PFSH: Medical History (Updated 04/24/20 @ 05:06 by Seven Tanner DO) Benign essential HTN Bipolar disorder, current episode mixed, severe, with psychotic features Cancer of left breast Chronic hepatitis C without hepatic coma Chronic hypercapnic respiratory failure Chronic kidney disease (CKD), stage III (moderate) Diastolic CHF Diastolic heart failure secondary to hypertension Gastritis GERD (gastroesophageal reflux disease) History of pulmonary embolism Hypertension Iron deficiency anemia Mitral valve insufficiency Orthopnea BINA (obstructive sleep apnea) Other stimulant dependence, in remission Panic disorder [episodic paroxysmal anxiety] Post-traumatic stress disorder, chronic Pulmonary embolism Severe chronic obstructive pulmonary disease Type 2 diabetes mellitus, without long-term current use of insulin Valvular heart disease Surgical History (Updated 04/17/20 @ 12:58 by Gwyn Beaver MD) H/O cervical fracture (~1998) C4-6 H/O section 1987 1999 2001 H/O foot surgery (~2003) lefft-- ball of the foot H/O knee surgery (~1991) left knee patellar fracture H/O tracheostomy (~2002) H/O tubal ligation (~2001) History of colonoscopy History of esophagogastroduodenoscopy (EGD) Port-A-Cath in place (11/24/19) S/P lumpectomy, left breast (04/17/20) With sentinel lymph node biopsy Status post dilation and curettage (~1998) Family History Brother CAD (coronary artery disease) Diabetes Grandfather Diabetes PGF Sister Hypertension Denies family history of Anesthesia complication Bleeding disorder Social History Smoking and tobacco status: current every day smoker cigarettes Packs smoked per day: 1 Years cigarettes smoked: 40 Quit status (tobacco): not considering quitting Smoking risk assessment/counseling performed?: Yes Alcohol intake: former Year of sobriety/quit date alcohol: 2016 Lives independently: Yes Household members: spouse Marital status: Current occupational status: disabled History of recent travel: No Current gender identity: Female Female Reproductive History: Date of last menstrual period: 12/11/19 Physical Exam Const: COMMON NORMALS: patient oriented x3 GENERAL APPEARANCE: cooperative and appears older than stated age NUTRITIONAL APPEARANCE: obese Chest: COMMONS NORMALS: normal inspection of the chest Resp: COMMON NORMALS: normal respiratory effort, No retractions, No use of accessory muscles and clear to auscultation bilaterally AUSCULTATION: clear to auscultation bilaterally Cardio: COMMON NORMALS: regular rate, regular rhythm and No murmurs present (Cardio) RATE: regular rate RHYTHM: regular rhythm Extremity: NARRATIVE EXTREMITY EXAM: Exam the right hip reveals anterior and lateral tenderness. There is limitation in range of motion, especially with internal rotation, which causes her pain. Neuro: COMMON NORMALS: patient oriented x3 Course Vital Signs: Vital signs: Vital Signs Temperature 96.0 F L 04/24/20 04:26 Pulse Rate 76 04/24/20 05:29 Respiratory Rate 22 H 04/24/20 05:29 Blood Pressure 126/51 04/24/20 05:29 Pulse Oximetry 99 04/24/20 05:29 MDM - General Adult MDM Narrative: Medical decision making narrative: Patient is experiencing an exacerbation of her chronic pain related to running out of pain medication. I see no need for further testing at this time. She will be prescribed short course of pain medication with acute relief, but is warned that this will not happen again from the emergency department. Discharge Plan Discharge Patient Disposition: Home Clinical Impression: Hip osteoarthritis Qualifiers: Osteoarthritis type: primary Laterality: right Qualified Code(s): M16.11 - Unilateral primary osteoarthritis, right hip Condition: Stable Prescriptions: New hydrocodone-acetaminophen 5-325 mg tablet 1 tab PO Q8H PRN (Reason: pain) Qty: 7 RF: 0 No Action prochlorperazine maleate 10 mg tablet 10 mg PO Q4H PRN (Reason: Nausea) RF: 0 dexamethasone 4 mg tablet 8 mg PO BID RF: 0 lidocaine 5 % gel 5 % topical PRN RF: 0 nitroglycerin [Nitrostat] 0.4 mg tablet, sublingual 0.4 mg SUBLINGUAL Q5M PRN (Reason: Chest Pain) Qty: 90 RF: 3 gabapentin 300 mg capsule 300 mg PO TID Qty: 42 RF: 0 Eliquis 5 mg tablet 5 mg PO BID Qty: 60 RF: 2 Hold Instructions: Resume on 04/20/20. Lasix 40 mg tablet See Rx Instructions .ROUTE .COMPLEX Qty: 90 RF: 2 dicyclomine 20 mg tablet 20 mg PO BID Qty: 60 RF: 3 azithromycin 250 mg tablet 250 mg PO EVERY OTHER DAY Qty: 36 RF: 3 pantoprazole 40 mg tablet,delayed release (DR/EC) 40 mg PO BID Qty: 60 RF: 2 spironolactone 50 mg tablet 50 mg PO QAM Qty: 30 RF: 3 clonazepam 1 mg tablet 1 mg PO BID PRN (Reason: anxiety) Qty: 60 RF: 2 duloxetine [Cymbalta] 60 mg capsule,delayed release(DR/EC) 60 mg PO DAILY Qty: 30 RF: 2 prazosin 1 mg capsule 1 mg PO BEDTIME Qty: 30 RF: 2 quetiapine [Seroquel XR] 300 mg tablet extended release 24 hr 300 mg PO BEDTIME Qty: 30 RF: 2 Seroquel XR 50 mg tablet extended release 24 hr 50 mg PO BEDTIME Qty: 30 RF: 2 albuterol sulfate [ProAir HFA] 90 mcg/actuation HFA aerosol inhaler 2 puff INHALATION Q6H PRN (Reason: Shortness Of Breath) Qty: 8.5 RF: 4 Victoza 2-Bijan 0.6 mg/0.1 mL (18 mg/3 mL) pen injector 1.2 mg SUBCUT Q24H Qty: 6 RF: 0 isosorbide mononitrate 30 mg tablet extended release 24 hr 30 mg PO DAILY Qty: 90 RF: 0 revefenacin [Yupelri] 175 mcg/3 mL solution for nebulization See Rx Instructions .ROUTE .COMPLEX Qty: 90 RF: 3 fluticasone propionate 50 mcg/actuation spray,suspension See Rx Instructions .ROUTE .COMPLEX Qty: 16 RF: 3 potassium chloride 20 mEq tablet extended release 20 meq PO DAILY Qty: 30 RF: 0 atenolol 50 mg tablet 50 mg PO BID Qty: 60 RF: 0 ondansetron HCl [Zofran] 4 mg tablet 4 mg PO QID PRN (Reason: nausea and vomiting) Qty: 14 RF: 0 hydrocodone-acetaminophen 7.5-325 mg tablet 2 tab PO Q6H PRN (Reason: pain) RF: 0 Zofran 4 mg tablet 4 mg PO Q6H PRN (Reason: nausea and vomiting) Qty: 20 RF: 0 Colace 100 mg capsule 100 mg PO BID Qty: 30 RF: 0 acetaminophen [Tylenol Extra Strength] 500 mg Tablet 1,500 mg PO PRN RF: 0 hydrocodone-acetaminophen 7.5-325 mg tablet 1 tab PO Q6H PRN (Reason: pain) Qty: 16 RF: 0 Discharge Orders: Discharge ED (Routine); Ordered 04/24/20 Ordered By: Seven Tanner Referrals: Liz Marcos DO [Primary Care Provider] - 1-3 days Discharge Diet: Usual diet Discharge Activity: Increase activity as tolerated Patient Instructions: Osteoarthritis (ED) Activity Restrictions/Additional Instructions: Please do not present to the emergency department for pain medication related to chronic conditions again. You will not be given further prescription for this. This will be the only time. Coding Level of Care Code ED Demolition Engineer for Abdiel Stone
[2020-04-24 05:29] VITALS: BP 126/51; PULSE 76; RESP 22; O2SAT 99
== END 2020-04-24 05:30 | disposition home or self-care (01) ==
PROVIDERS: Emergency Provider Emergency Medicine; PCP Family Medicine
DX: M16.11 Unilateral primary osteoarthritis, right hip (principal); Z79.01 Long term (current) use of anticoagulants; I13.0 Hypertensive heart and chronic kidney disease with heart failure and stage 1 through stage 4 chronic kidney disease, or unspecified chronic kidney disease; N18.30 Chronic kidney disease, stage 3 unspecified; I50.30 Unspecified diastolic (congestive) heart failure; E11.22 Type 2 diabetes mellitus with diabetic chronic kidney disease; Z86.19 Personal history of other infectious and parasitic diseases; F17.210 Nicotine dependence, cigarettes, uncomplicated
CPT/HCPCS: 12345; 96372; 99281; 99283; J1170

== ENCOUNTER 2020-04-30 11:34 | Inpatient (IN) | payer MEDICAID, SELFPAY ==
[2020-01-20 09:12] VITALS: BP 125/70; BMI 46.2
[2020-04-30] VITALS (17 sets, daily range): BP systolic 115–170; BP diastolic 46–101; PULSE 54–70; RESP 10–20; TEMP 36.3; O2SAT 94–100; BMI 42.9
--- NOTE | 2020-04-30 | SCC_ITS ---
Procedure Done: Open reduction internal fixation using an intramedullary tibial nail of a comminuted right distal tibial shaft fracture which was open. Debridement of skin and subcutaneous tissue over tibia with irrigation of open fracture. 320.8 seconds of fluoroscopic guidance, for a cumulative dose of 6.34 mGy, was provided to Dr. Galdamez by the radiology department. C-arm images of the RIGHT tibia fibula were saved for the patient's permanent record. [facility]
--- NOTE | 2020-04-30 | XR_ITS ---
WS: [id number] C-ARM RADIOGRAPHS RIGHT TIBIA-FIBULA; 6 IMAGES HISTORY: ORIF COMPARISON: 04/30/2020 Intraoperative medullary dereck and screw fixation mid comminuted fracture involving the distal tibia. T here is an additional comminuted fracture involving the distal fibula and also proximal fibula. XR/XR tibia fibula RT 2V [id number] IMPRESSION: ORIF comminuted fracture distal tibia. Fracture fragments in good alignment.
--- NOTE | 2020-04-30 12:08 | XRR_ITS ---
PROCEDURE INFORMATION: Exam: XR Right Ankle Exam date and time: 04/30/2020 12:50 PM Age: 50 years old Clinical indication: Injury or trauma; Fall; Blunt trauma; Ankle; Right; Additional info: Fall, ankle injury? Open fracture TECHNIQUE: Imaging protocol: XR Right ankle. Views: 1 or 2 views. COMPARISON: No relevant prior studies available. FINDINGS: Bones/joints: Comminuted displaced fracture of the distal shaft of the tibia and fibula. Soft tissues: There is soft tissue laceration and subcutaneous emphysema in the medial aspect of the ankle. XR/XR ankle RT 2V [id number] IMPRESSION: 1. Comminuted displaced fracture distal shaft of the tibia and fibula. 2. Soft tissue laceration medial ankle
[2020-04-30] MEDS: ondansetron 2 mg/ML SDV 2 mL 4 MG IVP ×2 (12:25→22:36)
[2020-04-30] MEDS: morphine 4 mg/mL SDV 1 mL 8 MG IVP (12:27)
--- NOTE | 2020-04-30 12:33 | W.ED.EXTPRO ---
HPI - Extremity Problem General: Chief complaint: Extremity Injury, Lower Stated complaint: RIGHT ANKLE LACERATION S/P FALL Time Seen by Provider: 04/30/20 11:55 Source: patient Mode of arrival: EMS Limitations: no limitations History of Present Illness: HPI Narrative: Patient states that she was standing and her legs just gave out and she fell on her right ankle. She believes she broke the ankle and has a laceration there. She has a lot of pain and is unable to bear weight. She is brought in here to be evaluated Complaint: extremity pain Onset (ago): hour(s) (1) Pain Consistency: constant Location: right and lower extremity Severity scale (1-10): 10 Quality: sharp Radiation: none Relieving factors: nothing Exacerbating factors: nothing Associated symptoms: Deny arthralgias, chest pain, fever(s), myalgias, rash or short of breath Review of Systems General: Reports: 10 or more systems reviewed and unremarkable except in HPI and below Const: Denies: fever(s) Eyes: Denies: change in vision or blurry vision ENMT: Denies: throat pain, enlarged tonsils, odynophagia, hoarseness, mouth pain or swelling of lips/tongue Card: Denies: chest pain Resp: Denies: dyspnea, productive cough or non-productive cough GI: Denies: abdominal pain, nausea or vomiting : Denies: flank pain, difficulty voiding, dysuria, urinary frequency, urinary urgency or urinary hesitancy Musc: Denies: neck pain, back pain or extremity swelling Skin/Breast: Denies: rash Neuro: Denies: headache(s), numbness in extremities or weakness in extremities Endo: Denies: polyuria, polydipsia or tired all the time PFS ED PFSH: Medical History Benign essential HTN Bipolar disorder, current episode mixed, severe, with psychotic features Cancer of left breast Chronic hepatitis C without hepatic coma Chronic hypercapnic respiratory failure Chronic kidney disease (CKD), stage III (moderate) Diastolic CHF Diastolic heart failure secondary to hypertension Gastritis GERD (gastroesophageal reflux disease) History of pulmonary embolism Hypertension Iron deficiency anemia Mitral valve insufficiency Orthopnea BINA (obstructive sleep apnea) Other stimulant dependence, in remission Panic disorder [episodic paroxysmal anxiety] Post-traumatic stress disorder, chronic Pulmonary embolism Severe chronic obstructive pulmonary disease Type 2 diabetes mellitus, without long-term current use of insulin Valvular heart disease Surgical History H/O cervical fracture (~1998) C4-6 H/O section 1987 1999 2001 H/O foot surgery (~2003) lefft-- ball of the foot H/O knee surgery (~1991) left knee patellar fracture H/O tracheostomy (~2002) H/O tubal ligation (~2001) History of colonoscopy History of esophagogastroduodenoscopy (EGD) Port-A-Cath in place (11/24/19) S/P lumpectomy, left breast (04/17/20) With sentinel lymph node biopsy Status post dilation and curettage (~1998) Family History Brother CAD (coronary artery disease) Diabetes Grandfather Diabetes PGF Sister Hypertension Denies family history of Anesthesia complication Bleeding disorder Social History Smoking and tobacco status: current every day smoker cigarettes Packs smoked per day: 1 Years cigarettes smoked: 40 Quit status (tobacco): not considering quitting Smoking risk assessment/counseling performed?: Yes Alcohol intake: former Year of sobriety/quit date alcohol: 2016 Lives independently: Yes Household members: spouse Marital status: Current occupational status: disabled History of recent travel: No Current gender identity: Female Female Reproductive History: Date of last menstrual period: 12/11/19 Physical Exam Const: COMMON NORMALS: average body habitus, patient oriented x3, no limitations, healthy appearing, alert and well nourished GENERAL APPEARANCE: in distress HENMT: COMMON NORMALS: normocephalic, atraumatic and moist oral mucous membranes HEAD & SCALP: normocephalic and atraumatic Neck/C-Spine: COMMON NORMALS: no meningeal signs and no JVD Resp: COMMON NORMALS: normal respiratory effort, No retractions, No use of accessory muscles, clear to auscultation bilaterally and percussion normal AUSCULTATION: clear to auscultation bilaterally PERCUSSION: percussion normal Cardio: COMMON NORMALS: no JVD, regular rate, regular rhythm, S1 normal heart sound present, S2 normal heart sound present, No gallops present (Cardio), No clicks present (Cardio), No murmurs present (Cardio), No rub (Cardio) and Peripheral pulses 2+ throughout RATE: regular rate RHYTHM: regular rhythm HEART SOUNDS: S1 normal heart sound present and S2 normal heart sound present PERIPHERAL PULSES: Peripheral pulses 2+ throughout GI: COMMON NORMALS: Normal to inspection, nondistended, normoactive bowel sounds present, Soft to palpation, non-tender, No hepatosplenomegaly present, no masses and no bruits PALPATION: Yes Soft to palpation and Yes No hepatosplenomegaly present Extremity: COMMON NORMALS: normal to inspection, full ROM, capillary refill normal, no calf tenderness and no pedal edema RIGHT LOWER EXTREMITY: Yes foot & digits Right ankle: Yes inspection (deformity noted.), Yes palpation (tender to touch. ) and Yes neurovascular exam (intact. brisk cap refill. sensation intact) Neuro: COMMON NORMALS: patient oriented x3 SENSORIUM/ORIENTATION: Yes alert MENINGEAL SIGNS: Yes no meningeal signs Skin: COMMON NORMALS: no rashes or lesions noted, no wounds, turgor normal, no jaundice, no petechiae and no mottling GENERAL SKIN EXAM: no rashes or lesions noted and turgor normal Course Consultations: Consultation #1: Discussed the patient with Dr. Galdamez, orthopedic surgeon. She would like a CT scan to better evaluate the fracture and patient to be admitted to the medical team because of her comorbidities. Time: 13:14 Consultation #2: Discussed the patient with Dr. Umana, hospitalist and he kindly accepted the patient to his service. Time: 13:30 Vital Signs: Vital signs: Vital Signs Temperature 97.4 F L 04/30/20 14:45 Pulse Rate 55 L 04/30/20 14:45 Respiratory Rate 20 H 04/30/20 14:45 Blood Pressure 115/87 04/30/20 14:45 Pulse Oximetry 99 04/30/20 14:45 MDM - Extremity (Nontraumatic) MDM Narrative: Medical decision making narrative: 50-year-old female who sustained an open wound comminuted fracture of the distal tibia and a fracture of her distal fibula of her right lower extremity. She is taken to the OR from the emergency department and will be admitted to the hospitalist service after that. The right foot was neurovascularly intact. She was given tetanus immunization and an IV antibiotic in the emergency department prior to transfer to the OR. Medical Records: Attestation: I reviewed the patient's medical records. Lab Data: Attestation: I reviewed the patient's lab results. Labs: Lab Results 04/30/20 04/30/20 04/30/20 Range/Units 12:30 12:30 14:14 WBC 7.1 (4.0-10.0) 10^3/ uL RBC 2.45 L (4.1-5.3) 10^6/u L Hgb 7.7 L (11.5-15.3) g/dL Hct 25.7 L (37.0-47.0) % MCV 104.9 H (81-99) fL MCH 31.4 (28.0-34.0) pg MCHC 30.0 (30.0-36.0) g/dL RDW 17.2 H (12.1-15.1) % Plt Count 169 (130-400) 10^3/c mm MPV 12.6 H (7.4-10.4) fL Neut % (Auto) 78.4 % Lymph % (Auto) 6.6 % [place] % (Auto) 10.9 % Eos % (Auto) 3.4 % Baso % (Auto) 0.4 % Neut # (Auto) 5.56 (1.8-7.7) 10^3/u L Lymph # (Auto) 0.5 L (0.8-4.8) 10^3/u L [place] # (Auto) 0.8 (0.2-0.9) 10^3/u L Eos # (Auto) 0.2 (0.0-0.8) 10^3/u L Baso # (Auto) 0.0 (0.0-0.1) 10^3/u L Nucleated RBC % (a uto) 0 % Nucleated RBCs # 0.0 /100WBC Sodium 129 L (136-145) mmol/L Potassium 4.5 (3.5-5.1) mmol/L Chloride 89 L (98-107) mmol/L Carbon Dioxide 32 H (22-29) mmol/L Anion Gap 12.5 (5-19) BUN 27 H (6-20) mg/dL Creatinine 1.9 H (0.5-0.9) mg/dL GFR Calculation 28.0 L (90-130) mL/min Glucose 108 (65-115) mg/dL Calculated Osmolal ity 274 L (285-295) mOsm/k g Calcium 8.7 (8.5-10.5) mg/dL Total Bilirubin 0.5 (0.15-1.2) mg/dL AST 18 (0-32) U/L ALT 8 (0-33) U/L Alkaline Phosphata se 252 H (35-105) IU/L Total Protein 5.7 L (6.6-8.7) g/dL Albumin 3.4 L (3.5-5.2) g/dL Globulin 2.3 (1.3-4.6) g/dL SARS-CoV-2 Ag (Rap id) Negative (Negative) Blood Type Rho(D) Type Antibody Screen Crossmatch 04/30/20 Range/Units 14:35 WBC (4.0-10.0) 10^3/ uL RBC (4.1-5.3) 10^6/u L Hgb (11.5-15.3) g/dL Hct (37.0-47.0) % MCV (81-99) fL MCH (28.0-34.0) pg MCHC (30.0-36.0) g/dL RDW (12.1-15.1) % Plt Count (130-400) 10^3/c mm MPV (7.4-10.4) fL Neut % (Auto) % Lymph % (Auto) % [place] % (Auto) % Eos % (Auto) % Baso % (Auto) % Neut # (Auto) (1.8-7.7) 10^3/u L Lymph # (Auto) (0.8-4.8) 10^3/u L [place] # (Auto) (0.2-0.9) 10^3/u L Eos # (Auto) (0.0-0.8) 10^3/u L Baso # (Auto) (0.0-0.1) 10^3/u L Nucleated RBC % (a uto) % Nucleated RBCs # /100WBC Sodium (136-145) mmol/L Potassium (3.5-5.1) mmol/L Chloride (98-107) mmol/L Carbon Dioxide (22-29) mmol/L Anion Gap (5-19) BUN (6-20) mg/dL Creatinine (0.5-0.9) mg/dL GFR Calculation (90-130) mL/min Glucose (65-115) mg/dL Calculated Osmolal ity (285-295) mOsm/k g Calcium (8.5-10.5) mg/dL Total Bilirubin (0.15-1.2) mg/dL AST (0-32) U/L ALT (0-33) U/L Alkaline Phosphata se (35-105) IU/L Total Protein (6.6-8.7) g/dL Albumin (3.5-5.2) g/dL Globulin (1.3-4.6) g/dL SARS-CoV-2 Ag (Rap id) (Negative) Blood Type O Positive Rho(D) Type Positive Antibody Screen Negative Crossmatch See Detail Imaging Data^: Xray Ortho: Attestation: I personally reviewed and interpreted this imaging study as follows: Radiologist's impression: [address] [address] XRay Report Signed Patient: Meka Bhatia #: [id number] : 1970Acct#:[id number] Age/Sex: 50 / FADM Date: 04/30/20 Loc: [facility]/Bed: Attending Dr: Alexandria Galdamez MD Ordering Provider/Ordering MD: Jazz Schuster MD, [facility] Date of Service: 04/30/20 Procedure(s): XR ankle RT 2V 16524 Accession Number(s): [id number] Report Number: [id number] PROCEDURE INFORMATION: Exam: XR Right Ankle Exam date and time: 04/30/2020 12:50 PM Age: 50 years old Clinical indication: Injury or trauma; Fall; Blunt trauma; Ankle; Right; Additional info: Fall, ankle injury? Open fracture TECHNIQUE: Imaging protocol: XR Right ankle. Views: 1 or 2 views. COMPARISON: No relevant prior studies available. FINDINGS: Bones/joints: Comminuted displaced fracture of the distal shaft of the tibia and fibula. Soft tissues: There is soft tissue laceration and subcutaneous emphysema in the medial aspect of the ankle. XR/XR ankle RT 2V [id number] IMPRESSION: 1. Comminuted displaced fracture distal shaft of the tibia and fibula. 2. Soft tissue laceration medial ankle Dictated By:Earl Dai Signed By:Dawson Dia Date/Time:04/30/20 140 DD/ 04 CXR: Attestation: I personally reviewed and interpreted this imaging study as follows: Radiologist's impression: [address] [address] XRay Report Signed Patient: Meka Bhatia #: [id number] : 1970Acct#:[id number] Age/Sex: 50 / FADM Date: 04/30/20 Loc: [facility]/Bed: Attending Dr: Alexandria Galdamez MD Ordering Provider/Ordering MD: Jazz Schuster MD, [facility] Date of Service: 04/30/20 Procedure(s): XR chest 1V portable [id number] Accession Number(s): [id number] Report Number: [id number] PROCEDURE INFORMATION: Exam: XR Chest, 1 View Exam date and time: 04/30/2020 1:22 PM Age: 50 years old Clinical indication: Injury or trauma; Fall; Blunt trauma (contusions or hematomas); Additional info: Preop TECHNIQUE: Imaging protocol: XR of the chest Views: 1 view. COMPARISON: CR XR chest 1V portable [id number] 03/24/2020 1:17 AM FINDINGS: Tubes, catheters and devices: A right central line is in place extending into the right atrium Lungs: Unremarkable. No consolidation. Pleural space: Unremarkable. No pleural effusion. No pneumothorax. Heart/Mediastinum: Unremarkable. No cardiomegaly. Bones/joints: Metallic orthopedic hardware is seen cervical spine stable since prior. XR/XR chest 1V portable [id number] IMPRESSION: 1. No acute findings. 2. Right central line is in the right atrium. 3. Stable cervical spine surgical hardware Dictated By:Earl Dai Signed By:Dawson Dai Date/Time:04/30/201403 DD/ [address]: Radiologist's impression: [facility] [address] [place] [address] CT Scan Report Signed Patient: Meka Bhatia #: [id number] : 1970Acct#:[id number] Age/Sex: 50 / FADM Date: 04/30/20 Loc: [facility]/Bed: Attending Dr: Alexandria Galdamez MD Ordering Provider/Ordering MD: Jazz Schuster MD, [facility] Date of Service: 04/30/20 Procedure(s): CT ankle RT wo con* [id number] Accession Number(s): [id number] Report Number: [id number] PROCEDURE INFORMATION: Exam: CT Right Lower Extremity Without Contrast, Ankle Exam date and time: 04/30/2020 1:27 PM Age: 50 years old Clinical indication: Injury or trauma; Fracture, traumatic; Open fracture, severity classification not provided; Right; Not specified; Patient HX: Fall from standing - open FX R ankle; Additional info: Distal tibia fracture TECHNIQUE: Imaging protocol: CT of the Right lower extremity without contrast was performed. Exam focused on the ankle. Radiation optimization: All CT scans at this facility use at least one of these dose optimization techniques: automated exposure control; mA and/or kV adjustment per patient size (includes targeted exams where dose is matched to clinical indication); or iterative reconstruction. COMPARISON: CR (LOW EXM, ) 04/30/2020 12:50 PM RADIATION DOSE METRICS: Total DLP (mGy-cm): 148.17 FINDINGS: Bones/joints: Highly comminuted and displaced fracture coursing obliquely through the distal tibial shaft. The main distal fracture fragment is displaced laterally approximately 7 mm with 6 mm of bony overlap. Small medially displaced tibial fracture fragments extent to or through the medial skin surface consistent with an open fracture. Small amounts of air in and about the tibial fracture. Mildly displaced intra-articular fracture anterolateral aspect of distal tibia. Also, nondisplaced intra-articular fracture posterior corner of distal tibia best seen on the sagittal reformations. Highly comminuted mildly displaced fracture coursing obliquely through distal fibular shaft. Soft tissues: Generalized subcutaneous swelling/edema distal calf and dorsum of foot. CT/CT ankle RT wo con* [id number] IMPRESSION: Comminuted, displaced and overlapping open distal tibial shaft fracture. Additional intra-articular fractures anterolateral aspect of distal tibia and posterior corner of distal tibia. Comminuted mildly displaced distal fibular shaft fracture. Radiation Dose CTDIVOL = (mGy): DLP = 148.17 (mGy-cm) Dictated By:Sreedhar Scott MD Signed By:Sreedhar Scott MDSigned Date/Time:04/30/201428 DD/ 27 EKG Data^: EKG 1: Attestation: I personally reviewed and interpreted this EKG as follows: EKG interpretation date: 04/30/20 EKG interpretation time: 13:53 Prior EKG tracings: not available for review Interpretation: Sinus bradycardia. Heart rate [address] changes. 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
--- NOTE | 2020-04-30 13:17 | CTR_ITS ---
PROCEDURE INFORMATION: Exam: CT Right Lower Extremity Without Contrast, Ankle Exam date and time: 04/30/2020 1:27 PM Age: 50 years old Clinical indication: Injury or trauma; Fracture, traumatic; Open fracture, severity classification not provided; Right; Not specified; Patient HX: Fall from standing - open FX R ankle; Additional info: Distal tibia fracture TECHNIQUE: Imaging protocol: CT of the Right lower extremity without contrast was performed. Exam focused on the ankle. Radiation optimization: All CT scans at this facility use at least one of these dose optimization techniques: automated exposure control; mA and/or kV adjustment per patient size (includes targeted exams where dose is matched to clinical indication); or iterative reconstruction. COMPARISON: CR (LOW EXM, ) 04/30/2020 12:50 PM RADIATION DOSE METRICS: Total DLP (mGy-cm): 148.17 FINDINGS: Bones/joints: Highly comminuted and displaced fracture coursing obliquely through the distal tibial shaft. The main distal fracture fragment is displaced laterally approximately 7 mm with 6 mm of bony overlap. Small medially displaced tibial fracture fragments extent to or through the medial skin surface consistent with an open fracture. Small amounts of air in and about the tibial fracture. Mildly displaced intra-articular fracture anterolateral aspect of distal tibia. Also, nondisplaced intra-articular fracture posterior corner of distal tibia best seen on the sagittal reformations. Highly comminuted mildly displaced fracture coursing obliquely through distal fibular shaft. Soft tissues: Generalized subcutaneous swelling/edema distal calf and dorsum of foot. CT/CT ankle RT wo con* [id number] IMPRESSION: Comminuted, displaced and overlapping open distal tibial shaft fracture. Additional intra-articular fractures anterolateral aspect of distal tibia and posterior corner of distal tibia. Comminuted mildly displaced distal fibular shaft fracture. Radiation Dose CTDIVOL = (mGy): DLP = 148.17 (mGy-cm)
--- NOTE | 2020-04-30 13:17 | ECG_ITS ---
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 Measurements Intervals [place] Rate: 55 P: 55 MA: 203 QRS: 86 QRSD: 90 T: 54 QT: 401 QTc: 384 Interpretive Statements SINUS BRADYCARDIA LOW QRS VOLTAGE IN PRECORDIAL LEADS [QRS DEFLECTION < 1.0 mV IN CHEST LEADS] Compared to ECG 08/19/2019 18:07:32 Sinus rhythm no longer present Electronically Signed On 05-01-2020 20:34:14 RATING SPECIALIST by Minda Spence M.D. [email or web address]
--- NOTE | 2020-04-30 13:21 | XRR_ITS ---
PROCEDURE INFORMATION: Exam: XR Chest, 1 View Exam date and time: 04/30/2020 1:22 PM Age: 50 years old Clinical indication: Injury or trauma; Fall; Blunt trauma (contusions or hematomas); Additional info: Preop TECHNIQUE: Imaging protocol: XR of the chest Views: 1 view. COMPARISON: CR XR chest 1V portable [id number] 03/24/2020 1:17 AM FINDINGS: Tubes, catheters and devices: A right central line is in place extending into the right atrium Lungs: Unremarkable. No consolidation. Pleural space: Unremarkable. No pleural effusion. No pneumothorax. Heart/Mediastinum: Unremarkable. No cardiomegaly. Bones/joints: Metallic orthopedic hardware is seen cervical spine stable since prior. XR/XR chest 1V portable [id number] IMPRESSION: 1. No acute findings. 2. Right central line is in the right atrium. 3. Stable cervical spine surgical hardware
[2020-04-30 13:31] LABS: Basophils % 0.4 %; Eosinophils # 0.2 10^3/uL (0.0-0.8); Eosinophils % 3.4 %; Hematocrit 25.7 % (37.0-47.0); Hemoglobin 7.7 g/dL (11.5-15.3); Lymphocytes # 0.5 10^3/uL (0.8-4.8); Lymphocytes % 6.6 %; Mean Corpuscular Hemoglobin 31.4 pg (28.0-34.0); Mean Corpuscular Volume 104.9 fL (81-99); Mean Platelet Volume 12.6 fL (7.4-10.4); Monocytes # 0.8 10^3/uL (0.2-0.9); Monocytes % 10.9 %; Neutrophils # 5.56 10^3/uL (1.8-7.7); Neutrophils % 78.4 %; Nucleated Red Blood Cells % 0 %; Platelet Count 169 10^3/cmm (130-400); Red Blood Count 2.45 10^6/uL (4.1-5.3); Red Cell Distribution Width 17.2 % (12.1-15.1); White Blood Count 7.1 10^3/uL (4.0-10.0)
[2020-04-30] MEDS: tetanus-dipt-pertussis 0.5 mL SDV IM (13:32)
[2020-04-30 13:58] LABS: Alanine Aminotransferase 8 U/L (0-33); Albumin Level 3.4 g/dL (3.5-5.2); Alkaline Phosphatase 252 IU/L (35-105); Anion Gap 12.5 (5-19); Aspartate Amino Transferase 18 U/L (0-32); Blood Urea Nitrogen 27 mg/dL (6-20); Calcium 8.7 mg/dL (8.5-10.5); Carbon Dioxide 32 mmol/L (22-29); Chloride 89 mmol/L (98-107); Globulin 2.3 g/dL (1.3-4.6); Glucose 108 mg/dL (65-115); Osmolality Calculated 274 mOsm/kg (285-295); Potassium 4.5 mmol/L (3.5-5.1); Sodium 129 mmol/L (136-145); Total Bilirubin 0.5 mg/dL (0.15-1.2); Total Protein 5.7 g/dL (6.6-8.7)
[2020-04-30] MEDS: cefepime 1,000 MG in sodium chloride 0.9% (plus) 50 ML 100 MG IV (14:01)
--- NOTE | 2020-04-30 14:19 | P.ANESASSM_ITS ---
Pre-Anesthetic Assessment Pre-Anesthetic Assessment: Height/Weight: Height 1.63 m Weight 113.398 kg Pulse Resp BP Pulse Ox 70 17 127/46 97 04/30/20 11:42 04/30/20 12:27 04/30/20 11:42 04/30/20 11:42 Preop Diagnosis: left breast cancer Proposed Procedure: Operation Date: 04/30/20 14:00 Proposed Procedures p IM Tibial Nail Insertion(Right) - Alexandria Galdamez MD Was Beta Wagner taken within 24 hours: Yes Social: Social History: Tobacco and No alcohol Exam: Pre-Anes Outpt Exam: alert, oriented x 3, clear to auscultation bilaterally and regular rate & rhythm Airway: Submandibular: WNL Cervical ROM: WNL MP: 1 Dentition: False (upper and lower) History/ROS: No significant history except as noted Pulmonary: Pulmonary: COPD, RAMIREZ, Sleep apnea and SOB Comments: PE CV/HEM: CV/HEM: CHF and HTN Comments: severe mitral and tricuspid regurgitation. PAP 60mmhg : : Chronic renal Insufficiency Hepatic: Hepatic: Hepatitis (C) GI: GI: GERD Metabolic: Metabolic: DM and Morbid obesity Neuropsych: Neuropsych: Anxiety, Bipolar and Depression Anesthetic Plan: ASA status: 4E Anesthesia: Anesthesia Evaluation and General Risk of > 500 ml blood loss (7ml/kg in children): Yes, adequate IV access and fluids planned PFSH Anesthesia PFSH: Medical History Benign essential HTN Bipolar disorder, current episode mixed, severe, with psychotic features Cancer of left breast Chronic hepatitis C without hepatic coma Chronic hypercapnic respiratory failure Chronic kidney disease (CKD), stage III (moderate) Diastolic CHF Diastolic heart failure secondary to hypertension Gastritis GERD (gastroesophageal reflux disease) History of pulmonary embolism Hypertension Iron deficiency anemia Mitral valve insufficiency Orthopnea BINA (obstructive sleep apnea) Other stimulant dependence, in remission Panic disorder [episodic paroxysmal anxiety] Post-traumatic stress disorder, chronic Pulmonary embolism Severe chronic obstructive pulmonary disease Type 2 diabetes mellitus, without long-term current use of insulin Valvular heart disease Surgical History H/O cervical fracture (~1998) C4-6 H/O section 1987 1999 2001 H/O foot surgery (~2003) lefft-- ball of the foot H/O knee surgery (~1991) left knee patellar fracture H/O tracheostomy (~2002) H/O tubal ligation (~2001) History of colonoscopy History of esophagogastroduodenoscopy (EGD) Port-A-Cath in place (11/24/19) S/P lumpectomy, left breast (04/17/20) With sentinel lymph node biopsy Status post dilation and curettage (~1998) Family History Brother CAD (coronary artery disease) Diabetes Grandfather Diabetes PGF Sister Hypertension Denies family history of Anesthesia complication Bleeding disorder Social History Smoking and tobacco status: current every day smoker cigarettes Packs smoked per day: 1 Years cigarettes smoked: 40 Quit status (tobacco): not considering quitting Smoking risk assessment/counseling performed?: Yes Alcohol intake: former Year of sobriety/quit date alcohol: 2016 Lives independently: Yes Household members: spouse Marital status: Current occupational status: disabled History of recent travel: No Current gender identity: Female Female Reproductive History: Date of last menstrual period: 12/11/19 Data Anesthesia CBC & Chem 7: 04/30/20 12:30 04/30/20 12:30 Other Labs: Laboratory Results - last 48 hr 04/30/20 04/30/20 12:30 12:30 WBC 7.1 RBC 2.45 L Hgb 7.7 L Hct 25.7 L MCV 104.9 H MCH 31.4 MCHC 30.0 RDW 17.2 H Plt Count 169 MPV 12.6 H Neut % (Auto) 78.4 Lymph % (Auto) 6.6 [place] % (Auto) 10.9 Eos % (Auto) 3.4 Baso % (Auto) 0.4 Neut # (Auto) 5.56 Lymph # (Auto) 0.5 L [place] # (Auto) 0.8 Eos # (Auto) 0.2 Baso # (Auto) 0.0 Nucleated RBC % (auto) 0 Nucleated RBCs # 0.0 Sodium 129 L Potassium 4.5 Chloride 89 L Carbon Dioxide 32 H Anion Gap 12.5 BUN 27 H Creatinine 1.9 H GFR Calculation 28.0 L Glucose 108 Calculated Osmolality 274 L Calcium 8.7 Total Bilirubin 0.5 AST 18 ALT 8 Alkaline Phosphatase 252 H Total Protein 5.7 L Albumin 3.4 L Globulin 2.3 Cardiac Studies: No Data to Display
[2020-04-30 14:39] LABS: SARS Covid-2 Antigen Negative (Negative)
--- NOTE | 2020-04-30 14:40 | P.CONIM_ITS ---
Providers/Reason For Consult Consulting Physican/Specialty*: Dr. Alexandria Galdamez - Orthopedics Reason for Consult*: Open right tibia fracture Requesting Physcian: Dr. Schuster Attending Physician: Alexandria Galdamez MD Primary Care Provider: Liz Marcos DO History of Present Illness History of Present Illness Meka Bhatia is a 50 year old female who is in her usual state of poor health. She was at home and states that her legs just gave out and she fell directly onto her right ankle. She had a laceration over the ankle and was unable to weight-bear. The patient was brought to the emergency department via EMS and evaluated there. At that time, she was found to have an open distal tibial shaft fracture. Upon my review, additionally, she has a fracture of the lateral border of the tibia and also posterior malleolus. There is significant comminution of the fibular shaft as well as the tibial shaft. Review of Systems General: Reports: 10 or more systems reviewed and unremarkable except in HPI and below Const: Denies: fever(s) Eyes: Denies: change in vision, blurry vision or photophobia ENMT: Denies: throat pain or swelling of lips/tongue Card: Denies: chest pain Resp: Denies: productive cough or non-productive cough GI: Denies: abdominal pain, nausea or vomiting : Denies: flank pain, difficulty voiding, dysuria, urinary frequency, urinary urgency or urinary hesitancy Musc: Denies: extremity swelling or joint warmth Skin/Breast: Denies: rash Neuro: Denies: headache(s), numbness in extremities or weakness in extremities Endo: Denies: tired all the time All/Imm: Denies: acute wheezing Meds/Allergies Home Medications and Allergies Home Medications Medication Instructions Recorded Confirmed Last Taken Type nitroglycerin 0.4 mg sublingual 0.4 mg SUBLINGUAL Q5M PRN #90 tab 07/26/19 04/30/20 11/23/19 Rx tablet dexamethasone 4 mg tablet 8 mg PO BID tab 12/22/19 04/30/20 Unknown History furosemide 40 mg tablet See Rx Instructions .ROUTE 02/08/20 04/30/20 04/30/20 Rx .COMPLEX #90 tab azithromycin 250 mg tablet 250 mg PO EVERY OTHER DAY #36 tab 02/21/20 04/30/20 04/30/20 Rx clonazepam 1 mg tablet 1 mg PO BID PRN #60 tab 03/28/20 04/30/20 04/16/20 Rx albuterol sulfate 90 mcg/actuation 2 puff INHALATION Q6H PRN #8.5 g 04/10/20 04/30/20 04/30/20 Rx aerosol inhaler fluticasone propionate 50 See Rx Instructions .ROUTE 04/17/20 04/30/20 Unknown Rx mcg/actuation nasal .COMPLEX #16 g spray,suspension hydrocodone-acetaminophen 2 tab PO Q6H PRN 04/17/20 04/30/20 04/30/20 History ondansetron HCl [Zofran] 4 mg PO Q6H PRN #20 tab 04/17/20 04/30/20 Unknown Rx revefenacin 175 mcg/3 mL solution See Rx Instructions .ROUTE 04/17/20 04/30/20 Unknown Rx for nebulization .COMPLEX #90 ml Cymbalta 60 mg PO DAILY@0700 04/30/20 04/30/20 04/30/20 History Eliquis 5 mg PO BID@0700,182904/30/20 04/30/20 04/30/20 History Seroquel XR 50 mg PO BEDTIME@182904/30/20 04/30/20 04/29/20 History Seroquel XR 300 mg PO BEDTIME@182904/30/20 04/30/20 04/29/20 History atenolol 50 mg PO BID@0700,1830 04/30/20 04/30/20 04/30/20 History docusate sodium [Colace] 100 mg PO BID@0700,0 04/30/20 04/30/20 04/30/20 History gabapentin 300 mg PO TID@07,12,182904/30/20 04/30/20 04/30/20 History isosorbide mononitrate 60 mg PO DAILY@0700 04/30/20 04/30/20 04/30/20 History pantoprazole 40 mg PO BID@0700,1830 04/30/20 04/30/20 04/30/20 History potassium chloride 20 meq PO DAILY@0700 04/30/20 04/30/20 04/30/20 History prazosin 1 mg PO BEDTIME@183 04/30/20 04/30/20 04/29/20 History spironolactone 50 mg PO DAILY@0700 04/30/20 04/30/20 04/30/20 History Allergies Allergy/AdvReac Type Severity Reaction Status Date / Time cephalexin [From Keflex] Allergy ALG - HIVES Verified 04/28/20 09:06 ketorolac [From Toradol] Allergy Unknown Verified 04/28/20 09:06 PFSH Acute PFSH: Medical History Benign essential HTN Bipolar disorder, current episode mixed, severe, with psychotic features Cancer of left breast Chronic hepatitis C without hepatic coma Chronic hypercapnic respiratory failure Chronic kidney disease (CKD), stage III (moderate) Diastolic CHF Diastolic heart failure secondary to hypertension Gastritis GERD (gastroesophageal reflux disease) History of pulmonary embolism Hypertension Iron deficiency anemia Mitral valve insufficiency Orthopnea BINA (obstructive sleep apnea) Other stimulant dependence, in remission Panic disorder [episodic paroxysmal anxiety] Post-traumatic stress disorder, chronic Pulmonary embolism Severe chronic obstructive pulmonary disease Type 2 diabetes mellitus, without long-term current use of insulin Valvular heart disease Surgical History H/O cervical fracture (~1998) C4-6 H/O section 1987 1999 2001 H/O foot surgery (~2003) lefft-- ball of the foot H/O knee surgery (~1991) left knee patellar fracture H/O tracheostomy (~2002) H/O tubal ligation (~2001) History of colonoscopy History of esophagogastroduodenoscopy (EGD) Port-A-Cath in place (11/24/19) S/P lumpectomy, left breast (04/17/20) With sentinel lymph node biopsy Status post dilation and curettage (~1998) Family History Brother CAD (coronary artery disease) Diabetes Grandfather Diabetes PGF Sister Hypertension Denies family history of Anesthesia complication Bleeding disorder Social History Smoking and tobacco status: current every day smoker cigarettes Packs smoked p er day: 1 Years cigarettes smoked: 40 Quit status (tobacco): not considering quitting Smoking risk assessment/counseling performed?: Yes Alcohol intake: former Year of sobriety/quit date alcohol: 2016 Lives independently: Yes Household members: spouse Marital status: Current occupational status: disabled History of recent travel: No Current gender identity: Female Female Reproductive History: Date of last menstrual period: 12/11/19 Dietary Habits: Current diet type/program: regular Caffeine: Yes Vitals/I&O/Wt Last Vital Signs Pulse 70 04/30/20 11:42 Resp 17 04/30/20 12:27 BP 127/46 04/30/20 11:42 Pulse Ox 97 04/30/20 11:42 Weight last 48 hrs Weight 250 lb Physical Exam Const: GENERAL APPEARANCE: lethargic NUTRITIONAL APPEARANCE: obese ORIENTATION/CONSCIOUSNESS: Yes lethargic HENMT: COMMON NORMALS: normocephalic and atraumatic HEAD & SCALP: normocephalic and atraumatic Eye: GENERAL EYE: appearance normal, both eyes and all related structures Chest: COMMONS NORMALS: normal inspection of the chest Resp: COMMON NORMALS: normal respiratory effort EFFORT & INSPECTION: Yes symmetric chest movement Extremity: RIGHT LOWER EXTREMITY: Yes lower leg (Dressing is in place from the patient's open wound. This is not removed.) Right lower leg: Yes inspection (Patient is lethargic and uncooperative.) and Yes neurovascular exam (Able to assess secondary to lethargy. Good capillary refill) Neuro: SENSORIUM/ORIENTATION: Yes lethargic Psych: COMMON NORMALS: mental status grossly normal APPEARANCE: Yes grossly normal ATTITUDE: Yes calm Skin: COMMON NORMALS: no rashes or lesions noted GENERAL SKIN EXAM: no rashes or lesions noted Data Imaging^: Xray Ortho: I personally reviewed and interpreted this imaging study as follows: My impression: Patient has a distal tibia fracture which is comminuted. It involves the shaft of both the tibia and fibula distally. There also appears to be a posterior malleolar fragment as well. The mortise is not well visualized on the current images. Other CT: I personally reviewed and interpreted this imaging study as follows: My impression: CT images are reviewed. The fracture has a posterior malleolar as well as a lateral border of the tibia fragment as well as the comminuted fracture involving the distal tibial shaft and distal fibular shaft. There does not appear to be obvious extension into the joint aside from the separate fractures of the posterior malleolus and lateral malleolar fragment. A&P Assessment and plan (1) Displaced comminuted fracture of shaft of right tibia, initial encounter for open fracture type I or II: Status post fall resulting in open fracture of the distal tibia. This is a comminuted fracture involving not only the distal tibial shaft, but also the distal fibular shaft. Additionally, there is a posterior malleolar fracture as well as a fracture of the lateral border of the tibia. Patient is morbidly obese. She has multiple medical comorbidities. She is admitted to the medical service and will likely require ICU after her surgical intervention for closer monitoring. Status: Acute (2) Fracture, posterior malleolus: Status: Acute (3) Morbid obesity with body mass index (BMI) of 40.0 to 49.9: Status: Acute Consult Attestations Medical Necessity Statement: Patient require inpatient admission following open reduction internal fixation of distal tibia and fibular fractures. Coding Level of Care Code Acute [facility] [employer] for [facility] Fwd Exam Detailed Diagnoses Displaced comminuted fracture of shaft of right tibia, initial encounter for open fracture type I or II S82.251B Fracture, posterior malleolus S82.399A Morbid obesity with body mass index (BMI) of 40.0 to 49.9 E66.01
[2020-04-30] MEDS: sodium chloride 0.9% 1,000 ML 30 ML IV (14:45)
--- NOTE | 2020-04-30 14:47 | P.HP_ITS ---
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 Beaver on April 17, 2020, history of chronic hypercapnic respiratory failure secondary to COPD, current smoker, on 3 L, history of chronic pulmonary emboli on Eliquis, history of severe pulmonary hypertension, history of systolic and diastolic CHF, history of PTSD, anxiety, depression, obstructive sleep apnea, CKD stage III, hypertension, chronic hepatitis C, GERD, iron deficiency anemia, acute on chronic anemia, mitral valve insufficiency, history of right ventricular o verload, severe tricuspid valve regurg, severe mitral valve regurg who presents to [facility] due to fall. Currently patient was examined, she has received 8 mg of morphine, after her CAT scan of her right ankle, is on 3 L, is quite sleepy and groggy, is arousable, but does go back to sleep, tells me that she fell, she just lost her balance and fell, she has ankle pain, denies chest pain, denies shortness of breath, denies lightheadedness, denies dizziness, no history of cardiovascular disease, no history of strokes, does report COPD, is a smoker, uses oxygen, no history of problems with anesthesia, has a history of PE on Eliquis, tells me that she has breast cancer, just had surgery for her breast cancer I spoke to patient's over the phone, she tells me that he was at the grocery store when his called him, she told him back she suddenly lost her balance, and fell, her bone is sticking out of her right ankle, she is in a lot of pain, we told her to call EMS, He tells me that she has fallen quite frequently in the last few weeks Review of Systems General: Reports: ROS unobtainable due to medical condition Const: Denies: fever(s) Card: Denies: chest pain Resp: Denies: dyspnea GI: Denies: abdominal pain Musc: Reports: joint pain Medications/Allergies Home Medications Medication Instructions Recorded Confirmed Last Taken Type nitroglycerin 0.4 mg sublingual 0.4 mg SUBLINGUAL Q5M PRN #90 tab 07/26/19 04/30/20 11/23/19 Rx tablet dexamethasone 4 mg tablet 8 mg PO BID tab 12/22/19 04/30/20 Unknown History furosemide 40 mg tablet See Rx Instructions .ROUTE 02/08/20 04/30/20 04/30/20 Rx .COMPLEX #90 tab azithromycin 250 mg tablet 250 mg PO EVERY OTHER DAY #36 tab 02/21/20 04/30/20 04/30/20 Rx clonazepam 1 mg tablet 1 mg PO BID PRN #60 tab 03/28/20 04/30/20 04/16/20 Rx albuterol sulfate 90 mcg/actuation 2 puff INHALATION Q6H PRN #8.5 g 04/10/20 04/30/20 04/30/20 Rx aerosol inhaler fluticasone propionate 50 See Rx Instructions .ROUTE 04/17/20 04/30/20 Unknown Rx mcg/actuation nasal .COMPLEX #16 g spray,suspension hydrocodone-acetaminophen 2 tab PO Q6H PRN 04/17/20 04/30/20 04/30/20 History ondansetron HCl [Zofran] 4 mg PO Q6H PRN #20 tab 04/17/20 04/30/20 Unknown Rx revefenacin 175 mcg/3 mL solution See Rx Instructions .ROUTE 04/17/20 04/30/20 Unknown Rx for nebulization .COMPLEX #90 ml Cymbalta 60 mg PO DAILY@0700 04/30/20 04/30/20 04/30/20 History Eliquis 5 mg PO BID@07,182904/30/20 04/30/20 04/30/20 History Seroquel XR 50 mg PO BEDTIME@182904/30/20 04/30/20 04/29/20 History Seroquel XR 300 mg PO BEDTIME@182904/30/20 04/30/20 04/29/20 History atenolol 50 mg PO BID@0700,182904/30/20 04/30/20 04/30/20 History docusate sodium [Colace] 100 mg PO BID@0700,0 04/30/20 04/30/20 04/30/20 History gabapentin 300 mg PO TID@07,12,1830 04/30/20 04/30/20 04/30/20 History isosorbide mononitrate 60 mg PO DAILY@0700 04/30/20 04/30/20 04/30/20 History pantoprazole 40 mg PO BID@0700,1830 04/30/20 04/30/20 04/30/20 History potassium chloride 20 meq PO DAILY@0700 04/30/20 04/30/20 04/30/20 History prazosin 1 mg PO BEDTIME@1830 04/30/20 04/30/20 04/29/20 History spironolactone 50 mg PO DAILY@0700 04/30/20 04/30/20 04/30/20 History Allergies Allergy/AdvReac Type Severity Reaction Status Date / Time cephalexin [From Keflex] Allergy ALG - HIVES Verified 04/28/20 09:06 ketorolac [From Toradol] Allergy Unknown Verified 04/28/20 09:06 PFSH Acute PFSH: Medical History Benign essential HTN Bipolar disorder, current episode mixed, severe, with psychotic features Cancer of left breast Chronic hepatitis C without hepatic coma Chronic hypercapnic respiratory failure Chronic kidney disease (CKD), stage III (moderate) Diastolic CHF Diastolic heart failure secondary to hypertension Gastritis GERD (gastroesophageal reflux disease) History of pulmonary embolism Hypertension Iron deficiency anemia Mitral valve insufficiency Orthopnea BINA (obstructive sleep apnea) Other stimulant dependence, in remission Panic disorder [episodic paroxysmal anxiety] Post-traumatic stress disorder, chronic Pulmonary embolism Severe chronic obstructive pulmonary disease Type 2 diabetes mellitus, without long-term current use of insulin Valvular heart disease Surgical History H/O cervical fracture (~1998) C4-6 H/O section 1987 1999 2001 H/O foot surgery (~2003) lefft-- ball of the foot H/O knee surgery (~1991) left knee patellar fracture H/O tracheostomy (~2002) H/O tubal ligation (~2001) History of colonoscopy History of esophagogastroduodenoscopy (EGD) Port-A-Cath in place (11/24/19) S/P lumpectomy, left breast (04/17/20) With sentinel lymph node biopsy Status post dilation and curettage (~1998) Family History Brother CAD (coronary artery disease) Diabetes Grandfather Diabetes PGF Sister Hypertension Denies family history of Anesthesia complication Bleeding disorder Social History Smoking and tobacco status: current every day smoker cigarettes Packs smoked per day: 1 Years cigarettes smoked: 40 Quit status (tobacco): not considering quitting Smoking risk assessment/counseling performed?: Yes Alcohol intake: former Year of sobriety/quit date alcohol: 2015 Lives independently: Yes Household members: spouse Marital status: Current occupational status: disabled History of recent travel: No Current gender identity: Female Female Reproductive History: Date of last menstrual period: 12/11/19 Vitals/I&O/Wt Last Vital Signs Pulse 70 04/30/20 11:42 Resp 17 04/30/20 12:27 BP 127/46 04/30/20 11:42 Pulse Ox 97 04/30/20 11:42 Weight last 48 hrs Weight 113.398 kg Physical Exam Const: COMMON NORMALS: no acute distress GENERAL APPEARANCE: cooperative NUTRITIONAL APPEARANCE: obese ORIENTATION/CONSCIOUSNESS: Yes awake, Yes oriented to person and Yes oriented to place; not oriented to time OTHER: Quite somnolent, falls back asleep, but was arousable HENMT: COMMON NORMALS: normocephalic HEAD & SCALP: normocephalic Eye: COMMON NORMALS: Equal, round and reactive pupils present and EOMs intact bilaterally GENERAL EYE: appearance normal, both eyes and all related structures PUPIL: Yes Equal, round and reactive pupils present Neck/C-Spine: COMMON NORMALS: full ROM, no lymphadenopathy, no JVD and Thyroid normal THYROID: Thyroid normal Lymph: LYMPHATIC: no lymphadenopathy noted Resp: COMMON NORMALS: normal respiratory effort, No retractions, No use of accessory muscles and clear to auscultation bilaterally AUSCULTATION: clear to auscultation bilaterally Cardio: COMMON NORMALS: no JVD, regular rate, regular rhythm, S1 normal heart sound present, S2 normal heart sound present, No gallops present (Cardio), No clicks present (Cardio) and No murmurs present (Cardio) RATE: regular rate RHYTHM: regular rhythm HEART SOUNDS: S1 normal heart sound present and S2 normal heart sound present GI: COMMON NORMALS: Normal to inspection, nondistended, normoactive bowel sounds present, Soft to palpation, non-tender and No hepatosplenomegaly present PALPATION: Yes Soft to palpation and Yes No hepatosplenomegaly present Extremity: COMMON NORMALS: normal to inspection and full ROM NARRATIVE EXTREMITY EXAM: Right lower extremity, at the ankle level, wrapped in Kerlix, bloodsoaked Neuro: COMMON NORMALS: patient oriented x3 and moves all extremities OTHER: Difficulty with swallowing neurologic exam, as she is quite somnolent Psych: COMMON NORMALS: cooperative OTHER: Quite somnolent Data : 04/30/20 12:30 04/30/20 12:30 A&P Assessment and plan (1) Displaced comminuted fracture of shaft of right tibia, initial encounter for open fracture type I or II: -CT of the right ankle shows: Comminuted, displaced and overlapping open distal tibial shaft fracture. Additional intra-articular fractures anterolateral aspect of distal tibia and posterior corner of distal tibia. Comminuted mildly displaced distal fibular shaft fracture -Has a history of chronic respiratory failure with hypoxia and hypercapnia, COPD, current smoker, history of pulmonary emboli, recent history of breast cancer status post lumpectomy, type 2 diabetes, hypertension, systolic and diastolic CHF, severe mitral valve regurg, severe tricuspid valve regurg, CKD stage III -EKG showed sinus bradycardia, no acute ST-T wave changes, no complaints of chest pain, no CAD history -Chest x-ray had no acute findings, right central line is in the right atrium -Echocardiogram in November showed EF of 60%, grade 3 out of 4 diastolic dysfunction, evidence of severe pulmonary hypertension, severe mitral valve reg urg, severe tricuspid valve regurg -Patient is a moderate risk for a moderate risk surgery -Patient will have surgical intervention by Dr. Galdamez -Pain control as per orthopedic team -Anticoagulation as per orthopedic team -We will follow postoperatively in the ICU, patient is at risk of respiratory complications after surgery, will place patient on BiPAP after surgery, admit for monitoring, diuresis as needed -Acute on chronic anemia, hemoglobin currently 7.7, will check monitor for transfusion needs postoperatively -Serum sodium 139 and creatinine 1.9, likely secondary dehydration currently c ontinue to monitor to avoid fluid overload Status: Acute (2) Chronic respiratory failure with hypoxia and hypercapnia: Secondary to COPD, obesity hypoventilation syndrome, systolic and diastolic CHF -Monitor postoperatively in ICU -Place the patient on BiPAP, telemetry monitoring -Diuresis as needed -Avoid fluid overload -Would limit opiate medications Status: Acute (3) Morbid obesity with body mass index (BMI) of 40.0 to 49.9: Status: Acute (4) S/P lumpectomy, left breast: Status: Acute (5) Type 2 diabetes mellitus, without long-term current use of insulin: -Insulin sliding scale with low-dose Status: Acute Qualifiers: Diabetes mellitus complication status: without complication Qualified Code(s): E11.9 - Type 2 diabetes mellitus without complications (6) Port-A-Cath in place: Status: Acute (7) History of pulmonary embolism: -Eliquis on hold Status: Acute (8) BINA (obstructive sleep apnea): -BiPAP overnight Status: Acute (9) Valvular heart disease: -Severe mitral and tricuspid valve regurg Status: Acute (10) Benign essential HTN: -Hold blood pressure medications Status: Acute (11) Diastolic heart failure secondary to hypertension: Monitor for fluid overload Status: Acute (12) Post-traumatic stress disorder, chronic: Status: Acute (13) Bipolar disorder, current episode mixed, moderate: Status: Acute (14) Systolic and diastolic CHF, chronic: -No known cardiovascular disease -Recently had surgery by Dr. Beaver for lumpectomy, she seems like she tolerated surgery well -EKG no acute ST-T wave changes, no chest pain) shortness of breath complaints -We will monitor postoperatively in the ICU, for fluid overload, CHF exacerbation, keep a BiPAP, diuresis As needed Status: Acute (15) Acute on chronic anemia: -Hemoglobin 7.7, chronically runs between 9 and 10 -transfuse if hemoglobin less than 7 -Etiology likely multifactorial, related to malignancy and or slow GI bleed, Protonix 40 twice daily, Carafate Status: Acute Attestations Medical Necessity Statement*: Patient requires hospitalization, inpatient, greater than 2 midnights, for left ankle fracture, open fracture, requiring surgical intervention Coding Level of Care Code Acute Professor Of Communication for [facility] Fw Diagnoses Displaced comminuted fracture of shaft of right tibia, initial encounter for open fracture type I or II S82.251B Chronic respiratory failure with hypoxia and hypercapnia J96.11; J96.12 Morbid obesity with body mass index (BMI) of 40.0 to 49.9 E66.01 S/P lumpectomy, left breast Z98.890 Type 2 diabetes mellitus, without long-term current use of insulin E11.9 Diabetes mellitus complication status: without complication Port-A-Cath in place Z95.828 History of pulmonary embolism Z86.711 BINA (obstructive sleep apnea) G47.33 Valvular heart disease I38 Benign essential HTN I10 Diastolic heart failure secondary to hypertension I11.0; I50.30 Post-traumatic stress disorder, chronic F43.12 Bipolar disorder, current episode mixed, moderate F31.62 Systolic and diastolic CHF, chronic I50.42 Acute on chronic anemia D64.9
[2020-04-30] MEDS: vancomycin 1,000 MG in sodium chloride 0.9% 250 ML 250 MG IV (15:18)
--- NOTE | 2020-04-30 16:03 | SUR.PREOP ---
1441 PT TO ROOM OPS 11 PT SNORING RESP , DOES NOT AWAKE TO TOUCH, VSS IV TO RT AC PATENT DOUBLE LUMEN, SITE D/I RT ANKLE WITH FREDERIC WRAP BLEEDING THRU AND ON BLANKET AND PAD UNDER ANKLE . ANESTHESIA DR ESPITIA AND ANGEL MYLES AT BEDSIDE. 1445 IV NS UP AND AT KVO RATE, FOOT PUMP TO LT FOOT 1455 DR FOSTER TALKING WITH PT , AND RECIEVED VERBAL PERMISSION FOR PROCEDURE , PT NOW AWAKES TO LOUD VOICE , KNOWS NAME , VERBALLY AGREED TO SURGERY, DR FOSTER TALKING TO PT BUT PT FALLING ASLEEP AT TIMES, PT STATES SHE FELL AT HOME AND THAT SHE HAD NOT ATE TODAY. PT GLASSES OFF PT ON 3LNC SATS 99% NO DISTRESS NOTED PT QUICKLY BACK TO SLEEP.
[2020-04-30] MEDS: vancomycin 1,000 MG SDV 1000 MG IRRIGATION ×2 (16:22→16:30)
--- NOTE | 2020-04-30 18:26 | P.OP_ITS ---
Operative Report Date of procedure: April 30, 2020 Pre-op Diagnosis: Comminuted open distal tibia fracture right with fibula fracture Pre-op Diagnosis: with posterior malleolar fracture and lateral tibia fracture Post-op diagnosis: same Post-op Findings: Comminuted, severely displaced open right distal tibia fracture with associated posterior malleolar fracture and lateral tibia fracture Procedure Done: Open reduction internal fixation using an intramedullary tibial nail of a comminuted right distal tibial shaft fracture which was open. Debridement of skin and subcutaneous tissue over tibia with irrigation of open fracture. Implants: The T2 Alpha tibial nail system size 9 mm x 345 mm with a proximal advanced locking screw 5 mm x 50 mm screw and 2 distal advanced locking screws size 5 mm x 42.5 mm and 5 mm x 40 mm. Additionally, a T2 Alpha end cap +10 mm was placed. Pathology: none sent Surgeon: Alexandria Galdamez [employer] Access[employer] Salesperson: [facility] operating room technicians Anesthesia: General (Intubated, ASA 4) Estimated blood loss (mL): 150 Tourniquet time (min): 98 Tourniquet time: At 250 mmHg IV fluids (mL): 1,000 Urine output (mL): 500 Complications: None Findings: Severe comminution with bone loss of the distal tibial shaft fracture. Associated posterior malleolar fracture and lateral tibial fracture. Angulated Fibular shaft fracture, comminuted Condition: stable Disposition: ICU Brief History: This 50-year-old woman was in her usual poor state of health when she felt her bone give way under her while at home. She had a large laceration over the distal aspect of her tibia medially. There was comminuted bone in this laceration consistent with the patient's fracture. She was brought by EMS to the emergency department. She was x-rayed and appropriately evaluated. She was admitted to the medical service secondary to multiple medical comorbidities. She was then brought to the operating room to address her open tibia fracture. Procedure: Patient was seen in the preoperative holding area, a consult was accomplished, and consents were signed after discussion with the patient and her by phone. The patient was very sedated and unable to answer or consent. Patient was brought to the operating theater and placed on the operating room table. After undergoing adequate general anesthesia per endotracheal tube, the patient's right lower extremity was prepped and draped in usual fashion utilizing DuraPrep. The leg was draped free. Fluoroscopy was used throughout the surgical procedure. We did have a tourniquet high on the left lower extremity. This was elevated to 250 mmHg and total tourniquet time was 98 minutes. A surgical pause was performed. At the time of the surgical pause we identified the site and side of surgery as well as the patient's identity and availability of equipment. We also confirmed appropriate administration of IV antibiotics vancomycin 1 g. Following the above, the incision was minimally extended the area of the patient's open fracture. This allowed us access to the comminuted fracture. We were able to open the fracture and copiously irrigated with 6 L of fluid containing vancomycin. The wound and the fracture were both very clean. There was no evidence of dirt, debris, or cloth. Irrigation was accomplished, it was suctioned dry. Small bone fragments were removed from the area. There was bone loss in the area of the open fracture as well. Debridement of skin and soft tissues was accomplished appropriately. Attention was then directed to the area of the knee. An incision was made slightly lateral to the patient's patellar tendon. We then retracted soft tissues to place the entry point for the intramedullary nail in the middle in an AP direction. We also monitored position in the lateral x-ray. Guidewire was placed and a entry reamer was placed over this. The short guidewire was then removed and a long ball-tipped guidewire was passed. We were able to pass this guidewire through the fracture and down to the ankle. We placed this as distal as possible secondary to the distal nature of the tibia fracture. We monitored fracture position during passing of the guidewire as well as reaming. We measured the length of the nail, and we chose the 345 mm T2 Alpha North tibial nail. This was 9 mm in diameter after we had reamed. Reaming was accomplished and even the 9 mm reamer was tight. We then reamed to a 10.5 mm to allow placement of the 9 mm nail. The 9 mm nail was then passed over the guidewire without difficulty. The guidewire was removed but the jogging system was left in position. 1 screw was placed proximally from lateral to medial. This was accomplished through the jig and was accomplished without difficulty. We then used the targeting guide system distally. Due to the patient's body habitus. We did have to adjust the alignment of the guide, but it gave us excellent position of the screw. We placed 2 screws medial to lateral. The screws were placed in position was confirmed in AP and lateral planes on fluoroscopy. Fracture reduction was held throughout placement of the screws. Fluoroscopy was then used to visualize the fracture proximally and distally in both AP and lateral planes. We confirmed screws were through the nail. They were in good position and of appropriate lengths. Therefore, attention was directed to closure. Throughout the surgical procedure and at the conclusion of the procedure we did use fluoroscopy. The incision over the area of the open fracture was closed with 2-0 Monocryl in the subcutaneous tissues. The skin was closed with skin juan. Proximally, the wound was closed with a combination of 0 Vicryl deep and 2-0 Monocryl in the subcutaneous tissues. The skin was then closed with skin juan. Sterile dressing was placed consisting of Xeroform gauze, 4 x 4's, sterile soft roll and an Constantine wrap. The patient was placed in a posterior and sugar tong splint and is to remain nonweightbearing. The procedure was well tolerated without complication. Tourniquet time was 98 minutes at 250 mmHg. The patient will be discharged sense of care unit under medical management secondary to her multiple medical comorbidities. Associated Problem List Diagnoses (1) Fracture of right fibula, shaft: Qualifiers: Encounter type: initial encounter Fracture alignment: nondisplaced Fracture morphology: comminuted Fracture type: open Open fracture type: open type I or II Qualified Code(s): S82.454B - Nondisplaced comminuted fracture of shaft of right fibula, initial encounter for open fracture type I or II (2) Displaced comminuted fracture of shaft of right tibia, initial encounter for open fracture type I or II: (3) Fracture, posterior malleolus: Qualifiers: Encounter type: initial encounter Fracture type: closed Laterality: right Qualified Code(s): S82.391A - Other fracture of lower end of right tibia, initial encounter for closed fracture
--- NOTE | 2020-04-30 19:12 | PC.NURSE ---
Pt arrives to ICu from OR. Pt obtunded/sedated. Report given to MEEK Camarena
[2020-04-30] MEDS: ipratropium-albuterol 3 mL Neb INHALATION ×2 (19:29→23:35)
--- NOTE | 2020-04-30 19:34 | PC.NURSE ---
1920 - patient sat up in bed due to being flat in bed with oral airway in place, Bipap placed on patient per MD request, Patient continues to remain unable to maintain consciousness at this time. Will open eyes temporarily to noxious stimuli (chest rub with verbal stimulation).
[2020-04-30 20:34] LABS: Blood Gas Allen Test Pos; Blood Gas Sample Site Radial, right; Blood Gas Sample Type Arterial
[2020-04-30 20:47] LABS: ABG PH Result 7.26 (7.35-7.45); Arterial Blood Gas Hematocrit 27.8 % (37-47); Base Excess ABG 1.2 mmol/L (-2.0-2.0); Blood Gas Operator Identificat JB; HCO3 ABG 29.1 mmol/L (22-26); Oxygen Device BIPAP; PO2 ABG 75.6 mmHg (80.0-100.0)
[2020-04-30 22:07] LABS: ABG PCO2 65.1 mmHg (35-45)
[2020-04-30] MEDS: morphine 4 mg/mL SDV 1 mL 2 MG IVP (22:36)
--- NOTE | 2020-04-30 23:23 | PC.NURSE ---
actively recovering patient from OR. Patient is difficult to maintain awake and active at this time. Tolerating bipap.
[2020-05-01] VITALS (41 sets, daily range): BP systolic 95–158; BP diastolic 44–96; PULSE 61–77; RESP 11–23; TEMP 36.4–37.2; O2SAT 90–96
[2020-05-01] MEDS: HYDROmorphone 1 mg/mL INJ 1 mL IVP ×9 (00:24→23:00)
[2020-05-01 01:49] LABS: NT Pro B Type Natriuretic Pept 3481 pg/mL (0-125)
[2020-05-01] MEDS: ipratropium-albuterol 3 mL Neb INHALATION ×5 (02:59→21:03)
[2020-05-01 04:45] LABS: Basophils % 0.1 %; Hematocrit 26.6 % (37.0-47.0); Hemoglobin 8.1 g/dL (11.5-15.3); Lymphocytes # 0.2 10^3/uL (0.8-4.8); Lymphocytes % 1.8 %; Mean Corpuscular HGB Conc 30.5 g/dL (30.0-36.0); Mean Corpuscular Hemoglobin 30.8 pg (28.0-34.0); Mean Corpuscular Volume 101.1 fL (81-99); Mean Platelet Volume 11.6 fL (7.4-10.4); Monocytes # 0.6 10^3/uL (0.2-0.9); Monocytes % 4.9 %; Neutrophils # 11.24 10^3/uL (1.8-7.7); Neutrophils % 92.7 %; Nucleated Red Blood Cells % 0 %; Platelet Count 187 10^3/cmm (130-400); Red Blood Count 2.63 10^6/uL (4.1-5.3); Red Cell Distribution Width 18.6 % (12.1-15.1); White Blood Count 12.1 10^3/uL (4.0-10.0)
[2020-05-01 05:04] LABS: Anion Gap 11.6 (5-19); Blood Urea Nitrogen 26 mg/dL (6-20); Calcium 9.1 mg/dL (8.5-10.5); Carbon Dioxide 34 mmol/L (22-29); Chloride 93 mmol/L (98-107); Glomerular Filtration Rate 34.1 mL/min (90-130); Glucose 123 mg/dL (65-115); Osmolality Calculated 284 mOsm/kg (285-295); Potassium 4.6 mmol/L (3.5-5.1); Sodium 134 mmol/L (136-145)
--- NOTE | 2020-05-01 06:16 | PC.NURSE ---
made aware of serosainguinous discharge from site, notified Dr. Mcnamara per dr. Galdamez's request, Holding eliquis this am
--- NOTE | 2020-05-01 09:36 | PC.CHAP ---
Pastoral Care Encounter/Spiritual Assessment Type of Contact [] Declined special effects designer visit [] Patient/Family/Request visit [] Outpatient visit [] Follow-up visit [] Physician referral [] Code/Alert [] Routine visit [] Staff referral [] Actively dying [] Patient sleeping [] Family support [] [] Out of room [] Palliative care [] [] Receiving care in room [] Pre-surgical visit [] Trauma [] Long length of stay [x] ICU visit [] Other: Relational/Emotional Strength [] Patient feels connected with others/family/visitors/staff [] Distress [] Loneliness/isolation [] Abandonment Spirituality of Patient [] Person of Gaby [] Attends Gnosticist of their Gaby [] Believes in Prayer [] Reads Bible or Holiness materials [] There are Spiritual issues to be addressed Local Hazmat Driver Interventions [x] Prayer [] Active listening [] Non-anxious presence [] Spiritual/emotional support [] Crisis/trauma care [] Spiritual counseling [] Bereavement support [] Provided bereavement packet [] Provided Bible/devotional materials [] Provided toy/stuffed animal, coloring book to patient or family member [] Provided Communion [] Anointing/[place] [] Salvation [x] Completed spiritual assessment [] Other: Impact on Illness or Injury [] Angry [] Fearful [] Anxious [] Often cries [] Exhaustion [] Unable to work [] Unable to attend jewish [] Unable to walk/stand [] Unable to read [] Unable to drive [] Unable to eat/drink [] Unable to sleep [] Unable to be with family [] Patient intubated [] Other: Summary Time spent with patient
--- NOTE | 2020-05-01 10:51 | PM.PN ---
Subjective Subjective: Interval history: s/p open reduction internal fixation using an intra medullary tibial nail of a comminuted right distal tibial shaft fracture which was open on 04/30. There is some no soaking of blood and serous discharge noted at the surgical site, patient complains of pain at the site however no other complaints at this time. Overnight ABG showed some evidence of respiratory acidosis with hypercapnia, resolved after remaining BiPAP overnight. Currently on home O2 requirement of 3 L/min. Hemoglobin stable at 8.1 this morning, At recent baseline. Medications: Reviewed: Yes Vitals/I&O/Wt Last Vital Signs Temp 98.1 F 05/01/20 04:00 Pulse 69 05/01/20 07:52 Resp 14 05/01/20 08:36 BP 131/79 05/01/20 06:00 Pulse Ox 96 05/01/20 08:36 04/30/20 05/01/20 05/01/20 22:59 06:59 14:59 Intake Total 1350 / 1350 150 / 150 Output Total 1150 / 1150 2500 / 3650 1400 / 1400 Balance 200 / 200 -2500 / -2300 -1250 / -1250 Weight last 48 hrs Weight 129.727 kg Weight 113.398 kg Physical Exam Narrative: EXAM NARRATIVE: GEN: Awake, alert and oriented, no acute distress CVS: S1S2 N RS: CTA B/L Abd: Soft, nt/nd , bs+ SURVEILLANCE SENSOR OPERATOR: no focal neuro deficits EXT: Right calf dressing in place with some soakage, not opened for exam by me, please refer to orthopedics exam Urinary Catheter Management^: Bush: Cath Placed During This Visit: yes Reason for Continuing Indwelling Catheter: Accurate Measurement of Urinary Output in Critically Ill Patients Urinary Catheter Date of Insertion: 04/30/20 Urinary Catheter Time of Insertion: 15:42 Data : 05/01/20 04:30 05/01/20 04:30 A&P Assessment and plan (1) Displaced comminuted fracture of shaft of right tibia, initial encounter for open fracture type I or II: -s/p ORIF on 04/30/20 - no acute evnets perioperatively -Has a history of chronic respiratory failure with hypoxia and hypercapnia, COPD, current smoker, history of pulmonary emboli, recent history of breast cancer status post lumpectomy, type 2 diabetes, hypertension, systolic and diastolic CHF, severe mitral valve regurg, severe tricuspid valve regurg, CKD stage III -EKG showed sinus bradycardia, no acute ST-T wave changes, no complaints of chest pain, no CAD history -Chest x-ray had no acute findings, right central line is in the right atrium -Echocardiogram in November showed EF of 60%, grade 3 out of 4 diastolic dysfunction, evidence of severe pulmonary hypertension, severe mitral valve regurg, severe tricuspid valve regurg -Eliquis placed on hold today due to bleeding at surgical site. -Patient needed BiPAP overnight, this morning she is back on her usual oxygen requirement of 3 L/min. Hemoglobin currently stable at 8.1. Transfer out of ICU to [facility] today. Status: Acute (2) Chronic respiratory failure with hypoxia and hypercapnia: Secondary to COPD, obesity hypoventilation syndrome, systolic and diastolic CHF -continue Bipap at night time -Diuresis as needed -Avoid fluid overload -Would limit opiate medications as far as possible Status: Acute (3) Morbid obesity with body mass index (BMI) of 40.0 to 49.9: Status: Acute (4) S/P lumpectomy, left breast: on 04/17, margins clear , sentinel lymph node biopsy without malignancy , no further chemo planned for now per discussion with oncology. Will need follow up post discharge Status: Acute (5) Type 2 diabetes mellitus, without long-term current use of insulin: -Insulin sliding scale with low-dose Status: Acute Qualifiers: Diabetes mellitus complication status: without complication Qualified Code(s): E11.9 - Type 2 diabetes mellitus without complications (6) Port-A-Cath in place: Status: Acute (7) History of pulmonary embolism: -Eliquis on hold due to bleedign at site Status: Acute (8) BINA (obstructive sleep apnea): -BiPAP overnight Status: Acute (9) Valvular heart disease: -Severe mitral and tricuspid valve regurg Status: Acute (10) Benign essential HTN: -Hold blood pressure medications Status: Acute (11) Diastolic heart failure secondary to hypertension: Monitor for fluid overload Status: Acute (12) Post-traumatic stress disorder, chronic: Status: Acute (13) Bipolar disorder, current episode mixed, moderate: Status: Acute (14) Systolic and diastolic CHF, chronic: -No known cardiovascular disease -Recently had surgery by Dr. Beaver for lumpectomy, -EKG no acute ST-T wave changes, no chest pain) shortness of breath complaints As needed Status: Acute (15) Acute on chronic anemia: -Hemoglobin 7.7, chronically runs between 9 and 10 -transfuse if hemoglobin less than 7 -Etiology likely multifactorial, related to malignancy and or slow GI bleed, Protonix 40 twice daily, Carafate Status: Acute Attestations Medical Necessity Statement*: Patient is postop day 1 from open reduction internal fixation, needs close postop monitoring, PT OT. Coding Level of Care Code Acute Driller Machine for Chg Fwd Diagnoses Displaced comminuted fracture of shaft of right tibia, initial encounter for open fracture type I or II S82.251B Chronic respiratory failure with hypoxia and hypercapnia J96.11; J96.12 Morbid obesity with body mass index (BMI) of 40.0 to 49.9 E66.01 S/P lumpectomy, left breast Z98.890 Type 2 diabetes mellitus, without long-term current use of insulin E11.9 Diabetes mellitus complication status: without complication Port-A-Cath in place Z95.828 History of pulmonary embolism Z86.711 BINA (obstructive sleep apnea) G47.33 Valvular heart disease I38 Benign essential HTN I10 Diastolic heart failure secondary to hypertension I11.0; I50.30 Post-traumatic stress disorder, chronic F43.12 Bipolar disorder, current episode mixed, moderate F31.62 Systolic and diastolic CHF, chronic I50.42 Acute on chronic anemia D64.9
[2020-05-01] MEDS: gabapentin 300 mg Capsule PO ×2 (11:58→17:41)
[2020-05-01] MEDS: FUROsemide 10 mg/mL SDV 4mL 40 MG IVP ×2 (11:58→23:46)
--- NOTE | 2020-05-01 13:37 | PC.NURSE ---
It was reported to me during shift change that the patient was a Diabetic. During rounds I had mentioned this to the Dr and we started her on sliding scale insulin. When I went into the patients room for a glucose check She informed me that she has never had DM and that she has never checked her glucose. Patient refused all care for this as she stated she never has done any of it before.
--- NOTE | 2020-05-01 13:52 | P.PN_ITS ---
Subjective Subjective: Interval history: Patient had a good night. She does complain of pain. She has worked a bit with physical therapy. Medications: Reviewed: Yes Vitals/I&O/Wt Last Vital Signs Temp 98.5 F 05/01/20 12:00 Pulse 70 05/01/20 13:00 Resp 21 H 05/01/20 13:00 BP 124/56 05/01/20 12:00 Pulse Ox 94 05/01/20 13:00 04/30/20 05/01/20 05/01/20 22:59 06:59 14:59 Intake Total 1350 / 1350 400 / 400 Output Total 1150 / 1150 2500 / 3650 2350 / 2350 Balance 200 / 200 -2500 / -2300 -1950 / -1950 Weight last 48 hrs Weight 286 lb Weight 250 lb Physical Exam Const: COMMON NORMALS: no acute distress, patient oriented x3 and alert GENERAL APPEARANCE: cooperative and comfortable NUTRITIONAL APPEARANCE: obese ORIENTATION/CONSCIOUSNESS: Yes awake HENMT: COMMON NORMALS: normocephalic and atraumatic HEAD & SCALP: normocephalic and atraumatic Eye: GENERAL EYE: appearance normal, both eyes and all related structures Chest: COMMONS NORMALS: normal inspection of the chest Resp: COMMON NORMALS: normal respiratory effort EFFORT & INSPECTION: Yes able to speak in complete sentences and Yes symmetric chest movement Extremity: RIGHT LOWER EXTREMITY: Yes knee joint (There is bleeding from the insertion site of the tibial nail.) Right knee: Yes inspection (There is no evidence of infection.), Yes palpation (No significant swelling.), Yes ROM (Not evaluated.) and Yes neurovascular exam (Intact) and Yes lower leg (Open lacerati on from the fracture) Right lower leg: Yes inspection (Wound is well approximated, no drainage.) Neuro: COMMON NORMALS: patient oriented x3 SENSORIUM/ORIENTATION: Yes alert Psych: COMMON NORMALS: mental status grossly normal APPEARANCE: Yes grossly normal ATTITUDE: Yes calm and Yes engaged ATTENTION/CONCENTRATION: Yes attention grossly intact Skin: COMMON NORMALS: no rashes or lesions noted GENERAL SKIN EXAM: no rashes or lesions noted Urinary Catheter Management^: Bush: Cath Placed During This Visit: yes Reason for Continuing Indwelling Catheter: Accurate Measurement of Urinary Output in Critically Ill Patients Urinary Catheter Date of Insertion: 04/30/20 Urinary Catheter Time of Insertion: 15:42 Data : 05/01/20 04:30 05/01/20 04:30 A&P Assessment and plan (1) Displaced comminuted fracture of shaft of right tibia, initial encounter for open fracture type I or II: Patient was admitted last evening with an open distal tibia and fibula comminuted fracture. There is an associated proximal fibula fracture as well. There is also a posterior malleolar fracture and lateral tibial fracture. This was addressed with an intramedullary nail. There is some bleeding from the insertion site of the nail secondary to the patient's chronic use of Eliquis. She currently is on hold from this. She is neurologically intact. There is no evidence of infection. Dressings are removed and changed. She will be fitted with a cam walker boot for ambulation activities, but she may be out of it while in bed. The patient will require group home at the time of discharge as she will need to be nonweightbearing for 2 to 3 months. She has a very comminuted unstable fracture. Status: Acute (2) Fracture of right fibula, shaft: Status: Acute Qualifiers: Encounter type: initial encounter Fracture alignment: nondisplaced Fracture morphology: comminuted Fracture type: open Open fracture type: open type I or II Qualified Code(s): S82.454B - Nondisplaced comminuted fracture of shaft of right fibula, initial encounter for open fracture type I or II (3) Fracture, posterior malleolus: Status: Acute Qualifiers: Encounter type: initial encounter Fracture type: closed Laterality: right Qualified Code(s): S82.391A - Other fracture of lower end of right tibia, initial encounter for closed fracture Attestations Medical Necessity Statement*: Patient requires inpatient admission for medical management after open comminuted tib-fib fracture. Coding Level of Care Code Acute Associate [employer] for [facility] Fwd Exam Comprehensive Diagnoses Displaced comminuted fracture of shaft of right tibia, initial encounter for open fracture type I or II S82.251B Fracture of right fibula, shaft S82.454B Encounter type: initial encounter Fracture alignment: nondisplaced Fracture morphology: comminuted Fracture type: open Open fracture type: open type I or II Fracture, posterior malleolus S82.391A Encounter type: initial encounter Fracture type: closed Laterality: right
[2020-05-01] MEDS: vancomycin 1,000 MG in sodium chloride 0.9% 250 ML 250 MG IV (15:09)
--- NOTE | 2020-05-01 15:21 | PC.NURSE ---
Wound Surgical incisions on right leg are draining bright red blood. MD gave verbal orders for dressing. Distal pulses palpable.
[2020-05-01] MEDS: apixaban 5 mg Tablet PO (16:21)
[2020-05-01] MEDS: pantoprazole DR 40 mg Tablet PO (17:41)
[2020-05-01] MEDS: quetiapine XR (24HR) 300 mg Tablet PO (17:41)
[2020-05-01] MEDS: atenolol 50 mg Tablet 25 MG PO (17:41)
--- NOTE | 2020-05-01 18:34 | PC.NURSE ---
Call to Dr. Cast was notified of bright red blood and amount. No new orders
--- NOTE | 2020-05-01 18:35 | PC.NURSE ---
Transfer Pt was transferred to [facility] via bed at 0625. All belongings were with pt.
--- NOTE | 2020-05-01 18:41 | PC.NURSE ---
Pt had low blood pressure reading, primary nurse was notified.
[2020-05-01] MEDS: lanolin oint 7 gm 1 APPLIC TOPICAL (19:51)
[2020-05-02] VITALS (35 sets, daily range): BP systolic 94–136; BP diastolic 36–73; PULSE 66–82; RESP 14–22; TEMP 36.4–37.2; O2SAT 93–99
[2020-05-02] MEDS: ipratropium-albuterol 3 mL Neb INHALATION ×6 (00:23→20:00)
[2020-05-02] MEDS: HYDROmorphone 1 mg/mL INJ 1 mL IVP ×6 (02:57→17:27)
[2020-05-02] MEDS: pantoprazole DR 40 mg Tablet PO ×2 (06:40→17:26)
[2020-05-02] MEDS: atenolol 50 mg Tablet 25 MG PO ×2 (06:41→17:24)
[2020-05-02] MEDS: duloxetine 60 mg Capsule PO (06:41)
[2020-05-02] MEDS: gabapentin 300 mg Capsule PO ×3 (06:41→17:26)
[2020-05-02 06:56] LABS: Basophils % 0.1 %; Lymphocytes # 0.4 10^3/uL (0.8-4.8); Lymphocytes % 3.8 %; Mean Corpuscular HGB Conc 30.8 g/dL (30.0-36.0); Mean Corpuscular Volume 100.5 fL (81-99); Mean Platelet Volume 11.4 fL (7.4-10.4); Monocytes # 1.4 10^3/uL (0.2-0.9); Monocytes % 12.5 %; Neutrophils # 9.42 10^3/uL (1.8-7.7); Neutrophils % 83.2 %; Nucleated Red Blood Cells % 0 %; Platelet Count 179 10^3/cmm (130-400); Red Blood Count 1.84 10^6/uL (4.1-5.3); Red Cell Distribution Width 17.7 % (12.1-15.1); White Blood Count 11.3 10^3/uL (4.0-10.0)
[2020-05-02 07:20] LABS: Blood Urea Nitrogen 24 mg/dL (6-20); Carbon Dioxide 37 mmol/L (22-29); Chloride 90 mmol/L (98-107); Glomerular Filtration Rate 52.6 mL/min (90-130); Glucose 102 mg/dL (65-115); Osmolality Calculated 284 mOsm/kg (285-295); Sodium 135 mmol/L (136-145)
[2020-05-02 07:25] LABS: Hematocrit 18.5 % (37.0-47.0); Hemoglobin 5.7 g/dL (11.5-15.3)
[2020-05-02] MEDS: apixaban 5 mg Tablet PO ×2 (08:24→17:26)
[2020-05-02] MEDS: nicotine 21 mg Patch 1 PATCH TRANSDERMA (09:09)
[2020-05-02] MEDS: FUROsemide 10 mg/mL SDV 4mL 40 MG IVP (11:01)
[2020-05-02] MEDS: sodium chloride 0.9% (100 ml) 100 ML 10 ML (11:58)
--- NOTE | 2020-05-02 12:49 | PC.OT ---
Patient receiving blood tx withheld this date. Assist with meal set up prior to leaving room.
--- NOTE | 2020-05-02 13:23 | PM.PN ---
Subjective Subjective: Interval history: hb drop to 5.7 today, ordered 2 units transfusion, hemodynamics stable Medications: Reviewed: Yes Vitals/I&O/Wt Last Vital Signs Temp 98.6 F 05/02/20 12:27 Pulse 74 05/02/20 12:50 Resp 18 05/02/20 12:27 BP 113/57 05/02/20 12:27 Pulse Ox 94 05/02/20 12:27 05/01/20 05/02/20 05/02/20 22:59 06:59 14:59 Intake Total 1000 / 1400 240 / 240 Output Total 1350 / 3700 2150 / 5850 700 / 700 Balance -1350 / -3300 -1150 / -4450 -460 / -460 Weight last 48 hrs Weight 129.727 kg Physical Exam Narrative: EXAM NARRATIVE: GEN: Awake, alert and oriented, no acute distress CVS: S1S@2 N RS: CTA B/L Abd: Soft, nt/nd , bs+ BUSINESS PERFORMANCE ANALYST: no focal neuro deficits Urinary Catheter Management^: Bush: Cath Placed During This Visit: yes Reason for Continuing Indwelling Catheter: Accurate Measurement of Urinary Output in Critically Ill Patients Urinary Catheter Date of Insertion: 04/30/20 Urinary Catheter Time of Insertion: 15:42 Data : 05/02/20 05:50 05/02/20 05:50 A&P Assessment and plan (1) Displaced comminuted fracture of shaft of right tibia, initial encounter for open fracture type I or II: -s/p ORIF on 04/30/20 - no acute evnets perioperatively -Has a history of chronic respiratory failure with hypoxia and hypercapnia, COPD, current smoker, history of pulmonary emboli, recent history of breast cancer status post lumpectomy, type 2 diabetes, hypertension, systolic and diastolic CHF, severe mitral valve regurg, severe tricuspid valve regurg, CKD stage III -EKG showed sinus bradycardia, no acute ST-T wave changes, no complaints of chest pain, no CAD history -Chest x-ray had no acute findings, right central line is in the right atrium -Echocardiogram in November showed EF of 60%, grade 3 out of 4 diastolic dysfunction, evidence of severe pulmonary hypertension, severe mitral valve regurg, severe tricuspid valve regurg -Eliquis placed on hold today due to bleeding at surgical site and hb drop to 5.7 -Patient needed BiPAP overnight, this morning she is back on her usual oxygen requirement of 3 L/min. Hemoglobin currently stable at 8.1. Transfer out of ICU to [facility] today. Status: Acute (2) Chronic respiratory failure with hypoxia and hypercapnia: Secondary to COPD, obesity hypoventilation syndrome, systolic and diastolic CHF -continue Bipap at night time -Diuresis as needed -Avoid fluid overload -Would limit opiate medications as far as possible Status: Acute (3) Morbid obesity with body mass index (BMI) of 40.0 to 49.9: Status: Acute (4) S/P lumpectomy, left breast: on 04/17, margins clear , sentinel lymph node biopsy without malignancy , no further chemo planned for now per discussion with oncology. Will need follow up post discharge Status: Acute (5) Type 2 diabetes mellitus, without long-term current use of insulin: -Insulin sliding scale with low-dose Status: Acute Qualifiers: Diabetes mellitus complication status: without complication Qualified Code(s): E11.9 - Type 2 diabetes mellitus without complications (6) Port-A-Cath in place: Status: Acute (7) History of pulmonary embolism: -Eliquis on hold due to bleedign at site Status: Acute (8) BINA (obstructive sleep apnea): -BiPAP overnight Status: Acute (9) Valvular heart disease: -Severe mitral and tricuspid valve regurg Status: Acute (10) Benign essential HTN: -Hold blood pressure medications Status: Acute (11) Diastolic heart failure secondary to hypertension: Monitor for fluid overload Status: Acute (12) Post-traumatic stress disorder, chronic: Status: Acute (13) Bipolar disorder, current episode mixed, moderate: Status: Acute (14) Systolic and diastolic CHF, chronic: -No known cardiovascular disease -Recently had surgery by Dr. Beaver for lumpectomy, -EKG no acute ST-T wave changes, no chest pain) shortness of breath complaints As needed Status: Acute (15) Acute on chronic anemia: -Hemoglobin 7.7, chronically runs between 9 and 10 -transfuse if hemoglobin less than 7 -Etiology likely multifactorial, related to malignancy and or slow GI bleed, Protonix 40 twice daily, Carafate Status: Acute (16) Anemia: secondary to blood loss 2units tranfsuion ordered rpt h7H at 6pm, Status: Acute Additional A&P Information dispo: D/c to SNF Attestations Medical Necessity Statement*: anemia from blood loss, tranfsuion, close hb monitoring, SNF placemetn Coding Level of Care Code Acute 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 [employer] Diagnoses Displaced comminuted fracture of shaft of right tibia, initial encounter for open fracture type I or II S82.251B Chronic respiratory failure with hypoxia and hypercapnia J96.11; J96.12 Morbid obesity with body mass index (BMI) of 40.0 to 49.9 E66.01 S/P lumpectomy, left breast Z98.890 Type 2 diabetes mellitus, without long-term current use of insulin E11.9 Diabetes mellitus complication status: without complication Port-A-Cath in place Z95.828 History of pulmonary embolism Z86.711 BINA (obstructive sleep apnea) G47.33 Valvular heart disease I38 Benign essential HTN I10 Diastolic heart failure secondary to hypertension I11.0; I50.30 Post-traumatic stress disorder, chronic F43.12 Bipolar disorder, current episode mixed, moderate F31.62 Systolic and diastolic CHF, chronic I50.42 Acute on chronic anemia D64.9 Anemia D64.9
--- NOTE | 2020-05-02 13:52 | PC.RESP ---
SMOKING CESSATION INFORMATION SENT TO PATIENT.
[2020-05-02] MEDS: HYDROcodone-acetaminophen 5-325 mg Tablet 1 TAB PO ×2 (14:32→21:15)
[2020-05-02] MEDS: quetiapine XR (24HR) 300 mg Tablet PO (17:35)
--- NOTE | 2020-05-02 18:07 | P.PN_ITS ---
Subjective Subjective: Interval history: Patient is improving and has been transferred from the ICU to the regular surgical floor. She is in good spirits. Medications: Reviewed: Yes Vitals/I&O/Wt Last Vital Signs Temp 98.3 F 05/02/20 16:30 Pulse 72 05/02/20 16:30 Resp 16 05/02/20 17:27 BP 107/73 05/02/20 16:30 Pulse Ox 95 05/02/20 16:30 05/02/20 05/02/20 05/02/20 06:59 14:59 22:59 Intake Total 1000 / 1400 830 / 830 0 / 830 Output Total 2150 / 5850 700 / 700 1100 / 1800 Balance -1150 / -4450 130 / 130 -1100 / -970 Weight last 48 hrs Weight 286 lb Physical Exam Const: COMMON NORMALS: no acute distress, patient oriented x3 and alert GENERAL APPEARANCE: cooperative, comfortable and lethargic NUTRITIONAL APPEARANCE: obese ORIENTATION/CONSCIOUSNESS: Yes awake and Yes lethargic HENMT: COMMON NORMALS: normocephalic and atraumatic HEAD & SCALP: normocephalic and atraumatic Eye: GENERAL EYE: appearance normal, both eyes and all related structures Chest: COMMONS NORMALS: normal inspection of the chest Resp: COMMON NORMALS: normal respiratory effort EFFORT & INSPECTION: Yes able to speak in complete sentences and Yes symmetric chest movement Extremity: RIGHT LOWER EXTREMITY: Yes lower leg (The patient's incisions have stopped bleeding. Minimal swelling) Right lower leg: Yes inspection (No evidence of infection), Yes palpation (Minimal discomfort) and Yes neurovascular exam (Intact) Neuro: COMMON NORMALS: patient oriented x3 SENSORIUM/ORIENTATION: Yes alert and Yes lethargic Psych: COMMON NORMALS: mental status grossly normal APPEARANCE: Yes grossly normal ATTITUDE: Yes calm and Yes engaged ATTENTION/CONCENTRATION: Yes attention grossly intact Skin: COMMON NORMALS: no rashes or lesions noted GENERAL SKIN EXAM: no rashes or lesions noted Urinary Catheter Management^: Bush: Cath Placed During This Visit: yes Reason for Continuing Indwelling Catheter: Acute Urinary Retention or Obstruction Urinary Catheter Date of Insertion: 04/30/20 Urinary Catheter Time of Insertion: 15:42 Data : 05/02/20 05:50 05/02/20 05:50 A&P Assessment and plan (1) Displaced comminuted fracture of shaft of right tibia, initial encounter for open fracture type I or II: Patient was admitted with an open distal tibia and fibula comminuted fracture. There is an associated proximal fibula fracture as well. There is also a posterior malleolar fracture and lateral tibial fracture. This was addressed with an intramedullary nail. Wounds are benign. Bleeding has stopped. There is no evidence of infection. Dressings are removed and changed. She will be fitted with a cam walker boot for ambulation activities, but she may be out of it while in bed. The patient will require [facility] at the time of discharge as she will need to be nonweightbearing for 2 to 3 months. She has a very comminuted unstable fracture. Status: Acute (2) Fracture of right fibula, shaft: Status: Acute Qualifiers: Encounter type: initial encounter Fracture alignment: nondisplaced Fracture morphology: comminuted Fracture type: open Open fracture type: open type I or II Qualified Code(s): S82.454B - Nondisplaced comminuted fracture of shaft of right fibula, initial encounter for open fracture type I or II (3) Fracture, posterior malleolus: Status: Acute Qualifiers: Encounter type: initial encounter Fracture type: closed Laterality: right Qualified Code(s): S82.391A - Other fracture of lower end of right tibia, initial encounter for closed fracture Attestations Medical Necessity Statement*: Ongoing care for medical issues. Coding Level of Care Code Acute [place] Inspector for [facility] Diagnoses Displaced comminuted fracture of shaft of right tibia, initial encounter for open fracture type I or II S82.251B Fracture of right fibula, shaft S82.454B Encounter type: initial encounter Fracture alignment: nondisplaced Fracture morphology: comminuted Fracture type: open Open fracture type: open type I or II Fracture, posterior malleolus S82.391A Encounter type: initial encounter Fracture type: closed Laterality: right
--- NOTE | 2020-05-02 18:21 | PC.NURSE ---
SHIFT SUMMARY PATIENT'S PAIN HAS BEEN CONTROLLED TODAY WITH ORAL AND IV PAIN MEDICATIONS. THIS NURSE CHANGED SURGICAL INCISION DRESSINGS WITH DR. FOSTER. EXCELLENT URINE OUTPUT. 2 UNITS OF PRBC'S ADMINISTERED TODAY. GOOD PO INTAKE. CONTINUE TO MONITOR.
[2020-05-02 20:40] LABS: Hemoglobin 7.6 g/dL (11.5-15.3)
[2020-05-03] VITALS (22 sets, daily range): BP systolic 94–137; BP diastolic 60–80; PULSE 63–76; RESP 14–25; TEMP 36.2–37; O2SAT 94–99
[2020-05-03] MEDS: FUROsemide 10 mg/mL SDV 4mL 40 MG IVP ×3 (00:03→23:39)
[2020-05-03] MEDS: ipratropium-albuterol 3 mL Neb INHALATION ×5 (01:22→21:18)
[2020-05-03] MEDS: HYDROmorphone 1 mg/mL INJ 1 mL IVP ×3 (01:28→13:30)
[2020-05-03] MEDS: gabapentin 300 mg Capsule PO ×3 (06:20→17:54)
[2020-05-03] MEDS: HYDROcodone-acetaminophen 5-325 mg Tablet 1 TAB PO (06:21)
[2020-05-03] MEDS: duloxetine 60 mg Capsule PO (06:21)
[2020-05-03] MEDS: pantoprazole DR 40 mg Tablet PO ×2 (06:21→17:54)
[2020-05-03 07:41] LABS: Anion Gap 10.1 (5-19); Blood Urea Nitrogen 27 mg/dL (6-20); Carbon Dioxide 40 mmol/L (22-29); Chloride 92 mmol/L (98-107); Glomerular Filtration Rate 52.6 mL/min (90-130); Glucose 125 mg/dL (65-115); Osmolality Calculated 293 mOsm/kg (285-295); Potassium 4.1 mmol/L (3.5-5.1); Sodium 138 mmol/L (136-145)
[2020-05-03] MEDS: apixaban 5 mg Tablet PO (08:01)
[2020-05-03] MEDS: nicotine 21 mg Patch 1 PATCH TRANSDERMA (08:01)
[2020-05-03 08:41] LABS: Hemoglobin 7.9 g/dL (11.5-15.3); Lymphocytes # 0.3 10^3/uL (0.8-4.8); Lymphocytes % 4.7 %; Mean Corpuscular HGB Conc 31.6 g/dL (30.0-36.0); Mean Corpuscular Hemoglobin 31.2 pg (28.0-34.0); Mean Corpuscular Volume 98.8 fL (81-99); Mean Platelet Volume 11.6 fL (7.4-10.4); Monocytes # 0.6 10^3/uL (0.2-0.9); Monocytes % 10.6 %; Neutrophils # 4.64 10^3/uL (1.8-7.7); Neutrophils % 83.6 %; Nucleated Red Blood Cells % 0.4 %; Platelet Count 153 10^3/cmm (130-400); Red Blood Count 2.53 10^6/uL (4.1-5.3); Red Cell Distribution Width 17.7 % (12.1-15.1); White Blood Count 5.6 10^3/uL (4.0-10.0)
--- NOTE | 2020-05-03 13:37 | PM.PN ---
Subjective Subjective: Interval history: Patient is continuing to request IV narcotics. I have advised her that from a surgical perspective, I would not have been continuing these as I would prefer to see her on oral analgesics. Orthopedically, she is ready for discharge when medically appropriate. Medications: Reviewed: Yes Vitals/I&O/Wt Last Vital Signs Temp 97.2 F L 05/03/20 11:49 Pulse 68 05/03/20 11:49 Resp 18 05/03/20 13:30 BP 129/78 05/03/20 11:49 Pulse Ox 95 05/03/20 13:30 05/02/20 05/03/20 05/03/20 22:59 06:59 14:59 Intake Total 350 / 1180 360 / 360 Output Total 1100 / 1800 2000 / 3800 550 / 550 Balance -750 / -620 -2000 / -2620 -190 / -190 Physical Exam Const: COMMON NORMALS: no acute distress, patient oriented x3 and alert GENERAL APPEARANCE: cooperative, comfortable and lethargic NUTRITIONAL APPEARANCE: obese ORIENTATION/CONSCIOUSNESS: Yes awake and Yes lethargic HENMT: COMMON NORMALS: normocephalic and atraumatic HEAD & SCALP: normocephalic and atraumatic Eye: GENERAL EYE: appearance normal, both eyes and all related structures Chest: COMMONS NORMALS: normal inspection of the chest Resp: COMMON NORMALS: normal respiratory effort EFFORT & INSPECTION: Yes able to speak in complete sentences and Yes symmetric chest movement Extremity: RIGHT LOWER EXTREMITY: Yes lower leg (Wounds remain benign. There is minimal to no drainage.) Right lower leg: Yes inspection (Significant necrotic tissue over the area of the open fracture as expected), Yes palpation (Minimal tenderness to palpation), Yes neurovascular exam (Intact.) and Yes other (Patient is able to reposition and move her leg without support.) Neuro: COMMON NORMALS: patient oriented x3 SENSORIUM/ORIENTATION: Yes alert and Yes lethargic Psych: COMMON NORMALS: mental status grossly normal APPEARANCE: Yes grossly normal ATTITUDE: Yes calm and Yes engaged ATTENTION/CONCENTRATION: Yes attention grossly intact Skin: COMMON NORMALS: no rashes or lesions noted GENERAL SKIN EXAM: no rashes or lesions noted Urinary Catheter Management^: Bush: Cath Placed During This Visit: yes Reason for Continuing Indwelling Catheter: Acute Urinary Retention or Obstruction Urinary Catheter Date of Insertion: 12/20/20 Urinary Catheter Time of Insertion: 15:42 Data : 05/03/20 06:18 05/03/20 06:18 A&P Assessment and plan (1) Displaced comminuted fracture of shaft of right tibia, initial encounter for open fracture type I or II: Patient was admitted with an open distal tibia and fibula comminuted fracture. There is an associated proximal fibula fracture as well. There is also a posterior malleolar fracture and lateral tibial fracture. This was addressed with an intramedullary nail. Wounds are benign. Bleeding has stopped. There is no evidence of infection. Dressings are removed and changed. She will be fitted with a cam walker boot for ambulation activities, but she may be out of it while in bed. She is to remain nonweightbearing. The patient will [facility] of discharge as she will need to be nonweightbearing for 2 to 3 months. She has a very comminuted unstable fracture. Status: Acute (2) Fracture of right fibula, shaft: Status: Acute Qualifiers: Encounter type: initial encounter Fracture alignment: nondisplaced Fracture morphology: comminuted Fracture type: open Open fracture type: open type I or II Qualified Code(s): S82.454B - Nondisplaced comminuted fracture of shaft of right fibula, initial encounter for open fracture type I or II (3) Fracture, posterior malleolus: Status: Acute Qualifiers: Encounter type: initial encounter Fracture type: closed Laterality: right Qualified Code(s): S82.391A - Other fracture of lower end of right tibia, initial encounter for closed fracture Attestations Medical Necessity Statement*: Patient requires ongoing medical management and care. From an orthopedic perspective, she is ready for discharge. Coding Level of Care Code Acute Drafter Electronic for [facility] Diagnoses Displaced comminuted fracture of shaft of right tibia, initial encounter for open fracture type I or II S82.251B Fracture of right fibula, shaft S82.454B Encounter type: initial encounter Fracture alignment: nondisplaced Fracture morphology: comminuted Fracture type: open Open fracture type: open type I or II Fracture, posterior malleolus S82.391A Encounter type: initial encounter Fracture type: closed Laterality: right
[2020-05-03] MEDS: HYDROcodone-acetaminophen 7.5-325 mg Tablet 1 TAB PO ×2 (17:54→21:46)
[2020-05-03] MEDS: quetiapine XR (24HR) 300 mg Tablet PO (17:54)
[2020-05-03] MEDS: atenolol 50 mg Tablet 25 MG PO (17:54)
--- NOTE | 2020-05-03 18:08 | P.PN_ITS ---
Subjective Subjective: Interval history: No acute overnight events. Hemoglobin is stable at 7.9. It was discovered today that upon transfer from ICU to floors, her Eliquis order had been continued and patient had been receiving it over the last 24 hours. Patient was made aware of this oversight. Eliquis is now on hold. Hemoglobin has remained stable to improved at 7.9. Bleeding at site is additionally improved. There are no bleeding manifestations elsewhere. Medications: Reviewed: Yes Vitals/I&O/Wt Last Vital Signs Temp 97.8 F 05/03/20 15:10 Pulse 74 05/03/20 15:39 Resp 18 05/03/20 15:39 BP 127/66 05/03/20 15:10 Pulse Ox 96 05/03/20 15:39 05/03/20 05/03/20 05/03/20 06:59 14:59 22:59 Intake Total 360 / 360 Output Total 2000 / 3800 550 / 550 Balance -2000 / -2620 -190 / -190 Physical Exam Narrative: EXAM NARRATIVE: GEN: Awake, alert and oriented, no acute distress CVS: S1S2 N RS: CTA B/L Abd: Soft, nt/nd , bs+ CHEMIST ENZYMES: no focal neuro deficits Urinary Catheter Management^: Bush: Cath Placed During This Visit: yes, but has since been removed by the nurse Reason for Continuing Indwelling Catheter: Acute Urinary Retention or Obstruction Urinary Catheter Date of Insertion: 04/30/20 Urinary Catheter Time of Insertion: 15:42 Date Urinary Catheter Removed: 05/03/20 Time Urinary Catheter Discontinued: 14:00 Data : 05/03/20 06:18 05/03/20 06:18 A&P Assessment and plan (1) Displaced comminuted fracture of shaft of right tibia, initial encounter for open fracture type I or II: -s/p ORIF on 04/30/20 -Has a history of chronic respiratory failure with hypoxia and hypercapnia, COPD, current smoker, history of pulmonary emboli, recent history of breast cancer status post lumpectomy, type 2 diabetes, hypertension, systolic and diastolic CHF, severe mitral valve regurg, severe tricuspid valve regurg, CKD stage III -Echocardiogram in November showed EF of 60%, grade 3 out of 4 diastolic dysfunction, evidence of severe pulmonary hypertension, severe mitral valve regurg, severe tricuspid valve regurg -Eliquis appears to have been accidentally continued while transferred from ICU to floors patient had been receiving it over the last 24 hours. This has now been discontinued. Bleeding at the site has improved. Hemoglobin is stable at 7.9. - Status: Acute (2) Chronic respiratory failure with hypoxia and hypercapnia: Secondary to COPD, obesity hypoventilation syndrome, systolic and diastolic CHF -continue Bipap at night time -Diuresis as needed -Avoid fluid overload, continue Lasix 40 mg IV every 12 hours. -Would limit opiate medications as far as possible Status: Acute (3) Morbid obesity with body mass index (BMI) of 40.0 to 49.9: Status: Acute (4) S/P lumpectomy, left breast: on 04/17, margins clear , sentinel lymph node biopsy without malignancy , no further chemo planned for now per discussion with oncology. Will need follow up post discharge Status: Acute (5) Type 2 diabetes mellitus, without long-term current use of insulin: -Insulin sliding scale with low-dose Status: Acute Qualifiers: Diabetes mellitus complication status: without complication Qualified Code(s): E11.9 - Type 2 diabetes mellitus without complications (6) Port-A-Cath in place: Status: Acute (7) History of pulmonary embolism: -Eliquis on hold due to bleedign at site Status: Acute (8) BINA (obstructive sleep apnea): -BiPAP overnight Status: Acute (9) Valvular heart disease: -Severe mitral and tricuspid valve regurg Status: Acute (10) Benign essential HTN: -Hold blood pressure medications Status: Acute (11) Diastolic heart failure secondary to hypertension: Monitor for fluid overload Status: Acute (12) Post-traumatic stress disorder, chronic: Status: Acute (13) Bipolar disorder, current episode mixed, moderate: Status: Acute (14) Systolic and diastolic CHF, chronic: -No known cardiovascular disease -Recently had surgery by Dr. Beaver for lumpectomy, -EKG no acute ST-T wave changes, no chest pain) shortness of breath complaints As needed Status: Acute (15) Acute on chronic anemia: -Hemoglobin 7.7, chronically runs between 9 and 10 -transfuse if hemoglobin less than 7 -Etiology likely multifactorial, related to malignancy and or slow GI bleed, Protonix 40 twice daily, Carafate Status: Acute (16) Anemia: secondary to blood loss 2units tranfsuion given on 1222. Hemoglobin improved to 7.9. Status: Acute Additional A&P Information dispo: D/c to SNF Attestations Medical Necessity Statement*: Hemoglobin stable, post transfusion, closely need to monitor hemoglobin, disposition planning ongoing with attempts to place patient at SNF. 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 [employer] Diagnoses Displaced comminuted fracture of shaft of right tibia, initial encounter for open fracture type I or II S82.251B Chronic respiratory failure with hypoxia and hypercapnia J96.11; J96.12 Morbid obesity with body mass index (BMI) of 40.0 to 49.9 E66.01 S/P lumpectomy, left breast Z98.890 Type 2 diabetes mellitus, without long-term current use of insulin E11.9 Diabetes mellitus complication status: without complication Port-A-Cath in place Z95.828 History of pulmonary embolism Z86.711 BINA (obstructive sleep apnea) G47.33 Valvular heart disease I38 Benign essential HTN I10 Diastolic heart failure secondary to hypertension I11.0; I50.30 Post-traumatic stress disorder, chronic F43.12 Bipolar disorder, current episode mixed, moderate F31.62 Systolic and diastolic CHF, chronic I50.42 Acute on chronic anemia D64.9 Anemia D64.9
[2020-05-03] MEDS: LORazepam 1 mg Tablet PO (20:59)
[2020-05-03] MEDS: tizanidine 4 mg Tablet 2 MG PO (23:37)
[2020-05-04] VITALS (18 sets, daily range): BP systolic 135–158; BP diastolic 61–87; PULSE 65–77; RESP 16–18; TEMP 36.6–37.2; O2SAT 92–97
[2020-05-04] MEDS: ipratropium-albuterol 3 mL Neb INHALATION ×4 (00:28→11:23)
--- NOTE | 2020-05-04 01:24 | PC.NURSE ---
Assumed care of the pt at this time. States her pain is not being controlled and she is requesting one more dose of IV pain meds . Physician notified and orders received.
[2020-05-04] MEDS: HYDROmorphone 1 mg/mL INJ 1 mL IVP (02:04)
[2020-05-04] MEDS: atenolol 50 mg Tablet 25 MG PO ×2 (06:06→17:58)
[2020-05-04] MEDS: HYDROcodone-acetaminophen 7.5-325 mg Tablet 1 TAB PO ×3 (06:07→14:35)
[2020-05-04] MEDS: gabapentin 300 mg Capsule PO ×3 (06:07→17:59)
[2020-05-04] MEDS: pantoprazole DR 40 mg Tablet PO ×2 (06:07→17:58)
[2020-05-04] MEDS: duloxetine 60 mg Capsule PO (06:08)
[2020-05-04] MEDS: nicotine 21 mg Patch 1 PATCH TRANSDERMA (08:58)
[2020-05-04] MEDS: FUROsemide 40 mg Tablet PO ×2 (10:00→21:10)
[2020-05-04] MEDS: predniSONE 20 mg Tablet 40 MG PO (10:00)
[2020-05-04 10:46] LABS: Hematocrit 25.6 % (37.0-47.0); Hemoglobin 7.8 g/dL (11.5-15.3); Lymphocytes # 0.2 10^3/uL (0.8-4.8); Lymphocytes % 2.8 %; Mean Corpuscular HGB Conc 30.5 g/dL (30.0-36.0); Mean Corpuscular Volume 101.6 fL (81-99); Monocytes # 0.4 10^3/uL (0.2-0.9); Monocytes % 6.5 %; Neutrophils % 90.2 %; Nucleated Red Blood Cells % 0 %; Platelet Count 146 10^3/cmm (130-400); Red Blood Count 2.52 10^6/uL (4.1-5.3); Red Cell Distribution Width 16.9 % (12.1-15.1); White Blood Count 6.3 10^3/uL (4.0-10.0)
[2020-05-04 11:45] LABS: Alanine Aminotransferase 9 U/L (0-33); Albumin Level 3.5 g/dL (3.5-5.2); Alkaline Phosphatase 159 IU/L (35-105); Anion Gap 11.3 (5-19); Aspartate Amino Transferase 11 U/L (0-32); Blood Urea Nitrogen 37 mg/dL (6-20); Calcium 9.2 mg/dL (8.5-10.5); Carbon Dioxide 39 mmol/L (22-29); Chloride 92 mmol/L (98-107); Globulin 2.3 g/dL (1.3-4.6); Glomerular Filtration Rate 52.6 mL/min (90-130); Glucose 168 mg/dL (65-115); Magnesium 1.9 mg/dL (1.7-2.3); Osmolality Calculated 299 mOsm/kg (285-295); Potassium 4.3 mmol/L (3.5-5.1); Sodium 138 mmol/L (136-145); Total Bilirubin 0.6 mg/dL (0.15-1.2); Total Protein 5.8 g/dL (6.6-8.7)
--- NOTE | 2020-05-04 15:23 | PM.PN ---
Subjective Subjective: Interval history: This morning patient was examined, she tells me that she is doing quite well, she feels blessed, no nausea, no vomiting, no lightheadedness, dizziness, no fevers, no chills Vitals/I&O/Wt Last Vital Signs Temp 98.9 F 05/04/20 11:38 Pulse 67 05/04/20 11:38 Resp 16 05/04/20 11:38 BP 141/87 05/04/20 11:38 Pulse Ox 93 05/04/20 11:38 05/04/20 05/04/20 05/04/20 06:59 14:59 22:59 Intake Total 480 / 480 Balance 480 / 480 Physical Exam Const: COMMON NORMALS: no acute distress and patient oriented x3 HENMT: COMMON NORMALS: normocephalic HEAD & SCALP: normocephalic Neck/C-Spine: COMMON NORMALS: no JVD Resp: COMMON NORMALS: normal respiratory effort, No retractions, No use of accessory muscles and clear to auscultation bilaterally AUSCULTATION: clear to auscultation bilaterally Cardio: COMMON NORMALS: no JVD, regular rate, regular rhythm, S1 normal heart sound present and S2 normal heart sound present RATE: regular rate RHYTHM: regular rhythm HEART SOUNDS: S1 normal heart sound present and S2 normal heart sound present GI: COMMON NORMALS: Normal to inspection, nondistended, normoactive bowel sounds present, Soft to palpation, non-tender, No hepatosplenomegaly present, no masses and no bruits PALPATION: Yes Soft to palpation and Yes No hepatosplenomegaly present Extremity: COMMON NORMALS: capillary refill normal, no clubbing, cyanosis or edema, no calf tenderness and no pedal edema NARRATIVE EXTREMITY EXAM: Right ankle, wrapped Neuro: COMMON NORMALS: patient oriented x3 Psych: COMMON NORMALS: mental status grossly normal Urinary Catheter Management^: Bush: Cath Placed During This Visit: yes, but has since been removed by the nurse Reason for Continuing Indwelling Catheter: Acute Urinary Retention or Obstruction Urinary Catheter Date of Insertion: 04/30/20 Urinary Catheter Time of Insertion: 15:42 Date Urinary Catheter Removed: 05/03/20 Time Urinary Catheter Discontinued: 14:00 Data : 05/04/20 10:39 05/04/20 10:39 A&P Assessment and plan (1) Displaced comminuted fracture of shaft of right tibia, initial encounter for open fracture type I or II: -s/p ORIF on 04/30/20 -Has a history of chronic respiratory failure with hypoxia and hypercapnia, COPD, current smoker, history of pulmonary emboli, recent history of breast cancer status post lumpectomy, type 2 diabetes, hypertension, systolic and diastolic CHF, severe mitral valve regurg, severe tricuspid valve regurg, CKD stage III -Echocardiogram in November showed EF of 60%, grade 3 out of 4 diastolic dysfunction, evidence of severe pulmonary hypertension, severe mitral valve regurg, severe tricuspid valve regurg -Eliquis appears to have been accidentally continued while transferred from ICU to floors patient had been receiving it over the last 24 hours. This has now been discontinued. Bleeding at the site has improved. Hemoglobin is stable at 7.8. - Status: Acute (2) Chronic respiratory failure with hypoxia and hypercapnia: Secondary to COPD, obesity hypoventilation syndrome, systolic and diastolic CHF -continue Bipap at night time -Diuresis as needed -Avoid fluid overload, de-escalate to Lasix 40 mg p.o. twice daily -De-escalate to prednisone 40 mg daily -Would limit opiate medications as far as possible Status: Acute (3) Morbid obesity with body mass index (BMI) of 40.0 to 49.9: Status: Acute (4) S/P lumpectomy, left breast: on 04/17, margins clear , sentinel lymph node biopsy without malignancy , no further chemo planned for now per discussion with oncology. Will need follow up post discharge Status: Acute (5) Type 2 diabetes mellitus, without long-term current use of insulin: -Insulin sliding scale with low-dose Status: Acute Qualifiers: Diabetes mellitus complication status: without complication Qualified Code(s): E11.9 - Type 2 diabetes mellitus without complications (6) Port-A-Cath in place: Status: Acute (7) History of pulmonary embolism: -Eliquis on hold due to bleedign at site Status: Acute (8) BINA (obstructive sleep apnea): -BiPAP overnight Status: Acute (9) Valvular heart disease: -Severe mitral and tricuspid valve regurg Status: Acute (10) Benign essential HTN: -Hold blood pressure medications Status: Acute (11) Diastolic heart failure secondary to hypertension: Monitor for fluid overload Status: Acute (12) Post-traumatic stress disorder, chronic: Status: Acute (13) Bipolar disorder, current episode mixed, moderate: Status: Acute (14) Systolic and diastolic CHF, chronic: -No known cardiovascular disease -Recently had surgery by Dr. Beaver for lumpectomy, -EKG no acute ST-T wave changes, no chest pain) shortness of breath complaints As needed Status: Acute (15) Acute on chronic anemia: -Hemoglobin 7.8, chronically runs between 9 and 10 -transfuse if hemoglobin less than 7 -Etiology likely multifactorial, related to malignancy and or slow GI bleed, Protonix 40 twice daily, Carafate Status: Acute (16) Anemia: secondary to blood loss 2units tranfsuion given on 1222. Hemoglobin improved to 7.9. 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 [facility] Diagnoses Displaced comminuted fracture of shaft of right tibia, initial encounter for open fracture type I or II S82.251B Chronic respiratory failure with hypoxia and hypercapnia J96.11; J96.12 Morbid obesity with body mass index (BMI) of 40.0 to 49.9 E66.01 S/P lumpectomy, left breast Z98.890 Type 2 diabetes mellitus, without long-term current use of insulin E11.9 Diabetes mellitus complication status: without complication Port-A-Cath in place Z95.828 History of pulmonary embolism Z86.711 BINA (obstructive sleep apnea) G47.33 Valvular heart disease I38 Benign essential HTN I10 Diastolic heart failure secondary to hypertension I11.0; I50.30 Post-traumatic stress disorder, chronic F43.12 Bipolar disorder, current episode mixed, moderate F31.62 Systolic and diastolic CHF, chronic I50.42 Acute on chronic anemia D64.9 Anemia D64.9
[2020-05-04] MEDS: albuterol 8 gm MDI 2 PUFF INHALATION ×3 (16:22→22:55)
[2020-05-04] MEDS: CLONazepam 1 mg Tablet PO (18:43)
[2020-05-04] MEDS: HYDROcodone-acetaminophen 7.5-325 mg Tablet PO (18:43)
[2020-05-04] MEDS: quetiapine XR (24HR) 300 mg Tablet PO (18:44)
[2020-05-04] MEDS: tizanidine 4 mg Tablet 2 MG PO (21:10)
[2020-05-05] VITALS (17 sets, daily range): BP systolic 98–152; BP diastolic 56–90; PULSE 58–80; RESP 16–20; TEMP 36.2–37.7; O2SAT 90–100
[2020-05-05] MEDS: HYDROcodone-acetaminophen 7.5-325 mg Tablet PO ×3 (01:02→19:10)
[2020-05-05] MEDS: albuterol 8 gm MDI 2 PUFF INHALATION ×2 (02:56→07:59)
[2020-05-05 05:20] LABS: Hematocrit 23.7 % (37.0-47.0); Hemoglobin 7.2 g/dL (11.5-15.3); Lymphocytes # 0.4 10^3/uL (0.8-4.8); Lymphocytes % 5.3 %; Mean Corpuscular HGB Conc 30.4 g/dL (30.0-36.0); Mean Corpuscular Hemoglobin 30.9 pg (28.0-34.0); Mean Corpuscular Volume 101.7 fL (81-99); Mean Platelet Volume 11.1 fL (7.4-10.4); Monocytes # 0.7 10^3/uL (0.2-0.9); Monocytes % 9.6 %; Neutrophils # 6.37 10^3/uL (1.8-7.7); Neutrophils % 84.7 %; Nucleated Red Blood Cells % 0 %; Platelet Count 149 10^3/cmm (130-400); Red Blood Count 2.33 10^6/uL (4.1-5.3); Red Cell Distribution Width 16.5 % (12.1-15.1); White Blood Count 7.5 10^3/uL (4.0-10.0)
[2020-05-05 05:40] LABS: Alanine Aminotransferase 8 U/L (0-33); Albumin Level 3.1 g/dL (3.5-5.2); Alkaline Phosphatase 132 IU/L (35-105); Aspartate Amino Transferase 11 U/L (0-32); Blood Urea Nitrogen 40 mg/dL (6-20); Calcium 9.1 mg/dL (8.5-10.5); Carbon Dioxide 40 mmol/L (22-29); Chloride 92 mmol/L (98-107); Glomerular Filtration Rate 43.4 mL/min (90-130); Glucose 123 mg/dL (65-115); Magnesium 1.9 mg/dL (1.7-2.3); Osmolality Calculated 297 mOsm/kg (285-295); Phosphorus 2.9 mg/dL (2.5-4.5); Sodium 138 mmol/L (136-145); Total Bilirubin 0.6 mg/dL (0.15-1.2); Total Protein 5.1 g/dL (6.6-8.7)
[2020-05-05] MEDS: pantoprazole DR 40 mg Tablet PO ×2 (06:29→19:10)
[2020-05-05] MEDS: gabapentin 300 mg Capsule PO ×3 (06:29→19:10)
[2020-05-05] MEDS: atenolol 50 mg Tablet 25 MG PO ×2 (06:29→19:09)
[2020-05-05] MEDS: duloxetine 60 mg Capsule PO (06:29)
[2020-05-05] MEDS: tizanidine 4 mg Tablet 2 MG PO ×2 (06:33→13:31)
--- NOTE | 2020-05-05 06:55 | NUR.SHIFT ---
Patient has mainly slept. Patient believes the muscle relaxer is what aloud her to sleep. Patient has had good blood flow and no bleeding on her LLE. Patient was able to transition from bed to commode and back again with minimal assistance.
[2020-05-05] MEDS: predniSONE 20 mg Tablet 40 MG PO (11:07)
[2020-05-05] MEDS: nicotine 21 mg Patch 1 PATCH TRANSDERMA (11:07)
[2020-05-05] MEDS: FUROsemide 40 mg Tablet PO ×2 (11:07→21:20)
[2020-05-05] MEDS: sodium chloride 0.9% (100 ml) 100 ML 50 ML ×2 (15:16→19:13)
--- NOTE | 2020-05-05 16:22 | P.PN_ITS ---
Subjective Subjective: Interval history: This morning patient was examined, she tells me that her and her were able to explore the hospital, she was in a wheelchair, he took around the hospital, she was feeling anxious, so she want to get up out of the room, is doing better this morning, complaining of restless leg Medications: Reviewed: Yes Vitals/I&O/Wt Last Vital Signs Temp 97.8 F 05/05/20 15:50 Pulse 64 05/05/20 15:50 Resp 16 05/05/20 15:50 BP 119/61 05/05/20 15:50 Pulse Ox 95 05/05/20 15:50 05/05/20 05/05/20 05/05/20 06:59 14:59 22:59 Intake Total 240 / 240 Output Total 650 / 1000 Balance -650 / -120 240 / 240 Physical Exam Const: COMMON NORMALS: no acute distress and patient oriented x3 GENERAL APPEARANCE: cooperative NUTRITIONAL APPEARANCE: obese HENMT: COMMON NORMALS: normocephalic HEAD & SCALP: normocephalic Neck/C-Spine: COMMON NORMALS: full ROM, no lymphadenopathy, no JVD and Thyroid normal THYROID: Thyroid normal Lymph: LYMPHATIC: no lymphadenopathy noted Resp: COMMON NORMALS: normal respiratory effort, No retractions, No use of accessory muscles and clear to auscultation bilaterally AUSCULTATION: clear to auscultation bilaterally Cardio: COMMON NORMALS: no JVD, regular rate, regular rhythm, S1 normal heart sound present, S2 normal heart sound present, No gallops present (Cardio), No clicks present (Cardio) and No murmurs present (Cardio) RATE: regular rate RHYTHM: regular rhythm HEART SOUNDS: S1 normal heart sound present and S2 normal heart sound present GI: COMMON NORMALS: Normal to inspection, nondistended, normoactive bowel sounds present, Soft to palpation, non-tender, No hepatosplenomegaly present, no masses and no bruits PALPATION: Yes Soft to palpation and Yes No hepatosplenomegaly present Extremity: COMMON NORMALS: normal to inspection, full ROM, capillary refill normal, no clubbing, cyanosis or edema, no calf tenderness and no pedal edema NARRATIVE EXTREMITY EXAM: Right ankle, wrapped Neuro: COMMON NORMALS: patient oriented x3 and moves all extremities Psych: COMMON NORMALS: mental status grossly normal and cooperative Urinary Catheter Management^: Bush: Cath Placed During This Visit: yes, but has since been removed by the nurse Reason for Continuing Indwelling Catheter: Acute Urinary Retention or Obstruc tion Urinary Catheter Date of Insertion: 04/30/20 Urinary Catheter Time of Insertion: 15:42 Date Urinary Catheter Removed: 05/03/20 Time Urinary Catheter Discontinued: 14:00 Data : 05/05/20 05:04 05/05/20 05:04 A&P Assessment and plan (1) Displaced comminuted fracture of shaft of right tibia, initial encounter for open fracture type I or II: -s/p ORIF on 04/30/20 -Has a history of chronic respiratory failure with hypoxia and hypercapnia, COPD, current smoker, history of pulmonary emboli, recent history of breast cancer status post lumpectomy, type 2 diabetes, hypertension, systolic and diastolic CHF, severe mitral valve regurg, severe tricuspid valve regurg, CKD stage III -Echocardiogram in November showed EF of 60%, grade 3 out of 4 diastolic dysfunction, evidence of severe pulmonary hypertension, severe mitral valve regurg, severe tricuspid valve regurg -Eliquis appears to have been accidentally continued while transferred from ICU to floors patient had been receiving it over the last 24 hours. This has now been discontinued. Bleeding at the site has improved. Hemoglobin is stable at 7.2, will give 1 unit PRBC - Status: Acute (2) Chronic respiratory failure with hypoxia and hypercapnia: Secondary to COPD, obesity hypoventilation syndrome, systolic and diastolic CHF -continue Bipap at night time -Diuresis as needed -Avoid fluid overload, de-escalate to Lasix 40 mg p.o. twice daily -De-escalate to prednisone 40 mg daily -Would limit opiate medications as far as possible Status: Acute (3) Morbid obesity with body mass index (BMI) of 40.0 to 49.9: Status: Acute (4) S/P lumpectomy, left breast: on 04/17, margins clear , sentinel lymph node biopsy without malignancy , no further chemo planned for now per discussion with oncology. Will need follow up post discharge Status: Acute (5) Type 2 diabetes mellitus, without long-term current use of insulin: -Insulin sliding scale with low-dose Status: Acute Qualifiers: Diabetes mellitus complication status: without complication Qualified Code(s): E11.9 - Type 2 diabetes mellitus without complications (6) Port-A-Cath in place: Status: Acute (7) History of pulmonary embolism: -Eliquis on hold due to bleedign at site Status: Acute (8) BINA (obstructive sleep apnea): -BiPAP overnight Status: Acute (9) Valvular heart disease: -Severe mitral and tricuspid valve regurg Status: Acute (10) Benign essential HTN: -Hold blood pressure medications Status: Acute (11) Diastolic heart failure secondary to hypertension: Monitor for fluid overload Status: Acute (12) Post-traumatic stress disorder, chronic: Status: Acute (13) Bipolar disorder, current episode mixed, moderate: Status: Acute (14) Systolic and diastolic CHF, chronic: -No known cardiovascular disease -Recently had surgery by Dr. Beaver for lumpectomy, -EKG no acute ST-T wave changes, no chest pain) shortness of breath complaints As needed Status: Acute (15) Acute on chronic anemia: -Hemoglobin 7.2, chronically runs between 9 and 10 -transfuse if hemoglobin less than 7 -We will give 1 unit PRBC today -Etiology likely multifactorial, related to malignancy and or slow GI bleed, Protonix 40 twice daily, Carafate Status: Acute (16) Anemia: secondary to blood loss 2units tranfsuion given on 1222. Hemoglobin improved to 7.9. 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 [facility] Diagnoses Displaced comminuted fracture of shaft of right tibia, initial encounter for open fracture type I or II S82.251B Chronic respiratory failure with hypoxia and hypercapnia J96.11; J96.12 Morbid obesity with body mass index (BMI) of 40.0 to 49.9 E66.01 S/P lumpectomy, left breast Z98.890 Type 2 diabetes mellitus, without long-term current use of insulin E11.9 Diabetes mellitus complication status: without complication Port-A-Cath in place Z95.828 History of pulmonary embolism Z86.711 BINA (obstructive sleep apnea) G47.33 Valvular heart disease I38 Benign essential HTN I10 Diastolic heart failure secondary to hypertension I11.0; I50.30 Post-traumatic stress disorder, chronic F43.12 Bipolar disorder, current episode mixed, moderate F31.62 Systolic and diastolic CHF, chronic I50.42 Acute on chronic anemia D64.9 Anemia D64.9
[2020-05-05] MEDS: quetiapine XR (24HR) 50 mg Tablet PO (19:09)
[2020-05-05] MEDS: CLONazepam 1 mg Tablet PO (19:09)
[2020-05-05] MEDS: quetiapine XR (24HR) 300 mg Tablet PO (19:10)
[2020-05-05 20:50] LABS: Hematocrit 28.2 % (37.0-47.0); Hemoglobin 8.5 g/dL (11.5-15.3)
[2020-05-06] VITALS (13 sets, daily range): BP systolic 127–168; BP diastolic 70–89; PULSE 58–70; RESP 16–20; TEMP 36.4–37.3; O2SAT 93–98
[2020-05-06] MEDS: HYDROcodone-acetaminophen 7.5-325 mg Tablet PO ×2 (02:08→08:49)
[2020-05-06 06:28] LABS: Eosinophils % 0.2 %; Hematocrit 27.4 % (37.0-47.0); Hemoglobin 8.2 g/dL (11.5-15.3); Lymphocytes # 0.5 10^3/uL (0.8-4.8); Lymphocytes % 6.2 %; Mean Corpuscular HGB Conc 29.9 g/dL (30.0-36.0); Mean Corpuscular Hemoglobin 30.7 pg (28.0-34.0); Mean Corpuscular Volume 102.6 fL (81-99); Mean Platelet Volume 11.6 fL (7.4-10.4); Monocytes # 0.9 10^3/uL (0.2-0.9); Monocytes % 10.9 %; Neutrophils # 7.07 10^3/uL (1.8-7.7); Neutrophils % 82.2 %; Nucleated Red Blood Cells % 0 %; Platelet Count 154 10^3/cmm (130-400); Red Blood Count 2.67 10^6/uL (4.1-5.3); Red Cell Distribution Width 17.7 % (12.1-15.1); White Blood Count 8.6 10^3/uL (4.0-10.0)
[2020-05-06] MEDS: tizanidine 4 mg Tablet 2 MG PO ×3 (06:30→22:28)
[2020-05-06] MEDS: atenolol 50 mg Tablet 25 MG PO ×2 (06:30→18:11)
[2020-05-06] MEDS: duloxetine 60 mg Capsule PO (06:30)
[2020-05-06] MEDS: pantoprazole DR 40 mg Tablet PO ×2 (06:30→18:10)
[2020-05-06 06:33] LABS: Alanine Aminotransferase 8 U/L (0-33); Albumin Level 3.2 g/dL (3.5-5.2); Alkaline Phosphatase 133 IU/L (35-105); Anion Gap 10.6 (5-19); Aspartate Amino Transferase 15 U/L (0-32); Blood Urea Nitrogen 39 mg/dL (6-20); Calcium 8.7 mg/dL (8.5-10.5); Carbon Dioxide 38 mmol/L (22-29); Chloride 93 mmol/L (98-107); Globulin 1.8 g/dL (1.3-4.6); Glomerular Filtration Rate 47.6 mL/min (90-130); Glucose 82 mg/dL (65-115); Magnesium 1.8 mg/dL (1.7-2.3); Osmolality Calculated 294 mOsm/kg (285-295); Phosphorus 2.9 mg/dL (2.5-4.5); Potassium 3.6 mmol/L (3.5-5.1); Sodium 138 mmol/L (136-145); Total Bilirubin 0.5 mg/dL (0.15-1.2)
[2020-05-06] MEDS: gabapentin 300 mg Capsule PO ×3 (06:33→18:10)
[2020-05-06] MEDS: albuterol 8 gm MDI 2 PUFF INHALATION ×4 (08:23→20:12)
[2020-05-06] MEDS: predniSONE 20 mg Tablet 40 MG PO (08:49)
[2020-05-06] MEDS: nicotine 21 mg Patch 1 PATCH TRANSDERMA (08:50)
[2020-05-06] MEDS: CLONazepam 1 mg Tablet PO (11:31)
[2020-05-06] MEDS: FUROsemide 40 mg Tablet PO ×2 (11:31→22:29)
--- NOTE | 2020-05-06 16:06 | P.PN_ITS ---
Subjective Subjective: Interval history: Patient's only complaint this morning is that she gets [place] 2 tabs every 6 hours hours as needed, 7.5, she is not getting that here Medications: Reviewed: Yes Vitals/I&O/Wt Last Vital Signs Temp 97.9 F 05/06/20 15:39 Pulse 68 05/06/20 15:39 Resp 17 05/06/20 15:39 BP 136/70 05/06/20 15:39 Pulse Ox 96 05/06/20 15:39 05/06/20 05/06/20 05/06/20 06:59 14:59 22:59 Intake Total 480 / 1310 480 / 480 Output Total 1800 / 2200 Balance -1320 / -890 480 / 480 Physical Exam Const: COMMON NORMALS: no acute distress and patient oriented x3 HENMT: COMMON NORMALS: normocephalic HEAD & SCALP: normocephalic Neck/C-Spine: COMMON NORMALS: no JVD Resp: COMMON NORMALS: normal respiratory effort, No retractions, No use of accessory muscles and clear to auscultation bilaterally AUSCULTATION: clear to auscultation bilaterally Cardio: COMMON NORMALS: no JVD, regular rate, regular rhythm, S1 normal heart sound present and S2 normal heart sound present RATE: regular rate RHYTHM: regular rhythm HEART SOUNDS: S1 normal heart sound present and S2 normal heart sound present GI: COMMON NORMALS: Normal to inspection, nondistended, normoactive bowel sounds present, Soft to palpation, non-tender, No hepatosplenomegaly present, no masses and no bruits PALPATION: Yes Soft to palpation and Yes No hepatosplenomegaly present Extremity: COMMON NORMALS: normal to inspection, full ROM, capillary refill normal, no clubbing, cyanosis or edema, no calf tenderness and no pedal edema NARRATIVE EXTREMITY EXAM: Right ankle, wrapped Neuro: COMMON NORMALS: patient oriented x3 Psych: COMMON NORMALS: mental status grossly normal Urinary Catheter Management^: Bush: Cath Placed During This Visit: yes, but has since been removed by the nurse Reason for Continuing Indwelling Catheter: Acute Urinary Retention or Obstruction Urinary Catheter Date of Insertion: 04/30/20 Urinary Catheter Time of Insertion: 15:42 Date Urinary Catheter Removed: 05/03/20 Time Urinary Catheter Discontinued: 14:00 Data : 05/06/20 05:09 05/06/20 05:09 A&P Assessment and plan (1) Displaced comminuted fracture of shaft of right tibia, initial encounter for open fracture type I or II: -s/p ORIF on 04/30/20 -Has a history of chronic respiratory failure with hypoxia and hypercapnia, COPD, current smoker, history of pulmonary emboli, recent history of breast cancer status post lumpectomy, type 2 diabetes, hypertension, systolic and diastolic CHF, severe mitral valve regurg, severe tricuspid valve regurg, CKD stage III -Echocardiogram in November showed EF of 60%, grade 3 out of 4 diastolic dysfunction, evidence of severe pulmonary hypertension, severe mitral valve regurg, severe tricuspid valve regurg -Eliquis appears to have been accidentally continued while transferred from ICU to floors patient had been receiving it over the last 24 hours. This has now been discontinued. Bleeding at the site has improved. Hemoglobin is stable at 8.2 - Status: Acute (2) Chronic respiratory failure with hypoxia and hypercapnia: Secondary to COPD, obesity hypoventilation syndrome, systolic and diastolic CHF -continue Bipap at night time -Diuresis as needed -Avoid fluid overload, de-escalate to Lasix 40 mg p.o. twice daily -De-escalate to prednisone 40 mg daily -Would limit opiate medications as far as possible Status: Acute (3) Morbid obesity with body mass index (BMI) of 40.0 to 49.9: Status: Acute (4) S/P lumpectomy, left breast: on 04/17, margins clear , sentinel lymph node biopsy without malignancy , no further chemo planned for now per discussion with oncology. Will need follow up post discharge Status: Acute (5) Type 2 diabetes mellitus, without long-term current use of insulin: -Insulin sliding scale with low-dose Status: Acute Qualifiers: Diabetes mellitus complication status: without complication Qualified Code(s): E11.9 - Type 2 diabetes mellitus without complications (6) Port-A-Cath in place: Status: Acute (7) History of pulmonary embolism: -Eliquis on hold due to bleedign at site Status: Acute (8) BINA (obstructive sleep apnea): -BiPAP overnight Status: Acute (9) Valvular heart disease: -Severe mitral and tricuspid valve regurg Status: Acute (10) Benign essential HTN: -Hold blood pressure medications Status: Acute (11) Diastolic heart failure secondary to hypertension: Monitor for fluid overload Status: Acute (12) Post-traumatic stress disorder, chronic: Status: Acute (13) Bipolar disorder, current episode mixed, moderate: Status: Acute (14) Systolic and diastolic CHF, chronic: -No known cardiovascular disease -Recently had surgery by Dr. Beaver for lumpectomy, -EKG no acute ST-T wave changes, no chest pain) shortness of breath complaints As needed Status: Acute (15) Acute on chronic anemia: -Hemoglobin 8.2, chronically runs between 9 and 10 -transfuse if hemoglobin less than 7 -Status post 1 unit PRBC yesterday -Etiology likely multifactorial, related to malignancy and or slow GI bleed, Protonix 40 twice daily, Carafate Status: Acute (16) Anemia: secondary to blood loss 2units tranfsuion given on 1222. Hemoglobin improved to 7.9. 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 [facility] Diagnoses Displaced comminuted fracture of shaft of right tibia, initial encounter for open fracture type I or II S82.251B Chronic respiratory failure with hypoxia and hypercapnia J96.11; J96.12 Morbid obesity with body mass index (BMI) of 40.0 to 49.9 E66.01 S/P lumpectomy, left breast Z98.890 Type 2 diabetes mellitus, without long-term current use of insulin E11.9 Diabetes mellitus complication status: without complication Port-A-Cath in place Z95.828 History of pulmonary embolism Z86.711 BINA (obstructive sleep apnea) G47.33 Valvular heart disease I38 Benign essential HTN I10 Diastolic heart failure secondary to hypertension I11.0; I50.30 Post-traumatic stress disorder, chronic F43.12 Bipolar disorder, current episode mixed, moderate F31.62 Systolic and diastolic CHF, chronic I50.42 Acute on chronic anemia D64.9 Anemia D64.9
[2020-05-06] MEDS: HYDROcodone-acetaminophen 7.5-325 mg Tablet 2 TAB PO ×2 (16:16→22:27)
[2020-05-06] MEDS: lanolin oint 7 gm 1 APPLIC TOPICAL (16:16)
[2020-05-06] MEDS: quetiapine XR (24HR) 50 mg Tablet PO (18:11)
[2020-05-06] MEDS: quetiapine XR (24HR) 300 mg Tablet PO (18:11)
[2020-05-06] MEDS: prazosin 1 mg Capsule PO (20:34)
[2020-05-07] VITALS (16 sets, daily range): BP systolic 111–146; BP diastolic 55–79; PULSE 63–78; RESP 15–20; TEMP 36.4–37.4; O2SAT 93–98
[2020-05-07] MEDS: HYDROcodone-acetaminophen 7.5-325 mg Tablet 2 TAB PO ×3 (04:37→18:00)
--- NOTE | 2020-05-07 05:48 | PC.NURSE ---
Shift summary Patient did well tonight. She had good urine output. Patient had her hydrocodone Q6h. She had good vitals this shift. Patient does want to see about changing the time of her lasix at night. She states at home she takes it around 0700 and 1830 and would like to do the same here if possible to keep her from getting up multiple times throughout the night.
[2020-05-07 05:49] LABS: Eosinophils % 0.4 %; Hematocrit 28.3 % (37.0-47.0); Hemoglobin 8.5 g/dL (11.5-15.3); Lymphocytes # 0.6 10^3/uL (0.8-4.8); Lymphocytes % 7.1 %; Mean Corpuscular Volume 103.3 fL (81-99); Mean Platelet Volume 11.2 fL (7.4-10.4); Monocytes # 0.7 10^3/uL (0.2-0.9); Monocytes % 7.9 %; Neutrophils # 7.18 10^3/uL (1.8-7.7); Neutrophils % 83.9 %; Nucleated Red Blood Cells % 0 %; Platelet Count 151 10^3/cmm (130-400); Red Blood Count 2.74 10^6/uL (4.1-5.3); White Blood Count 8.6 10^3/uL (4.0-10.0)
[2020-05-07 06:10] LABS: Alanine Aminotransferase 10 U/L (0-33); Albumin Level 3.1 g/dL (3.5-5.2); Alkaline Phosphatase 131 IU/L (35-105); Anion Gap 10.7 (5-19); Aspartate Amino Transferase 13 U/L (0-32); Blood Urea Nitrogen 36 mg/dL (6-20); Calcium 8.6 mg/dL (8.5-10.5); Carbon Dioxide 38 mmol/L (22-29); Chloride 97 mmol/L (98-107); Globulin 1.9 g/dL (1.3-4.6); Glomerular Filtration Rate 47.6 mL/min (90-130); Glucose 110 mg/dL (65-115); Magnesium 1.8 mg/dL (1.7-2.3); Osmolality Calculated 303 mOsm/kg (285-295); Phosphorus 3.1 mg/dL (2.5-4.5); Potassium 3.7 mmol/L (3.5-5.1); Sodium 142 mmol/L (136-145); Total Bilirubin 0.5 mg/dL (0.15-1.2)
[2020-05-07] MEDS: pantoprazole DR 40 mg Tablet PO ×2 (06:51→18:01)
[2020-05-07] MEDS: gabapentin 300 mg Capsule PO ×3 (06:52→18:01)
[2020-05-07] MEDS: atenolol 50 mg Tablet 25 MG PO ×2 (06:52→18:01)
[2020-05-07] MEDS: duloxetine 60 mg Capsule PO (06:52)
[2020-05-07] MEDS: albuterol 8 gm MDI 2 PUFF INHALATION ×4 (08:30→19:28)
[2020-05-07] MEDS: predniSONE 20 mg Tablet 40 MG PO (09:41)
[2020-05-07] MEDS: tizanidine 4 mg Tablet 2 MG PO ×2 (09:41→18:01)
[2020-05-07] MEDS: nicotine 21 mg Patch 1 PATCH TRANSDERMA (09:41)
[2020-05-07] MEDS: FUROsemide 40 mg Tablet PO ×2 (09:41→21:56)
[2020-05-07] MEDS: spironolactone 25 mg Tablet 12.5 MG PO (09:45)
--- NOTE | 2020-05-07 13:27 | PM.PN ---
Subjective Subjective: Interval history: Patient was examined this morning, she is having some extremity pain, overall doing well Vitals/I&O/Wt Last Vital Signs Temp 98.0 F 05/07/20 07:44 Pulse 72 05/07/20 12:09 Resp 20 H 05/07/20 12:05 BP 146/77 05/07/20 07:44 Pulse Ox 97 05/07/20 12:05 05/06/20 05/07/20 05/07/20 22:59 06:59 14:59 Intake Total 360 / 840 500 / 1340 240 / 240 Output Total 1700 / 1700 Balance 360 / 840 -1200 / -360 240 / 240 Weight last 48 hrs Weight 127.459 kg Physical Exam Const: COMMON NORMALS: no acute distress and patient oriented x3 HENMT: COMMON NORMALS: normocephalic HEAD & SCALP: normocephalic Neck/C-Spine: COMMON NORMALS: no JVD Resp: COMMON NORMALS: normal respiratory effort, No retractions, No use of accessory muscles and clear to auscultation bilaterally AUSCULTATION: clear to auscultation bilaterally Cardio: COMMON NORMALS: no JVD, regular rate, regular rhythm, S1 normal heart sound present and S2 normal heart sound present RATE: regular rate RHYTHM: regular rhythm HEART SOUNDS: S1 normal heart sound present and S2 normal heart sound present GI: COMMON NORMALS: Normal to inspection, nondistended, normoactive bowel sounds present, Soft to palpation, non-tender, No hepatosplenomegaly present, no masses and no bruits PALPATION: Yes Soft to palpation and Yes No hepatosplenomegaly present Extremity: COMMON NORMALS: normal to inspection, full ROM, capillary refill normal, no clubbing, cyanosis or edema, no calf tenderness and no pedal edema NARRATIVE EXTREMITY EXAM: Right ankle, wrapped Neuro: COMMON NORMALS: patient oriented x3 Psych: COMMON NORMALS: mental status grossly normal Urinary Catheter Management^: Bush: Cath Placed During This Visit: yes, but has since been removed by the nurse Reason for Continuing Indwelling Catheter: Acute Urinary Retention or Obstruction Urinary Catheter Date of Insertion: 04/30/20 Urinary Catheter Time of Insertion: 15:42 Date Urinary Catheter Removed: 05/03/20 Time Urinary Catheter Discontinued: 14:00 Data : 05/07/20 05:20 05/07/20 05:20 A&P Assessment and plan (1) Displaced comminuted fracture of shaft of right tibia, initial encounter for open fracture type I or II: -s/p ORIF on 04/30/20 -Has a history of chronic respiratory failure with hypoxia and hypercapnia, COPD, current smoker, history of pulmonary emboli, recent history of breast cancer status post lumpectomy, type 2 diabetes, hypertension, systolic and diastolic CHF, severe mitral valve regurg, severe tricuspid valve regurg, CKD stage III -Echocardiogram in November showed EF of 60%, grade 3 out of 4 diastolic dysfunction, evidence of severe pulmonary hypertension, severe mitral valve regurg, severe tricuspid valve regurg -Eliquis appears to have been accidentally continued while transferred from ICU to floors patient had been receiving it over the last 24 hours. This has now been discontinued. Bleeding at the site has improved. Hemoglobin is stable at 8.5 -Eliquis is still on hold Status: Acute (2) Chronic respiratory failure with hypoxia and hypercapnia: Secondary to COPD, obesity hypoventilation syndrome, systolic and diastolic CHF -continue Bipap at night time -Diuresis as needed -Avoid fluid overload, Lasix 40 mg p.o. twice daily -De-escalate to prednisone 40 mg daily -Would limit opiate medications as far as possible Status: Acute (3) Morbid obesity with body mass index (BMI) of 40.0 to 49.9: Status: Acute (4) S/P lumpectomy, left breast: on 04/17, margins clear , sentinel lymph node biopsy without malignancy , no further chemo planned for now per discussion with oncology. Will need follow up post discharge Status: Acute (5) Type 2 diabetes mellitus, without long-term current use of insulin: -Insulin sliding scale with low-dose Status: Acute Qualifiers: Diabetes mellitus complication status: without complication Qualified Code(s): E11.9 - Type 2 diabetes mellitus without complications (6) Port-A-Cath in place: Status: Acute (7) History of pulmonary embolism: -Eliquis on hold due to bleedign at site Status: Acute (8) BINA (obstructive sleep apnea): -BiPAP overnight Status: Acute (9) Valvular heart disease: -Severe mitral and tricuspid valve regurg Status: Acute (10) Benign essential HTN: -Hold blood pressure medications Status: Acute (11) Diastolic heart failure secondary to hypertension: Monitor for fluid overload Status: Acute (12) Post-traumatic stress disorder, chronic: Status: Acute (13) Bipolar disorder, current episode mixed, moderate: Status: Acute (14) Systolic and diastolic CHF, chronic: -No known cardiovascular disease -Recently had surgery by Dr. Beaver for lumpectomy, -EKG no acute ST-T wave changes, no chest pain) shortness of breath complaints As needed Status: Acute (15) Acute on chronic anemia: -Hemoglobin 8.5, chronically runs between 9 and 10 -transfuse if hemoglobin less than 7 -Status post 1 unit PRBC yesterday -Etiology likely multifactorial, related to malignancy and or slow GI bleed, Protonix 40 twice daily, Carafate -Eliquis is on hold Status: Acute (16) Anemia: Status: Acute Additional A&P Information dispo: D/c to SNF Attestations Medical Necessity Statement*: Patient requires hospitalization due to right ankle fracture, is nonweightbearing, requires nursing placement, anemia Coding Level of Care Code Acute Digital Controls Technical Officer for [facility] Fwd Diagnoses Displaced comminuted fracture of shaft of right tibia, initial encounter for open fracture type I or II S82.251B Chronic respiratory failure with hypoxia and hypercapnia J96.11; J96.12 Morbid obesity with body mass index (BMI) of 40.0 to 49.9 E66.01 S/P lumpectomy, left breast Z98.890 Type 2 diabetes mellitus, without long-term current use of insulin E11.9 Diabetes mellitus complication status: without complication Port-A-Cath in place Z95.828 History of pulmonary embolism Z86.711 BINA (obstructive sleep apnea) G47.33 Valvular heart disease I38 Benign essential HTN I10 Diastolic heart failure secondary to hypertension I11.0; I50.30 Post-traumatic stress disorder, chronic F43.12 Bipolar disorder, current episode mixed, moderate F31.62 Systolic and diastolic CHF, chronic I50.42 Acute on chronic anemia D64.9 Anemia D64.9
[2020-05-07] MEDS: CLONazepam 1 mg Tablet PO (15:18)
[2020-05-07] MEDS: prazosin 1 mg Capsule PO (18:00)
[2020-05-07] MEDS: quetiapine XR (24HR) 50 mg Tablet PO (18:00)
[2020-05-07] MEDS: quetiapine XR (24HR) 300 mg Tablet PO (18:01)
[2020-05-08] VITALS (13 sets, daily range): BP systolic 96–148; BP diastolic 50–86; PULSE 62–89; RESP 15–19; TEMP 36.6–37.7; O2SAT 93–98
[2020-05-08] MEDS: HYDROcodone-acetaminophen 7.5-325 mg Tablet 2 TAB PO ×4 (00:08→18:34)
[2020-05-08] MEDS: CLONazepam 1 mg Tablet PO ×2 (00:08→10:18)
[2020-05-08 05:53] LABS: Basophils % 0.1 %; Eosinophils % 0.2 %; Hematocrit 30.4 % (37.0-47.0); Hemoglobin 9.2 g/dL (11.5-15.3); Lymphocytes # 0.7 10^3/uL (0.8-4.8); Lymphocytes % 6.3 %; Mean Corpuscular HGB Conc 30.3 g/dL (30.0-36.0); Mean Corpuscular Hemoglobin 31.5 pg (28.0-34.0); Mean Corpuscular Volume 104.1 fL (81-99); Mean Platelet Volume 11.2 fL (7.4-10.4); Monocytes # 0.8 10^3/uL (0.2-0.9); Monocytes % 7.8 %; Neutrophils % 84.9 %; Nucleated Red Blood Cells % 0 %; Platelet Count 169 10^3/cmm (130-400); Red Blood Count 2.92 10^6/uL (4.1-5.3); Red Cell Distribution Width 16.7 % (12.1-15.1); White Blood Count 10.3 10^3/uL (4.0-10.0)
[2020-05-08 06:13] LABS: Alanine Aminotransferase 14 U/L (0-33); Albumin Level 3.4 g/dL (3.5-5.2); Alkaline Phosphatase 141 IU/L (35-105); Anion Gap 9.7 (5-19); Aspartate Amino Transferase 16 U/L (0-32); Blood Urea Nitrogen 35 mg/dL (6-20); Calcium 8.6 mg/dL (8.5-10.5); Carbon Dioxide 37 mmol/L (22-29); Chloride 96 mmol/L (98-107); Glomerular Filtration Rate 58.7 mL/min (90-130); Glucose 96 mg/dL (65-115); Magnesium 1.9 mg/dL (1.7-2.3); Osmolality Calculated 296 mOsm/kg (285-295); Phosphorus 3.1 mg/dL (2.5-4.5); Potassium 3.7 mmol/L (3.5-5.1); Sodium 139 mmol/L (136-145); Total Bilirubin 0.6 mg/dL (0.15-1.2); Total Protein 5.4 g/dL (6.6-8.7)
[2020-05-08] MEDS: gabapentin 300 mg Capsule PO ×3 (06:24→17:32)
[2020-05-08] MEDS: pantoprazole DR 40 mg Tablet PO ×2 (06:24→17:32)
[2020-05-08] MEDS: atenolol 50 mg Tablet 25 MG PO ×2 (06:24→17:31)
[2020-05-08] MEDS: duloxetine 60 mg Capsule PO (06:24)
[2020-05-08] MEDS: albuterol 8 gm MDI 2 PUFF INHALATION ×3 (07:56→20:59)
[2020-05-08] MEDS: nicotine 21 mg Patch 1 PATCH TRANSDERMA (10:17)
[2020-05-08] MEDS: predniSONE 20 mg Tablet 40 MG PO (10:17)
[2020-05-08] MEDS: FUROsemide 40 mg Tablet PO ×2 (10:18→17:31)
[2020-05-08] MEDS: spironolactone 25 mg Tablet 12.5 MG PO (10:18)
[2020-05-08] MEDS: tizanidine 4 mg Tablet 2 MG PO ×3 (10:18→22:55)
--- NOTE | 2020-05-08 11:55 | P.PN_ITS ---
Subjective Subjective: Interval history: Patient was examined this morning, she is doing well, has no complaints, abdomen extensive discussion about her discharge planning, he has reached out to a couple of nursing homes, still waiting to hear back from him, however there might be a possibility that she might need to go home, she is nonweightbearing, she does have a complex fracture, poor wound healing given her cancer and chemotherapy, she tells me that her sister has 2 levels in her home, the lower level has a hospital bed in the amenities because her had cancer who has recently , and her sister has offered it to her in the past, so this could be an option if all else fails Vitals/I&O/Wt Last Vital Signs Temp 98.2 F 05/08/20 08:00 Pulse 69 05/08/20 08:00 Resp 17 05/08/20 08:00 BP 96/75 05/08/20 08:00 Pulse Ox 93 05/08/20 08:00 05/07/20 05/08/20 05/08/20 22:59 06:59 14:59 Intake Total 600 / 1080 500 / 1580 Output Total 2000 / 2400 Balance 600 / 680 -1500 / -820 Weight last 48 hrs Weight 127.459 kg Physical Exam Const: COMMON NORMALS: no acute distress and patient oriented x3 HENMT: COMMON NORMALS: normocephalic HEAD & SCALP: normocephalic Neck/C-Spine: COMMON NORMALS: no JVD Resp: COMMON NORMALS: normal respiratory effort, No retractions, No use of accessory muscles and clear to auscultation bilaterally AUSCULTATION: clear to auscultation bilaterally Cardio: COMMON NORMALS: no JVD, regular rate, regular rhythm, S1 normal heart sound present and S2 normal heart sound present RATE: regular rate RHYTHM: regular rhythm HEART SOUNDS: S1 normal heart sound present and S2 normal heart sound present GI: COMMON NORMALS: Normal to inspection, nondistended, normoactive bowel sounds present, Soft to palpation, non-tender, No hepatosplenomegaly present, no masses and no bruits PALPATION: Yes Soft to palpation and Yes No hepatosplenomegaly present Extremity: COMMON NORMALS: capillary refill normal, no clubbing, cyanosis or edema, no calf tenderness and no pedal edema Neuro: COMMON NORMALS: patient oriented x3 Psych: COMMON NORMALS: mental status grossly normal Skin: NARRATIVE SKIN EXAM: Left ankle, Urinary Catheter Management^: Bush: Cath Placed During This Visit: yes, but has since been removed by the nurse Reason for Continuing Indwelling Catheter: Acute Urinary Retention or Obstruction Urinary Catheter Date of Insertion: 04/30/20 Urinary Catheter Time of Insertion: 15:42 Date Urinary Catheter Removed: 05/03/20 Time Urinary Catheter Discontinued: 14:00 Data : 05/08/20 05:17 05/08/20 05:17 A&P Assessment and plan (1) Displaced comminuted fracture of shaft of right tibia, initial encounter for open fracture type I or II: -s/p ORIF on 04/30/20 -Has a history of chronic respiratory failure with hypoxia and hypercapnia, COPD, current smoker, history of pulmonary emboli, recent history of breast cancer status post lumpectomy, type 2 diabetes, hypertension, systolic and diastolic CHF, severe mitral valve regurg, severe tricuspid valve regurg, CKD stage III -Echocardiogram in November showed EF of 60%, grade 3 out of 4 diastolic dysfunction, evidence of severe pulmonary hypertension, severe mitral valve regurg, severe tricuspid valve regurg -Eliquis appears to have been accidentally continued while transferred from ICU to floors patient had been receiving it over the last 24 hours. This has now been discontinued. Bleeding at the site has improved. Hemoglobin is stable at 9.2 -Eliquis is still on hold Status: Acute (2) Chronic respiratory failure with hypoxia and hypercapnia: Secondary to COPD, obesity hypoventilation syndrome, systolic and diastolic CHF -continue Bipap at night time -Diuresis as needed -Avoid fluid overload, Lasix 40 mg p.o. twice daily -De-escalate to prednisone 40 mg daily -Would limit opiate medications as far as possible Status: Acute (3) Morbid obesity with body mass index (BMI) of 40.0 to 49.9: Status: Acute (4) S/P lumpectomy, left breast: on 04/17, margins clear , sentinel lymph node biopsy without malignancy , no further chemo planned for now per discussion with oncology. Will need follow up post discharge Status: Acute (5) Type 2 diabetes mellitus, without long-term current use of insulin: -Insulin sliding scale with low-dose Status: Acute Qualifiers: Diabetes mellitus complication status: without complication Qualified Code(s): E11.9 - Type 2 diabetes mellitus without complications (6) Port-A-Cath in place: Status: Acute (7) History of pulmonary embolism: -Eliquis on hold due to bleedign at site Status: Acute (8) BINA (obstructive sleep apnea): -BiPAP overnight Status: Acute (9) Valvular heart disease: -Severe mitral and tricuspid valve regurg Status: Acute (10) Benign essential HTN: -Hold blood pressure medications Status: Acute (11) Diastolic heart failure secondary to hypertension: Monitor for fluid overload Status: Acute (12) Post-traumatic stress disorder, chronic: Status: Acute (13) Bipolar disorder, current episode mixed, moderate: Status: Acute (14) Systolic and diastolic CHF, chronic: -No known cardiovascular disease -Recently had surgery by Dr. Beaver for lumpectomy, -EKG no acute ST-T wave changes, no chest pain) shortness of breath complaints As needed Status: Acute (15) Acute on chronic anemia: -Hemoglobin 8.5, chronically runs between 9 and 10 likely after chemotherapy -transfuse if hemoglobin less than 7 -Status post 1 unit PRBC yesterday -Etiology likely multifactorial, related to malignancy and or slow GI bleed, Protonix 40 twice daily, Carafate -Eliquis is on hold Status: Acute (16) Anemia: Status: Acute Additional A&P Information dispo: D/c to SNF versus home health at her sister's house Attestations Medical Necessity Statement*: Patient requires hospitalization for left ankle fracture, complex, postoperative anemia, requiring halfway placement Coding Level of Care Code Acute Physician Practice Consultant for [facility] Fw Diagnoses Displaced comminuted fracture of shaft of right tibia, initial encounter for open fracture type I or II S82.251B Chronic respiratory failure with hypoxia and hypercapnia J96.11; J96.12 Morbid obesity with body mass index (BMI) of 40.0 to 49.9 E66.01 S/P lumpectomy, left breast Z98.890 Type 2 diabetes mellitus, without long-term current use of insulin E11.9 Diabetes mellitus complication status: without complication Port-A-Cath in place Z95.828 History of pulmonary embolism Z86.711 BINA (obstructive sleep apnea) G47.33 Valvular heart disease I38 Benign essential HTN I10 Diastolic heart failure secondary to hypertension I11.0; I50.30 Post-traumatic stress disorder, chronic F43.12 Bipolar disorder, current episode mixed, moderate F31.62 Systolic and diastolic CHF, chronic I50.42 Acute on chronic anemia D64.9 Anemia D64.9
--- NOTE | 2020-05-08 12:30 | PC.OT ---
OT tx attempted at this time. Pt sitting up in bed finishing lunch. She declines OT tx at this time as she has just received pain medication and wants to let it work before moving around . Therapist will return at later time if able.
[2020-05-08] MEDS: quetiapine XR (24HR) 50 mg Tablet PO (17:31)
[2020-05-08] MEDS: quetiapine XR (24HR) 300 mg Tablet PO (17:31)
[2020-05-08] MEDS: prazosin 1 mg Capsule PO (17:31)
[2020-05-09] VITALS (12 sets, daily range): BP systolic 102–141; BP diastolic 52–77; PULSE 61–77; RESP 16–20; TEMP 36.6–37.5; O2SAT 92–99
[2020-05-09] MEDS: CLONazepam 1 mg Tablet PO ×2 (00:42→10:01)
[2020-05-09] MEDS: HYDROcodone-acetaminophen 7.5-325 mg Tablet 2 TAB PO ×4 (00:42→18:57)
[2020-05-09] MEDS: pantoprazole DR 40 mg Tablet PO ×2 (06:24→18:14)
[2020-05-09] MEDS: gabapentin 300 mg Capsule PO ×3 (06:24→18:11)
[2020-05-09] MEDS: atenolol 50 mg Tablet 25 MG PO ×2 (06:24→18:12)
[2020-05-09] MEDS: duloxetine 60 mg Capsule PO (06:25)
[2020-05-09] MEDS: FUROsemide 40 mg Tablet PO ×2 (06:27→18:11)
[2020-05-09 06:32] LABS: Eosinophils % 0.4 %; Hematocrit 28.2 % (37.0-47.0); Hemoglobin 8.4 g/dL (11.5-15.3); Lymphocytes # 0.6 10^3/uL (0.8-4.8); Lymphocytes % 5.8 %; Mean Corpuscular HGB Conc 29.8 g/dL (30.0-36.0); Mean Corpuscular Hemoglobin 30.3 pg (28.0-34.0); Mean Corpuscular Volume 101.8 fL (81-99); Mean Platelet Volume 11.4 fL (7.4-10.4); Monocytes # 0.8 10^3/uL (0.2-0.9); Monocytes % 7.9 %; Neutrophils % 85.3 %; Nucleated Red Blood Cells % 0 %; Platelet Count 197 10^3/cmm (130-400); Red Blood Count 2.77 10^6/uL (4.1-5.3); Red Cell Distribution Width 16.2 % (12.1-15.1); White Blood Count 10.1 10^3/uL (4.0-10.0)
[2020-05-09 06:57] LABS: Alanine Aminotransferase 17 U/L (0-33); Albumin Level 3.2 g/dL (3.5-5.2); Alkaline Phosphatase 144 IU/L (35-105); Anion Gap 7.8 (5-19); Aspartate Amino Transferase 15 U/L (0-32); Blood Urea Nitrogen 37 mg/dL (6-20); Calcium 8.6 mg/dL (8.5-10.5); Carbon Dioxide 38 mmol/L (22-29); Chloride 97 mmol/L (98-107); Globulin 1.9 g/dL (1.3-4.6); Glomerular Filtration Rate 58.7 mL/min (90-130); Glucose 95 mg/dL (65-115); Magnesium 1.9 mg/dL (1.7-2.3); Osmolality Calculated 296 mOsm/kg (285-295); Phosphorus 2.9 mg/dL (2.5-4.5); Potassium 3.8 mmol/L (3.5-5.1); Sodium 139 mmol/L (136-145); Total Bilirubin 0.5 mg/dL (0.15-1.2); Total Protein 5.1 g/dL (6.6-8.7)
[2020-05-09] MEDS: albuterol 8 gm MDI 2 PUFF INHALATION ×3 (08:10→20:25)
[2020-05-09] MEDS: tizanidine 4 mg Tablet 2 MG PO ×2 (10:01→15:17)
[2020-05-09] MEDS: predniSONE 20 mg Tablet 40 MG PO (10:01)
[2020-05-09] MEDS: nicotine 21 mg Patch 1 PATCH TRANSDERMA (10:02)
[2020-05-09] MEDS: spironolactone 25 mg Tablet 12.5 MG PO (10:02)
--- NOTE | 2020-05-09 13:54 | P.PN_ITS ---
Subjective Subjective: Interval history: Patient was seen this morning, she tells me that she can live with her sister, but she has to give her sister a day to get everything set up, doing well overnight, no fevers, chills, no nausea, no vomiting Vitals/I&O/Wt Last Vital Signs Temp 99.5 F 05/09/20 11:55 Pulse 72 05/09/20 11:55 Resp 18 05/09/20 11:55 BP 102/52 05/09/20 11:55 Pulse Ox 92 05/09/20 11:55 05/08/20 05/09/20 05/09/20 22:59 06:59 14:59 Intake Total 240 / 480 720 / 1200 480 / 480 Output Total 1660 / 2460 450 / 2910 1400 / 1400 Balance -1420 / -1980 270 / -1710 -920 / -920 Physical Exam Const: COMMON NORMALS: no acute distress and patient oriented x3 NUTRITIONAL APPEARANCE: obese HENMT: COMMON NORMALS: normocephalic HEAD & SCALP: normocephalic Neck/C-Spine: COMMON NORMALS: no JVD Resp: COMMON NORMALS: normal respiratory effort, No retractions, No use of accessory muscles and clear to auscultation bilaterally AUSCULTATION: clear to auscultation bilaterally Cardio: COMMON NORMALS: no JVD, regular rate, regular rhythm, S1 normal heart sound present, S2 normal heart sound present, No gallops present (Cardio), No clicks present (Cardio) and No murmurs present (Cardio) RATE: regular rate RHYTHM: regular rhythm HEART SOUNDS: S1 normal heart sound present and S2 normal heart sound present GI: COMMON NORMALS: Normal to inspection, nondistended, normoactive bowel sounds present, Soft to palpation, non-tender, No hepatosplenomegaly present, no masses and no bruits PALPATION: Yes Soft to palpation and Yes No hepatos plenomegaly present Extremity: COMMON NORMALS: capillary refill normal, no clubbing, cyanosis or edema, no calf tenderness and no pedal edema Neuro: COMMON NORMALS: patient oriented x3 Psych: COMMON NORMALS: mental status grossly normal Skin: NARRATIVE SKIN EXAM: Left ankle, surgical site looks clean and dry Urinary Catheter Management^: Bush: Cath Placed During This Visit: yes, but has since been removed by the nurse Reason for Continuing Indwelling Catheter: Acute Urinary Retention or Obstruction Urinary Catheter Date of Insertion: 04/30/20 Urinary Catheter Time of Insertion: 15:42 Date Urinary Catheter Removed: 05/03/20 Time Urinary Catheter Discontinued: 14:00 Data : 05/09/20 05:50 05/09/20 05:50 A&P Assessment and plan (1) Displaced comminuted fracture of shaft of right tibia, initial encounter for open fracture type I or II: -s/p ORIF on 04/30/20 -Has a history of chronic respiratory failure with hypoxia and hypercapnia, COPD, current smoker, history of pulmonary emboli, recent history of breast cancer status post lumpectomy, type 2 diabetes, hypertension, systolic and diastolic CHF, severe mitral valve regurg, severe tricuspid valve regurg, CKD stage III -Echocardiogram in November showed EF of 60%, grade 3 out of 4 diastolic dysfunction, evidence of severe pulmonary hypertension, severe mitral valve regurg, severe tricuspid valve regurg -Eliquis appears to have been accidentally continued while transferred from ICU to floors patient had been receiving it over the last 24 hours. This has now been discontinued. Bleeding at the site has improved. Hemoglobin is stable at 8.4 -Eliquis is still on hold Status: Acute (2) Chronic respiratory failure with hypoxia and hypercapnia: Secondary to COPD, obesity hypoventilation syndrome, systolic and diastolic CHF -continue Bipap at night time -Diuresis as needed -Avoid fluid overload, Lasix 40 mg p.o. twice daily -De-escalate to prednisone 40 mg daily -Would limit opiate medications as far as possible Status: Acute (3) Morbid obesity with body mass index (BMI) of 40.0 to 49.9: Status: Acute (4) S/P lumpectomy, left breast: on 04/17, margins clear , sentinel lymph node biopsy without malignancy , no further chemo planned for now per discussion with oncology. Will need follow up post discharge Status: Acute (5) Type 2 diabetes mellitus, without long-term current use of insulin: -Insulin sliding scale with low-dose Status: Acute Qualifiers: Diabetes mellitus complication status: without complication Qualified Code(s): E11.9 - Type 2 diabetes mellitus without complications (6) Port-A-Cath in place: Status: Acute (7) History of pulmonary embolism: -Eliquis on hold due to bleedign at site Status: Acute (8) BINA (obstructive sleep apnea): -BiPAP overnight Status: Acute (9) Valvular heart disease: -Severe mitral and tricuspid valve regurg Status: Acute (10) Benign essential HTN: -Hold blood pressure medications Status: Acute (11) Diastolic heart failure secondary to hypertension: Monitor for fluid overload Status: Acute (12) Post-traumatic stress disorder, chronic: Status: Acute (13) Bipolar disorder, current episode mixed, moderate: Status: Acute (14) Systolic and diastolic CHF, chronic: -No known cardiovascular disease -Recently had surgery by Dr. Beaver for lumpectomy, -EKG no acute ST-T wave changes, no chest pain) shortness of breath complaints As needed Status: Acute (15) Acute on chronic anemia: -Hemoglobin 8.4, chronically runs between 9 and 10 likely after chemotherapy -transfuse if hemoglobin less than 7 -Status post 1 unit PRBC on Friday -Etiology likely multifactorial, related to malignancy and or slow GI bleed, Protonix 40 twice daily, Carafate -Eliquis is on hold Status: Acute (16) Anemia: Status: Acute Additional A&P Information dispo: Plan is to discharge tomorrow sister's house, she has a hospital bed, she has arrangements made to have increased help Attestations Medical Necessity Statement*: Patient requires hospitalization for left ankle fracture, postoperative anemia Coding Level of Care Code Acute Narcotics And/Or Vice Detective for [facility] Fwd Diagnoses Displaced comminuted fracture of shaft of right tibia, initial encounter for open fracture type I or II S82.251B Chronic respiratory failure with hypoxia and hypercapnia J96.11; J96.12 Morbid obesity with body mass index (BMI) of 40.0 to 49.9 E66.01 S/P lumpectomy, left breast Z98.890 Type 2 diabetes mellitus, without long-term current use of insulin E11.9 Diabetes mellitus complication status: without complication Port-A-Cath in place Z95.828 History of pulmonary embolism Z86.711 BINA (obstructive sleep apnea) G47.33 Valvular heart disease I38 Benign essential HTN I10 Diastolic heart failure secondary to hypertension I11.0; I50.30 Post-traumatic stress disorder, chronic F43.12 Bipolar disorder, current episode mixed, moderate F31.62 Systolic and diastolic CHF, chronic I50.42 Acute on chronic anemia D64.9 Anemia D64.9
[2020-05-09] MEDS: prazosin 1 mg Capsule PO (18:12)
[2020-05-09] MEDS: quetiapine XR (24HR) 50 mg Tablet PO (18:12)
[2020-05-09] MEDS: quetiapine XR (24HR) 300 mg Tablet PO (18:12)
[2020-05-10] VITALS (8 sets, daily range): BP systolic 117–146; BP diastolic 63–86; PULSE 66–77; RESP 18; TEMP 36.5–37.6; O2SAT 92–97
[2020-05-10] MEDS: HYDROcodone-acetaminophen 7.5-325 mg Tablet 2 TAB PO ×3 (02:17→14:42)
[2020-05-10 02:36] LABS: Eosinophils % 0.2 %; Hematocrit 29.6 % (37.0-47.0); Hemoglobin 8.8 g/dL (11.5-15.3); Lymphocytes # 0.5 10^3/uL (0.8-4.8); Lymphocytes % 5.3 %; Mean Corpuscular HGB Conc 29.7 g/dL (30.0-36.0); Mean Corpuscular Hemoglobin 30.9 pg (28.0-34.0); Mean Corpuscular Volume 103.9 fL (81-99); Mean Platelet Volume 11.4 fL (7.4-10.4); Monocytes # 0.8 10^3/uL (0.2-0.9); Neutrophils # 8.49 10^3/uL (1.8-7.7); Neutrophils % 85.7 %; Nucleated Red Blood Cells % 0 %; Platelet Count 202 10^3/cmm (130-400); Red Blood Count 2.85 10^6/uL (4.1-5.3); Red Cell Distribution Width 16.3 % (12.1-15.1); White Blood Count 9.9 10^3/uL (4.0-10.0)
[2020-05-10 03:03] LABS: Alanine Aminotransferase 19 U/L (0-33); Albumin Level 3.1 g/dL (3.5-5.2); Alkaline Phosphatase 175 IU/L (35-105); Aspartate Amino Transferase 18 U/L (0-32); Blood Urea Nitrogen 34 mg/dL (6-20); Calcium 8.8 mg/dL (8.5-10.5); Carbon Dioxide 39 mmol/L (22-29); Chloride 97 mmol/L (98-107); Globulin 2.1 g/dL (1.3-4.6); Glomerular Filtration Rate 58.7 mL/min (90-130); Glucose 121 mg/dL (65-115); Magnesium 1.9 mg/dL (1.7-2.3); Osmolality Calculated 303 mOsm/kg (285-295); Phosphorus 3.8 mg/dL (2.5-4.5); Sodium 142 mmol/L (136-145); Total Bilirubin 0.4 mg/dL (0.15-1.2); Total Protein 5.2 g/dL (6.6-8.7)
[2020-05-10] MEDS: tizanidine 4 mg Tablet 2 MG PO ×2 (05:59→11:48)
[2020-05-10] MEDS: atenolol 50 mg Tablet 25 MG PO (06:00)
[2020-05-10] MEDS: pantoprazole DR 40 mg Tablet PO (06:01)
[2020-05-10] MEDS: duloxetine 60 mg Capsule PO (06:01)
[2020-05-10] MEDS: FUROsemide 40 mg Tablet PO (06:01)
[2020-05-10] MEDS: gabapentin 300 mg Capsule PO ×2 (06:01→11:48)
[2020-05-10] MEDS: CLONazepam 1 mg Tablet PO (07:55)
[2020-05-10] MEDS: predniSONE 20 mg Tablet 40 MG PO (08:24)
[2020-05-10] MEDS: nicotine 21 mg Patch 1 PATCH TRANSDERMA (08:25)
[2020-05-10] MEDS: albuterol 8 gm MDI 2 PUFF INHALATION (09:02)
[2020-05-10] MEDS: spironolactone 25 mg Tablet 12.5 MG PO (09:47)
[2020-05-10 11:59] LABS: Glucose Point of Care 125 mg/dL (70-110)
--- NOTE | 2020-05-10 13:02 | PM.DCS ---
Discharge Providers Date of Admission: 04/30/20 18:30 Date of Discharge: May 10, 2020 Attending Provider at Admission: Liam Hilton MD Attending Provider at Discharge: Liam Hilton MD Primary Care Provider: Liz Marcos DO Diagnoses at Discharge Discharge Diagnosis (1) Displaced comminuted fracture of shaft of right tibia, initial encounter for open fracture type I or II: Status: Acute (2) Chronic respiratory failure with hypoxia and hypercapnia: Status: Acute (3) Morbid obesity with body mass index (BMI) of 40.0 to 49.9: Status: Acute (4) S/P lumpectomy, left breast: Status: Acute Permanent problem details: With sentinel lymph node biopsy (5) Type 2 diabetes mellitus, without long-term current use of insulin: Status: Acute Qualifiers: Diabetes mellitus complication status: without complication Qualified Code(s): E11.9 - Type 2 diabetes mellitus without complications (6) Port-A-Cath in place: Status: Acute (7) History of pulmonary embolism: Status: Acute (8) BINA (obstructive sleep apnea): Status: Acute (9) Valvular heart disease: Status: Acute (10) Benign essential HTN: Status: Acute (11) Diastolic heart failure secondary to hypertension: Status: Acute (12) Post-traumatic stress disorder, chronic: Status: Acute (13) Bipolar disorder, current episode mixed, moderate: Status: Acute (14) Systolic and diastolic CHF, chronic: Status: Acute (15) Acute on chronic anemia: Status: Acute (16) Anemia: Status: Acute Reason for Visit Reason for Visit: RIGHT ANKLE LACERATION S/P FALL Hospital Course Hospital Course Meka Bhatia is a 50 year old female with a past medical history of triple negative invasive ductal carcinoma, status post left breast lumpectomy with shave margins, left axilla sentinel lymph node biopsy by Dr. Beaver on April 17, 2020, history of chronic hypercapnic respiratory failure secondary to COPD, current smoker, on 3 L, history of chronic pulmonary emboli on Eliquis, history of severe pulmonary hypertension, history of systolic and diastolic CHF, history of PTSD, anxiety, depression, obstructive sleep apnea, CKD stage III, hypertension, chronic hepatitis C, GERD, iron deficiency anemia, acute on chronic anemia, mitral valve insufficiency, history of right ventricular overload, severe tricuspid valve regurg, severe mitral valve regurg who presents to [facility] due to fall. Patient was admitted to [facility] for Displaced comminuted fracture of shaft of right tibia, s/p ORIF on 04/30/20, tolerated surgery well, is nonweightbearing, [place] [facility] placement was a challenge, patient was discharged to her sister's house, she has significant amount amenities there including a hospital bed, patient should follow-up with Dr. Galdamez in 1 week Patient had acute on chronic anemia throughout her hospital admission, requiring a total of 3 units PRBC during her hospital admission, etiology multifactorial likely component of anemia chronic disease, cannot rule out a slow GI bleed, no hemodynamic compromise throughout hospital admission, hemoglobin on discharge was 8.8, patient's Eliquis was held throughout her admission. Patient was advised to hold Eliquis for a week, repeat CBC at primary care physician's office in a week, if hemoglobin is greater than 10, no overt signs of bleeding, can reinstitute Eliquis. I have discharged her on Protonix, Carafate, with a follow-up with general surgery in a month for consideration of EGD Patient had chronic respiratory failure with hypoxia and hypercapnia postoperatively, secondary to COPD, CHF, systolic and diastolic, was kept on BiPAP in the ICU, was diuresed, clinically improved, moved to the general Medical floors, D escalated to her 3 L home nasal cannula, did well with Lasix 40 mg twice daily. Physical Exam Const: COMMON NORMALS: no acute distress and patient oriented x3 HENMT: COMMON NORMALS: normocephalic HEAD & SCALP: normocephalic Neck/C-Spine: COMMON NORMALS: no JVD Resp: COMMON NORMALS: normal respiratory effort, No retractions, No use of accessory muscles and clear to auscultation bilaterally AUSCULTATION: clear to auscultation bilaterally Cardio: COMMON NORMALS: no JVD, regular rate, regular rhythm, S1 normal heart sound present and S2 normal heart sound present RATE: regular rate RHYTHM: regular rhythm HEART SOUNDS: S1 normal heart sound present and S2 normal heart sound present GI: COMMON NORMALS: Normal to inspection, nondistended, normoactive bowel sounds present, Soft to palpation, non-tender, No hepatosplenomegaly present, no masses and no bruits PALPATION: Yes Soft to palpation and Yes No hepatosplenomegaly present Extremity: COMMON NORMALS: capillary refill normal, no clubbing, cyanosis or edema, no calf tenderness and no pedal edema Neuro: COMMON NORMALS: patient oriented x3 Psych: COMMON NORMALS: mental status grossly normal Urinary Catheter Management^: Bush: Cath Placed During This Visit: yes, but has since been removed by the nurse Reason for Continuing Indwelling Catheter: Acute Urinary Retention or Obstruction Urinary Catheter Date of Insertion: 04/30/20 Urinary Catheter Time of Insertion: 15:42 Date Urinary Catheter Removed: 05/03/20 Time Urinary Catheter Discontinued: 14:00 Discharge Data Data Completed and Pending: Completed Studies During Hospitalization Category Date Time Status CT ankle RT wo co n* [id number] Urgent Cat Scan 04/30/20 13:17 Completed XR ankle RT 2V 73 600 Stat Exams 04/30/20 12:08 Completed XR chest 1V nat ble [id number] Stat Exams 04/30/20 13:21 Completed XR tibia fibula R T 2V [id number] Routine Exams 04/30/20 Completed Labs from last 24 hours 05/10/20 05/10/20 05/10/20 11:52 02:11 02:11 WBC 9.9 RBC 2.85 L Hgb 8.8 L Hct 29.6 L MCV 103.9 H MCH 30.9 MCHC 29.7 L RDW 16.3 H Plt Count 202 MPV 11.4 H Neut % (Auto) 85.7 Lymph % (Auto) 5.3 Sterling % (Auto) 8.0 Eos % (Auto) 0.2 Baso % (Auto) 0.0 Neut # (Auto) 8.49 H Lymph # (Auto) 0.5 L Sterling # (Auto) 0.8 Eos # (Auto) 0.0 Baso # (Auto) 0.0 Nucleated RBC % (a uto) 0 Nucleated RBCs # 0.0 Sodium 142 Potassium 4.0 Chloride 97 L Carbon Dioxide 39 H Anion Gap 10.0 BUN 34 H Creatinine 1.0 H GFR Calculation 58.7 L Glucose 121 H POC Glucose 125 H Calculated Osmolal ity 303 H Calcium 8.8 Phosphorus 3.8 Magnesium 1.9 Total Bilirubin 0.4 AST 18 ALT 19 Alkaline Phosphata se 175 H Total Protein 5.2 L Albumin 3.1 L Globulin 2.1 Vitals: Last Vital Signs Temp 99.6 F 12/30/20 11:55 Pulse 67 05/10/20 11:55 Resp 18 05/10/20 11:55 BP 117/78 05/10/20 11:55 Pulse Ox 96 05/10/20 11:55 Discharge Plan Discharge Patient Disposition: Home Condition: Stable Prescriptions: New furosemide 40 mg Tablet 40 mg PO Q12H 30 Days Qty: 60 RF: 0 isosorbide mononitrate 30 mg Tablet Extended Release 24 Hr 15 mg PO DAILY@0700 30 Days Qty: 30 RF: 0 spironolactone 25 mg Tablet 12.5 mg PO Q24H 30 Days Qty: 15 RF: 0 nicotine 21 mg/24 hr Patch 24 Hour 1 patch transdermal DAILY 30 Days Qty: 30 RF: 0 atenolol 50 mg Tablet 25 mg PO BID@0700,1830 30 Days Qty: 60 RF: 0 hydrocodone-acetaminophen 7.5-325 mg tablet 2 tab PO Q6H PRN (Reason: pain) 7 Days Qty: 56 RF: 0 Continued nitroglycerin [Nitrostat] 0.4 mg tablet, sublingual 0.4 mg SUBLINGUAL Q5M PRN (Reason: Chest Pain) Qty: 90 RF: 3 clonazepam 1 mg tablet 1 mg PO BID PRN (Reason: anxiety) Qty: 60 RF: 2 albuterol sulfate [ProAir HFA] 90 mcg/actuation HFA aerosol inhaler 2 puff INHALATION Q6H PRN (Reason: Shortness Of Breath) Qty: 8.5 RF: 4 revefenacin [Yupelri] 175 mcg/3 mL solution for nebulization See Rx Instructions .ROUTE .COMPLEX Qty: 90 RF: 3 fluticasone propionate 50 mcg/actuation spray,suspension See Rx Instructions .ROUTE .COMPLEX Qty: 16 RF: 3 Victoza 2-Bijan 0.6 mg/0.1 mL (18 mg/3 mL) pen injector 1.2 mg SUBCUT Q24H Qty: 6 RF: 0 ondansetron HCl [Zofran] 4 mg tablet 4 mg PO Q6H PRN (Reason: nausea and vomiting) Qty: 20 RF: 0 prazosin 1 mg capsule 1 mg PO BEDTIME@1830 RF: 0 pantoprazole 40 mg tablet,delayed release (DR/EC) 40 mg PO BID@0700,1830 RF: 0 Colace 100 mg capsule 100 mg PO BID@699,0 RF: 0 gabapentin 300 mg capsule 300 mg PO TID@ RF: 0 Cymbalta 60 mg capsule,delayed release(DR/EC) 60 mg PO DAILY@0700 RF: 0 Seroquel XR 300 mg tablet extended release 24 hr 300 mg PO BEDTIME@1830 RF: 0 Seroquel XR 50 mg tablet extended release 24 hr 50 mg PO BEDTIME@183 RF: 0 Changed potassium chloride 20 mEq tablet extended release 20 meq PO BID Qty: 0 RF: 0 Held Eliquis 5 mg tablet 5 mg PO BID@699,1829 RF: 0 Hold Instructions: Resume on 05/24/20. Discontinued dexamethasone 4 mg tablet 8 mg PO BID RF: 0 azithromycin 250 mg tablet 250 mg PO EVERY OTHER DAY Qty: 36 RF: 3 Lasix 40 mg tablet See Rx Instructions .ROUTE .COMPLEX Qty: 63 RF: 0 hydrocodone-acetaminophen 7.5-325 mg tablet 2 tab PO Q6H PRN (Reason: pain) RF: 0 isosorbide mononitrate 60 mg tablet extended release 24 hr 60 mg PO DAILY@0700 RF: 0 atenolol 50 mg tablet 50 mg PO BID@699,1829 RF: 0 spironolactone 50 mg tablet 50 mg PO DAILY@0700 RF: 0 Discharge Orders: Discharge Order (Routine); Ordered 05/10/20 Ordered By: Liam Hilton Other Ambulatory Orders: Complete Blood Count w/Auto (Routine) Timeframe: 1 Week Location: Determined by Patient Ordered By: Liam Hilton DME: Wheelchair (Order) Location: None Selected Ordered By: Liam Hilton Referrals: Alexandria Galdamez MD [Physician] - 2 weeks Discharge Diet: Usual diet Discharge Activity: Limit activity as instructed, Use walker/crutches as instructed, Wheelchair as instructed and As per PT/OT instructions Patient Instructions: Spironolactone (By mouth), Furosemide (By mouth), Hydrocodone/Acetaminophen (By mouth), Nicotine (Absorbed through the skin), Isosorbide Mononitrate (By mouth), Leg Fracture (GEN) Activity Restrictions/Additional Instructions: Nonweightbearing right lower extremity. Maintain dressings. Anytime you are up, wear the boot. -Hold Eliquis for at least 1 week, recheck CBC in 1 week, see primary care in 1 week, if hemoglobin is greater than 10, can resume Eliquis, for now monitor for DVTs, continue range of motion exercises in the calf -Your blood pressure medication doses have been decreased, due to low blood pressures, which will require slow upward titration as outpatient -Follow-up with Dr. 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 Operator for Chg Fwd Diagnoses Displaced comminuted fracture of shaft of right tibia, initial encounter for open fracture type I or II S82.251B Chronic respiratory failure with hypoxia and hypercapnia J96.11; J96.12 Morbid obesity with body mass index (BMI) of 40.0 to 49.9 E66.01 S/P lumpectomy, left breast Z98.890 Type 2 diabetes mellitus, without long-term current use of insulin E11.9 Diabetes mellitus complication status: without complication Port-A-Cath in place Z95.828 History of pulmonary embolism Z86.711 BINA (obstructive sleep apnea) G47.33 Valvular heart disease I38 Benign essential HTN I10 Diastolic heart failure secondary to hypertension I11.0; I50.30 Post-traumatic stress disorder, chronic F43.12 Bipolar disorder, current episode mixed, moderate F31.62 Systolic and diastolic CHF, chronic I50.42 Acute on chronic anemia D64.9 Anemia D64.9
== END 2020-05-10 16:50 | disposition home or self-care (01) | DRG 493 ==
LOC: ER 13:10 → OR 13:32 → ICU 18:31 → MEDSURG 05-01 18:19
PROVIDERS: Specialist; Student in an Organized Health Care Education/Training Program; Admitting Provider Family Medicine; Emergency Provider Family Medicine; PCP Family Medicine; Visit Provider Family Medicine
PROC: 0QSG06Z Reposition Right Tibia with Intramedullary Internal Fixation Device, Open Approach (ICD-10-PCS; principal; 2020-04-30 14:00)
DX: S82.251B Displaced comminuted fracture of shaft of right tibia, initial encounter for open fracture type I or II (principal); I13.0 Hypertensive heart and chronic kidney disease with heart failure and stage 1 through stage 4 chronic kidney disease, or unspecified chronic kidney disease; I50.42 Chronic combined systolic (congestive) and diastolic (congestive) heart failure; F31.62 Bipolar disorder, current episode mixed, moderate; J96.12 Chronic respiratory failure with hypercapnia; J96.11 Chronic respiratory failure with hypoxia; E87.2 Acidosis; I27.82 Chronic pulmonary embolism; E66.2 Morbid (severe) obesity with alveolar hypoventilation; Z68.42 Body mass index [BMI] 45.0-49.9, adult; S82.454 Nondisplaced comminuted fracture of shaft of right fibula; S82.391A Other fracture of lower end of right tibia, initial encounter for closed fracture; W19.XXXA Unspecified fall, initial encounter; E11.22 Type 2 diabetes mellitus with diabetic chronic kidney disease; N18.30 Chronic kidney disease, stage 3 unspecified; C50.912 Malignant neoplasm of unspecified site of left female breast; Z17.1 Estrogen receptor negative status [ER-]; B18.2 Chronic viral hepatitis C; K21.9 Gastro-esophageal reflux disease without esophagitis; D50.0 Iron deficiency anemia secondary to blood loss (chronic); I08.1 Rheumatic disorders of both mitral and tricuspid valves; F41.0 Panic disorder [episodic paroxysmal anxiety]; F43.12 Post-traumatic stress disorder, chronic; J44.9 Chronic obstructive pulmonary disease, unspecified; F17.210 Nicotine dependence, cigarettes, uncomplicated; F10.21 Alcohol dependence, in remission; Z79.51 Long term (current) use of inhaled steroids; Z95.828 Presence of other vascular implants and grafts; I27.20 Pulmonary hypertension, unspecified; Z99.81 Dependence on supplemental oxygen
CPT/HCPCS: 12345; 36415; 36416; 36430; 36591; 36592; 51702; 71045; 73590; 73600; 73610; 73700; 76000; 80048; 80053; 82803; 82962; 83735; 83880; 84100; 85014; 85018; 85025; 86850; 86900; 86920; 87426; 90471; 90715; 93005; 94640; 94660; 96375; 97110; 97161; 97166; 97530; 97535; 99283; C1713; J0131; J0330; J0692; J1170; J1940; J2270; J2405; J2704; J2920; J3010; J3370; J3490; J3535; J7030; J7050; J7512; P9016; P9040

== ENCOUNTER 2020-05-18 10:20 | Outpatient (CLI) | payer MEDICAID, SELFPAY ==
[2020-01-20 09:12] VITALS: BP 125/70; BMI 46.2
[2020-05-18 12:18] LABS: Basophils % 0.4 %; Eosinophils # 0.2 10^3/uL (0.0-0.8); Eosinophils % 3.9 %; Hematocrit 29.1 % (37.0-47.0); Hemoglobin 8.5 g/dL (11.5-15.3); Lymphocytes # 0.6 10^3/uL (0.8-4.8); Lymphocytes % 10.5 %; Mean Corpuscular HGB Conc 29.2 g/dL (30.0-36.0); Mean Corpuscular Hemoglobin 31.4 pg (28.0-34.0); Mean Corpuscular Volume 107.4 fL (81-99); Mean Platelet Volume 11.6 fL (7.4-10.4); Monocytes # 0.7 10^3/uL (0.2-0.9); Monocytes % 12.3 %; Neutrophils # 4.11 10^3/uL (1.8-7.7); Neutrophils % 71.8 %; Nucleated Red Blood Cells % 0 %; Platelet Count 163 10^3/cmm (130-400); Red Blood Count 2.71 10^6/uL (4.1-5.3); Red Cell Distribution Width 18.3 % (12.1-15.1); White Blood Count 5.7 10^3/uL (4.0-10.0)
[2020-05-18 12:39] LABS: Alanine Aminotransferase 21 U/L (0-33); Albumin Level 3.6 g/dL (3.5-5.2); Alkaline Phosphatase 259 IU/L (35-105); Anion Gap 9.5 (5-19); Aspartate Amino Transferase 32 U/L (0-32); Blood Urea Nitrogen 18 mg/dL (6-20); Calcium 9.2 mg/dL (8.5-10.5); Carbon Dioxide 39 mmol/L (22-29); Chloride 93 mmol/L (98-107); Globulin 2.5 g/dL (1.3-4.6); Glomerular Filtration Rate 47.6 mL/min (90-130); Glucose 78 mg/dL (65-115); Osmolality Calculated 287 mOsm/kg (285-295); Potassium 3.5 mmol/L (3.5-5.1); Sodium 138 mmol/L (136-145); Total Bilirubin 0.7 mg/dL (0.15-1.2); Total Protein 6.1 g/dL (6.6-8.7)
== END 2020-05-18 10:21 | disposition home or self-care (01) ==
LOC: ONCMED 16:33
PROVIDERS: PCP Family Medicine; Visit Provider Internal Medicine Hematology & Oncology
DX: C50.812 Malignant neoplasm of overlapping sites of left female breast (principal); Z17.1 Estrogen receptor negative status [ER-]
CPT/HCPCS: 80053; 85025

== ENCOUNTER 2020-05-19 08:06 | Outpatient (CLI) | payer MEDICAID, SELFPAY ==
[2020-01-20 09:12] VITALS: BP 125/70; BMI 46.2
--- NOTE | 2020-05-19 12:59 | ONC FU_ITS ---
Dr. Lundberg follow up note Patient: Meka Bhatia Unit #: [id number]: 1970 Dicatated By: Serjio Lundberg M.D.Date of Visit:May 19, 2020 Onc Med Follow-up/Prog Note History of Present Illness: Ms. Bhatia is a 50-year-old female with history of left breast mass since May 2019. She reports that initially she felt fullness in outer part of her left breast, it got better on its own then again got bigger, she did notice some milky discharge from her left nipple, she thought she was lactating. In the meantime she started also having vaginal bleeding, as per patient about 2 years ago she stopped having menstrual periods and with this new vaginal bleeding, her primary care doctor concerned and refer her to FINGERPRINTER Dr. Chowdary who ordered sonogram and some hormonal testing. While she was undergoing FINGERPRINTER work-up on October 01, 2019 she underwent bilateral mammogram which showed right breast was unremarkable but in the left breast there was an area of concern which was 3.6 x 4.3 cm dense lobulated lesion with heterogeneous calcifications subsequently underwent ultrasound of left breast which showed at 3 o'clock position, 4 cm from the nipple there was a dense hypoechoic well-circumscribed nodule measuring 4.1 x 3.9 x 5.1 cm associated vascularity. No abnormal lymph nodes seen in left axilla. Subsequently patient underwent ultrasound-guided left breast biopsy on November 05, 2019 and final pathology report confirmed invasive ductal carcinoma, high nuclear grade with necrosis and molecular profiling showed triple negative disease e.g. ER less than 1% DC less than 1% HER-2/corina negative and Ki-67 was 90%. Patient was referred to Dr. Beaver, surgeon who did discuss with patient regarding upfront mastectomy versus lumpectomy versus neoadjuvant therapy to downsize the tumor. Patient opted for evaluation for neoadjuvant therapy. Patient denies any weight loss, denies any new bony pains patient denies any headaches blurred vision double vision patient denies any jaundice. As per patient she has history of renal failure/insufficiency and he used to be on hemodialysis but not anymore. He states he is not being followed by nephrology She also has some cardiac issues for which he is followed by Dr. Cartwright senior cytotechnologist. She is on home oxygen and she has morbid obesity. She also has history of pulmonary embolism for which she is on Eliquis therapy Menarche at age 13, and last menstrual period was at age 47 40+ year history of smoking, still active. Echocardiogram done on December 06, 2019 showed ejection fraction around 50%, flattened septum in the diastole consistent with right ventricular volume overload., Severe pulmonary hypertension, when compared with prior echo from March 01, 2019 there appeared to be worsening of left ventricular function from normal 55% to mildly reduced 50% while there is a worsening of mitral and tricuspid valve regurgitation from moderate to severe now. recommended treating with neoadjuvant chemotherapy with Cytoxan/docetaxel with Neulasta support every 3 weeks x 4-6, which was started on December 21, 2019 .Follow-up ultrasound breast done after 4 cycles of chemo therapy with Cytoxan/Taxotere on March 23, 2020 showed interval decrease in size of left breast mass now 3. 8 x 3.1 x 4.4 cm compared to 4.1 x 3.9 x 5.1 cm and no other abnormality seen Because of intolerance to chemotherapy, patient was referred to surgery after 4 cycles of Cytoxan/Taxotere and on April 17, 2020 she underwent left breast lumpectomy and left axillary sentinel lymph node biopsy final pathology report shows less than 1 mm microinvasion, clear surgical margin no lymph node involvement,ypT1mi,pN0. Came for follow-up, complaining of generalized weakness and fatigue, as per patient just before [place] on April 30, 2020 she was admitted to hospital with comminuted fracture of shaft of right tibia underwent ORIF on April 30, 2020 as per patient she lost significant of blood and required 3 units of packed RBC during this admission, patient was on Eliquis with history of chronic pulmonary embolism.As per patient at the time of discharge her hemoglobin was around 8 g. Patient was placed in [place] [facility] for assistance, now recovering well and following with Dr. Galdamez and also complaining of pain in her right leg and ran out of pain medication denies any fever chills denies any discharge from post left breast lumpectomy site which has healed up pretty good Medications: Acetaminophen 1 Capsule (of 325 mg) Oral daily, Albuterol Sulfate 1 Puff(s) (of 108 (90 base) mcg/act) Aerosol Powder, Breath Activated Inhalation q 6 hours PRN, Apixaban 1 Tablet (of 5 mg) Oral b.i.d., Atenolol 1 Tablet (of 50 mg) Oral b.i.d., Azithromycin 1 Tablet (of 250 mg) Oral on Every Other Day, clonazePAM 1 Tablet (of 1 mg) Oral b.i.d. PRN, Cymbalta 1 Capsule (of 60 mg) Capsule Delayed Release Particles Oral daily, Dicyclomine HCl 1 Tablet (of 20 mg) Oral b.i.d., Furosemide (40 mg) Tablet Oral Take as Directed, Gabapentin 1 Capsule (of 300 mg) Oral t.i.d., Isosorbide Mononitrate ER 1 Tablet (of 60 mg) Tablet SR 24 HR Oral daily, Klor-Con M20 1 Tablet (of 20 meq) Tablet, controlled release Oral daily, Nitroglycerin Tablet, sublingual Sublingual PRN, Ondansetron 1 Tablet (of 4 mg) Tablet Dispersable Oral PRN, oxyCODONE-Acetaminophen 1 - 2 Tablet (of 5-325 mg) Oral q 6 to 8 hours PRN, Pantoprazole Sodium 1 Tablet (of 40 mg) Tablet, enteric coated Oral b.i.d., Prazosin HCl 1 Capsule (of 1 mg) Oral at bedtime, QUEtiapine Fumarate ER 1 Tablet (of 50 mg) Tablet SR 24 HR Oral at bedtime, QUEtiapine Fumarate ER 1 Tablet (of 300 mg) Tablet SR 24 HR Oral at bedtime, Revefenacin 1 (175 mcg/3mL) Solution Inhalation daily, Spironolactone 1 Tablet (of 50 mg) Oral daily, Victoza 1 Subcutaneous daily Allergies: Cephalexin and Ketorolac Tromethamine. Review of Systems: Constitutional - Appetite is fair and weight is stable. Positive for night sweats. Energy level is poor, ENMT - No sinus congestion/drainage. No mouth sores. No sore throat or difficulty swallowing, Hematologic/Lymphatic - Positive for easy bruising, Respiratory - Positive for shortness of breath. No cough. No pleuritic pain or hemoptysis. Pt is on portable oxygen, Cardiovascular - No angina pain. No palpitations, Gastrointestinal - Occasional nausea, no vomiting. No heartburn or acid reflux. Positive for diarrhea, no constipation. No blood in the stool or black stools, Genitourinary (F) - No dysuria or hematuria. Positive for urinary frequency. No urgency. Positive for incontinence, Musculoskeletal - Positive for generalized pain, Neurologic - No headache. Positive for dizziness. No numbness or tingling. No other focal neurologic symptoms, Psychiatric - Positive for anxiety and depression. Vital Signs: Performed on May 19, 2020 08:21 Height - 64.00 in Temperature - 100.4 F (HIGH) Pulse - 84 /min Respiration - 18 /min BP - 106/56 mm(hg) O2 Sat - 90 % (LOW) Pain - 10 Performance Status: 3 - Capable of only limited self-care, confined to bed or chair more than 50% of waking hours. (ECOG) Physical Examination: Respiratory - Poor air entry otherwise clear, Cardiovascular - Regular rate and rhythm of heart, Gastrointestinal - Soft, bowel sounds present, Extremities - No visible deformities, no cyanosis, clubbing or edema. Pulses 4+ and equal bilaterally. Lab/Imaging: Test performed on Mar 27, 2020 13:25 Sodium 134 mmol/L Potassium 4.3 mmol/L Chloride 90 mmol/L CO2 32 mmol/L Anion Gap 16.3 BUN 27 mg/dL Creatinine 1.5 mg/dL Cr Clearance (Est) 80.97 mL/min eGFR 36.8 mL/min Glucose 83 mg/dL Osmolality - Calculated 282 mOsm/kg Calcium 9.4 mg/dL Protein, Total 6.1 g/dL Albumin 3.8 g/dL Globulin 2.3 g/dL Bilirubin, Total 0.5 mg/dL ALT (SGPT) 8 U/L AST (SGOT) 19 U/L Alkaline Phosphatase 198 IU/L WBC 9.9 10 3/uL RBC 3.44 10 6/uL HGB 10.3 g/dL HCT 33.8 % MCV 98.3 fL MCH 29.9 pg MCHC 30.5 g/dL RDW 24.7 % Platelet Count 130 10 3/cmm MPV 12.0 fL Neutrophils 8.02 10 3/uL Lymphocytes 0.7 10 3/uL Monocytes 1.0 10 3/uL Eosinophils 0.1 10 3/uL Basophils 0.1 10 3/uL Neutrophil % 81.1 % Lymphocyte % 7.0 % Monocyte % 10.1 % Eosinophil % 0.7 % Basophils % 0.7 % NRBC % 0 % Test performed on Mar 13, 2020 13:10 CBC Slide Review Slide Review Perform SLIDE REVIEW AGREES WITH AUTOMATED RESULTS Test performed on Jan 19, 2020 11:10 Cholesterol, Total 186 mg/dL HDL Cholesterol 51 mg/dL LDL Cholesterol 112 mg/dL Triglycerides 115 mg/dL Impression: Triple negative invasive ductal carcinoma, involving left breast status post ultrasound-guided biopsy done on November 05, 2019 final pathology report showed ER DC negative HER-2/corina negative with a high Ki-67 at 90% Status post 4 cycles of chemotherapy with Cytoxan/Taxotere followed by left breast lumpectomy and sentinel lymph node done on April 17, 2020 which showed excellent response e.g. almost complete response e.g. only micro invasion seen, less than 1 mm and 1 left axillary sentinel lymph node was examined showed no evidence of disease Ultrasound/mammogram left breast done on October 01, 2019 showed 5.1 x 3.9 x 4.1 cm left breast mass at 3 o'clock position with no abnormal lymph nodes seen in left axilla .Clinical stage IIb v/s III History of pulmonary embolism on Eliquis Recent history of vaginal bleeding now being evaluated by FINGERPRINTER Dr. Chowdary History of renal insufficiency, as per patient she used to be on hemodialysis but not anymore. History of hepatitis C Chronic hypercapnic respiratory failure, now on home oxygen Diastolic congestive heart failure. Pulmonary embolism on anticoagulation With Eliquis Posttraumatic stress disorder, anxiety, depression, panic disorder. Obstructive sleep apnea Chronic kidney disease stage III. Ms. Bhatia has been offered neoadjuvant chemotherapy with cyclophosphamide docetaxel with growth factor support. Her current cycles every 3 weeks for plan of 6 cycles. She is here today for cycle 2 but did not take her premed steroids. Plan: . Discussed with patient regarding her labs white blood count 5.7 hemoglobin 8.5 hematocrit 29.1 platelets 163,000 MCV 107.4 CMP within normal limits except alk phos 259 Clinically, patient is doing reasonably well now recovering from right leg fracture status post ORIF right tibia now being followed by orthopedics. As per his anemia is concerned, patient had extensive bleeding from her right leg fracture as she was on anticoagulation with Eliquis for chronic pulmonary embolism, she received 3 units of packed RBCs during recent admission in the hospital and her hemoglobin was 8.8 g at the time of discharge, and today's CBC showed hemoglobin 8.5 g which is stable, we will consider checking her iron studies, B12 folic acid level and patient was advised to start iron supplement twice a day and then she will return to clinic in 1 month with CBC and iron studies Patient recently underwent left breast lumpectomy with sentinel lymph node biopsy which showed excellent response only microinvasion e.g. less than 1 mm seen and no lymph node involvement, at this point no further systemic therapy as patient had triple negative disease and we will refer her to radiation oncology for evaluation for postlumpectomy radiation therapy. And will continue with monthly port maintenance Signed By: Serjio Lundberg M.D. <<Signature on File>>
[2020-05-19 22:08] LABS: Ferritin 155 ng/mL (15-150); Iron 56 ug/dL (37-145); Percent Saturation 14.6 % (20-50); Total Iron Binding Capacity 381 mcg/dl; Unsaturated Iron Binding 325 ug/dL (112-347)
[2020-05-19 22:18] LABS: Folate Level 4.6 ng/mL (4.8-37.3)
[2020-05-19 22:24] LABS: Vitamin B12 419 pg/mL (232-1245)
== END 2020-05-19 08:07 | disposition home or self-care (01) ==
LOC: ONCMED 08:09
PROVIDERS: PCP Family Medicine; Visit Provider Internal Medicine Hematology & Oncology
DX: C50.812 Malignant neoplasm of overlapping sites of left female breast (principal); Z17.1 Estrogen receptor negative status [ER-]; D64.9 Anemia, unspecified; S82.201D Unspecified fracture of shaft of right tibia, subsequent encounter for closed fracture with routine healing; X58.XXXD Exposure to other specified factors, subsequent encounter; E66.01 Morbid (severe) obesity due to excess calories; N93.9 Abnormal uterine and vaginal bleeding, unspecified; I50.30 Unspecified diastolic (congestive) heart failure; N18.30 Chronic kidney disease, stage 3 unspecified; F17.200 Nicotine dependence, unspecified, uncomplicated; Z86.711 Personal history of pulmonary embolism; Z79.01 Long term (current) use of anticoagulants; Z99.81 Dependence on supplemental oxygen
CPT/HCPCS: 82607; 82728; 82746; 83540; 83550; 99214

== ENCOUNTER → 2020-05-25 08:34 | Outpatient (BNVA) | payer MEDICAID, SELFPAY ==
[2020-01-20 09:12] VITALS: BP 125/70; BMI 46.2
== END ==
PROVIDERS: PCP Family Medicine; Visit Provider Specialist
DX: Z20.822 Contact with and (suspected) exposure to COVID-19 (principal); Z47.89 Encounter for other orthopedic aftercare; S82.391D Other fracture of lower end of right tibia, subsequent encounter for closed fracture with routine healing; S82.831D Other fracture of upper and lower end of right fibula, subsequent encounter for closed fracture with routine healing; X58.XXXD Exposure to other specified factors, subsequent encounter
CPT/HCPCS: 73590; 73610; 87635

== ENCOUNTER 2020-05-26 07:28 | Day surgery (SDC) | payer MEDICAID, SELFPAY ==
[2020-01-20 09:12] VITALS: BP 125/70; BMI 46.2
[2020-05-25 13:41] VITALS: BMI 42.9
--- NOTE | 2020-05-26 | XR_ITS ---
WS: [id number] Right ankle, C-arm fluoroscopy views in the OR, 05/26/2020 Clinical Data: ORIF of fibula Comparison: Right ankle, 05/25/2020. Findings: A lateral plate has been placed onto the distal fibula and is fixed with multiple orthopedic screws. The long intramedullary dereck with transverse screws fixing the distal right tibial fracture remains th e same. There is now a tunnel device to reduce the lateral talar dislocation of the right ankle XR/XR ankle RT 2V [id number] Impression: 1. Internal fixation of distal right fibular fracture with additional reduction of lateral talar dislocation ankle. 2. No change in internal fixation of distal right tibial fracture.
--- NOTE | 2020-05-26 | SCC_ITS ---
Procedure Done: Open reduction internal fixation right fibular shaft fracture with repair of syndesmosis 76.8 seconds of fluoroscopic guidance, for a cumulative dose of 2.87 mGy, was provided to Dr. Galdamez by the radiology department. C-arm images of the RIGHT ankle were saved for the patient's permanent record. [facility]
[2020-05-26 07:54] LABS: Add Urine Microscopic? NO
[2020-05-26 08:17] LABS: Bilirubin Urine Neg (Negative); Blood Urine Neg (Negative); Glucose Urine UA Norm (Normal); Ketones Urine Negative (Negative); Leukocyte Esterase Urine Negative (Negative); Nitrate Urine Negative (Negative); Protein Urine Neg (Negative); Specific Gravity, Urine 1.005 (1.005-1.030); Urine Appearance Clear (CLEAR); Urine Color Yellow (Yellow); Urobilinogen Urine 1 mg/dL (Negative); pH Urine 6.5 (5-7)
[2020-05-26 08:25] VITALS: BP 139/53; PULSE 69; RESP 20; TEMP 37.3; O2SAT 95
--- NOTE | 2020-05-26 08:40 | P.ANESASSM_ITS ---
Pre-Anesthetic Assessment Pre-Anesthetic Assessment: Height/Weight: Height 1.63 m Weight 113.398 kg Preop Diagnosis: Right ankle syndesmotic disruption and fibular shaft fracture Proposed Procedure: Operation Date: 05/26/20 08:55 Proposed Procedures p ORIF right distal fibular shaft fracture with possible syndesmotic fixation [id number] S84.401A(Right) - Alexandria Galdamez MD Was Beta Wagner taken within 24 hours: Yes Social: Social History: Tobacco and No alcohol Exam: Pre-Anes Outpt Exam: alert, oriented x 3 and regular rate & rhythm Additional Exam Findings (including area of procedure): rhonchi Airway: Submandibular: WNL Cervical ROM: WNL MP: 2 Dentition: False Pulmonary: Pulmonary: COPD and Sleep apnea CV/HEM: CV/HEM: CAD, CHF and HTN Comments: Mitral regurgitation : : Chronic renal Insufficiency Metabolic: Metabolic: DM and Morbid obesity Neuropsych: Neuropsych: Anxiety and Bipolar Anesthetic Plan: ASA status: 4 Anesthesia: Regional (specify below) Other: SAB (apixaban > than 72hrs) Risk of > 500 ml blood loss (7ml/kg in children): No PFSH Anesthesia PFSH: Medical History Benign essential HTN Bipolar disorder, current episode mixed, severe, with psychotic features Cancer of left breast Chronic hepatitis C without hepatic coma Chronic hypercapnic respiratory failure Chronic kidney disease (CKD), stage III (moderate) Diastolic CHF Diastolic heart failure secondary to hypertension Gastritis GERD (gastroesophageal reflux disease) History of pulmonary embolism Hypertension Iron deficiency anemia Mitral valve insufficiency Orthopnea BINA (obstructive sleep apnea) Other stimulant dependence, in remission Panic disorder [episodic paroxysmal anxiety] Post-traumatic stress disorder, chronic Pulmonary embolism Severe chronic obstructive pulmonary disease Type 2 diabetes mellitus, without long-term current use of insulin Valvular heart disease Surgical History H/O cervical fracture (~1998) C4-6 H/O section 1987 1999 2001 H/O foot surgery (~2003) lefft-- ball of the foot H/O knee surgery (~1991) left knee patellar fracture H/O tracheostomy (~2002) H/O tubal ligation (~2001) History of colonoscopy History of esophagogastroduodenoscopy (EGD) Port-A-Cath in place (11/24/19) S/P lumpectomy, left breast (04/17/20) With sentinel lymph node biopsy Status post dilation and curettage (~1998) Family History Brother CAD (coronary artery disease) Diabetes Grandfather Diabetes PGF Sister Hypertension Denies family history of Anesthesia complication Bleeding disorder Social History Smoking and tobacco status: current every day smoker cigarettes Packs smoked per day: 0.25 Years cigarettes smoked: 40 [ Other cigarette details: Hx of 1 PPD x 40 Years ] Quit status (tobacco): considering quitting Second hand smoke exposure: Yes Smoking risk assessment/counseling performed?: Yes Alcohol intake: former Year of sobriety/quit date alcohol: 2016 Desire information about alcohol rehabilitation?: No Counseling given: No Desire information about substance/drug rehabilitation?: No Counseling given: No Lives independently: Yes Household members: spouse Marital status: Current occupational status: disabled History of recent travel: No Current gender identity: Female Female Reproductive History: Date of last menstrual period: 12/11/19 Data Anesthesia Other Labs: Laboratory Results - last 48 hr 05/26/20 07:47 Urine Color Yellow Urine Appearance Clear Urine pH 6.5 Ur Specific [place] 1.005 Urine Protein Neg Urine Glucose (UA) Norm Urine Ketones Negative Urine Blood Neg Urine Nitrate Negative Urine Bilirubin Neg Urine Urobilinogen 1 H Ur Leukocyte Esterase Negative Cardiac Studies: No Data to Display
--- NOTE | 2020-05-26 08:49 | P.HPUD_ITS ---
Surgery/Procedure H&P Update DATE OF PROCEDURE: May 26, 2020 DATE H&P PERFORMED: 04/30/20 H&P UPDATE INFORMATION: I have reviewed H&P completed within last 30 days, I have examined patient prior to procedure, No changes to prior documentation and H&P is in [facility] [place] [facility] EMR on date indicated PREOP DIAGNOSIS: Right ankle syndesmotic disruption and fibular shaft fracture PLANNED PROCEDURE: Operation Date: 05/26/20 08:55 Proposed Procedures p ORIF right distal fibular shaft fracture with possible syndesmotic fixation [id number] S84.401A(Right) - Alexandria Galdamez MD Related Problem List Diagnoses (1) Syndesmotic disruption of right ankle: Qualifiers: Encounter type: initial encounter Qualified Code(s): S93.431A - Sprain of tibiofibular ligament of right ankle, initial encounter (2) Closed fracture of fibula, shaft, right: Qualifiers: Encounter type: initial encounter Fracture morphology: comminuted Fracture alignment: displaced Qualified Code(s): S82.451A - Displaced comminuted fracture of shaft of right fibula, initial encounter for closed fracture
[2020-05-26 08:58] LABS: Glucose Point of Care 106 mg/dL (70-110)
[2020-05-26 08:59] LABS: Basophils % 0.4 %; Eosinophils # 0.2 10^3/uL (0.0-0.8); Eosinophils % 4.5 %; Hematocrit 25.2 % (37.0-47.0); Hemoglobin 7.5 g/dL (11.5-15.3); Lymphocytes # 0.5 10^3/uL (0.8-4.8); Lymphocytes % 9.6 %; Mean Corpuscular HGB Conc 29.8 g/dL (30.0-36.0); Mean Corpuscular Hemoglobin 30.9 pg (28.0-34.0); Mean Corpuscular Volume 103.7 fL (81-99); Mean Platelet Volume 10.4 fL (7.4-10.4); Monocytes # 0.8 10^3/uL (0.2-0.9); Monocytes % 16.1 %; Neutrophils # 3.22 10^3/uL (1.8-7.7); Nucleated Red Blood Cells % 0 %; Platelet Count 186 10^3/cmm (130-400); Red Blood Count 2.43 10^6/uL (4.1-5.3); Red Cell Distribution Width 17.8 % (12.1-15.1); White Blood Count 4.7 10^3/uL (4.0-10.0)
[2020-05-26] MEDS: sodium chloride 0.9% 1,000 ML 30 ML IV (09:00)
[2020-05-26 09:06] VITALS: RESP 20
[2020-05-26] MEDS: fentaNYL 50 mcg/mL INJ 2mL IVP (09:06)
[2020-05-26 09:16] LABS: Alanine Aminotransferase 9 U/L (0-33); Albumin Level 3.1 g/dL (3.5-5.2); Alkaline Phosphatase 223 IU/L (35-105); Aspartate Amino Transferase 21 U/L (0-32); Blood Urea Nitrogen 14 mg/dL (6-20); Calcium 8.5 mg/dL (8.5-10.5); Carbon Dioxide 35 mmol/L (22-29); Chloride 88 mmol/L (98-107); Globulin 2.5 g/dL (1.3-4.6); Glomerular Filtration Rate 66.3 mL/min (90-130); Glucose 98 mg/dL (65-115); Osmolality Calculated 272 mOsm/kg (285-295); Sodium 131 mmol/L (136-145); Total Bilirubin 1.1 mg/dL (0.15-1.2); Total Protein 5.6 g/dL (6.6-8.7)
[2020-05-26] MEDS: vancomycin 1,000 MG in sodium chloride 0.9% 250 ML 250 MG IV (09:59)
[2020-05-26] MEDS: vancomycin 1,000 MG SDV 1000 MG IRRIGATION (12:45)
--- NOTE | 2020-05-26 13:53 | PM.OP ---
Operative Report Date of procedure: May 26, 2020 Pre-op Diagnosis: Right ankle syndesmotic disruption and fibular shaft fracture Post-op diagnosis: same Procedure Done: Open reduction internal fixation right fibular shaft fracture with repair of syndesmosis Implants: Arthrex syndesmotic tight rope. 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 Syndesmotic disruption. Condition: stable Disposition: same day (Then home with family) Brief History: This 50-year-old woman initially presented with an open comminuted distal tibia fracture which was treated with an intramedullary nail. At that time, she was noted to also have a distal and proximal fibula fracture. There was concern regarding her syndesmosis. Given her multiple medical comorbidities and the degree of swelling at the ankle, we did elect not to fix the fibula. Although this is commonly not addressed with intramedullary nail, it was noted that she may require further fixation should the syndesmosis become problematic. The patient has been weightbearing some at home. When she was seen in the office, she was found to have opening of the mortise medially and the syndesmosis. She was therefore scheduled for this procedure. Procedure: Patient was seen in the preoperative holding area and leg was marked. Patient was brought to the operating theater and placed on the operating room table. After undergoing adequate spinal anesthesia with MAC, the patient's right lower extremity was prepped and draped in usual fashion utilizing DuraPrep. The leg was draped free. Fluoroscopy was used throughout the surgical procedure. We did have a tourniquet high on the right lower extremity. This was elevated to 250 mmHg and total tourniquet time was 70 minutes. Tourniquet elevation followed exsanguination of the leg. A surgical pause was performed. At the time of the surgical pause we identified the site and side of surgery as well as the patient's identity and availability of equipment. We also confirmed appropriate administration of IV antibiotics. Following the above, an incision was made centering over the patient's distal fibula fracture involving the distal shaft. Prior to incision, but following surgical pause, we did manipulate the fracture under anesthesia. We did see that we were able to close down the syndesmotic area. The incision was continued proximally and distally as necessary to allow access to the distal fibula fracture. The fracture was evaluated and found to be very comminuted. The bone was also noted to be very osteopenic. Through traction, we were able to straighten the fibula to a degree and the syndesmosis. The plate was contoured slightly to accommodate. A North 7-hole lateral fibular plate plate was attached with standard technique. We used locking screws throughout the fixation. Fluoroscopy was used to evaluate the appropriate place in the [place] plate to place the titanium Arthrex tight rope anchor. A guidewire was placed through this hole across the fibula and into the tibia. Positioning was confirmed in AP and lateral planes. The drill was then passed across and the tight rope was placed uneventfully. With the tight rope in place, and exam under anesthesia demonstrated no further instability of the mortise in the ankle joint. Once the plate and syndesmotic anchor were appropriately attached, we irrigated the wound. We then closed the wound with 0 Vicryl in the fascial tissues, 2-0 Monocryl in the subcutaneous tissues, and the skin was closed with skin juan. Sterile dressing was placed consisting of Xeroform gauze, 4 x 4's, sterile soft roll and an Constantine wrap. The patient was placed in a Cam Walker boot and is to remain nonweightbearing. The procedure was well tolerated without complication. Tourniquet time was 70 minutes at 250 mmHg. The patient will be discharged home to follow-up in my office as scheduled. Associated Problem List Diagnoses (1) Closed fracture of fibula, shaft, right: Qualifiers: Encounter type: initial encounter Fracture morphology: comminuted Fracture alignment: displaced Qualified Code(s): S82.451A - Displaced comminuted fracture of shaft of right fibula, initial encounter for closed fracture (2) Syndesmotic disruption of right ankle: Qualifiers: Encounter type: initial encounter Qualified Code(s): S93.431A - Sprain of tibiofibular ligament of right ankle, initial encounter
[2020-05-26 13:54] VITALS: PULSE 63; RESP 18; TEMP 37.1; O2SAT 99
[2020-05-26 14:19] VITALS: BP 123/67; PULSE 63; RESP 18; TEMP 37.1; O2SAT 95
[2020-05-26 14:51] VITALS: BP 123/74; PULSE 65; RESP 18; TEMP 37.1; O2SAT 100
[2020-05-26 15:17] LABS: Glucose Point of Care 98 mg/dL (70-110)
== END 2020-05-26 16:10 | disposition home or self-care (01) ==
PROVIDERS: PCP Family Medicine; Visit Provider Specialist
PROC: 0QSK04Z Reposition Left Fibula with Internal Fixation Device, Open Approach (ICD-10-PCS; CPT 27828; principal; 2020-05-26 08:55)
DX: S93.431A Sprain of tibiofibular ligament of right ankle, initial encounter (principal); S82.451A Displaced comminuted fracture of shaft of right fibula, initial encounter for closed fracture; X58.XXXA Exposure to other specified factors, initial encounter; E11.22 Type 2 diabetes mellitus with diabetic chronic kidney disease; I13.0 Hypertensive heart and chronic kidney disease with heart failure and stage 1 through stage 4 chronic kidney disease, or unspecified chronic kidney disease; N18.30 Chronic kidney disease, stage 3 unspecified; I50.30 Unspecified diastolic (congestive) heart failure; G47.33 Obstructive sleep apnea (adult) (pediatric); K21.9 Gastro-esophageal reflux disease without esophagitis; F17.210 Nicotine dependence, cigarettes, uncomplicated; E66.01 Morbid (severe) obesity due to excess calories; Z68.41 Body mass index [BMI] 40.0-44.9, adult; J44.9 Chronic obstructive pulmonary disease, unspecified; I25.10 Atherosclerotic heart disease of native coronary artery without angina pectoris; F41.9 Anxiety disorder, unspecified
CPT/HCPCS: 27814; 27829; 12345; 36415; 36416; 51702; 73600; 76000; 80053; 81003; 82962; 85025; C1713; J0131; J2250; J2704; J3010; J3370; J7030; J7050

== ENCOUNTER 2020-05-31 10:55 | Outpatient (CLI) | payer MEDICAID, SELFPAY ==
[2020-01-20 09:12] VITALS: BP 125/70; BMI 46.2
--- NOTE | 2020-05-31 12:12 | N.ONRAD NP_ITS ---
Radiation Oncology Consultation Patient Name: Meka Bhatia Date of : 1970 Date of Service: 05/31/2020 Attending Physician: Russell Dai M.D. Meka Bhatia was seen in consultation this afternoon at the request of Elmer Lundberg M.D. for evaluation regarding potential breast radiotherapy for the management of her breast cancer. 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 Bilateral diagnostic mammography ordered on October 01, 2019 (personally reviewed in [facility]) revealed a 3.6 cm x 4.3 cm lobulated lesion within the left breast responding to the palpable abnormality. Ultrasonography confirmed within the 3:00 position of the left breast, 4 cm from the nipple, a well-circumscribed nodule measuring 4.1 cm x 3.9 cm x 5.1 cm. A core needle biopsy obtained on November 05, 2019 diagnosed a high nuclear grade invasive ductal carcinoma. The breast cancer prognostic profile was negative for estrogen receptor, estrogen receptor, and HER-2 with a KI-67 of 90%. Neoadjuvant chemotherapy (docetaxel and cyclophosphamide) were administered for 4 cycles between the dates of December 21, 2019 through January 05, 2020. A partial mastectomy with sentinel lymph node biopsy was performed on April 17, 2020 by Sd Pascal M.D, The pathology report (independently examined in [facility]) confirmed a microinvasive (less than 1 mm) ductal carcinoma-histologic grade could not be ascertained because of therapeutic response. [place] lymph node biopsy harvested benign fibroadipose tissue without lymph node identified. All surgical margins were negative for malignancy (stage yIIB -T1miN0). I reviewed with the patient her AJCC initial clinical stage IIIB (T3N0) breast cancer, in addition to her pathological stage yIIB -T1miN0. I also discussed The National Comprehensive Cancer Network Guidelines for post-operative radiotherapy and the classic studies by the NSABP comparing mastectomy, lumpectomy, and lumpectomy with radiotherapy and the Early Breast Cancer Trialist Collaborative Group meta-analysis. She is aware that the addition of radiotherapy to lumpectomy provides improvement in local control and overall survival. She is aware of the correlation between pathologic response and long-term outcomes in patients with early stage breast cancer are most favorable for patients with basal-like breast cancer subtype. I recommend a three week course of hypofractionated breast radiotherapy prior to a 1 week surgical bed treatment (as per MARCE evidence-based guidelines - high-grade disease). A computed tomographic scan in the treatment position will be acquired for radiotherapy planning. The potential toxicity of breast radiotherapy was also addressed. The patient has verbalized understanding and would like to proceed as advocated. Signed by: Dr. Russell Dai 06/05/2020 2:55:49 PM
== END 2020-05-31 10:56 | disposition home or self-care (01) ==
LOC: ONCMED 11:03
PROVIDERS: PCP Family Medicine; Visit Provider Radiology Radiation Oncology
DX: C50.812 Malignant neoplasm of overlapping sites of left female breast (principal); Z17.1 Estrogen receptor negative status [ER-]
CPT/HCPCS: 99205

== ENCOUNTER 2020-06-06 06:15 | Outpatient (RCR) | payer MEDICAID, SELFPAY ==
[2020-01-20 09:12] VITALS: BP 125/70; BMI 46.2
--- NOTE | 2020-06-06 | CT_ITS ---
Radiation Therapy Planning CT images; total exam DLP: 1105.46 mGy-cm MTDD
== END 2020-06-11 23:59 | disposition home or self-care (01) ==
LOC: ONCMED 06:15
PROVIDERS: PCP Family Medicine; Visit Provider Radiology Radiation Oncology
DX: C50.812 Malignant neoplasm of overlapping sites of left female breast (principal); Z17.1 Estrogen receptor negative status [ER-]
CPT/HCPCS: 77280; 77295; 77300; 77334

== ENCOUNTER → 2020-06-08 10:04 | Outpatient (BNVA) | payer MEDICAID, SELFPAY ==
[2020-01-20 09:12] VITALS: BP 125/70; BMI 46.2
== END ==
PROVIDERS: PCP Family Medicine; Visit Provider Specialist
DX: S93.431D Sprain of tibiofibular ligament of right ankle, subsequent encounter (principal); S82.451D Displaced comminuted fracture of shaft of right fibula, subsequent encounter for closed fracture with routine healing; X58.XXXD Exposure to other specified factors, subsequent encounter
CPT/HCPCS: 73590; 73610

== ENCOUNTER → 2020-06-13 13:50 | Outpatient (BNVA) | payer MEDICAID, SELFPAY ==
[2020-01-20 09:12] VITALS: BP 125/70; BMI 46.2
== END ==
PROVIDERS: PCP Family Medicine; Visit Provider Student in an Organized Health Care Education/Training Program
DX: S82.451A Displaced comminuted fracture of shaft of right fibula, initial encounter for closed fracture (principal); T81.30XA Disruption of wound, unspecified, initial encounter; M79.673 Pain in unspecified foot; S82.251B Displaced comminuted fracture of shaft of right tibia, initial encounter for open fracture type I or II; X58.XXXA Exposure to other specified factors, initial encounter; F17.210 Nicotine dependence, cigarettes, uncomplicated
CPT/HCPCS: 85025; 85651; 86140; 87070; 87075; 87077; 87184; 87205

== ENCOUNTER → 2020-06-27 10:23 | Outpatient (BNVA) | payer MEDICAID, SELFPAY ==
[2020-01-20 09:12] VITALS: BP 125/70; BMI 46.2
== END ==
PROVIDERS: PCP Family Medicine; Visit Provider Nurse Practitioner
DX: F31.62 Bipolar disorder, current episode mixed, moderate (principal); F43.12 Post-traumatic stress disorder, chronic; F41.0 Panic disorder [episodic paroxysmal anxiety]
CPT/HCPCS: 99214

== ENCOUNTER 2020-07-03 05:36 | Outpatient (RCR) | payer MEDICAID, SELFPAY ==
[2020-01-20 09:12] VITALS: BP 125/70; BMI 46.2
--- NOTE | 2020-06-13 15:04 | ONCRAD TMN_ITS ---
Radiation Oncology Treatment Management Note Patient Name: Meka Bhatia Date of : 1970 Date of Service: 06/13/2020 Attending Physician: Russell Dai M.D. Meka Bhatia is a 50 year-old white female diagnosed with an initial clinical stage IIIB (T3N0) grade 3 invasive ductal carcinoma of the upper outer quadrant of the left breast. The breast cancer profile was triple negative with a Ki-67 of 90%. Neoadjuvant chemotherapy consisting of cyclophosphamide and docetaxel was administered for 4 cycles (December 21, 2019 through March 06, 2020). A partial mastectomy with sentinel lymph node biopsy was performed on April 17, 2020. The pathological stage was yIIB -T1miN0. She has received 2.7 Gy of a prescribed 40 Gy delivered with a 3D conformal radiotherapy plan utilizing opposed tangential portal escobedo utilizing a [id number] treatment technique. An additional 10 Gy in 5 fractions will be administered to the surgical bed at the conclusion of the whole breast treatment as a consequence of the patient's high-grade tumor characteristics. Upon review of systems, she denied any breast complaints to radiotherapy. On physical examination, the patient weighed 255 lbs. Her temperature was 97.4 ???F with a blood pressure of 119/73 mmHg. Her pulse was 60 bpm and her respiratory rate was 20. There was no erythema within the treatment escobedo of the left breast. Continue left breast radiotherapy as prescribed. Signed by: Dr. Russell Dai 06/20/2020 1:20:41 PM
[2020-06-19 11:36] LABS: Basophils % 0.4 %; Eosinophils # 0.3 10^3/uL (0.0-0.8); Eosinophils % 3.3 %; Hematocrit 30.1 % (37.0-47.0); Lymphocytes # 0.6 10^3/uL (0.8-4.8); Lymphocytes % 7.3 %; Mean Corpuscular HGB Conc 29.9 g/dL (30.0-36.0); Mean Corpuscular Hemoglobin 31.1 pg (28.0-34.0); Mean Corpuscular Volume 104.2 fL (81-99); Mean Platelet Volume 11.6 fL (7.4-10.4); Monocytes # 0.7 10^3/uL (0.2-0.9); Monocytes % 9.4 %; Neutrophils % 78.4 %; Nucleated Red Blood Cells % 0 %; Platelet Count 230 10^3/cmm (130-400); Red Blood Count 2.89 10^6/uL (4.1-5.3); Red Cell Distribution Width 15.6 % (12.1-15.1); White Blood Count 7.7 10^3/uL (4.0-10.0)
[2020-06-19 11:48] LABS: Alanine Aminotransferase < 5 U/L (0-33); Albumin Level 3.6 g/dL (3.5-5.2); Alkaline Phosphatase 237 IU/L (35-105); Anion Gap 13.4 (5-19); Aspartate Amino Transferase 14 U/L (0-32); Blood Urea Nitrogen 25 mg/dL (6-20); Calcium 9.2 mg/dL (8.5-10.5); Carbon Dioxide 36 mmol/L (22-29); Chloride 89 mmol/L (98-107); Glomerular Filtration Rate 47.6 mL/min (90-130); Glucose 96 mg/dL (65-115); Osmolality Calculated 282 mOsm/kg (285-295); Potassium 4.4 mmol/L (3.5-5.1); Sodium 134 mmol/L (136-145); Total Bilirubin 0.6 mg/dL (0.15-1.2); Total Protein 6.6 g/dL (6.6-8.7)
--- NOTE | 2020-06-19 13:49 | ONC FU_ITS ---
Dr. Lundberg follow up note Patient: Meka Bhatia Unit #: [id number]: 1970 Dicatated By: Serjio Lundberg M.D.Date of Visit:Jun 19, 2020 Onc Med Follow-up/Prog Note History of Present Illness: Ms. Bhatia is a 50-year-old female with history of left breast mass since May 2019. She reports that initially she felt fullness in outer part of her left breast, it got better on its own then again got bigger, she did notice some milky discharge from her left nipple, she thought she was lactating. In the meantime she started also having vaginal bleeding, as per patient about 2 years ago she stopped having menstrual periods and with this new vaginal bleeding, her primary care doctor concerned and refer her to [facility] Dr. Chowdary who ordered sonogram and some hormonal testing. While she was undergoing [facility] work-up on October 01, 2019 she underwent bilateral mammogram which showed right breast was unremarkable but in the left breast there was an area of concern which was 3.6 x 4.3 cm dense lobulated lesion with heterogeneous calcifications subsequently underwent ultrasound of left breast which showed at 3 o'clock position, 4 cm from the nipple there was a dense hypoechoic well-circumscribed nodule measuring 4.1 x 3.9 x 5.1 cm associated vascularity. No abnormal lymph nodes seen in left axilla. Subsequently patient underwent ultrasound-guided left breast biopsy on November 05, 2019 and final pathology report confirmed invasive ductal carcinoma, high nuclear grade with necrosis and molecular profiling showed triple negative disease e.g. ER less than 1% MS less than 1% HER-2/corina negative and Ki-67 was 90%. Patient was referred to Dr. Beaver, surgeon who did discuss with patient regarding upfront mastectomy versus lumpectomy versus neoadjuvant therapy to downsize the tumor. Patient opted for evaluation for neoadjuvant therapy. Patient denies any weight loss, denies any new bony pains patient denies any headaches blurred vision double vision patient denies any jaundice. As per patient she has history of renal failure/insufficiency and he used to be on hemodialysis but not anymore. He states he is not being followed by nephrology She also has some cardiac issues for which he is followed by Dr. Cartwright layer up. She is on home oxygen and she has morbid obesity. She also has history of pulmonary embolism for which she is on Eliquis therapy Menarche at age 13, and last menstrual period was at age 47 40+ year history of smoking, still active. Echocardiogram done on December 06, 2019 showed ejection fraction around 50%, flattened septum in the diastole consistent with right ventricular volume overload., Severe pulmonary hypertension, when compared with prior echo from March 01, 2019 there appeared to be worsening of left ventricular function from normal 55% to mildly reduced 50% while there is a worsening of mitral and tricuspid valve regurgitation from moderate to severe now. recommended treating with neoadjuvant chemotherapy with Cytoxan/docetaxel with Neulasta support every 3 weeks x 4-6, which was started on December 21, 2019 .Follow-up ultrasound breast done after 4 cycles of chemo therapy with Cytoxan/Taxotere on March 23, 2020 showed interval decrease in size of left breast mass now 3. 8 x 3.1 x 4.4 cm compared to 4.1 x 3.9 x 5.1 cm and no other abnormality seen Because of intolerance to chemotherapy, patient was referred to surgery after 4 cycles of Cytoxan/Taxotere and on April 17, 2020 she underwent left breast lumpectomy and left axillary sentinel lymph node biopsy final pathology report shows less than 1 mm microinvasion, clear surgical margin no lymph node involvement,ypT1mi,pN0., Now being treated with postlumpectomy radiation therapy just before [place] on April 30, 2020 she was admitted to hospital with comminuted fracture of shaft of right tibia underwent ORIF on April 30, 2020 as per patient she lost significant of blood and required 3 units of packed RBC during this admission, patient was on Eliquis with history of chronic pulmonary embolism.As per patient at the time of discharge her hemoglobin was around 8 g. Patient was placed in [facility] for assistance, now recovering well and following with Dr. Galdamez and Came for follow-up, denies any specific complaint except generalized weakness and fatigue, patient has sleep apnea but not using her CPAP machine. But denies any melena or hematochezia denies any hemoptysis or hematemesis denies any jaundice denies any dysuria or hematuria or vaginal bleeding. Denies any shortness of breath or palpitation at rest. Now being treated with postlumpectomy radiation therapy, tolerating well. Medications: Acetaminophen 1 Capsule (of 325 mg) Oral daily, Albuterol Sulfate 1 Puff(s) (of 108 (90 base) mcg/act) Aerosol Powder, Breath Activated Inhalation q 6 hours PRN, Apixaban 1 Tablet (of 5 mg) Oral b.i.d., Atenolol 1 Tablet (of 50 mg) Oral b.i.d., Azithromycin 1 Tablet (of 250 mg) Oral on Every Other Day, clonazePAM 1 Tablet (of 1 mg) Oral b.i.d. PRN, Cymbalta 1 Capsule (of 60 mg) Capsule Delayed Release Particles Oral daily, Dicyclomine HCl 1 Tablet (of 20 mg) Oral b.i.d., Furosemide (40 mg) Tablet Oral Take as Directed, Gabapentin 1 Capsule (of 300 mg) Oral t.i.d., Isosorbide Mononitrate ER 1 Tablet (of 60 mg) Tablet SR 24 HR Oral daily, Klor-Con M20 1 Tablet (of 20 meq) Tablet, controlled release Oral daily, Nitroglycerin Tablet, sublingual Sublingual PRN, Ondansetron 1 Tablet (of 4 mg) Tablet Dispersable Oral PRN, oxyCODONE-Acetaminophen 1 - 2 Tablet (of 5-325 mg) Oral q 6 to 8 hours PRN, Pantoprazole Sodium 1 Tablet (of 40 mg) Tablet, enteric coated Oral b.i.d., Prazosin HCl 1 Capsule (of 1 mg) Oral at bedtime, QUEtiapine Fumarate ER 1 Tablet (of 50 mg) Tablet SR 24 HR Oral at bedtime, QUEtiapine Fumarate ER 1 Tablet (of 300 mg) Tablet SR 24 HR Oral at bedtime, Revefenacin 1 (175 mcg/3mL) Solution Inhalation daily, Spironolactone 1 Tablet (of 50 mg) Oral daily, Victoza 1 Subcutaneous daily Allergies: Cephalexin and Ketorolac Tromethamine. Review of Systems: Review of Systems is not available for this patient. Vital Signs: Performed on Jun 19, 2020 13:20 Height - 64.00 in Weight - 257.4 lbs (HIGH) BSA - 2.18 sq.m BMI - 44.18 (HIGH) Temperature - 96.8 F (LOW) Pulse - 75 /min Respiration - 20 /min BP - 83/58 mm(hg) (LOW) O2 Sat - 92 % (LOW) Pain - 0 Fatigue - 10 Performance Status: 2 - Ambulatory/capable of all self-care, unable to perform any work activities. Up and about more than 50% of waking hours. (ECOG) Physical Examination: Respiratory - Poor air entry otherwise clear, Cardiovascular - Regular rate and rhythm of heart, Gastrointestinal - Soft, bowel sounds present, Extremities - Trace edema bilaterally. Lab/Imaging: Test performed on May 18, 2020 10:20 Ferritin 155 ng/mL Folate, Serum 4.6 ng/mL Iron 56 mcg/dL Sodium 138 mmol/L Vitamin B12 419 pg/mL Iron Binding Capacity (TIBC) 381 mcg/dl Potassium 3.5 mmol/L % Iron Saturation 14.6 % Chloride 93 mmol/L CO2 39 mmol/L UIBC 325 mcg/dL Anion Gap 9.5 BUN 18 mg/dL Creatinine 1.2 mg/dL Cr Clearance (Est) 101.2100 mL/min eGFR 47.6 mL/min Glucose 78 mg/dL Osmolality - Calculated 287 mOsm/kg Calcium 9.2 mg/dL Protein, Total 6.1 g/dL Albumin 3.6 g/dL Globulin 2.5 g/dL Bilirubin, Total 0.7 mg/dL ALT (SGPT) 21 U/L AST (SGOT) 32 U/L Alkaline Phosphatase 259 IU/L WBC 5.7 10 3/uL RBC 2.71 10 6/uL HGB 8.5 g/dL HCT 29.1 % MCV 107.4 fL MCH 31.4 pg MCHC 29.2 g/dL RDW 18.3 % Platelet Count 163 10 3/cmm MPV 11.6 fL Neutrophils 4.11 10 3/uL Lymphocytes 0.6 10 3/uL Monocytes 0.7 10 3/uL Eosinophils 0.2 10 3/uL Basophils 0.0 10 3/uL Neutrophil % 71.8 % Lymphocyte % 10.5 % Monocyte % 12.3 % Eosinophil % 3.9 % Basophils % 0.4 % NRBC % 0 % Test performed on Mar 13, 2020 13:10 CBC Slide Review Slide Review Perform SLIDE REVIEW AGREES WITH AUTOMATED RESULTS Test performed on Jan 19, 2020 11:10 Cholesterol, Total 186 mg/dL HDL Cholesterol 51 mg/dL LDL Cholesterol 112 mg/dL Triglycerides 115 mg/dL Impression: Triple negative invasive ductal carcinoma, involving left breast status post ultrasound-guided biopsy done on November 05, 2019 final pathology report showed ER MS negative HER-2/coirna negative with a high Ki-67 at 90% Status post 4 cycles of chemotherapy with Cytoxan/Taxotere followed by left breast lumpectomy and sentinel lymph node done on April 17, 2020 which showed excellent response e.g. almost complete response e.g. only micro invasion seen, less than 1 mm and 1 left axillary sentinel lymph node was examined showed no evidence of disease Ultrasound/mammogram left breast done on October 01, 2019 showed 5.1 x 3.9 x 4.1 cm left breast mass at 3 o'clock position with no abnormal lymph nodes seen in left axilla .Clinical stage IIb v/s III History of pulmonary embolism on Eliquis Recent history of vaginal bleeding now being evaluated by [facility] Dr. Chowdary History of renal insufficiency, as per patient she used to be on hemodialysis but not anymore. History of hepatitis C Chronic hypercapnic respiratory failure, now on home oxygen Diastolic congestive heart failure. Pulmonary embolism on anticoagulation With Eliquis Posttraumatic stress disorder, anxiety, depression, panic disorder. Obstructive sleep apnea Chronic kidney disease stage III. s/p neoadjuvant chemotherapy with cyclophosphamide docetaxel with growth factor support x4 Started on December 21, 2019. , After completion of 4 doses was referred to surgery for on April 17, 2020, she underwent lumpectomy/simple partial mastectomyAnd pathology showed yIIB, T1mi, N0,, was referred to radiation oncology for post lumpectomy radiation therapy which was started in first week of June 2020 Iron deficiency anemia started on oral iron on June 19, 2020 Plan: . Discussed with patient regarding her labs white blood count 7.7 hemoglobin 9 hematocrit 30.1 platelets 230,000 CMP within normal limit except creatinine 1.2 iron studies shows iron saturation 40.6% iron 56, ferritin 155, TIBC 381, B12 419 Clinically, patient is doing well, denies any new complaints except generalized weakness and fatigue, her follow-up labs shows persistent moderate anemia iron studies shows low iron probably due to excessive bleeding due to right tibia fracture while on anticoagulation and required blood transfusion. At this point patient was advised to take [id number] oral iron 1 tablet twice a day and return to clinic in 1 month with CBC and iron studies As far as breast cancer is concerned, patient is undergoing postlumpectomy radiation therapy, tolerating well. As for generalized weakness and fatigue is concerned probably multifactorial including due to iron deficiency anemia other possibility could be noncompliance with CPAP as patient has sleep apnea, patient was advised to use CPAP machine as recommended, hopefully that will help her generalized weakness and fatigue and as mentioned above we will see her back in 1 month with CBC and iron studies. Signed By: Serjio Lundberg M.D. <<Signature on File>>
[2020-06-20 11:56] LABS: Erythrocyte Sedimentation Rate 42 mm/hr (0-15)
--- NOTE | 2020-06-20 13:42 | ONCRAD TMN_ITS ---
Radiation Oncology Treatment Management Note Patient Name: Meka Bhatia Date of : 1970 Date of Service: 06/20/2020 Attending Physician: Russell Dai M.D. Meka Bhatia is a 50 year-old white female diagnosed with an initial clinical stage IIIB (T3N0) grade 3 invasive ductal carcinoma of the upper outer quadrant of the left breast. The breast cancer profile was triple negative with a Ki-67 of 90%. Neoadjuvant chemotherapy consisting of cyclophosphamide and docetaxel was administered for 4 cycles (December 21, 2019 through March 06, 2020). A partial mastectomy with sentinel lymph node biopsy was performed on April 17, 2020. The pathological stage was yIIB -T1miN0. She has received 16 Gy of a prescribed 40 Gy delivered with a 3D conformal radiotherapy plan utilizing opposed tangential portal escobedo utilizing a [id number]-bj-tkrny treatment technique. An additional 10 Gy in 5 fractions will be administered to the surgical bed at the conclusion of the whole breast treatment as a consequence of the patient's high-grade tumor characteristics. Upon review of systems, she denied any breast complaints to radiotherapy. On physical examination, the patient weighed 259 lbs. Her temperature was 97.7 ???F with a blood pressure of 102/64 mmHg. Her pulse was 64 bpm and her respiratory rate was 20. There was no erythema within the treatment escobedo of the left breast. Continue left breast radiotherapy as planned. Signed by: Dr. Russell Dai 06/20/2020 1:40:56 PM
== END 2020-07-09 23:59 | disposition home or self-care (01) ==
LOC: ONCMED 05:36
PROVIDERS: Student in an Organized Health Care Education/Training Program; PCP Family Medicine; Visit Provider Radiology Radiation Oncology
DX: Z51.0 Encounter for antineoplastic radiation therapy (principal); C50.812 Malignant neoplasm of overlapping sites of left female breast; Z17.1 Estrogen receptor negative status [ER-]; F17.210 Nicotine dependence, cigarettes, uncomplicated; Z99.81 Dependence on supplemental oxygen; I26.99 Other pulmonary embolism without acute cor pulmonale; Z79.01 Long term (current) use of anticoagulants; J96.12 Chronic respiratory failure with hypercapnia; I50.30 Unspecified diastolic (congestive) heart failure; F43.10 Post-traumatic stress disorder, unspecified; F41.9 Anxiety disorder, unspecified; F32.9 Major depressive disorder, single episode, unspecified; F41.0 Panic disorder [episodic paroxysmal anxiety]; G47.33 Obstructive sleep apnea (adult) (pediatric); N18.30 Chronic kidney disease, stage 3 unspecified; D50.9 Iron deficiency anemia, unspecified; Z79.899 Other long term (current) drug therapy
CPT/HCPCS: 36591; 77321; 77334; 77336; 77387; 77412; 80053; 85025; 85651; 99214

== ENCOUNTER 2020-07-17 05:26 | Outpatient (RCR) | payer MEDICAID, SELFPAY ==
[2020-01-20 09:12] VITALS: BP 125/70; BMI 46.2
--- NOTE | 2020-07-10 15:49 | XRR_ITS ---
PROCEDURE INFORMATION: Exam: XR Right Tibia and Fibula Exam date and time: 07/10/2020 3:49 PM Age: 50 years old Clinical indication: Condition or disease; Other: Displaced comminuted fracture of shaft of right tibia; Prior surgery; Surgery date: 1-6 months; Surgery type: Orif RT leg FX 04/30/20; Additional info: S82.251b - displaced comminuted fracture of shaft of right tibia, initial encounter for open fracture type i or ii TECHNIQUE: Imaging protocol: XR Right tibia and fibula. Views: 2 views. COMPARISON: CR XR tibia fibula RT 2V [id number] 06/08/2020 10:22 AM FINDINGS: Bones/joints: There is a healing comminuted fracture of the proximal shaft of the fibula. There is comminuted fractures seen in the distal shaft of the tibia and fibula status post ORIF. The bones display normal anatomic alignment. Soft tissues: Normal. Other findings: Comparison to prior examination similar findings is seen XR/XR tibia fibula RT 2V [id number] IMPRESSION: 1. Stable comminuted fracture distal shaft of the tibia and fibula status post ORIF 2. Healing comminuted fracture of the proximal shaft of the fibula.
--- NOTE | 2020-07-10 15:49 | XRR_ITS ---
PROCEDURE INFORMATION: Exam: XR Right Ankle Exam date and time: 07/10/2020 3:49 PM Age: 50 years old Clinical indication: Condition or disease; Other: Displaced comminuted fracture of shaft of right tibia; Prior surgery; Surgery date: 1-6 months; Surgery type: Orif RT leg FX 04/30/20; Additional info: S82.251b - displaced comminuted fracture of shaft of right tibia, initial encounter for open fracture type i or ii TECHNIQUE: Imaging protocol: XR Right ankle. Views: 3 or more views. COMPARISON: CR XR ankle RT min 3V* [id number] 06/08/2020 10:12 AM FINDINGS: Bones/joints: Displaced comminuted fracture distal shaft of the tibia and fibula status post ORIF with metallic intramedullary dereck and screws in the tibia and metallic plate and screws in the fibula. These findings were present on prior examination. There has been no significant interval change since prior examination. The bones show anatomic alignment. Soft tissues: Unremarkable. XR/XR ankle RT min 3V* [id number] IMPRESSION: Stable comminuted fracture of the distal shaft of the tibia and fibula status post ORIF
--- NOTE | 2020-07-12 14:48 | ONCRAD TMN_ITS ---
Radiation Oncology Weekly Treatment Management Patient: Sriram Rueda MR#: [id number] : 1970> Attending Physician: Dr. Tyrone Luz Date of Service: 07/12/2020 Referring Physician(s) : Dr. Lundberg Diagnosis: C50.812 - Malignant neoplasm of overlapping sites of left female breast, Diagnosed 11/05/2019 (Active) Stage IIIB, T3, N0, M0, G3, HER2 Neg, ER Neg, RI Neg Radiotherapy to date: Course: C1, Treatment Site: Breast Ca, Ref. ID: [id number], Energy: 15X/6X, Dose/Fx (cGy): 266.7, #Fx: 10 / 15, Dose Correction (cGy): 0, Total Dose (cGy): 2,666.7, Start Date: 06/13/2020, Elapsed Days: 29 Reason for visit: The patient is being seen today as part of their regularly scheduled weekly on treatment visits to assess for acute toxicities from radiotherapy. Review of Systems: She has no breast symptoms. Recent spontaneous fracture of right distal leg now immobilized and seen by Ortho and ID this week with good report. Now has 10 on 10 scale of pain in leg over the last day, No F or C, N or V. Tylenol not working and she cannot take NSAIDS. Did well with OC in the past. She just got her first COVID shot this week as well. Vital Signs: Performed on 07/12/2020 1:10 PM BMI - 41.402 kg/m2 (high), Height - 64.00 in, Weight - 241.2 lbs, Temperature - 98.1 f, Pulse - 72, Respiration - 20, O2 Sat - 91 % (low), Pain - 8 and BP - 113/ 69 mm(hg). Physical Exam: Left breast mild tanning and erythema inf breast and inframammary fold. No desquamation. Right leg in soft immobilization boot. Imaging: Radiation therapy imaging related to accurate target localization (i.e. KV, MV and CBCT) was reviewed. Appropriate changes, if any, were made to ensure treatment accuracy. Plan: Good tolerance of RT. Continue as planned. She wants to avoid ER visit for leg pain. We will rx OC 10 Mg #100 for severe right leg pain. I instructed her to call Ortho for recheck next week. Signed by: Dr. Tyrone Luz 07/12/2020 2:47:30 PM
== END 2020-08-09 23:59 | disposition home or self-care (01) ==
LOC: ONCMED 05:26
PROVIDERS: PCP Family Medicine; Visit Provider Internal Medicine Hematology & Oncology
DX: Z51.0 Encounter for antineoplastic radiation therapy (principal); C50.812 Malignant neoplasm of overlapping sites of left female breast; Z17.1 Estrogen receptor negative status [ER-]; S82.831B Other fracture of upper and lower end of right fibula, initial encounter for open fracture type I or II; S82.251B Displaced comminuted fracture of shaft of right tibia, initial encounter for open fracture type I or II; S82.831D Other fracture of upper and lower end of right fibula, subsequent encounter for closed fracture with routine healing
CPT/HCPCS: 73590; 73610; 77336; 77387; 77412